=== PATIENT | male | born 1940 | race Caucasian/White ===

== ENCOUNTER 2017-05-08 11:02 | Inpatient (IN) ==
[~2017-05-08 11:02] MED LIST: DIAZEPAM 5 MG TABLET PO ONE; SODIUM CHLORIDE 0.45% 1,000 ML IV SCH; diphenhydrAMINE CAP 25 MG CAPSULE PO ONE
[2017-05-08 12:20] LABS: Eosinophils # 0.1 10*3/uL (0.0-0.87); Eosinophils % 1.1 % (0.00-10.9); Hematocrit 30.6 VOL% (42.0-52.0); Hemoglobin 10.4 GM/DL (14.0-18.0); Immature Granulocytes % 0.2 %; Immature Granulocytes Absolute 0.01 #; Lymphocytes # 0.8 10*3/uL (1.4-4.0); Lymphocytes % 18.1 % (21.2-54.2); Mean Corpuscular Hemoglobin 31 PG (27-34); Mean Corpuscular Volume 92.2 FL (87-102); Monocytes # 0.7 10*3/uL (0.11-0.8); Monocytes % 14.9 % (1.7-12.7); Neutrophils # 2.9 10*3/uL (1.4-7.4); Neutrophils % 65.7 % (38.7-73.9); Platelet Count 196 T/CUMM (130-400); Red Blood Count 3.32 MC/CUMM (3.8-5.5); Red Cell Distribution Width 13.4 % (9.3-17.3); White Blood Count 4.4 T/CUMM (4-12)
[2017-05-08] MEDS ORDERED: diphenhydrAMINE CAP 25 MG CAPSULE ONE (12:20)
[2017-05-08] MEDS ORDERED: DIAZEPAM 5 MG TABLET ONE (12:20)
[2017-05-08] MEDS ORDERED: ASPIRIN 325 MG TABLET ONE (12:21)
[2017-05-08] MEDS ORDERED: ASPIRIN 325 MG TABLET PO ONE (12:32)
--- NOTE | 2017-05-08 12:46 | History and Physical Update ---
Sedation H&P Update - History and Physical H&P was reviewed, the patient examined and there: are no changes in the patients condition since last H&P was completed. - Dictation Physical: refer to scanned H&P - Physical Exam Mental Status: alert and oriented Heart: regular rate and rhythm Lung: clear to auscultation Abdomen: within normal limits Vitals: within normal limits - Sedation Plan for Sedation: moderate Patient Consent: Procedure disscussed with patient and patinet has consented., Risks and benefits were discussed with patient,including infection,, bleeding, injury to surrounding structures, seizure, temporary nerve, Patient understands and accepts potential risks/benefits and agrees to, proceed. ASA Class: III Airway Assessment: Class III: Soft palate, base of uvula visible
[2017-05-08] MEDS ORDERED: VERAPAMIL 5 MG/2 ML VIAL ONE (12:48)
[2017-05-08] MEDS ORDERED: LIDOCAINE 1% 20 ML VIAL ONE (12:48)
[2017-05-08] MEDS ORDERED: NITROGLYCERIN DRIP 50 MG/250 ML BOTTLE IV ONE (12:48)
[2017-05-08] MEDS ORDERED: HEPARIN/NACL 0.9% 2 UNITS/ML 1,000 ML IV ONE (12:48)
[2017-05-08 12:52] LABS: Calcium 9.3 MG/DL (8.5-10.1); Osmolality,Calculated 278.5 MOS/KG (273-304); Potassium 4.3 MMOL/L (3.5-5.1)
[2017-05-08] MEDS ORDERED: MIDAZOLAM 2 MG/2 ML VIAL ONE (12:53)
[2017-05-08] MEDS ORDERED: fentaNYL 100 MCG/2 ML VIAL ONE (12:53)
[2017-05-08] MEDS ORDERED: ENOXAPARIN 60 MG/0.6 ML SYRINGE ONE (13:05)
[2017-05-08] MEDS ORDERED: ACETAMINOPHEN 325 MG TABLET PO PRN (13:37)
[2017-05-08] MEDS ORDERED: DOCUSATE SODIUM 100 MG CAPSULE PO PRN (13:38)
[2017-05-08] MEDS ORDERED: NITROGLYCERIN SL 0.4 MG TABLET SL PRN (13:38)
--- NOTE | 2017-05-08 13:40 | EKG Report ---
Stationary ECG Study [facility] Test Date: 05/08/2017 12:22:39 PM Pat Name: GAL NUGENT Department: Room: C007 Gender: M Loan Documentation Specialist: : [id number] Requested by: Niru Glaser Order Number: [id number] Reading MD: DYLAN ZAVALETA Intervals [place] Rate: 61 P: 33 PA: 194 QRS: -29 QRSD: 164 T: 34 QT: 439 QTc: 441 Interpretive Statements SINUS RHYTHM WITH SINUS ARHYTHMIA AND A PREMATURE VENTRICULAR COMPLEX MILD LEFT AXIS DEVIATION RIGHT BUNDLE BRANCH BLOCK POSSIBLE LEFT VENTRICULAR HYPERTROPHY T WAVE ABNORMALITY, POSSIBLE ANTERIOR ISCHEMIA Electronically Signed On 05-12-17 06:35:11 CDT by DYLAN ZAVALETA [email or web address]
--- NOTE | 2017-05-08 16:43 | XRay Report ---
Portable chest Exam date: 05/08/2017 12:04 PM Indication: Shortness of breath, cough Comparison: Not available Findings: Cardiomediastinal contours are within normal limits for portable technique. Chemo-Port in satisfactory position from left subclavian approach. Lungs are clear bilaterally. No acute osseous abnormalities. Visualized upper abdomen demonstrates no acute pathology. Impression: No acute cardiopulmonary findings PROCEDURE INTERPRETED AT [facility] DEPARTMENT OF RADIOLOGY Final Report Signed by: César Hardy
[2017-05-08] MEDS: CARVEDILOL 3.125 MG TABLET PO SCH (20:37)
[2017-05-08] MEDS: ATORVASTATIN 40 MG TABLET PO SCH (20:37)
[2017-05-09 05:11] LABS: Basophils % 0.2 % (0.0-0.8); Eosinophils # 0.1 10*3/uL (0.0-0.87); Eosinophils % 1.3 % (0.00-10.9); Hematocrit 28.3 VOL% (42.0-52.0); Hemoglobin 9.5 GM/DL (14.0-18.0); Immature Granulocytes % 0.4 %; Immature Granulocytes Absolute 0.02 #; Lymphocytes # 0.8 10*3/uL (1.4-4.0); Lymphocytes % 16.4 % (21.2-54.2); Mean Corpuscular HGB Conc 33.6 GM/DL (32-36); Mean Corpuscular Hemoglobin 31 PG (27-34); Mean Corpuscular Volume 93.4 FL (87-102); Mean Platelet Volume 10.4 FL (9.6-12.0); Monocytes # 0.7 10*3/uL (0.11-0.8); Monocytes % 13.8 % (1.7-12.7); Neutrophils # 3.2 10*3/uL (1.4-7.4); Neutrophils % 67.9 % (38.7-73.9); Platelet Count 192 T/CUMM (130-400); Red Blood Count 3.03 MC/CUMM (3.8-5.5); Red Cell Distribution Width 13.7 % (9.3-17.3); White Blood Count 4.8 T/CUMM (4-12)
[2017-05-09 06:00] LABS: Calcium 9.2 MG/DL (8.5-10.1); Osmolality,Calculated 277.7 MOS/KG (273-304); Potassium 4.2 MMOL/L (3.5-5.1); Risk Ratio 5.29
[2017-05-09] MEDS ORDERED: DEXTROSE 50% 25 GM/50 ML SYRINGE IV PRN (08:54)
[2017-05-09] MEDS ORDERED: GLUCAGON 1 MG VIAL IM PRN (08:54)
[2017-05-09] MEDS ORDERED: CEFUROXIME INJ 1,500 MG in SODIUM CHLORIDE 0.9% 100 ML IV ONE (08:54)
--- NOTE | 2017-05-09 08:54 | Cardiothoracic Progress Note ---
Cardiothoracic Subjective Interval history: Mr. Vera is a 76-year-old man with known multiple myeloma who is currently on a chemotherapy regimen. His myeloma appears to be under good control but the patient also has complaints of chest discomfort and shortness of breath. He underwent cardiac catheterization yesterday which demonstrated severe diffuse coronary disease with a 99% occlusion of the proximal LAD. I think he clearly needs bypass surgery both to the LAD and hopefully to the right posterior descending and circumflex marginal coronary arteries. I discussed this at length with him and he is willing to proceed and I have scheduled surgery for Monday. Exam (Progress Note) - Constitutional Vitals: Period Temp Pulse Resp BP Sys/Weaver Pulse Ox Last 24 Hr 97.4 F-98.4 F 55-71 16-20 127-177/63-81 94-98 Result/EKG - Labs CBC & BMP: 05/09/17 03:58 05/09/17 03:58 Labs: Laboratory Results - last 24 hr 05/08/17 05/08/17 05/09/17 12:01 12:01 03:58 WBC 4.4 4.8 RBC 3.32 L 3.03 L Hgb 10.4 L 9.5 L Hct 30.6 L 28.3 L MCV 92.2 93.4 MCH 31 31 MCHC 34.0 33.6 RDW 13.4 13.7 Plt Count 196 192 MPV 10.0 10.4 Neut % (Auto) 65.7 67.9 Lymph % (Auto) 18.1 L 16.4 L [place] % (Auto) 14.9 H 13.8 H Eos % (Auto) 1.1 1.3 Baso % (Auto) 0.0 0.2 Neut # (Auto) 2.9 3.2 Lymph # (Auto) 0.8 L 0.8 L [place] # (Auto) 0.7 0.7 Eos # (Auto) 0.1 0.1 Baso # (Auto) 0.0 0.0 Immature Gran % 0.2 0.4 Nucleated RBC % 0.0 0.0 Immature Gran # 0.01 0.02 Nucleated RBCs # 0.00 0.00 Immature Plt Fraction 0.0 0.0 Sodium 139 Potassium 4.3 Chloride 104 Carbon Dioxide 29 Anion Gap 10.3 BUN 13 Creatinine 0.90 GFR Calculation 107 BUN/Creatinine Ratio 14.00 Glucose 134 H Calculated Osmolality 278.5 Calcium 9.3 Triglycerides Cholesterol LDL Cholesterol VLDL Cholesterol HDL Cholesterol Heart Disease Risk Ratio 05/09/17 03:58 WBC RBC Hgb Hct MCV MCH MCHC RDW Plt Count MPV Neut % (Auto) Lymph % (Auto) [place] % (Auto) Eos % (Auto) Baso % (Auto) Neut # (Auto) Lymph # (Auto) [place] # (Auto) Eos # (Auto) Baso # (Auto) Immature Gran % Nucleated RBC % Immature Gran # Nucleated RBCs # Immature Plt Fraction Sodium 138 Potassium 4.2 Chloride 103 Carbon Dioxide 28 Anion Gap 11.2 BUN 14 Creatinine 1.00 GFR Calculation 93 BUN/Creatinine Ratio 14.00 Glucose 136 H Calculated Osmolality 277.7 Calcium 9.2 Triglycerides 110 Cholesterol 238 H LDL Cholesterol 159.0 VLDL Cholesterol 22.0 HDL Cholesterol 45 Heart Disease Risk Ratio 5.29 Quality Measures - VTE Contraindication to Pharmacological VTE Prophylaxis: Already on Theraputic Agent , No Prophylaxis Needed
[2017-05-09] MEDS ORDERED: SODIUM CHLORIDE 0.9% 1,000 ML IV SCH (09:00)
[2017-05-09] MEDS: SERTRALINE 100 MG TABLET PO SCH (09:32)
[2017-05-09] MEDS: PANTOPRAZOLE 40 MG TABLET PO SCH (09:32)
[2017-05-09] MEDS: CALCIUM (CARBONATE) 600 MG TABLET PO SCH (09:32)
[2017-05-09] MEDS: CARVEDILOL 3.125 MG TABLET PO SCH ×2 (09:32→20:32)
[2017-05-09] MEDS: ASPIRIN EC 81 MG TABLET PO SCH (09:32)
[2017-05-09] MEDS: CHLORHEXIDINE 0.12% ORAL RINSE 60 ML BOTTLE SWISH/SPIT SCH ×2 (10:06→20:33)
--- NOTE | 2017-05-09 10:09 | Order Completion Report ---
See report scanned to EMR
[2017-05-09 10:31] LABS: ABG Base Excess 1.2 MMOL/L (-2.5-2.5); ABG HCO3 25.4 MMOL/L (20-26); ABG Oxygen Saturation 92.9 % (95-100); ABG PCO2 45.8 MM HG (35-48); ABG PH 7.374 (7.35-7.45); ABG PO2 69.3 MM HG (80-95); ABG TCO2 24.3 MMOL/L (23-27); Allen Test Positive; Pt O2 Delivery Device Room Air
--- NOTE | 2017-05-09 10:34 | XRay Report ---
Exam: XR chest 2V Date: 05/09/2017 8:58 AM Indication: Coronary artery disease Comparison: 05/08/2017 Technical: PA lateral Findings: A left-sided port catheter is present. Mild cardiomegaly is present. Underlying mild hyperinflation. Degenerative change present thoracic spine with mild compression deformities in the lower thoracic spine at 2 levels. Mediastinum is intact. No pneumothorax. Impression: 1. Cardiomegaly and stable position port catheter 2. Compression deformity lower thoracic spine at 2 levels 3. Underlying component of COPD with hyperinflation PROCEDURE INTERPRETED AT [facility] DEPARTMENT OF RADIOLOGY Final Report Signed by: Dr. Patrice Buitrago
--- NOTE | 2017-05-09 13:16 | Cardiology Progress Note ---
<Darlene Virk - Last Filed: 05/09/17 13:21> Assessment and Plan (1) 3-vessel CAD Status: Acute Assessment and plan: SEE PLAN OF CARE LISTED BELOW. Current Visit: Yes (2) Multiple myeloma Status: Acute Assessment and plan: SEE PLAN OF CARE LISTED BELOW. Current Visit: Yes (3) Dyslipidemia Status: Acute Assessment and plan: SEE PLAN OF CARE LISTED BELOW. Current Visit: Yes (4) Hypertension Status: Chronic Assessment and plan: SEE PLAN OF CARE LISTED BELOW. Current Visit: Yes (5) Former smoker Status: Chronic Assessment and plan: SEE PLAN OF CARE LISTED BELOW. Current Visit: No (6) Hyperglycemia Status: Acute Assessment and plan: SEE PLAN OF CARE LISTED BELOW. Current Visit: Yes Cardiology - PN: Subj Interval history: RN DIABETES EDUCATOR: Dr. Niru Glaser SUMMARY Patient was admitted to [facility] for elective heart catheterization May 08, 2017. Past medical history includes: Ischemic cardiomyopathy (most recent EF 39%), multiple myeloma (currently receiving chemotherapy, Dr. Calixto), GERD and former smoker. He had abnormal stress test in the cardiology clinic and was scheduled for heart catheterization. This was performed per Dr. Glaser 05/08/17 via right radial approach which revealed severe three-vessel coronary artery disease. Subsequently, Dr. Hernandez was consulted to evaluate for possible CABG. Please see full catheter report. Dr. Glaser discussed with Dr. Calixto, patient's primary surveyor chain helper regarding the status of his multiple myeloma. It is felt that the best approach is to place his chemotherapy on hold and proceed with CABG. Patient was seen in consultation per Dr. Hernandez earlier today and he plans to proceed with CABG tomorrow morning. 2016 Patient was seen and examined on the telemetry unit. He is doing well post catheterization without complications. Right radial cath site is stable without bleeding and hematoma. Right radial pulse 2+. Patient is without complaints of chest pain, heaviness or tightness. Denies shortness of breath or dyspnea on exertion today. Patient was seen in consultation by Dr. Hernandez today and plans to proceed with CABG tomorrow morning. Patient is agreeable to to proceed with this. He will be kept n.p.o. after midnight. Patient is hemodynamically stable. Labs reviewed. He is mildly anemic. We will monitor this daily. No signs of overt bleeding. Lipid panel reviewed. LDL 159. High intensity statin was initiated per Dr. Glaser. Creatinine stable post catheterization. Blood pressure is suboptimally controlled at times. I will add KAMILA inhibitor as this will also help with patient's ischemic cardiomyopathy. I will further discuss with Dr. Uribe and await his additional recommendations. IMPRESSION AND PLAN 1. THREE-VESSEL CAD - Heart catheterization yesterday revealed three-vessel disease. Patient scheduled for CABG tomorrow per Dr. Hernandez. Patient will be n.p.o. after midnight tonight. Continue aspirin, beta-blockade, will lisinopril and nitrates. Patient has been chest pain-free. 2. HYPERTENSION - KAMILA inhibitor added today. Continue beta blockade. Will monitor blood pressure and adjust accordingly. 3. ISCHEMIC CARDIOMYOPATHY - EF calculated to be 39% per recent stress test. Without overt heart failure. Continue KAMILA inhibitor and beta blockade. Scheduled for revascularization tomorrow. 4. DYSLIPIDEMIA - I have reviewed patient's lipid panel. LDL 159. High intensity statin initiated. Patient will need repeat lipid panel in 4-6 weeks in the cardiology clinic. 5. HYPERGLYCEMIA - Will check hemoglobin A1c. 6. MULTIPLE MYELOMA - Patient is currently taking chemotherapy. Dr. Glaser discussed with Dr. Calixto yesterday regarding patient's status of his multiple myeloma. It is felt that the best approach is to place his chemotherapy on hold and to proceed with CABG tomorrow. Exam (Progress Note) - Constitutional Vitals: Period Temp Pulse Resp BP Sys/Weaver Pulse Ox Last 24 Hr 97.4 F-98.4 F 55-71 16-20 127-177/63-81 94-98 Exam: General: Appears well with no apparent distress. Pleasant and cooperative. Appears comfortable. HEENT: PERRL, normocephalic, atraumatic. Mucous membranes moist. No jaundice noted. Conjunctiva moist and clear, sclerae anicteric Neck: No JVD/HJR, no thyromegaly or lymphadenopathy noted. No carotid bruit appreciated Cardiac: Regular rate and rhythm. No murmur rub or gallop. Lungs: Clear to auscultation without accessory muscle use to assist the respiratory pattern. Not requiring oxygen. Abdomen: Soft, bowel sounds normoactive. Nontender and nondistended. No abdominal bruit or thrill noted. No masses noted. Extremities: No clubbing, cyanosis noted. No edema noted. Upper extremity pulses 2+. Lower extremity pulses 2+. Capillary refill less than 3 seconds. Right radial cath site soft without bleeding or hematoma. Right radial pulse 2+ . Skin: No unusual lesions or rashes. No skin breakdown appreciated. Neuro: Awake, alert and oriented 3. Moves all extremities well without hemiparesis or paralysis. No essential tremor is appreciated. Result/EKG - Labs CBC & BMP: 05/09/17 03:58 05/09/17 03:58 Lab Results: I have reviewed the past 24 hour labs Labs: Laboratory Results - last 24 hr 05/09/17 05/09/17 05/09/17 03:58 03:58 03:58 WBC 4.8 RBC 3.03 L Hgb 9.5 L Hct 28.3 L MCV 93.4 MCH 31 MCHC 33.6 RDW 13.7 Plt Count 192 MPV 10.4 Neut % (Auto) 67.9 Lymph % (Auto) 16.4 L [place] % (Auto) 13.8 H Eos % (Auto) 1.3 Baso % (Auto) 0.2 Neut # (Auto) 3.2 Lymph # (Auto) 0.8 L [place] # (Auto) 0.7 Eos # (Auto) 0.1 Baso # (Auto) 0.0 Immature Gran % 0.4 Nucleated RBC % 0.0 Immature Gran # 0.02 Nucleated RBCs # 0.00 Immature Plt Fraction 0.0 ABG pH ABG pCO2 ABG pO2 ABG HCO3 ABG Total CO2 ABG O2 Saturation ABG Base Excess FiO2 Sodium 138 Potassium 4.2 Chloride 103 Carbon Dioxide 28 Anion Gap 11.2 BUN 14 Creatinine 1.00 GFR Calculation 93 BUN/Creatinine Ratio 14.00 Glucose 136 H Calculated Osmolality 277.7 Calcium 9.2 Triglycerides 110 Cholesterol 238 H LDL Cholesterol 159.0 VLDL Cholesterol 22.0 HDL Cholesterol 45 Heart Disease Risk Ratio 5.29 Blood Type O NEGATIVE Antibody Screen Negative 05/09/17 05/09/17 10:00 Unknown WBC RBC Hgb Hct MCV MCH MCHC RDW Plt Count MPV Neut % (Auto) Lymph % (Auto) [place] % (Auto) Eos % (Auto) Baso % (Auto) Neut # (Auto) Lymph # (Auto) [place] # (Auto) Eos # (Auto) Baso # (Auto) Immature Gran % Nucleated RBC % Immature Gran # Nucleated RBCs # Immature Plt Fraction ABG pH 7.374 ABG pCO2 45.8 ABG pO2 69.3 L ABG HCO3 25.4 ABG Total CO2 24.3 ABG O2 Saturation 92.9 L ABG Base Excess 1.2 FiO2 21.00 Sodium Potassium Chloride Carbon Dioxide Anion Gap BUN Creatinine GFR Calculation BUN/Creatinine Ratio Glucose Calculated Osmolality Calcium Triglycerides Cholesterol LDL Cholesterol VLDL Cholesterol HDL Cholesterol Heart Disease Risk Ratio Blood Type O NEGATIVE Antibody Screen Quality Measures - VTE Contraindication to Pharmacological VTE Prophylaxis: Already on Theraputic Agent , No Prophylaxis Needed <RonyGeorge Araya - Last Filed: 05/09/17 20:23> Cardiology - PN: Subj Interval history: Patient personally reviewed and examined and chart reviewed. I discussed this case with Darlene Virk NP. I agree with the assessment and evaluation and plans. The patient is for bypass surgery more be carried out by Dr. Hernandez. The patient does have ischemic cardiomyopathy as well as dyslipidemia. We will need to follow with the patient post procedure and care at risk factor modification for coronary disease. I discussed his present status with him and his . Also answer any questions they had wished they really had none. Exam (Progress Note) - Constitutional Vitals: Period Temp Pulse Resp BP Sys/Weaver Pulse Ox Last 24 Hr 97.6 F-98.6 F 56-71 16-20 133-168/66-90 96-98 Result/EKG - Labs CBC & BMP: 05/09/17 03:58 05/09/17 03:58 Labs: Laboratory Results - last 24 hr 05/09/17 05/09/17 05/09/17 03:58 03:58 03:58 WBC 4.8 RBC 3.03 L Hgb 9.5 L Hct 28.3 L MCV 93.4 MCH 31 MCHC 33.6 RDW 13.7 Plt Count 192 MPV 10.4 Neut % (Auto) 67.9 Lymph % (Auto) 16.4 L [place] % (Auto) 13.8 H Eos % (Auto) 1.3 Baso % (Auto) 0.2 Neut # (Auto) 3.2 Lymph # (Auto) 0.8 L [place] # (Auto) 0.7 Eos # (Auto) 0.1 Baso # (Auto) 0.0 Immature Gran % 0.4 Nucleated RBC % 0.0 Immature Gran # 0.02 Nucleated RBCs # 0.00 Immature Plt Fraction 0.0 ABG pH ABG pCO2 ABG pO2 ABG HCO3 ABG Total CO2 ABG O2 Saturation ABG Base Excess FiO2 Sodium 138 Potassium 4.2 Chloride 103 Carbon Dioxide 28 Anion Gap 11.2 BUN 14 Creatinine 1.00 GFR Calculation 93 BUN/Creatinine Ratio 14.00 Glucose 136 H Hemoglobin A1c Calculated Osmolality 277.7 Calcium 9.2 Triglycerides 110 Cholesterol 238 H LDL Cholesterol 159.0 VLDL Cholesterol 22.0 HDL Cholesterol 45 Heart Disease Risk Ratio 5.29 Blood Type O NEGATIVE Antibody Screen Negative 05/09/17 05/09/17 05/09/17 10:00 13:52 Unknown WBC RBC Hgb Hct MCV MCH MCHC RDW Plt Count MPV Neut % (Auto) Lymph % (Auto) [place] % (Auto) Eos % (Auto) Baso % (Auto) Neut # (Auto) Lymph # (Auto) [place] # (Auto) Eos # (Auto) Baso # (Auto) Immature Gran % Nucleated RBC % Immature Gran # Nucleated RBCs # Immature Plt Fraction ABG pH 7.374 ABG pCO2 45.8 ABG pO2 69.3 L ABG HCO3 25.4 ABG Total CO2 24.3 ABG O2 Saturation 92.9 L ABG Base Excess 1.2 FiO2 21.00 Sodium Potassium Chloride Carbon Dioxide Anion Gap BUN Creatinine GFR Calculation BUN/Creatinine Ratio Glucose Hemoglobin A1c 8.3 H Calculated Osmolality Calcium Triglycerides Cholesterol LDL Cholesterol VLDL Cholesterol HDL Cholesterol Heart Disease Risk Ratio Blood Type O NEGATIVE Antibody Screen
[2017-05-09] MEDS: LISINOPRIL 5 MG TABLET PO SCH (14:29)
[2017-05-09] MEDS: CHLORHEXIDINE 4% SOLN 118 ML BOTTLE TOP SCH ×2 (17:54→22:23)
[2017-05-09] MEDS: ATORVASTATIN 40 MG TABLET PO SCH (20:32)
[2017-05-10] MEDS ORDERED: PAPAVERINE 60 MG/2 ML VIAL ONE (04:47)
[2017-05-10] MEDS ORDERED: VANCOMYCIN 1,000 MG VIAL ONE (04:48)
[2017-05-10] MEDS ORDERED: FAMOTIDINE 20 MG TABLET PO ONE (05:30)
[2017-05-10] MEDS ORDERED: LORazepam 1 MG TABLET PO ONE (05:30)
[2017-05-10] MEDS: CARVEDILOL 3.125 MG TABLET PO SCH ×2 (05:43→18:44)
[2017-05-10] MEDS: CHLORHEXIDINE 4% SOLN 118 ML BOTTLE TOP SCH ×2 (05:44→06:30)
[2017-05-10 05:54] LABS: Basophils % 0.2 % (0.0-0.8); Eosinophils # 0.1 10*3/uL (0.0-0.87); Eosinophils % 1.9 % (0.00-10.9); Hematocrit 28.8 VOL% (42.0-52.0); Hemoglobin 9.9 GM/DL (14.0-18.0); Immature Granulocytes % 0.4 %; Immature Granulocytes Absolute 0.02 #; Lymphocytes # 0.9 10*3/uL (1.4-4.0); Lymphocytes % 17.8 % (21.2-54.2); Mean Corpuscular HGB Conc 34.4 GM/DL (32-36); Mean Corpuscular Hemoglobin 32 PG (27-34); Mean Platelet Volume 10.2 FL (9.6-12.0); Monocytes # 0.6 10*3/uL (0.11-0.8); Monocytes % 12.1 % (1.7-12.7); Neutrophils # 3.2 10*3/uL (1.4-7.4); Neutrophils % 67.6 % (38.7-73.9); Platelet Count 192 T/CUMM (130-400); Red Blood Count 3.13 MC/CUMM (3.8-5.5); Red Cell Distribution Width 13.7 % (9.3-17.3); White Blood Count 4.8 T/CUMM (4-12)
[2017-05-10] MEDS ORDERED: CEFUROXIME INJ 1,500 MG in SODIUM CHLORIDE 0.9% 100 ML IV ONE (06:00)
[2017-05-10 06:20] LABS: PT Patient Result 10.7 SECS
[2017-05-10] MEDS ORDERED: CEFUROXIME 1,500 MG VIAL ONE (06:20)
[2017-05-10 06:22] LABS: Calcium 8.9 MG/DL (8.5-10.1); Magnesium 2.1 MG/DL (1.8-2.4); Osmolality,Calculated 280.5 MOS/KG (273-304); Potassium 4.4 MMOL/L (3.5-5.1)
[2017-05-10] MEDS ORDERED: PHENYLEPHRINE 1 MG/10 ML SYRINGE IV ONE (06:45)
[2017-05-10] MEDS ORDERED: CALCIUM CHLORIDE 1,000 MG/10 ML VIAL IV ONE (06:45)
[2017-05-10] MEDS ORDERED: LIDOCAINE 2% 5 ML VIAL ONE (06:45)
[2017-05-10] MEDS ORDERED: ROCURONIUM 100 MG/10 ML VIAL IV ONE (06:45)
[2017-05-10] MEDS ORDERED: ETOMIDATE 20 MG/10 ML VIAL IV ONE (06:45)
[2017-05-10] MEDS ORDERED: AMINOPHYLLINE 500 MG/20 ML VIAL IV ONE (06:45)
[2017-05-10] MEDS ORDERED: NITROPRUSSIDE 50 MG/2 ML VIAL ONE (07:24)
[2017-05-10] MEDS ORDERED: PHENYLEPHRINE DRIP 40 MG/250 ML PREMIX IV ONE (07:24)
[2017-05-10] MEDS ORDERED: POTASSIUM CHLORIDE RIDER 100 ML IV ONE (07:25)
[2017-05-10] MEDS ORDERED: CALCIUM CHLORIDE 1,000 MG/10 ML SYRINGE IV ONE (07:25)
[2017-05-10 07:46] LABS: ABG Base Excess 2.3 MMOL/L (-2.5-2.5); ABG HCO3 26.5 MMOL/L (20-26); ABG Oxygen Saturation 99.2 % (95-100); ABG PCO2 39.5 MM HG (35-48); ABG PH 7.444 (7.35-7.45); ABG PO2 298.2 MM HG (80-95); ABG TCO2 27.7 MMOL/L (23-27); Glucose Heart Surgery 151 MG/DL (74-106); Hemoglobin Heart Surgery 9.9 G/DL (14.0-18.0); Ionized Calcium Arterial 1.11 MMOL/L (1.21-1.46); PCO2 Patient Temp Arterial 39.5 MMHG; PH Patient Temp Arterial 7.444; PO2 Patient Temp Arterial 298.2 MM HG; Patient Temperature 37 CELCIUS; Potassium Heart/CVR 3.9 MMOL/L (3.5-5.1); Sodium Heart/CVR 137 MMOL/L (135-145)
[2017-05-10 07:50] LABS: Apearance,Urine CLEAR (Clear); Bilirubin,Urine Negative (Negative); Blood, Urine Negative (Negative); Glucose,Urine (UA) Negative (Negative); Ketones,Urine Negative (Negative); Mucus,Urine Occasional /LPF (Occasional); Nitrite,Urine Negative (Negative); Protein,Urine Negative; RBC,Urine 1 /HPF (0-4); Squamous Epithelial Cell,Urine Occasional /HPF (0-10); Urine Color Yellow (Yellow); Urine Specific Gravity 1.015 (1.001-1.035); WBC,Urine 1 /HPF (0-6)
[2017-05-10] MEDS ORDERED: INSULIN REGULAR DRIP 100 ML IV ONE (08:20)
[2017-05-10] MEDS ORDERED: CYANOCOBALAMIN 500 MCG TABLET PO SCH (09:00)
[2017-05-10 09:15] LABS: Hematocrit Heart Surgery 31.9 PERCENT (42-52); Hemoglobin Heart Surgery 10.3 G/DL (14.0-18.0); PCO2 Patient Temp Venous 42.7 MM HG; PH Patient Temp Venous 7.38; PO2 Patient Temp Venous 43.6 MM HG; Potassium Heart/CVR 4.8 MMOL/L (3.5-5.1); VBG Base Excess 0.1 MEQ/L (0-4); VBG HCO3 24.3 MEQ/L (24-28); VBG PCO2 47.1 MMHG (41-51); VBG PH 7.351
[2017-05-10 09:35] LABS: Hematocrit Heart Surgery 35.6 PERCENT (42-52); Hemoglobin Heart Surgery 11.6 G/DL (14.0-18.0); PCO2 Patient Temp Venous 36.1 MM HG; PH Patient Temp Venous 7.445; PO2 Patient Temp Venous 39.5 MM HG; Potassium Heart/CVR 5.2 MMOL/L (3.5-5.1); VBG HCO3 24.9 MEQ/L (24-28); VBG Oxygen Saturation 78.5 %; VBG PCO2 37.9 MMHG (41-51); VBG PH 7.43; VBG PO2 42.4 MMHG (17-40)
[2017-05-10 10:14] LABS: ABG Base Excess -0.4 MMOL/L (-2.5-2.5); ABG HCO3 24.1 MMOL/L (20-26); ABG Oxygen Saturation 99.5 % (95-100); ABG PCO2 41.1 MM HG (35-48); ABG PH 7.385 (7.35-7.45); ABG TCO2 22.3 MMOL/L (23-27); Glucose Heart Surgery 253 MG/DL (74-106); Hematocrit Heart Surgery 32.5 PERCENT (42-52); Hemoglobin Heart Surgery 10.5 G/DL (14.0-18.0); Ionized Calcium Arterial 1.09 MMOL/L (1.21-1.46); PCO2 Patient Temp Arterial 41.1 MMHG; PH Patient Temp Arterial 7.385; Patient Temperature 37 CELCIUS; Sodium Heart/CVR 132 MMOL/L (135-145)
[2017-05-10] MEDS ORDERED: THROMBIN TOPICAL (RECOMBINANT) 5,000 UNIT VIAL TOP ONE (10:28)
[2017-05-10] MEDS ORDERED: PROTAMINE SULFATE 250 MG/25 ML VIAL IV ONE (10:33)
[2017-05-10] MEDS ORDERED: ALBUMIN 25% 25 GM/100 ML VIAL IV ONE (10:33)
[2017-05-10] MEDS ORDERED: SODIUM BICARBONATE 50 MEQ/50 ML SYRINGE IV ONE (10:33)
[2017-05-10] MEDS ORDERED: MANNITOL 100 GM/500 ML BAG IV ONE (10:33)
[2017-05-10] MEDS ORDERED: MAGNESIUM SULFATE 1 GM/2 ML VIAL ONE (10:33)
[2017-05-10] MEDS ORDERED: DEXTROSE 5% KCL 20 MEQ 20 MEQ/1,000 ML BAG IV ONE (10:33)
[2017-05-10] MEDS ORDERED: HEPARIN 10,000 UNIT/10 ML VIAL ONE (10:33)
[2017-05-10] MEDS ORDERED: FUROSEMIDE 20 MG/2 ML VIAL ONE (10:34)
[2017-05-10] MEDS ORDERED: methylPREDNISolone SOD SUC 1,000 MG/8 ML VIAL ONE (10:34)
[2017-05-10] MEDS ORDERED: PROTAMINE SULFATE 50 MG/5 ML VIAL IV ONE ×3 (10:34→11:20)
--- NOTE | 2017-05-10 11:13 | Operative Note ---
Date of procedure: 05/10/17 Pre-op diagnosis: Coronary artery disease Post-op diagnosis: same Procedure: Procedure: Coronary bypass grafting 2 with a left internal mammary graft to the anterior descending coronary artery saphenous vein graft to the right posterior descending coronary artery. Findings: Patient is a 76-year-old man who presented with substernal chest discomfort and cardiac catheterization demonstrating critical three-vessel coronary disease. The time of surgery left ventricular function was noted to be normal and a left internal mammary graft was placed to the anterior descending coronary artery. Intermediate coronary artery with adequate access it appeared to be too small to accept a bypass graft. Saphenous vein graft was placed to a large posterior descending coronary artery. Patient tolerated procedure well and was returned to recovery in satisfactory condition. Procedure: Patient brought to the operating room placed on the operating table in the supine position. After satisfactory induction of general anesthesia the chest abdomen and legs were prepped and draped in sterile fashion. Greater saphenous vein was harvested from the left lower leg and prepared as an arterial graft. Incision in the leg was closed with 3-0 subcutaneous Monocryl and skin berto. Standard sternotomy incision was made and the sternum was divided and the heart was suspended in a pericardial cradle. Left internal mammary artery was dissected free in comparison arterial graft. Patient was prepared for cardiopulmonary bypass with systemic heparinization cannulation of the ascending aorta and right atrium. Cardiac pulmonary bypass was begun and the aorta was crossclamped and the heart arrested with cardioplegia solution injected into the aortic root. Heart was protected during the period of crossclamping with topical saline slush. Distal anastomoses were constructed as noted above and then the aorta was unclamped reestablishing cardiac action. Proximal anastomosis was constructed between the influenza saphenous vein graft and the ascending aorta. Patient was then weaned from cardiopulmonary bypass without difficulty and the heparin effect was reversed with protamine and decannulation carried out with the defects in the ascending aorta and right atrium Closed with 3-0 Prolene. The operative field was inspected for hemostasis and this was considered adequate the incision was closed with interrupted stainless steel wire and the sternum 0 Monocryl in the presternal fascia and 3-0 subcuticular Monocryl. 2 chest tubes were left in the anterior mediastinum and brought out through separate stab incisions. Sterile dressings were applied and the patient was returned to recovery in satisfactory condition. Anesthesia: GETA Surgeon / Physician: Cleveland Hernandez Estimated blood loss: other (Unable to determine because of cardiopulmonary bypass.) Condition: stable Disposition: ICU Results - Labs CBC & BMP: 05/10/17 10:05 05/10/17 05:02 Discharge Plan - Discharge Medications No Action Calcium Carbonate 600 mg PO DAILY Cyanocobalamin (Vitamin B-12) [Vitamin B12] 5,000 mcg PO DAILY HYDROcodone/ACETAMIN 5-325 [[place] 5-325] 5 mg PO Q4HR PRN PRN Reason: Pain Sertraline [Zoloft] 100 mg PO BEDTIME Docusate Sodium Cap [Colace Cap] 100 mg PO BID PRN PRN Reason: Constipation Furosemide Tab [Lasix Tab] 20 mg PO DAILY Carvedilol [Coreg] 3.125 mg PO BID Nitroglycerin Sl Tab [Nitrostat] 0.4 mg SL Q5M PRN PRN Reason: Chest Pain Potassium Chloride 10 meq PO DAILY Aspirin [Ecotrin] 81 mg PO DAILY Prochlorperazine Tab [Compazine Tab] 10 mg PO BID PRN PRN Reason: Nausea - Follow Up or Referral - Forms/Instructions
[2017-05-10] MEDS ORDERED: SUFentanil 250 MCG/5 ML AMP ONE (11:15)
[2017-05-10] MEDS ORDERED: SEVOFLURANE 1 UNIT/15 MINUTE INH ONE (11:15)
[2017-05-10] MEDS ORDERED: ePHEDrine 50 MG/ML AMP ONE (11:16)
[2017-05-10] MEDS ORDERED: SODIUM CHLORIDE 0.9% 2,000 ML IV ONE (11:16)
[2017-05-10] MEDS ORDERED: SODIUM CHLORIDE 0.9% 500 ML IV ONE (11:16)
[2017-05-10] MEDS ORDERED: LACTATED RINGERS 1,000 ML IV ONE (11:16)
[2017-05-10] MEDS ORDERED: MIDAZOLAM 10 MG/2 ML VIAL ONE (11:16)
[2017-05-10] MEDS ORDERED: SODIUM CHLORIDE 0.45% 1,000 ML IV SCH ×2 (12:01)
[2017-05-10] MEDS ORDERED: MAGNESIUM SULF RIDER 4 GM in PREMIX 1 EACH IV PRN (12:01)
[2017-05-10] MEDS ORDERED: MORPHINE 10 MG/1 ML VIAL IV PRN (12:01)
[2017-05-10] MEDS ORDERED: ACETAMINOPHEN 650 MG SUPP RECTAL PRN (12:01)
[2017-05-10] MEDS ORDERED: MIDAZOLAM 10 MG/2 ML VIAL IV PRN (12:01)
[2017-05-10] MEDS ORDERED: INSULIN REGULAR 100 UNIT/ML IV PRN (12:01)
[2017-05-10] MEDS ORDERED: PHENYLEPHRINE DRIP 40 MG/250 ML PREMIX IV PRN (12:01)
[2017-05-10] MEDS ORDERED: MAGNESIUM SULF RIDER 2 GM in PREMIX 1 EACH IV PRN (12:01)
[2017-05-10] MEDS ORDERED: DEXTROSE 50% 25 GM/50 ML SYRINGE IV PRN ×2 (12:01)
[2017-05-10] MEDS ORDERED: VECURONIUM 10 MG VIAL IV PRN ×2 (12:01)
[2017-05-10] MEDS ORDERED: MORPHINE 2 MG/1 ML SYRINGE IV PRN (12:01)
[2017-05-10] MEDS ORDERED: CALCIUM CHLORIDE 1,000 MG/10 ML SYRINGE IV PRN (12:01)
[2017-05-10] MEDS ORDERED: INSULIN REGULAR DRIP 100 ML IV SCH (12:01)
[2017-05-10] MEDS ORDERED: NITROPRUSSIDE 100 MG in DEXTROSE 5% 250 ML IV PRN (12:01)
[2017-05-10] MEDS ORDERED: MIDAZOLAM 2 MG/2 ML VIAL IV PRN (12:01)
[2017-05-10] MEDS ORDERED: POTASSIUM CHLORIDE RIDER 10 MEQ in PREMIX 1 EACH IV PRN (12:01)
[2017-05-10] MEDS ORDERED: INSULIN REGULAR 100 UNIT/ML IV ONE (12:01)
[2017-05-10] MEDS ORDERED: ONDANSETRON 4 MG/2 ML VIAL IV PRN (12:01)
[2017-05-10] MEDS ORDERED: LACTATED RINGERS 250 ML IV PRN (12:01)
[2017-05-10 12:03] LABS: ABG Base Excess -1.3 MMOL/L (-2.5-2.5); ABG HCO3 23.2 MMOL/L (20-26); ABG Oxygen Saturation 93.2 % (95-100); ABG PCO2 37.1 MM HG (35-48); ABG PH 7.401 (7.35-7.45); ABG PO2 68.4 MM HG (80-95); ABG TCO2 20.6 MMOL/L (23-27); Glucose Heart Surgery 224 MG/DL (74-106); Hematocrit Heart Surgery 34.9 PERCENT (42-52); Hemoglobin Heart Surgery 11.3 G/DL (14.0-18.0); Potassium Heart/CVR 4.3 MMOL/L (3.5-5.1)
[2017-05-10 12:21] LABS: Albumin 2.9 G/DL (3.4-5.0); Calcium 9.1 MG/DL (8.5-10.1); Magnesium 2.2 MG/DL (1.8-2.4); Osmolality,Calculated 285.4 MOS/KG (273-304); Potassium 4.3 MMOL/L (3.5-5.1); Total Protein 5.2 G/DL (6.4-8.3)
[2017-05-10 12:23] LABS: Basophils % 0.1 % (0.0-0.8); CKMB % 6.3 %; Eosinophils # 0.1 10*3/uL (0.0-0.87); Hematocrit 32.1 VOL% (42.0-52.0); Hemoglobin 11.2 GM/DL (14.0-18.0); Immature Granulocytes % 1.1 %; Immature Granulocytes Absolute 0.11 #; Lymphocytes # 0.6 10*3/uL (1.4-4.0); Lymphocytes % 6.4 % (21.2-54.2); Mean Corpuscular HGB Conc 34.9 GM/DL (32-36); Mean Corpuscular Hemoglobin 32 PG (27-34); Mean Corpuscular Volume 90.9 FL (87-102); Mean Platelet Volume 10.3 FL (9.6-12.0); Monocytes # 0.5 10*3/uL (0.11-0.8); Monocytes % 5.2 % (1.7-12.7); Neutrophils # 8.6 10*3/uL (1.4-7.4); Neutrophils % 86.2 % (38.7-73.9); Platelet Count 148 T/CUMM (130-400); Red Blood Count 3.53 MC/CUMM (3.8-5.5); Red Cell Distribution Width 13.8 % (9.3-17.3)
[2017-05-10 12:29] LABS: INR 1.2; PT Patient Result 12.8 SECS; Troponin I Only 1.48 NG/ML (0.00-0.045)
[2017-05-10] MEDS: KETOROLAC 30 MG/1 ML VIAL IV SCH ×2 (12:40→18:05)
[2017-05-10 13:15] LABS: Hematocrit Heart Surgery 36.1 PERCENT (42-52); Hemoglobin Heart Surgery 11.7 G/DL (14.0-18.0); PCO2 Patient Temp Venous 45.1 MM HG; PH Patient Temp Venous 7.358; PO2 Patient Temp Venous 35.3 MM HG; VBG Base Excess -0.4 MEQ/L (0-4); VBG HCO3 23.4 MEQ/L (24-28); VBG Oxygen Saturation 61.9 %; VBG PCO2 45.1 MMHG (41-51); VBG PH 7.358; VBG PO2 35.3 MMHG (17-40)
[2017-05-10 13:17] LABS: ABG Base Excess -1.3 MMOL/L (-2.5-2.5); ABG HCO3 23.3 MMOL/L (20-26); ABG Oxygen Saturation 98.4 % (95-100); ABG PCO2 36.2 MM HG (35-48); ABG PH 7.408 (7.35-7.45); ABG TCO2 20.1 MMOL/L (23-27); Glucose Heart Surgery 206 MG/DL (74-106); Hematocrit Heart Surgery 38.4 PERCENT (42-52); Hemoglobin Heart Surgery 12.5 G/DL (14.0-18.0); Potassium Heart/CVR 3.9 MMOL/L (3.5-5.1)
[2017-05-10] MEDS: ALBUMIN 5% 12.5 GM in PREMIX 1 EACH IV PRN ×4 (13:20→16:30)
[2017-05-10 13:35] LABS: Hematocrit Heart Surgery 34.1 PERCENT (42-52); Hemoglobin Heart Surgery 11.1 G/DL (14.0-18.0); PH Patient Temp Venous 7.363; PO2 Patient Temp Venous 37.9 MM HG; Potassium Heart/CVR 3.8 MMOL/L (3.5-5.1); VBG Base Excess -1.5 MEQ/L (0-4); VBG HCO3 22.6 MEQ/L (24-28); VBG Oxygen Saturation 66.4 %; VBG PH 7.363; VBG PO2 37.9 MMHG (17-40)
--- NOTE | 2017-05-10 13:39 | XRay Report ---
History: Postop thoracotomy. Line placement Date: 05/10/2017 at 12:10 PM Study: Chest x-ray AP portable Comparison exam: 05/09/2017 There is mild cardiomegaly. The mediastinal contours are generally stable in this patient immediately postop median sternotomy. The endotracheal tube is well-positioned with its tip superior to the fritz. The nasogastric tube enters the stomach. Right subclavian Elvaston-Lali catheter overlies the distal main right pulmonary artery branch. The right IJ central line tip overlies the atriocaval junction level. A left subclavian Mediport catheter is positioned with its tip over the atriocaval junction level. Chest drainage tubes overlie the mediastinum. No pneumothorax is seen. There is mild strandy subsegmental atelectasis in the lung bases. There is no vivian pneumonia. There is no gross pleural effusion. Osseous structures are stable. Impression: Generally satisfactory positioning of the supporting tubes and lines. No pneumothorax. Bibasilar atelectasis PROCEDURE INTERPRETED AT [facility] DEPARTMENT OF RADIOLOGY Final Report Signed by: Dr. Mel Angeles
[2017-05-10] MEDS: POTASSIUM CHLORIDE RIDER 20 MEQ in PREMIX 1 EACH IV PRN ×3 (13:40→18:25)
--- NOTE | 2017-05-10 13:51 | Cardiology Progress Note ---
Cardiology - PN: Subj Interval history: Patient is now immediately post on bypass surgery having RANDLE graft to LAD, SVG to RCA/PDA. Patient's vein grafts taken of the left leg. Patient is doing well post procedure still remains intubated. His hemodynamics are stable his rhythm is sinus. Is having reasonably good urine output at this time. Saturations and output is good. Exam (Progress Note) - Constitutional Vitals: Period Temp Pulse Resp BP Sys/Weaver Pulse Ox Last 24 Hr 96.4 F-99.0 F 55-80 10-20 86-167/54-90 95-100 Exam: General: Patient remains intubated and sedated postoperatively. HEENT: Intubated. Lungs: Clear anteriorly. Cardiovascular: Regular rate and rhythm. Chest wall: Sternotomy bandages in place. Postop tubes are noted. Abdomen: Soft bowel sounds present Extremities: Left lower extremity bandage forearm graft or site. Upper and right lower extremity are warm. Neurologic: Patient is still sedate post surgery. Result/EKG - Labs CBC & BMP: 05/11/17 04:00 05/11/17 04:00 Lab Results: I have reviewed the past 24 hour labs Labs: Laboratory Results - last 24 hr 05/09/17 05/09/17 05/10/17 03:58 13:52 05:02 WBC 4.8 RBC 3.13 L Hgb 9.9 L Hct 28.8 L MCV 92.0 MCH 32 MCHC 34.4 RDW 13.7 Plt Count 192 MPV 10.2 Neut % (Auto) 67.6 Lymph % (Auto) 17.8 L [place] % (Auto) 12.1 Eos % (Auto) 1.9 Baso % (Auto) 0.2 Neut # (Auto) 3.2 Lymph # (Auto) 0.9 L [place] # (Auto) 0.6 Eos # (Auto) 0.1 Baso # (Auto) 0.0 Immature Gran % 0.4 Nucleated RBC % 0.0 Immature Gran # 0.02 Nucleated RBCs # 0.00 Immature Plt Fraction 0.0 INR PT Patient/Control Mix Circ Anticoag PTT Patient Temperature ABG pH ABG pH at Pt Temp ABG pCO2 ABG pCO2 at Pt Temp ABG pO2 ABG pO2 at Pt Temp ABG HCO3 ABG Total CO2 ABG O2 Saturation ABG Base Excess ABG Sodium VBG pH VBG pCO2 VBG pO2 VBG HCO3 VBG Total CO2 VBG O2 Saturation VBG Base Excess Hemoglobin Hematocrit Ionized Calcium FiO2 Sodium Potassium Chloride Carbon Dioxide Anion Gap BUN Creatinine GFR Calculation BUN/Creatinine Ratio Glucose POC Glucose Hemoglobin A1c 8.3 H Calculated Osmolality Calcium Venous Ioniz Calcium Magnesium Total Bilirubin AST ALT Alkaline Phosphatase Total Creatine Kinase CK-MB (CK-2) CK and CKMB Interp Troponin I Total Protein Albumin Globulin Albumin/Globulin Ratio Urine Color Urine Appearance Urine pH Ur Specific [place] Urine Protein Urine Glucose (UA) Urine Ketones Urine Blood Urine Nitrate Urine Bilirubin Urine Urobilinogen Urine Leukocytes Urine RBC Urine WBC Ur Squamous Epith Cells Urine Mucus Ur Culture Indicated? Blood Type O NEGATIVE Antibody Screen Negative Crossmatch See Detail 05/10/17 05/10/17 05/10/17 05:02 05:02 05:32 WBC RBC Hgb Hct MCV MCH MCHC RDW Plt Count MPV Neut % (Auto) Lymph % (Auto) [place] % (Auto) Eos % (Auto) Baso % (Auto) Neut # (Auto) Lymph # (Auto) [place] # (Auto) Eos # (Auto) Baso # (Auto) Immature Gran % Nucleated RBC % Immature Gran # Nucleated RBCs # Immature Plt Fraction INR 1.0 PT Patient/Control Mix 10.7 Circ Anticoag PTT Patient Temperature ABG pH ABG pH at Pt Temp ABG pCO2 ABG pCO2 at Pt Temp ABG pO2 ABG pO2 at Pt Temp ABG HCO3 ABG Total CO2 ABG O2 Saturation ABG Base Excess ABG Sodium VBG pH VBG pCO2 VBG pO2 VBG HCO3 VBG Total CO2 VBG O2 Saturation VBG Base Excess Hemoglobin Hematocrit Ionized Calcium FiO2 Sodium 139 Potassium 4.4 Chloride 103 Carbon Dioxide 30 Anion Gap 10.4 BUN 16 Creatinine 1.00 GFR Calculation 93 BUN/Creatinine Ratio 16.00 Glucose 155 H POC Glucose 185 H Hemoglobin A1c Calculated Osmolality 280.5 Calcium 8.9 Venous Ioniz Calcium Magnesium 2.1 Total Bilirubin AST ALT Alkaline Phosphatase Total Creatine Kinase CK-MB (CK-2) CK and CKMB Interp Troponin I Total Protein Albumin Globulin Albumin/Globulin Ratio Urine Color Urine Appearance Urine pH Ur Specific [place] Urine Protein Urine Glucose (UA) Urine Ketones Urine Blood Urine Nitrate Urine Bilirubin Urine Urobilinogen Urine Leukocytes Urine RBC Urine WBC Ur Squamous Epith Cells Urine Mucus Ur Culture Indicated? Blood Type Antibody Screen Crossmatch 05/10/17 05/10/17 05/10/17 07:07 07:41 07:41 WBC RBC Hgb Hct MCV MCH MCHC RDW Plt Count 143 D MPV Neut % (Auto) Lymph % (Auto) [place] % (Auto) Eos % (Auto) Baso % (Auto) Neut # (Auto) Lymph # (Auto) [place] # (Auto) Eos # (Auto) Baso # (Auto) Immature Gran % Nucleated RBC % Immature Gran # Nucleated RBCs # Immature Plt Fraction INR PT Patient/Control Mix Circ Anticoag PTT Patient Temperature 37 ABG pH 7.444 ABG pH at Pt Temp 7.444 ABG pCO2 39.5 ABG pCO2 at Pt Temp 39.5 ABG pO2 298.2 H ABG pO2 at Pt Temp 298.2 ABG HCO3 26.5 H ABG Total CO2 27.7 H ABG O2 Saturation 99.2 ABG Base Excess 2.3 ABG Sodium 137 VBG pH VBG pCO2 VBG pO2 VBG HCO3 VBG Total CO2 VBG O2 Saturation VBG Base Excess Hemoglobin 9.9 L Hematocrit 29.0 L Ionized Calcium 1.11 L FiO2 Sodium Potassium 3.9 Chloride Carbon Dioxide Anion Gap BUN Creatinine GFR Calculation BUN/Creatinine Ratio Glucose 151 H POC Glucose Hemoglobin A1c Calculated Osmolality Calcium Venous Ioniz Calcium Magnesium Total Bilirubin AST ALT Alkaline Phosphatase Total Creatine Kinase CK-MB (CK-2) CK and CKMB Interp Troponin I Total Protein Albumin Globulin Albumin/Globulin Ratio Urine Color Yellow Urine Appearance Clear Urine pH 6.0 Ur Specific [place] 1.015 Urine Protein Negative Urine Glucose (UA) Negative Urine Ketones Negative Urine Blood Negative Urine Nitrate Negative Urine Bilirubin Negative Urine Urobilinogen 2.0 H Urine Leukocytes Negative Urine RBC 1 Urine WBC 1 Ur Squamous Epith Cells Occasional Urine Mucus Occasional Ur Culture Indicated? Not indicated Blood Type Antibody Screen Crossmatch 05/10/17 05/10/17 05/10/17 09:00 09:30 10:05 WBC RBC Hgb Hct MCV MCH MCHC RDW Plt Count 123 L MPV Neut % (Auto) Lymph % (Auto) [place] % (Auto) Eos % (Auto) Baso % (Auto) Neut # (Auto) Lymph # (Auto) [place] # (Auto) Eos # (Auto) Baso # (Auto) Immature Gran % Nucleated RBC % Immature Gran # Nucleated RBCs # Immature Plt Fraction INR PT Patient/Control Mix Circ Anticoag PTT Patient Temperature 35 36 ABG pH ABG pH at Pt Temp 7.380 7.445 ABG pCO2 ABG pCO2 at Pt Temp 42.7 36.1 ABG pO2 ABG pO2 at Pt Temp 43.6 39.5 ABG HCO3 ABG Total CO2 ABG O2 Saturation ABG Base Excess ABG Sodium 132 L 133 L VBG pH 7.351 7.430 VBG pCO2 47.1 37.9 L VBG pO2 50.0 H 42.4 H VBG HCO3 24.3 24.9 VBG Total CO2 23.8 22.4 VBG O2 Saturation 83.0 78.5 VBG Base Excess 0.1 1.0 Hemoglobin 10.3 L 11.6 L Hematocrit 31.9 L 35.6 L Ionized Calcium FiO2 80.00 80.00 Sodium Potassium 4.8 5.2 H Chloride Carbon Dioxide Anion Gap BUN Creatinine GFR Calculation BUN/Creatinine Ratio Glucose 320 H 291 H POC Glucose Hemoglobin A1c Calculated Osmolality Calcium Venous Ioniz Calcium 1.04 L 1.04 L Magnesium Total Bilirubin AST ALT Alkaline Phosphatase Total Creatine Kinase CK-MB (CK-2) CK and CKMB Interp Troponin I Total Protein Albumin Globulin Albumin/Globulin Ratio Urine Color Urine Appearance Urine pH Ur Specific [place] Urine Protein Urine Glucose (UA) Urine Ketones Urine Blood Urine Nitrate Urine Bilirubin Urine Urobilinogen Urine Leukocytes Urine RBC Urine WBC Ur Squamous Epith Cells Urine Mucus Ur Culture Indicated? Blood Type Antibody Screen Crossmatch 05/10/17 05/10/17 05/10/17 10:05 11:20 11:20 WBC 10.0 D RBC 3.53 L Hgb 11.2 L Hct 32.1 L MCV 90.9 MCH 32 MCHC 34.9 RDW 13.8 Plt Count 148 D MPV 10.3 Neut % (Auto) 86.2 H Lymph % (Auto) 6.4 L [place] % (Auto) 5.2 Eos % (Auto) 1.0 Baso % (Auto) 0.1 Neut # (Auto) 8.6 H Lymph # (Auto) 0.6 L [place] # (Auto) 0.5 Eos # (Auto) 0.1 Baso # (Auto) 0.0 Immature Gran % 1.1 Nucleated RBC % 0.0 Immature Gran # 0.11 Nucleated RBCs # 0.00 Immature Plt Fraction 0.0 INR PT Patient/Control Mix Circ Anticoag PTT Patient Temperature 37 ABG pH 7.385 7.401 ABG pH at Pt Temp 7.385 ABG pCO2 41.1 37.1 ABG pCO2 at Pt Temp 41.1 ABG pO2 300.0 H 68.4 L ABG pO2 at Pt Temp 300.0 ABG HCO3 24.1 23.2 ABG Total CO2 22.3 L 20.6 L ABG O2 Saturation 99.5 93.2 L ABG Base Excess -0.4 -1.3 ABG Sodium 132 L VBG pH VBG pCO2 VBG pO2 VBG HCO3 VBG Total CO2 VBG O2 Saturation VBG Base Excess Hemoglobin 10.5 L 11.3 L Hematocrit 32.5 L 34.9 L Ionized Calcium 1.09 L FiO2 Sodium Potassium 5.0 4.3 Chloride Carbon Dioxide Anion Gap BUN Creatinine GFR Calculation BUN/Creatinine Ratio Glucose 253 H 224 H POC Glucose Hemoglobin A1c Calculated Osmolality Calcium Venous Ioniz Calcium Magnesium Total Bilirubin AST ALT Alkaline Phosphatase Total Creatine Kinase CK-MB (CK-2) CK and CKMB Interp Troponin I Total Protein Albumin Globulin Albumin/Globulin Ratio Urine Color Urine Appearance Urine pH Ur Specific [place] Urine Protein Urine Glucose (UA) Urine Ketones Urine Blood Urine Nitrate Urine Bilirubin Urine Urobilinogen Urine Leukocytes Urine RBC Urine WBC Ur Squamous Epith Cells Urine Mucus Ur Culture Indicated? Blood Type Antibody Screen Crossmatch 05/10/17 05/10/17 05/10/17 11:20 11:20 11:20 WBC RBC Hgb Hct MCV MCH MCHC RDW Plt Count MPV Neut % (Auto) Lymph % (Auto) [place] % (Auto) Eos % (Auto) Baso % (Auto) Neut # (Auto) Lymph # (Auto) [place] # (Auto) Eos # (Auto) Baso # (Auto) Immature Gran % Nucleated RBC % Immature Gran # Nucleated RBCs # Immature Plt Fraction INR 1.2 PT Patient/Control Mix 12.8 Circ Anticoag PTT 27.0 Patient Temperature ABG pH ABG pH at Pt Temp ABG pCO2 ABG pCO2 at Pt Temp ABG pO2 ABG pO2 at Pt Temp ABG HCO3 ABG Total CO2 ABG O2 Saturation ABG Base Excess ABG Sodium VBG pH VBG pCO2 VBG pO2 VBG HCO3 VBG Total CO2 VBG O2 Saturation VBG Base Excess Hemoglobin Hematocrit Ionized Calcium FiO2 Sodium 140 Potassium 4.3 Chloride 107 Carbon Dioxide 25 Anion Gap 12.3 BUN 13 Creatinine 1.00 GFR Calculation 93 BUN/Creatinine Ratio 13.00 Glucose 225 H POC Glucose Hemoglobin A1c Calculated Osmolality 285.4 Calcium 9.1 Venous Ioniz Calcium Magnesium 2.2 Total Bilirubin 1.00 AST 17 ALT 9 L Alkaline Phosphatase 52 Total Creatine Kinase 163 CK-MB (CK-2) 10.2 H CK and CKMB Interp 6.3 Troponin I 1.480 H Total Protein 5.2 L Albumin 2.9 L Globulin 2.3 Albumin/Globulin Ratio 1.2 Urine Color Urine Appearance Urine pH Ur Specific [place] Urine Protein Urine Glucose (UA) Urine Ketones Urine Blood Urine Nitrate Urine Bilirubin Urine Urobilinogen Urine Leukocytes Urine RBC Urine WBC Ur Squamous Epith Cells Urine Mucus Ur Culture Indicated? Blood Type Antibody Screen Crossmatch 05/10/17 05/10/17 05/10/17 13:00 13:00 13:33 WBC RBC Hgb Hct MCV MCH MCHC RDW Plt Count MPV Neut % (Auto) Lymph % (Auto) [place] % (Auto) Eos % (Auto) Baso % (Auto) Neut # (Auto) Lymph # (Auto) [place] # (Auto) Eos # (Auto) Baso # (Auto) Immature Gran % Nucleated RBC % Immature Gran # Nucleated RBCs # Immature Plt Fraction INR PT Patient/Control Mix Circ Anticoag PTT Patient Temperature 37 37 ABG pH 7.408 ABG pH at Pt Temp 7.358 7.363 ABG pCO2 36.2 ABG pCO2 at Pt Temp 45.1 42.0 ABG pO2 122.0 H ABG pO2 at Pt Temp 35.3 37.9 ABG HCO3 23.3 ABG Total CO2 20.1 L ABG O2 Saturation 98.4 ABG Base Excess -1.3 ABG Sodium 138 140 VBG pH 7.358 7.363 VBG pCO2 45.1 42.0 VBG pO2 35.3 37.9 VBG HCO3 23.4 L 22.6 L VBG Total CO2 22.9 21.7 VBG O2 Saturation 61.9 66.4 VBG Base Excess -0.4 L -1.5 L Hemoglobin 12.5 L 11.7 L 11.1 L Hematocrit 38.4 L 36.1 L 34.1 L Ionized Calcium FiO2 21.00 21.00 Sodium Potassium 3.9 4.0 3.8 Chloride Carbon Dioxide Anion Gap BUN Creatinine GFR Calculation BUN/Creatinine Ratio Glucose 206 H 199 H 180 H POC Glucose Hemoglobin A1c Calculated Osmolality Calcium Venous Ioniz Calcium 1.29 1.24 Magnesium Total Bilirubin AST ALT Alkaline Phosphatase Total Creatine Kinase CK-MB (CK-2) CK and CKMB Interp Troponin I Total Protein Albumin Globulin Albumin/Globulin Ratio Urine Color Urine Appearance Urine pH Ur Specific [place] Urine Protein Urine Glucose (UA) Urine Ketones Urine Blood Urine Nitrate Urine Bilirubin Urine Urobilinogen Urine Leukocytes Urine RBC Urine WBC Ur Squamous Epith Cells Urine Mucus Ur Culture Indicated? Blood Type Antibody Screen Crossmatch - Impressions Impressions: Postop telemetry with sinus rhythm. Quality Measures - VTE Contraindication to Pharmacological VTE Prophylaxis: Already on Theraputic Agent , No Prophylaxis Needed
--- NOTE | 2017-05-10 14:01 | Cardiology Progress Note ---
Assessment and Plan (1) 3-vessel CAD Status: Acute Assessment and plan: SEE PLAN OF CARE LISTED BELOW. Current Visit: Yes (2) Multiple myeloma Status: Acute Assessment and plan: SEE PLAN OF CARE LISTED BELOW. Current Visit: Yes (3) Dyslipidemia Status: Acute Assessment and plan: SEE PLAN OF CARE LISTED BELOW. Current Visit: Yes (4) Hypertension Status: Chronic Assessment and plan: SEE PLAN OF CARE LISTED BELOW. Current Visit: Yes (5) Former smoker Status: Chronic Assessment and plan: SEE PLAN OF CARE LISTED BELOW. Current Visit: No (6) Hyperglycemia Status: Acute Assessment and plan: SEE PLAN OF CARE LISTED BELOW. Current Visit: Yes (7) S/P CABG x 2 Status: Acute Assessment and plan: SEE PLAN OF CARE LISTED BELOW. Current Visit: Yes Cardiology - PN: Subj Interval history: MANAGER LVN: Dr. Niru Glaser SUMMARY Patient was admitted to [facility] for elective heart catheterization May 08, 2017. Past medical history includes: Ischemic cardiomyopathy (most recent EF 39%), multiple myeloma (currently receiving chemotherapy, Dr. Calixto), GERD and former smoker. He had abnormal stress test in the cardiology clinic and was scheduled for heart catheterization. This was performed per Dr. Glaser 05/08/17 via right radial approach which revealed severe three-vessel coronary artery disease. Subsequently, Dr. Hernandez was consulted to evaluate for possible CABG. Please see full catheter report. Dr. Glaser discussed with Dr. Calixto, patient's primary film mounter regarding the status of his multiple myeloma. It is felt that the best approach is to place his chemotherapy on hold and proceed with CABG. Patient was seen in consultation per Dr. Hernandez earlier today and he plans to proceed with CABG tomorrow morning. 2016 Patient was seen and examined in the CVR. He underwent CABG today per Dr. Hernandez with RANDLE to LAD and SVG to PDA. He is doing well post surgery. He is resting comfortably on the ventilator. Requiring vasopressors. Chest tube intact. No overt arrhythmias noted on monitor. Recommend reinitiation of aspirin when felt it is safe from a surgical standpoint. Also recommend reinitiation of beta blockade and KAMILA inhibitor when blood pressure will tolerate. Labs been reviewed and are overall stable. We will continue to follow patient post surgery and make recommendations as needed. I will further discuss with Dr. Uribe and await his additional recommendations. IMPRESSION AND PLAN 1. THREE-VESSEL CAD, STATUS POST CABG X2 - Now status post CABG with RANDLE to LAD and SVG to PDA today. Recommend reinitiation when safe from a surgical standpoint. Patient is currently requiring vasopressors. Recommend reinitiation of beta blockade and KAMILA inhibitor when blood pressure will tolerate. 2. HYPERTENSION - Patient is mildly hypotensive post surgery today. Requiring vasopressors. Antihypertensives are on hold today. 3. ISCHEMIC CARDIOMYOPATHY - EF calculated to be 39% per recent stress test. Now status post revascularization. Without overt heart failure. Will reinitiate KAMILA inhibitor and beta blockade when blood pressure will allow. Patient will need repeat echocardiogram in approximately 3 months to reevaluate ejection fraction. 4. DYSLIPIDEMIA - LDL 159. Will resume high intensity statin tomorrow. Patient will need repeat lipid panel in 4-6 weeks in the cardiology clinic. 5. HYPERGLYCEMIA - Hemoglobin A1c 8.3. Patient is a newly diagnosed diabetic. I will will consult hospitalist to assist. 6. MULTIPLE MYELOMA - Was on chemotherapy prior to undergoing CABG. Dr. Glaser discussed with Dr. Calixto regarding patient's status of his multiple myeloma. It was decided that the best approach was to hold chemotherapy for CABG. This will continue to be held until felt it is safe to reinitiate from a surgical standpoint. Exam (Progress Note) - Constitutional Vitals: Period Temp Pulse Resp BP Sys/Weaver Pulse Ox Last 24 Hr 96.4 F-99.0 F 55-80 10-20 86-167/54-90 95-100 Exam: General: Appears comfortable on ventilator. Sedated. HEENT: normocephalic, atraumatic. Mucous membranes moist. No jaundice noted. Conjunctiva moist and clear, sclerae anicteric Neck: No JVD/HJR, no thyromegaly or lymphadenopathy noted. Cardiac: Regular rate and rhythm. Chest tube intact. Midsternal chest incision dressing clean dry and intact. Lungs: Clear breath sounds. Mechanically ventilated. Abdomen: Soft. Nontender and nondistended. No abdominal bruit or thrill noted. No masses noted. Extremities: No clubbing, cyanosis noted. No edema noted. Upper extremity pulses 2+. Lower extremity pulses 2+. Capillary refill less than 3 seconds. Skin: No unusual lesions or rashes. No skin breakdown appreciated. Neuro: Unable to assess as patient is sedated on ventilator. Result/EKG - Labs CBC & BMP: 05/10/17 11:20 05/10/17 11:20 Lab Results: I have reviewed the past 24 hour labs Labs: Laboratory Results - last 24 hr 05/09/17 05/09/17 05/10/17 03:58 13:52 05:02 WBC 4.8 RBC 3.13 L Hgb 9.9 L Hct 28.8 L MCV 92.0 MCH 32 MCHC 34.4 RDW 13.7 Plt Count 192 MPV 10.2 Neut % (Auto) 67.6 Lymph % (Auto) 17.8 L Cloud % (Auto) 12.1 Eos % (Auto) 1.9 Baso % (Auto) 0.2 Neut # (Auto) 3.2 Lymph # (Auto) 0.9 L Cloud # (Auto) 0.6 Eos # (Auto) 0.1 Baso # (Auto) 0.0 Immature Gran % 0.4 Nucleated RBC % 0.0 Immature Gran # 0.02 Nucleated RBCs # 0.00 Immature Plt Fraction 0.0 INR PT Patient/Control Mix Circ Anticoag PTT Patient Temperature ABG pH ABG pH at Pt Temp ABG pCO2 ABG pCO2 at Pt Temp ABG pO2 ABG pO2 at Pt Temp ABG HCO3 ABG Total CO2 ABG O2 Saturation ABG Base Excess ABG Sodium VBG pH VBG pCO2 VBG pO2 VBG HCO3 VBG Total CO2 VBG O2 Saturation VBG Base Excess Hemoglobin Hematocrit Ionized Calcium FiO2 Sodium Potassium Chloride Carbon Dioxide Anion Gap BUN Creatinine GFR Calculation BUN/Creatinine Ratio Glucose POC Glucose Hemoglobin A1c 8.3 H Calculated Osmolality Calcium Venous Ioniz Calcium Magnesium Total Bilirubin AST ALT Alkaline Phosphatase Total Creatine Kinase CK-MB (CK-2) CK and CKMB Interp Troponin I Total Protein Albumin Globulin Albumin/Globulin Ratio Urine Color Urine Appearance Urine pH Ur Specific [place] Urine Protein Urine Glucose (UA) Urine Ketones Urine Blood Urine Nitrate Urine Bilirubin Urine Urobilinogen Urine Leukocytes Urine RBC Urine WBC Ur Squamous Epith Cells Urine Mucus Ur Culture Indicated? Blood Type O NEGATIVE Antibody Screen Negative Crossmatch See Detail 05/10/17 05/10/17 05/10/17 05:02 05:02 05:32 WBC RBC Hgb Hct MCV MCH MCHC RDW Plt Count MPV Neut % (Auto) Lymph % (Auto) Cloud % (Auto) Eos % (Auto) Baso % (Auto) Neut # (Auto) Lymph # (Auto) Cloud # (Auto) Eos # (Auto) Baso # (Auto) Immature Gran % Nucleated RBC % Immature Gran # Nucleated RBCs # Immature Plt Fraction INR 1.0 PT Patient/Control Mix 10.7 Circ Anticoag PTT Patient Temperature ABG pH ABG pH at Pt Temp ABG pCO2 ABG pCO2 at Pt Temp ABG pO2 ABG pO2 at Pt Temp ABG HCO3 ABG Total CO2 ABG O2 Saturation ABG Base Excess ABG Sodium VBG pH VBG pCO2 VBG pO2 VBG HCO3 VBG Total CO2 VBG O2 Saturation VBG Base Excess Hemoglobin Hematocrit Ionized Calcium FiO2 Sodium 139 Potassium 4.4 Chloride 103 Carbon Dioxide 30 Anion Gap 10.4 BUN 16 Creatinine 1.00 GFR Calculation 93 BUN/Creatinine Ratio 16.00 Glucose 155 H POC Glucose 185 H Hemoglobin A1c Calculated Osmolality 280.5 Calcium 8.9 Venous Ioniz Calcium Magnesium 2.1 Total Bilirubin AST ALT Alkaline Phosphatase Total Creatine Kinase CK-MB (CK-2) CK and CKMB Interp Troponin I Total Protein Albumin Globulin Albumin/Globulin Ratio Urine Color Urine Appearance Urine pH Ur Specific [place] Urine Protein Urine Glucose (UA) Urine Ketones Urine Blood Urine Nitrate Urine Bilirubin Urine Urobilinogen Urine Leukocytes Urine RBC Urine WBC Ur Squamous Epith Cells Urine Mucus Ur Culture Indicated? Blood Type Antibody Screen Crossmatch 05/10/17 05/10/17 05/10/17 07:07 07:41 07:41 WBC RBC Hgb Hct MCV MCH MCHC RDW Plt Count 143 D MPV Neut % (Auto) Lymph % (Auto) Cloud % (Auto) Eos % (Auto) Baso % (Auto) Neut # (Auto) Lymph # (Auto) Cloud # (Auto) Eos # (Auto) Baso # (Auto) Immature Gran % Nucleated RBC % Immature Gran # Nucleated RBCs # Immature Plt Fraction INR PT Patient/Control Mix Circ Anticoag PTT Patient Temperature 37 ABG pH 7.444 ABG pH at Pt Temp 7.444 ABG pCO2 39.5 ABG pCO2 at Pt Temp 39.5 ABG pO2 298.2 H ABG pO2 at Pt Temp 298.2 ABG HCO3 26.5 H ABG Total CO2 27.7 H ABG O2 Saturation 99.2 ABG Base Excess 2.3 ABG Sodium 137 VBG pH VBG pCO2 VBG pO2 VBG HCO3 VBG Total CO2 VBG O2 Saturation VBG Base Excess Hemoglobin 9.9 L Hematocrit 29.0 L Ionized Calcium 1.11 L FiO2 Sodium Potassium 3.9 Chloride Carbon Dioxide Anion Gap BUN Creatinine GFR Calculation BUN/Creatinine Ratio Glucose 151 H POC Glucose Hemoglobin A1c Calculated Osmolality Calcium Venous Ioniz Calcium Magnesium Total Bilirubin AST ALT Alkaline Phosphatase Total Creatine Kinase CK-MB (CK-2) CK and CKMB Interp Troponin I Total Protein Albumin Globulin Albumin/Globulin Ratio Urine Color Yellow Urine Appearance Clear Urine pH 6.0 Ur Specific [place] 1.015 Urine Protein Negative Urine Glucose (UA) Negative Urine Ketones Negative Urine Blood Negative Urine Nitrate Negative Urine Bilirubin Negative Urine Urobilinogen 2.0 H Urine Leukocytes Negative Urine RBC 1 Urine WBC 1 Ur Squamous Epith Cells Occasional Urine Mucus Occasional Ur Culture Indicated? Not indicated Blood Type Antibody Screen Crossmatch 05/10/17 05/10/17 05/10/17 09:00 09:30 10:05 WBC RBC Hgb Hct MCV MCH MCHC RDW Plt Count 123 L MPV Neut % (Auto) Lymph % (Auto) Cloud % (Auto) Eos % (Auto) Baso % (Auto) Neut # (Auto) Lymph # (Auto) Cloud # (Auto) Eos # (Auto) Baso # (Auto) Immature Gran % Nucleated RBC % Immature Gran # Nucleated RBCs # Immature Plt Fraction INR PT Patient/Control Mix Circ Anticoag PTT Patient Temperature 35 36 ABG pH ABG pH at Pt Temp 7.380 7.445 ABG pCO2 ABG pCO2 at Pt Temp 42.7 36.1 ABG pO2 ABG pO2 at Pt Temp 43.6 39.5 ABG HCO3 ABG Total CO2 ABG O2 Saturation ABG Base Excess ABG Sodium 132 L 133 L VBG pH 7.351 7.430 VBG pCO2 47.1 37.9 L VBG pO2 50.0 H 42.4 H VBG HCO3 24.3 24.9 VBG Total CO2 23.8 22.4 VBG O2 Saturation 83.0 78.5 VBG Base Excess 0.1 1.0 Hemoglobin 10.3 L 11.6 L Hematocrit 31.9 L 35.6 L Ionized Calcium FiO2 80.00 80.00 Sodium Potassium 4.8 5.2 H Chloride Carbon Dioxide Anion Gap BUN Creatinine GFR Calculation BUN/Creatinine Ratio Glucose 320 H 291 H POC Glucose Hemoglobin A1c Calculated Osmolality Calcium Venous Ioniz Calcium 1.04 L 1.04 L Magnesium Total Bilirubin AST ALT Alkaline Phosphatase Total Creatine Kinase CK-MB (CK-2) CK and CKMB Interp Troponin I Total Protein Albumin Globulin Albumin/Globulin Ratio Urine Color Urine Appearance Urine pH Ur Specific [place] Urine Protein Urine Glucose (UA) Urine Ketones Urine Blood Urine Nitrate Urine Bilirubin Urine Urobilinogen Urine Leukocytes Urine RBC Urine WBC Ur Squamous Epith Cells Urine Mucus Ur Culture Indicated? Blood Type Antibody Screen Crossmatch 05/10/17 05/10/17 05/10/17 10:05 11:20 11:20 WBC 10.0 D RBC 3.53 L Hgb 11.2 L Hct 32.1 L MCV 90.9 MCH 32 MCHC 34.9 RDW 13.8 Plt Count 148 D MPV 10.3 Neut % (Auto) 86.2 H Lymph % (Auto) 6.4 L Cloud % (Auto) 5.2 Eos % (Auto) 1.0 Baso % (Auto) 0.1 Neut # (Auto) 8.6 H Lymph # (Auto) 0.6 L Cloud # (Auto) 0.5 Eos # (Auto) 0.1 Baso # (Auto) 0.0 Immature Gran % 1.1 Nucleated RBC % 0.0 Immature Gran # 0.11 Nucleated RBCs # 0.00 Immature Plt Fraction 0.0 INR PT Patient/Control Mix Circ Anticoag PTT Patient Temperature 37 ABG pH 7.385 7.401 ABG pH at Pt Temp 7.385 ABG pCO2 41.1 37.1 ABG pCO2 at Pt Temp 41.1 ABG pO2 300.0 H 68.4 L ABG pO2 at Pt Temp 300.0 ABG HCO3 24.1 23.2 ABG Total CO2 22.3 L 20.6 L ABG O2 Saturation 99.5 93.2 L ABG Base Excess -0.4 -1.3 ABG Sodium 132 L VBG pH VBG pCO2 VBG pO2 VBG HCO3 VBG Total CO2 VBG O2 Saturation VBG Base Excess Hemoglobin 10.5 L 11.3 L Hematocrit 32.5 L 34.9 L Ionized Calcium 1.09 L FiO2 Sodium Potassium 5.0 4.3 Chloride Carbon Dioxide Anion Gap BUN Creatinine GFR Calculation BUN/Creatinine Ratio Glucose 253 H 224 H POC Glucose Hemoglobin A1c Calculated Osmolality Calcium Venous Ioniz Calcium Magnesium Total Bilirubin AST ALT Alkaline Phosphatase Total Creatine Kinase CK-MB (CK-2) CK and CKMB Interp Troponin I Total Protein Albumin Globulin Albumin/Globulin Ratio Urine Color Urine Appearance Urine pH Ur Specific [place] Urine Protein Urine Glucose (UA) Urine Ketones Urine Blood Urine Nitrate Urine Bilirubin Urine Urobilinogen Urine Leukocytes Urine RBC Urine WBC Ur Squamous Epith Cells Urine Mucus Ur Culture Indicated? Blood Type Antibody Screen Crossmatch 05/10/17 05/10/17 05/10/17 11:20 11:20 11:20 WBC RBC Hgb Hct MCV MCH MCHC RDW Plt Count MPV Neut % (Auto) Lymph % (Auto) Cloud % (Auto) Eos % (Auto) Baso % (Auto) Neut # (Auto) Lymph # (Auto) Cloud # (Auto) Eos # (Auto) Baso # (Auto) Immature Gran % Nucleated RBC % Immature Gran # Nucleated RBCs # Immature Plt Fraction INR 1.2 PT Patient/Control Mix 12.8 Circ Anticoag PTT 27.0 Patient Temperature ABG pH ABG pH at Pt Temp ABG pCO2 ABG pCO2 at Pt Temp ABG pO2 ABG pO2 at Pt Temp ABG HCO3 ABG Total CO2 ABG O2 Saturation ABG Base Excess ABG Sodium VBG pH VBG pCO2 VBG pO2 VBG HCO3 VBG Total CO2 VBG O2 Saturation VBG Base Excess Hemoglobin Hematocrit Ionized Calcium FiO2 Sodium 140 Potassium 4.3 Chloride 107 Carbon Dioxide 25 Anion Gap 12.3 BUN 13 Creatinine 1.00 GFR Calculation 93 BUN/Creatinine Ratio 13.00 Glucose 225 H POC Glucose Hemoglobin A1c Calculated Osmolality 285.4 Calcium 9.1 Venous Ioniz Calcium Magnesium 2.2 Total Bilirubin 1.00 AST 17 ALT 9 L Alkaline Phosphatase 52 Total Creatine Kinase 163 CK-MB (CK-2) 10.2 H CK and CKMB Interp 6.3 Troponin I 1.480 H Total Protein 5.2 L Albumin 2.9 L Globulin 2.3 Albumin/Globulin Ratio 1.2 Urine Color Urine Appearance Urine pH Ur Specific [place] Urine Protein Urine Glucose (UA) Urine Ketones Urine Blood Urine Nitrate Urine Bilirubin Urine Urobilinogen Urine Leukocytes Urine RBC Urine WBC Ur Squamous Epith Cells Urine Mucus Ur Culture Indicated? Blood Type Antibody Screen Crossmatch 05/10/17 05/10/17 05/10/17 13:00 13:00 13:33 WBC RBC Hgb Hct MCV MCH MCHC RDW Plt Count MPV Neut % (Auto) Lymph % (Auto) Cloud % (Auto) Eos % (Auto) Baso % (Auto) Neut # (Auto) Lymph # (Auto) Cloud # (Auto) Eos # (Auto) Baso # (Auto) Immature Gran % Nucleated RBC % Immature Gran # Nucleated RBCs # Immature Plt Fraction INR PT Patient/Control Mix Circ Anticoag PTT Patient Temperature 37 37 ABG pH 7.408 ABG pH at Pt Temp 7.358 7.363 ABG pCO2 36.2 ABG pCO2 at Pt Temp 45.1 42.0 ABG pO2 122.0 H ABG pO2 at Pt Temp 35.3 37.9 ABG HCO3 23.3 ABG Total CO2 20.1 L ABG O2 Saturation 98.4 ABG Base Excess -1.3 ABG Sodium 138 140 VBG pH 7.358 7.363 VBG pCO2 45.1 42.0 VBG pO2 35.3 37.9 VBG HCO3 23.4 L 22.6 L VBG Total CO2 22.9 21.7 VBG O2 Saturation 61.9 66.4 VBG Base Excess -0.4 L -1.5 L Hemoglobin 12.5 L 11.7 L 11.1 L Hematocrit 38.4 L 36.1 L 34.1 L Ionized Calcium FiO2 21.00 21.00 Sodium Potassium 3.9 4.0 3.8 Chloride Carbon Dioxide Anion Gap BUN Creatinine GFR Calculation BUN/Creatinine Ratio Glucose 206 H 199 H 180 H POC Glucose Hemoglobin A1c Calculated Osmolality Calcium Venous Ioniz Calcium 1.29 1.24 Magnesium Total Bilirubin AST ALT Alkaline Phosphatase Total Creatine Kinase CK-MB (CK-2) CK and CKMB Interp Troponin I Total Protein Albumin Globulin Albumin/Globulin Ratio Urine Color Urine Appearance Urine pH Ur Specific [place] Urine Protein Urine Glucose (UA) Urine Ketones Urine Blood Urine Nitrate Urine Bilirubin Urine Urobilinogen Urine Leukocytes Urine RBC Urine WBC Ur Squamous Epith Cells Urine Mucus Ur Culture Indicated? Blood Type Antibody Screen Crossmatch Quality Measures - VTE Contraindication to Pharmacological VTE Prophylaxis: Already on Theraputic Agent , No Prophylaxis Needed
[2017-05-10 15:05] LABS: ABG Base Excess -1.7 MMOL/L (-2.5-2.5); ABG Oxygen Saturation 98.7 % (95-100); ABG PCO2 36.7 MM HG (35-48); ABG PH 7.399 (7.35-7.45); ABG TCO2 20.7 MMOL/L (23-27); Glucose Heart Surgery 123 MG/DL (74-106); Hematocrit Heart Surgery 30.5 PERCENT (42-52); Hemoglobin Heart Surgery 9.9 G/DL (14.0-18.0); Potassium Heart/CVR 4.3 MMOL/L (3.5-5.1)
[2017-05-10 16:02] LABS: ABG Base Excess -1.5 MMOL/L (-2.5-2.5); ABG HCO3 23.1 MMOL/L (20-26); ABG Oxygen Saturation 97.6 % (95-100); ABG PH 7.392 (7.35-7.45); ABG PO2 97.1 MM HG (80-95); Glucose Heart Surgery 101 MG/DL (74-106); Hematocrit Heart Surgery 31.2 PERCENT (42-52); Hemoglobin Heart Surgery 10.1 G/DL (14.0-18.0); Potassium Heart/CVR 4.7 MMOL/L (3.5-5.1)
[2017-05-10 18:02] LABS: ABG Base Excess -1.1 MMOL/L (-2.5-2.5); ABG HCO3 23.5 MMOL/L (20-26); ABG Oxygen Saturation 94.5 % (95-100); ABG PCO2 35.8 MM HG (35-48); ABG PH 7.417 (7.35-7.45); ABG PO2 70.9 MM HG (80-95); ABG TCO2 21.1 MMOL/L (23-27); Glucose Heart Surgery 96 MG/DL (74-106); Hematocrit Heart Surgery 29.5 PERCENT (42-52); Hemoglobin Heart Surgery 9.5 G/DL (14.0-18.0); Potassium Heart/CVR 4.2 MMOL/L (3.5-5.1)
[2017-05-10] MEDS ORDERED: FUROSEMIDE 40 MG/4 ML VIAL IV ONE (18:31)
[2017-05-10] MEDS ORDERED: FUROSEMIDE 40 MG/4 ML VIAL IM ONE (18:31)
[2017-05-10] MEDS ORDERED: FUROSEMIDE 40 MG/4 ML VIAL ONE (18:33)
[2017-05-10] MEDS: LISINOPRIL 5 MG TABLET PO SCH (18:44)
[2017-05-10] MEDS: ASPIRIN EC 81 MG TABLET PO SCH (18:44)
[2017-05-10] MEDS: CALCIUM (CARBONATE) 600 MG TABLET PO SCH (18:44)
[2017-05-10] MEDS: CHLORHEXIDINE 0.12% ORAL RINSE 60 ML BOTTLE SWISH/SPIT SCH ×2 (18:44→20:15)
[2017-05-10] MEDS: PANTOPRAZOLE 40 MG TABLET PO SCH (18:45)
[2017-05-10] MEDS: SERTRALINE 100 MG TABLET PO SCH (18:45)
[2017-05-10 19:16] LABS: ABG Base Excess -1.1 MMOL/L (-2.5-2.5); ABG HCO3 23.5 MMOL/L (20-26); ABG PCO2 36.9 MM HG (35-48); ABG PH 7.408 (7.35-7.45); ABG PO2 91.7 MM HG (80-95); ABG TCO2 21.3 MMOL/L (23-27); Glucose Heart Surgery 129 MG/DL (74-106); Hematocrit Heart Surgery 29.8 PERCENT (42-52); Hemoglobin Heart Surgery 9.6 G/DL (14.0-18.0); Potassium Heart/CVR 4.8 MMOL/L (3.5-5.1)
[2017-05-10] MEDS: CEFUROXIME INJ 1,500 MG in SODIUM CHLORIDE 0.9% 50 ML IV SCH (20:11)
[2017-05-10 20:17] LABS: ABG Base Excess -1.2 MMOL/L (-2.5-2.5); ABG HCO3 23.4 MMOL/L (20-26); ABG PCO2 41.2 MM HG (35-48); ABG PH 7.372 (7.35-7.45); ABG PO2 94.4 MM HG (80-95); ABG TCO2 21.9 MMOL/L (23-27); Glucose Heart Surgery 160 MG/DL (74-106); Hemoglobin Heart Surgery 9.7 G/DL (14.0-18.0); Potassium Heart/CVR 4.6 MMOL/L (3.5-5.1)
[2017-05-10 20:54] LABS: ABG Base Excess -2.5 MMOL/L (-2.5-2.5); ABG HCO3 22.3 MMOL/L (20-26); ABG Oxygen Saturation 97.1 % (95-100); ABG PCO2 44.5 MM HG (35-48); ABG PO2 98.8 MM HG (80-95); ABG TCO2 21.6 MMOL/L (23-27); Glucose Heart Surgery 169 MG/DL (74-106); Hematocrit Heart Surgery 29.5 PERCENT (42-52); Hemoglobin Heart Surgery 9.5 G/DL (14.0-18.0); Potassium Heart/CVR 4.6 MMOL/L (3.5-5.1)
[2017-05-10 21:45] LABS: CKMB % 4.1 %
[2017-05-10 21:47] LABS: Troponin I Only 2.94 NG/ML (0.00-0.045)
[2017-05-10 23:29] LABS: ABG Base Excess -1.8 MMOL/L (-2.5-2.5); ABG HCO3 24.2 MMOL/L (20-26); ABG Oxygen Saturation 96.9 % (95-100); ABG PCO2 46.7 MM HG (35-48); ABG PH 7.332 (7.35-7.45); ABG PO2 103.4 MM HG (80-95); ABG TCO2 25.6 MMOL/L (23-27); Glucose Heart Surgery 167 MG/DL (74-106); Hemoglobin Heart Surgery 10.3 G/DL (14.0-18.0); Potassium Heart/CVR 4.7 MMOL/L (3.5-5.1)
[2017-05-11] LABS: ABG Base Excess -3.2 MMOL/L (-2.5-2.5); ABG HCO3 21.7 MMOL/L (20-26); ABG Oxygen Saturation 94.9 % (95-100); ABG PCO2 53.3 MM HG (35-48); ABG PH 7.267 (7.35-7.45); ABG PO2 85.9 MM HG (80-95); ABG TCO2 22.5 MMOL/L (23-27); Glucose Heart Surgery 171 MG/DL (74-106); Hematocrit Heart Surgery 30.3 PERCENT (42-52); Hemoglobin Heart Surgery 9.8 G/DL (14.0-18.0); Potassium Heart/CVR 4.6 MMOL/L (3.5-5.1)
[2017-05-11] MEDS: KETOROLAC 30 MG/1 ML VIAL IV SCH ×2 (00:09→06:48)
[2017-05-11 00:33] LABS: ABG Base Excess -2.9 MMOL/L (-2.5-2.5); ABG HCO3 23.8 MMOL/L (20-26); ABG Oxygen Saturation 96.5 % (95-100); ABG PCO2 50.6 MM HG (35-48); ABG PH 7.291 (7.35-7.45); ABG PO2 102.4 MM HG (80-95); ABG TCO2 25.4 MMOL/L (23-27); Glucose Heart Surgery 151 MG/DL (74-106); Hemoglobin Heart Surgery 10.3 G/DL (14.0-18.0); Potassium Heart/CVR 4.3 MMOL/L (3.5-5.1)
[2017-05-11] MEDS: POTASSIUM CHLORIDE RIDER 20 MEQ in PREMIX 1 EACH IV PRN (00:47)
[2017-05-11 01:10] LABS: ABG Base Excess -2.5 MMOL/L (-2.5-2.5); ABG HCO3 22.9 MMOL/L (20-26); ABG Oxygen Saturation 94.5 % (95-100); ABG PCO2 41.6 MM HG (35-48); ABG PH 7.358 (7.35-7.45); ABG PO2 77.2 MM HG (80-95); ABG TCO2 24.1 MMOL/L (23-27); Glucose Heart Surgery 138 MG/DL (74-106); Hemoglobin Heart Surgery 10.1 G/DL (14.0-18.0)
[2017-05-11 04:13] LABS: ABG Base Excess -1.9 MMOL/L (-2.5-2.5); ABG HCO3 23.6 MMOL/L (20-26); ABG PCO2 43.4 MM HG (35-48); ABG PH 7.353 (7.35-7.45); ABG PO2 87.9 MM HG (80-95); ABG TCO2 24.9 MMOL/L (23-27); Glucose Heart Surgery 100 MG/DL (74-106); Hemoglobin Heart Surgery 9.9 G/DL (14.0-18.0)
[2017-05-11 04:27] LABS: Basophils % 0.1 % (0.0-0.8); Hematocrit 27.5 VOL% (42.0-52.0); Hemoglobin 9.3 GM/DL (14.0-18.0); Immature Granulocytes % 0.9 %; Immature Granulocytes Absolute 0.13 #; Lymphocytes # 0.5 10*3/uL (1.4-4.0); Lymphocytes % 3.7 % (21.2-54.2); Mean Corpuscular HGB Conc 33.8 GM/DL (32-36); Mean Corpuscular Hemoglobin 32 PG (27-34); Mean Corpuscular Volume 93.5 FL (87-102); Monocytes # 0.9 10*3/uL (0.11-0.8); Neutrophils # 12.8 10*3/uL (1.4-7.4); Neutrophils % 89.3 % (38.7-73.9); Platelet Count 144 T/CUMM (130-400); Red Blood Count 2.94 MC/CUMM (3.8-5.5); Red Cell Distribution Width 14.5 % (9.3-17.3); White Blood Count 14.3 T/CUMM (4-12)
[2017-05-11] MEDS ORDERED: FUROSEMIDE 40 MG/4 ML VIAL IV ONE (04:32)
[2017-05-11 04:56] LABS: Albumin 3.9 G/DL (3.4-5.0); Bilirubin,Direct 0.16 MG/DL (0.0-0.20); Bilirubin,Total 0.5 MG/DL (0.2-1.0); Calcium 8.6 MG/DL (8.5-10.1); Magnesium 2.3 MG/DL (1.8-2.4); Total Protein 6.2 G/DL (6.4-8.3)
[2017-05-11 04:57] LABS: CKMB % 4.4 %
[2017-05-11 05:13] LABS: Troponin I Only 3.54 NG/ML (0.00-0.045)
[2017-05-11 05:19] LABS: Band Neutrophils 2 % (0-10); Lymphocytes 5 % (20-55); Ovalocytes Few; Platelet Estimate Decreased; Segmented Neutrophils 87 % (50-85); Total Cells Counted 100
--- NOTE | 2017-05-11 06:51 | Order Completion Report ---
See report scanned to EMR
[2017-05-11 07:04] LABS: Hematocrit 28.2 VOL% (42.0-52.0); Hemoglobin 9.7 GM/DL (14.0-18.0)
[2017-05-11] MEDS: CEFUROXIME INJ 1,500 MG in SODIUM CHLORIDE 0.9% 50 ML IV SCH (07:57)
--- NOTE | 2017-05-11 08:07 | XRay Report ---
Portable chest Date: 05/11/2018 Clinical history: Air leak Comparison: 05/10/2017 Technique: Portable AP sitting chest Findings: The heart is minimally enlarged with recent median sternotomy. Interval removal of the endotracheal tube and nasogastric tube. The remaining supportive devices are stable in position with no significant pneumothorax. Persistent relative radiolucency adjacent to the aortic knob. Reduced atelectasis at the lung bases. Impression: Post median sternotomy with remaining supportive devices stable in position after removal of the endotracheal tube and nasogastric tube. Persistent relative radiolucency adjacent to the area the aortic knob which may be related to minimal mediastinal air or small loculated pneumothorax. No well-defined pleural line is identified. Follow-up chest x-ray may be helpful for further evaluation. Reduced atelectasis at the lung bases. PROCEDURE INTERPRETED AT [facility] DEPARTMENT OF RADIOLOGY Final Report Signed by: Dr. Kalpana Thurston
--- NOTE | 2017-05-11 08:35 | Cardiology Progress Note ---
<Darlene Virk - Last Filed: 05/11/17 09:13> Assessment and Plan (1) 3-vessel CAD Status: Acute Assessment and plan: SEE PLAN OF CARE LISTED BELOW. Current Visit: Yes (2) Multiple myeloma Status: Acute Assessment and plan: SEE PLAN OF CARE LISTED BELOW. Current Visit: Yes (3) Dyslipidemia Status: Acute Assessment and plan: SEE PLAN OF CARE LISTED BELOW. Current Visit: Yes (4) Hypertension Status: Chronic Assessment and plan: SEE PLAN OF CARE LISTED BELOW. Current Visit: Yes (5) Former smoker Status: Chronic Assessment and plan: SEE PLAN OF CARE LISTED BELOW. Current Visit: No (6) Hyperglycemia Status: Acute Assessment and plan: SEE PLAN OF CARE LISTED BELOW. Current Visit: Yes (7) S/P CABG x 2 Status: Acute Assessment and plan: SEE PLAN OF CARE LISTED BELOW. Current Visit: Yes Cardiology - PN: Subj Interval history: [employer]IT FEEDER: Dr. Niru Glaser SUMMARY Patient was admitted to [facility] for elective heart catheterization May 08, 2017. Past medical history includes: Ischemic cardiomyopathy (most recent EF 39%), multiple myeloma (currently receiving chemotherapy, Dr. Calixto), GERD and former smoker. He had abnormal stress test in the cardiology clinic and was scheduled for heart catheterization. This was performed per Dr. Glaser 05/08/17 via right radial approach which revealed severe three-vessel coronary artery disease. Subsequently, Dr. Hernandez was consulted to evaluate for possible CABG. Please see full catheter report. Dr. Glaser discussed with Dr. Calixto, patient's primary a r specialist regarding the status of his multiple myeloma. It is felt that the best approach is to place his chemotherapy on hold and proceed with CABG. Patient was seen in consultation per Dr. Hernandez earlier today and he plans to proceed with CABG tomorrow morning. 2016 Patient was seen and examined in the CVR. He underwent CABG yesterday per Dr. Hernandez with RANDLE to LAD and SVG to PDA. Postop day #1 today. He is doing well post surgery. He has been extubated, he is alert. No longer requiring vasopressors. Chest tube remains intact with minimal drainage. No overt arrhythmias overnight. Troponin within acceptable range. Normal creatinine. Recommend reinitiation of aspirin when felt it is safe from a surgical standpoint. I have reinitiated low-dose beta-blockade this morning. Will monitor blood pressure with this. If blood pressure will allow, I hope to reinitiate KAMILA inhibitor tomorrow. We will continue to follow patient post surgery and make recommendations as needed. I will further discuss with Dr. Uribe and await his additional recommendations. IMPRESSION AND PLAN 1. THREE-VESSEL CAD, STATUS POST CABG X2 - Now status post revascularization with RANDLE to LAD and SVG to PDA. Postop day #1. Recommend reinitiation of aspirin when safe from a surgical standpoint. Patient is no longer requiring vasopressors this morning. I will initiate low-dose beta-blockade. I will also reinitiate lipid-lowering agent. If blood pressure will allow, will attempt to initiate KAMILA inhibitor tomorrow. I will further discuss with Dr. Uribe and await his additional recommendations. 2. HYPERTENSION - Under well control. I have added beta-blockade back to patient's medication regimen today. Will monitor blood pressure. Attempt to reinitiate KAMILA inhibitor tomorrow if blood pressure will allow. 3. ISCHEMIC CARDIOMYOPATHY - EF calculated to be 39% per recent stress test. Now status post revascularization. Without overt heart failure. Beta-blockade reinitiated today. Will attempt to reinitiate KAMILA inhibitor tomorrow if blood pressure will allow. Patient will need repeat echocardiogram in approximately 3 months to reevaluate ejection fraction. 4. DYSLIPIDEMIA - LDL 159. High intensity statin reinitiated today. Patient will need repeat lipid panel in 4-6 weeks in the cardiology clinic. 5. HYPERGLYCEMIA - Hemoglobin A1c 8.3. Patient is a newly diagnosed diabetic. Hospital medicine has been consulted. 6. MULTIPLE MYELOMA - Was on chemotherapy prior to undergoing CABG. Dr. Glaser discussed with Dr. Calixto regarding patient's status of his multiple myeloma. It was decided that the best approach was to hold chemotherapy for CABG. This will continue to be held until felt it is safe to reinitiate from a surgical standpoint. Exam (Progress Note) - Constitutional Vitals: Period Temp Pulse Resp BP Sys/Weaver Pulse Ox Last 24 Hr 96.2 F-98.2 F 71-82 10-20 86-139/51-71 96-100 Exam: General: Appears comfortable on ventilator. Sedated. HEENT: normocephalic, atraumatic. Mucous membranes moist. No jaundice noted. Conjunctiva moist and clear, sclerae anicteric Neck: No JVD/HJR, no thyromegaly or lymphadenopathy noted. Cardiac: Regular rate and rhythm. Chest tube intact. Midsternal chest incision dressing clean dry and intact. Lungs: Clear to auscultation without accessory muscle use to assist the respiratory pattern. Requiring oxygen via nasal cannula. Abdomen: Soft. Hypoactive bowel sounds. Nontender and nondistended. No abdominal bruit or thrill noted. No masses noted. Extremities: No clubbing, cyanosis noted. No edema noted. Upper extremity pulses 2+. Lower extremity pulses 2+. Capillary refill less than 3 seconds. Left lower extremity dressing clean dry and intact. Skin: No unusual lesions or rashes. No skin breakdown appreciated. Neuro: Patient is awake and alert this morning. Able to move all extremities upon command. No essential tremor noted. Result/EKG - Labs CBC & BMP: 05/11/17 06:40 05/11/17 04:00 Lab Results: I have reviewed the past 24 hour labs Labs: Laboratory Results - last 24 hr 05/09/17 05/10/17 05/10/17 03:58 09:00 09:30 WBC RBC Hgb Hct MCV MCH MCHC RDW Plt Count MPV Neut % (Auto) Lymph % (Auto) [place] % (Auto) Eos % (Auto) Baso % (Auto) Neut # (Auto) Lymph # (Auto) [place] # (Auto) Eos # (Auto) Baso # (Auto) Total Counted Immature Gran % Nucleated RBC % Immature Gran # Segmented Neutrophils Band Neutrophils Lymphocytes Monocytes Nucleated RBCs # Platelet Estimate Immature Plt Fraction Ovalocytes INR PT Patient/Control Mix Circ Anticoag PTT Patient Temperature 35 36 ABG pH ABG pH at Pt Temp 7.380 7.445 ABG pCO2 ABG pCO2 at Pt Temp 42.7 36.1 ABG pO2 ABG pO2 at Pt Temp 43.6 39.5 ABG HCO3 ABG Total CO2 ABG O2 Saturation ABG Base Excess ABG Sodium 132 L 133 L VBG pH 7.351 7.430 VBG pCO2 47.1 37.9 L VBG pO2 50.0 H 42.4 H VBG HCO3 24.3 24.9 VBG Total CO2 23.8 22.4 VBG O2 Saturation 83.0 78.5 VBG Base Excess 0.1 1.0 Hemoglobin 10.3 L 11.6 L Hematocrit 31.9 L 35.6 L Potassium 4.8 5.2 H Glucose 320 H 291 H Ionized Calcium FiO2 80.00 80.00 Sodium Chloride Carbon Dioxide Anion Gap BUN Creatinine GFR Calculation BUN/Creatinine Ratio POC Glucose Calculated Osmolality Calcium Venous Ioniz Calcium 1.04 L 1.04 L Magnesium Total Bilirubin Direct Bilirubin AST ALT Alkaline Phosphatase Total Creatine Kinase CK-MB (CK-2) CK and CKMB Interp Troponin I Total Protein Albumin Globulin Albumin/Globulin Ratio Blood Type O NEGATIVE Antibody Screen Negative Crossmatch See Detail 05/10/17 05/10/17 05/10/17 10:05 10:05 11:20 WBC RBC Hgb Hct MCV MCH MCHC RDW Plt Count 123 L MPV Neut % (Auto) Lymph % (Auto) [place] % (Auto) Eos % (Auto) Baso % (Auto) Neut # (Auto) Lymph # (Auto) [place] # (Auto) Eos # (Auto) Baso # (Auto) Total Counted Immature Gran % Nucleated RBC % Immature Gran # Segmented Neutrophils Band Neutrophils Lymphocytes Monocytes Nucleated RBCs # Platelet Estimate Immature Plt Fraction Ovalocytes INR PT Patient/Control Mix Circ Anticoag PTT Patient Temperature 37 ABG pH 7.385 7.401 ABG pH at Pt Temp 7.385 ABG pCO2 41.1 37.1 ABG pCO2 at Pt Temp 41.1 ABG pO2 300.0 H 68.4 L ABG pO2 at Pt Temp 300.0 ABG HCO3 24.1 23.2 ABG Total CO2 22.3 L 20.6 L ABG O2 Saturation 99.5 93.2 L ABG Base Excess -0.4 -1.3 ABG Sodium 132 L VBG pH VBG pCO2 VBG pO2 VBG HCO3 VBG Total CO2 VBG O2 Saturation VBG Base Excess Hemoglobin 10.5 L 11.3 L Hematocrit 32.5 L 34.9 L Potassium 5.0 4.3 Glucose 253 H 224 H Ionized Calcium 1.09 L FiO2 Sodium Chloride Carbon Dioxide Anion Gap BUN Creatinine GFR Calculation BUN/Creatinine Ratio POC Glucose Calculated Osmolality Calcium Venous Ioniz Calcium Magnesium Total Bilirubin Direct Bilirubin AST ALT Alkaline Phosphatase Total Creatine Kinase CK-MB (CK-2) CK and CKMB Interp Troponin I Total Protein Albumin Globulin Albumin/Globulin Ratio Blood Type Antibody Screen Crossmatch 05/10/17 05/10/17 05/10/17 11:20 11:20 11:20 WBC 10.0 D RBC 3.53 L Hgb 11.2 L Hct 32.1 L MCV 90.9 MCH 32 MCHC 34.9 RDW 13.8 Plt Count 148 D MPV 10.3 Neut % (Auto) 86.2 H Lymph % (Auto) 6.4 L [place] % (Auto) 5.2 Eos % (Auto) 1.0 Baso % (Auto) 0.1 Neut # (Auto) 8.6 H Lymph # (Auto) 0.6 L [place] # (Auto) 0.5 Eos # (Auto) 0.1 Baso # (Auto) 0.0 Total Counted Immature Gran % 1.1 Nucleated RBC % 0.0 Immature Gran # 0.11 Segmented Neutrophils Band Neutrophils Lymphocytes Monocytes Nucleated RBCs # 0.00 Platelet Estimate Immature Plt Fraction 0.0 Ovalocytes INR 1.2 PT Patient/Control Mix 12.8 Circ Anticoag PTT 27.0 Patient Temperature ABG pH ABG pH at Pt Temp ABG pCO2 ABG pCO2 at Pt Temp ABG pO2 ABG pO2 at Pt Temp ABG HCO3 ABG Total CO2 ABG O2 Saturation ABG Base Excess ABG Sodium VBG pH VBG pCO2 VBG pO2 VBG HCO3 VBG Total CO2 VBG O2 Saturation VBG Base Excess Hemoglobin Hematocrit Potassium 4.3 Glucose 225 H Ionized Calcium FiO2 Sodium 140 Chloride 107 Carbon Dioxide 25 Anion Gap 12.3 BUN 13 Creatinine 1.00 GFR Calculation 93 BUN/Creatinine Ratio 13.00 POC Glucose Calculated Osmolality 285.4 Calcium 9.1 Venous Ioniz Calcium Magnesium 2.2 Total Bilirubin 1.00 Direct Bilirubin AST 17 ALT 9 L Alkaline Phosphatase 52 Total Creatine Kinase CK-MB (CK-2) CK and CKMB Interp Troponin I Total Protein 5.2 L Albumin 2.9 L Globulin 2.3 Albumin/Globulin Ratio 1.2 Blood Type Antibody Screen Crossmatch 05/10/17 05/10/17 05/10/17 11:20 13:00 13:00 WBC RBC Hgb Hct MCV MCH MCHC RDW Plt Count MPV Neut % (Auto) Lymph % (Auto) [place] % (Auto) Eos % (Auto) Baso % (Auto) Neut # (Auto) Lymph # (Auto) [place] # (Auto) Eos # (Auto) Baso # (Auto) Total Counted Immature Gran % Nucleated RBC % Immature Gran # Segmented Neutrophils Band Neutrophils Lymphocytes Monocytes Nucleated RBCs # Platelet Estimate Immature Plt Fraction Ovalocytes INR PT Patient/Control Mix Circ Anticoag PTT Patient Temperature 37 ABG pH 7.408 ABG pH at Pt Temp 7.358 ABG pCO2 36.2 ABG pCO2 at Pt Temp 45.1 ABG pO2 122.0 H ABG pO2 at Pt Temp 35.3 ABG HCO3 23.3 ABG Total CO2 20.1 L ABG O2 Saturation 98.4 ABG Base Excess -1.3 ABG Sodium 138 VBG pH 7.358 VBG pCO2 45.1 VBG pO2 35.3 VBG HCO3 23.4 L VBG Total CO2 22.9 VBG O2 Saturation 61.9 VBG Base Excess -0.4 L Hemoglobin 12.5 L 11.7 L Hematocrit 38.4 L 36.1 L Potassium 3.9 4.0 Glucose 206 H 199 H Ionized Calcium FiO2 21.00 Sodium Chloride Carbon Dioxide Anion Gap BUN Creatinine GFR Calculation BUN/Creatinine Ratio POC Glucose Calculated Osmolality Calcium Venous Ioniz Calcium 1.29 Magnesium Total Bilirubin Direct Bilirubin AST ALT Alkaline Phosphatase Total Creatine Kinase 163 CK-MB (CK-2) 10.2 H CK and CKMB Interp 6.3 Troponin I 1.480 H Total Protein Albumin Globulin Albumin/Globulin Ratio Blood Type Antibody Screen Crossmatch 05/10/17 05/10/17 05/10/17 13:33 13:56 14:53 WBC RBC Hgb Hct MCV MCH MCHC RDW Plt Count MPV Neut % (Auto) Lymph % (Auto) [place] % (Auto) Eos % (Auto) Baso % (Auto) Neut # (Auto) Lymph # (Auto) [place] # (Auto) Eos # (Auto) Baso # (Auto) Total Counted Immature Gran % Nucleated RBC % Immature Gran # Segmented Neutrophils Band Neutrophils Lymphocytes Monocytes Nucleated RBCs # Platelet Estimate Immature Plt Fraction Ovalocytes INR PT Patient/Control Mix Circ Anticoag PTT Patient Temperature 37 ABG pH 7.399 ABG pH at Pt Temp 7.363 ABG pCO2 36.7 ABG pCO2 at Pt Temp 42.0 ABG pO2 119.0 H ABG pO2 at Pt Temp 37.9 ABG HCO3 23.0 ABG Total CO2 20.7 L ABG O2 Saturation 98.7 ABG Base Excess -1.7 ABG Sodium 140 VBG pH 7.363 VBG pCO2 42.0 VBG pO2 37.9 VBG HCO3 22.6 L VBG Total CO2 21.7 VBG O2 Saturation 66.4 VBG Base Excess -1.5 L Hemoglobin 11.1 L 9.9 L Hematocrit 34.1 L 30.5 L Potassium 3.8 4.3 Glucose 180 H 123 H Ionized Calcium FiO2 21.00 Sodium Chloride Carbon Dioxide Anion Gap BUN Creatinine GFR Calculation BUN/Creatinine Ratio POC Glucose 206 H Calculated Osmolality Calcium Venous Ioniz Calcium 1.24 Magnesium Total Bilirubin Direct Bilirubin AST ALT Alkaline Phosphatase Total Creatine Kinase CK-MB (CK-2) CK and CKMB Interp Troponin I Total Protein Albumin Globulin Albumin/Globulin Ratio Blood Type Antibody Screen Crossmatch 05/10/17 05/10/17 05/10/17 15:55 17:01 17:55 WBC RBC Hgb Hct MCV MCH MCHC RDW Plt Count MPV Neut % (Auto) Lymph % (Auto) [place] % (Auto) Eos % (Auto) Baso % (Auto) Neut # (Auto) Lymph # (Auto) [place] # (Auto) Eos # (Auto) Baso # (Auto) Total Counted Immature Gran % Nucleated RBC % Immature Gran # Segmented Neutrophils Band Neutrophils Lymphocytes Monocytes Nucleated RBCs # Platelet Estimate Immature Plt Fraction Ovalocytes INR PT Patient/Control Mix Circ Anticoag PTT Patient Temperature ABG pH 7.392 7.417 ABG pH at Pt Temp ABG pCO2 38.0 35.8 ABG pCO2 at Pt Temp ABG pO2 97.1 H 70.9 L ABG pO2 at Pt Temp ABG HCO3 23.1 23.5 ABG Total CO2 21.0 L 21.1 L ABG O2 Saturation 97.6 94.5 L ABG Base Excess -1.5 -1.1 ABG Sodium VBG pH VBG pCO2 VBG pO2 VBG HCO3 VBG Total CO2 VBG O2 Saturation VBG Base Excess Hemoglobin 10.1 L 9.5 L Hematocrit 31.2 L 29.5 L Potassium 4.7 4.2 Glucose 101 96 Ionized Calcium FiO2 Sodium Chloride Carbon Dioxide Anion Gap BUN Creatinine GFR Calculation BUN/Creatinine Ratio POC Glucose 116 H Calculated Osmolality Calcium Venous Ioniz Calcium Magnesium Total Bilirubin Direct Bilirubin AST ALT Alkaline Phosphatase Total Creatine Kinase CK-MB (CK-2) CK and CKMB Interp Troponin I Total Protein Albumin Globulin Albumin/Globulin Ratio Blood Type Antibody Screen Crossmatch 05/10/17 05/10/17 05/10/17 19:08 20:10 20:50 WBC RBC Hgb Hct MCV MCH MCHC RDW Plt Count MPV Neut % (Auto) Lymph % (Auto) [place] % (Auto) Eos % (Auto) Baso % (Auto) Neut # (Auto) Lymph # (Auto) [place] # (Auto) Eos # (Auto) Baso # (Auto) Total Counted Immature Gran % Nucleated RBC % Immature Gran # Segmented Neutrophils Band Neutrophils Lymphocytes Monocytes Nucleated RBCs # Platelet Estimate Immature Plt Fraction Ovalocytes INR PT Patient/Control Mix Circ Anticoag PTT Patient Temperature ABG pH 7.408 7.372 ABG pH at Pt Temp ABG pCO2 36.9 41.2 ABG pCO2 at Pt Temp ABG pO2 91.7 94.4 ABG pO2 at Pt Temp ABG HCO3 23.5 23.4 ABG Total CO2 21.3 L 21.9 L ABG O2 Saturation 97.0 97.0 ABG Base Excess -1.1 -1.2 ABG Sodium VBG pH VBG pCO2 VBG pO2 VBG HCO3 VBG Total CO2 VBG O2 Saturation VBG Base Excess Hemoglobin 9.6 L 9.7 L Hematocrit 29.8 L 30.0 L Potassium 4.8 4.6 Glucose 129 H 160 H Ionized Calcium FiO2 Sodium Chloride Carbon Dioxide Anion Gap BUN Creatinine GFR Calculation BUN/Creatinine Ratio POC Glucose Calculated Osmolality Calcium Venous Ioniz Calcium Magnesium Total Bilirubin Direct Bilirubin AST ALT Alkaline Phosphatase Total Creatine Kinase 290 D CK-MB (CK-2) 12.0 H CK and CKMB Interp 4.1 Troponin I 2.940 H D Total Protein Albumin Globulin Albumin/Globulin Ratio Blood Type Antibody Screen Crossmatch 05/10/17 05/10/17 05/10/17 20:50 22:04 22:58 WBC RBC Hgb Hct MCV MCH MCHC RDW Plt Count MPV Neut % (Auto) Lymph % (Auto) [place] % (Auto) Eos % (Auto) Baso % (Auto) Neut # (Auto) Lymph # (Auto) [place] # (Auto) Eos # (Auto) Baso # (Auto) Total Counted Immature Gran % Nucleated RBC % Immature Gran # Segmented Neutrophils Band Neutrophils Lymphocytes Monocytes Nucleated RBCs # Platelet Estimate Immature Plt Fraction Ovalocytes INR PT Patient/Control Mix Circ Anticoag PTT Patient Temperature ABG pH 7.330 L ABG pH at Pt Temp ABG pCO2 44.5 ABG pCO2 at Pt Temp ABG pO2 98.8 H ABG pO2 at Pt Temp ABG HCO3 22.3 ABG Total CO2 21.6 L ABG O2 Saturation 97.1 ABG Base Excess -2.5 ABG Sodium VBG pH VBG pCO2 VBG pO2 VBG HCO3 VBG Total CO2 VBG O2 Saturation VBG Base Excess Hemoglobin 9.5 L Hematocrit 29.5 L Potassium 4.6 Glucose 169 H Ionized Calcium FiO2 Sodium Chloride Carbon Dioxide Anion Gap BUN Creatinine GFR Calculation BUN/Creatinine Ratio POC Glucose 210 H 220 H Calculated Osmolality Calcium Venous Ioniz Calcium Magnesium Total Bilirubin Direct Bilirubin AST ALT Alkaline Phosphatase Total Creatine Kinase CK-MB (CK-2) CK and CKMB Interp Troponin I Total Protein Albumin Globulin Albumin/Globulin Ratio Blood Type Antibody Screen Crossmatch 05/10/17 05/10/17 05/11/17 23:25 23:50 00:27 WBC RBC Hgb Hct MCV MCH MCHC RDW Plt Count MPV Neut % (Auto) Lymph % (Auto) [place] % (Auto) Eos % (Auto) Baso % (Auto) Neut # (Auto) Lymph # (Auto) [place] # (Auto) Eos # (Auto) Baso # (Auto) Total Counted Immature Gran % Nucleated RBC % Immature Gran # Segmented Neutrophils Band Neutrophils Lymphocytes Monocytes Nucleated RBCs # Platelet Estimate Immature Plt Fraction Ovalocytes INR PT Patient/Control Mix Circ Anticoag PTT Patient Temperature ABG pH 7.332 L 7.267 L 7.291 L ABG pH at Pt Temp ABG pCO2 46.7 53.3 H 50.6 H ABG pCO2 at Pt Temp ABG pO2 103.4 H 85.9 102.4 H ABG pO2 at Pt Temp ABG HCO3 24.2 21.7 23.8 ABG Total CO2 25.6 22.5 L 25.4 ABG O2 Saturation 96.9 94.9 L 96.5 ABG Base Excess -1.8 -3.2 L -2.9 L ABG Sodium VBG pH VBG pCO2 VBG pO2 VBG HCO3 VBG Total CO2 VBG O2 Saturation VBG Base Excess Hemoglobin 10.3 L 9.8 L 10.3 L Hematocrit 30.0 L 30.3 L 30.0 L Potassium 4.7 4.6 4.3 Glucose 167 H 171 H 151 H Ionized Calcium FiO2 Sodium Chloride Carbon Dioxide Anion Gap BUN Creatinine GFR Calculation BUN/Creatinine Ratio POC Glucose Calculated Osmolality Calcium Venous Ioniz Calcium Magnesium Total Bilirubin Direct Bilirubin AST ALT Alkaline Phosphatase Total Creatine Kinase CK-MB (CK-2) CK and CKMB Interp Troponin I Total Protein Albumin Globulin Albumin/Globulin Ratio Blood Type Antibody Screen Crossmatch 05/11/17 05/11/17 05/11/17 01:00 02:12 03:09 WBC RBC Hgb Hct MCV MCH MCHC RDW Plt Count MPV Neut % (Auto) Lymph % (Auto) [place] % (Auto) Eos % (Auto) Baso % (Auto) Neut # (Auto) Lymph # (Auto) [place] # (Auto) Eos # (Auto) Baso # (Auto) Total Counted Immature Gran % Nucleated RBC % Immature Gran # Segmented Neutrophils Band Neutrophils Lymphocytes Monocytes Nucleated RBCs # Platelet Estimate Immature Plt Fraction Ovalocytes INR PT Patient/Control Mix Circ Anticoag PTT Patient Temperature ABG pH 7.358 ABG pH at Pt Temp ABG pCO2 41.6 ABG pCO2 at Pt Temp ABG pO2 77.2 L ABG pO2 at Pt Temp ABG HCO3 22.9 ABG Total CO2 24.1 ABG O2 Saturation 94.5 L ABG Base Excess -2.5 ABG Sodium VBG pH VBG pCO2 VBG pO2 VBG HCO3 VBG Total CO2 VBG O2 Saturation VBG Base Excess Hemoglobin 10.1 L Hematocrit 30.0 L Potassium 5.0 Glucose 138 H Ionized Calcium FiO2 Sodium Chloride Carbon Dioxide Anion Gap BUN Creatinine GFR Calculation BUN/Creatinine Ratio POC Glucose 150 H 145 H Calculated Osmolality Calcium Venous Ioniz Calcium Magnesium Total Bilirubin Direct Bilirubin AST ALT Alkaline Phosphatase Total Creatine Kinase CK-MB (CK-2) CK and CKMB Interp Troponin I Total Protein Albumin Globulin Albumin/Globulin Ratio Blood Type Antibody Screen Crossmatch 05/11/17 05/11/17 05/11/17 04:00 04:00 04:00 WBC 14.3 H D RBC 2.94 L Hgb 9.3 L Hct 27.5 L MCV 93.5 MCH 32 MCHC 33.8 RDW 14.5 Plt Count 144 MPV 10.0 Neut % (Auto) 89.3 H Lymph % (Auto) 3.7 L [place] % (Auto) 6.0 Eos % (Auto) 0.0 Baso % (Auto) 0.1 Neut # (Auto) 12.8 H Lymph # (Auto) 0.5 L [place] # (Auto) 0.9 H Eos # (Auto) 0.0 Baso # (Auto) 0.0 Total Counted 100 Immature Gran % 0.9 Nucleated RBC % 0.0 Immature Gran # 0.13 Segmented Neutrophils 87 H Band Neutrophils 2 Lymphocytes 5 L Monocytes 6 Nucleated RBCs # 0.00 Platelet Estimate Decreased Immature Plt Fraction 0.0 Ovalocytes Few INR PT Patient/Control Mix Circ Anticoag PTT Patient Temperature ABG pH ABG pH at Pt Temp ABG pCO2 ABG pCO2 at Pt Temp ABG pO2 ABG pO2 at Pt Temp ABG HCO3 ABG Total CO2 ABG O2 Saturation ABG Base Excess ABG Sodium VBG pH VBG pCO2 VBG pO2 VBG HCO3 VBG Total CO2 VBG O2 Saturation VBG Base Excess Hemoglobin Hematocrit Potassium 5.0 Glucose 103 Ionized Calcium FiO2 Sodium 143 Chloride 110 H Carbon Dioxide 28 Anion Gap 10.0 BUN 20 H Creatinine 1.20 GFR Calculation 75 BUN/Creatinine Ratio 16.00 POC Glucose Calculated Osmolality 287.0 Calcium 8.6 Venous Ioniz Calcium Magnesium 2.3 Total Bilirubin 0.50 Direct Bilirubin 0.160 AST 29 ALT 15 L Alkaline Phosphatase 43 L Total Creatine Kinase 372 H D CK-MB (CK-2) 16.5 H CK and CKMB Interp 4.4 Troponin I 3.540 H D Total Protein 6.2 L Albumin 3.9 Globulin 2.3 Albumin/Globulin Ratio 1.6 Blood Type Antibody Screen Crossmatch 05/11/17 05/11/17 05/11/17 04:04 05:01 06:05 WBC RBC Hgb Hct MCV MCH MCHC RDW Plt Count MPV Neut % (Auto) Lymph % (Auto) [place] % (Auto) Eos % (Auto) Baso % (Auto) Neut # (Auto) Lymph # (Auto) [place] # (Auto) Eos # (Auto) Baso # (Auto) Total Counted Immature Gran % Nucleated RBC % Immature Gran # Segmented Neutrophils Band Neutrophils Lymphocytes Monocytes Nucleated RBCs # Platelet Estimate Immature Plt Fraction Ovalocytes INR PT Patient/Control Mix Circ Anticoag PTT Patient Temperature ABG pH 7.353 ABG pH at Pt Temp ABG pCO2 43.4 ABG pCO2 at Pt Temp ABG pO2 87.9 ABG pO2 at Pt Temp ABG HCO3 23.6 ABG Total CO2 24.9 ABG O2 Saturation 96.0 ABG Base Excess -1.9 ABG Sodium VBG pH VBG pCO2 VBG pO2 VBG HCO3 VBG Total CO2 VBG O2 Saturation VBG Base Excess Hemoglobin 9.9 L Hematocrit 29.0 L Potassium 5.0 Glucose 100 Ionized Calcium FiO2 Sodium Chloride Carbon Dioxide Anion Gap BUN Creatinine GFR Calculation BUN/Creatinine Ratio POC Glucose 133 H 137 H Calculated Osmolality Calcium Venous Ioniz Calcium Magnesium Total Bilirubin Direct Bilirubin AST ALT Alkaline Phosphatase Total Creatine Kinase CK-MB (CK-2) CK and CKMB Interp Troponin I Total Protein Albumin Globulin Albumin/Globulin Ratio Blood Type Antibody Screen Crossmatch 05/11/17 05/11/17 06:40 07:02 WBC RBC Hgb 9.7 L Hct 28.2 L MCV MCH MCHC RDW Plt Count MPV Neut % (Auto) Lymph % (Auto) [place] % (Auto) Eos % (Auto) Baso % (Auto) Neut # (Auto) Lymph # (Auto) [place] # (Auto) Eos # (Auto) Baso # (Auto) Total Counted Immature Gran % Nucleated RBC % Immature Gran # Segmented Neutrophils Band Neutrophils Lymphocytes Monocytes Nucleated RBCs # Platelet Estimate Immature Plt Fraction Ovalocytes INR PT Patient/Control Mix Circ Anticoag PTT Patient Temperature ABG pH ABG pH at Pt Temp ABG pCO2 ABG pCO2 at Pt Temp ABG pO2 ABG pO2 at Pt Temp ABG HCO3 ABG Total CO2 ABG O2 Saturation ABG Base Excess ABG Sodium VBG pH VBG pCO2 VBG pO2 VBG HCO3 VBG Total CO2 VBG O2 Saturation VBG Base Excess Hemoglobin Hematocrit Potassium Glucose Ionized Calcium FiO2 Sodium Chloride Carbon Dioxide Anion Gap BUN Creatinine GFR Calculation BUN/Creatinine Ratio POC Glucose 148 H Calculated Osmolality Calcium Venous Ioniz Calcium Magnesium Total Bilirubin Direct Bilirubin AST ALT Alkaline Phosphatase Total Creatine Kinase CK-MB (CK-2) CK and CKMB Interp Troponin I Total Protein Albumin Globulin Albumin/Globulin Ratio Blood Type Antibody Screen Crossmatch Quality Measures - VTE Contraindication to Pharmacological VTE Prophylaxis: Already on Theraputic Agent , No Prophylaxis Needed Specialty Discharge - Follow Up or Referrals <George Uribe - Last Filed: 05/11/17 10:33> Cardiology - PN: Subj Interval history: Patient personally interviewed and examined today and review the chart. I have discussed his case with Darlene Virk and the attending nurse. Patient is 1 day post coronary bypass surgery is done well and is extubated. He has had no hemodynamic issues. Rhythm is remaining sinus. We will need to continue risk factor modification once he is upstairs. He does have dyslipidemia as well as hypertension. His blood pressure is stable. Will monitor for any dysrhythmias post surgery. His cardiac enzymes are stable for postop. Exam (Progress Note) - Constitutional Vitals: Period Temp Pulse Resp BP Sys/Weaver Pulse Ox Last 24 Hr 96.2 F-98.2 F 71-82 10-20 86-139/51-81 96-100 Result/EKG - Labs CBC & BMP: 05/11/17 06:40 05/11/17 04:00 Labs: Laboratory Results - last 24 hr 05/09/17 05/10/17 05/10/17 03:58 11:20 11:20 WBC 10.0 D RBC 3.53 L Hgb 11.2 L Hct 32.1 L MCV 90.9 MCH 32 MCHC 34.9 RDW 13.8 Plt Count 148 D MPV 10.3 Neut % (Auto) 86.2 H Lymph % (Auto) 6.4 L [place] % (Auto) 5.2 Eos % (Auto) 1.0 Baso % (Auto) 0.1 Neut # (Auto) 8.6 H Lymph # (Auto) 0.6 L [place] # (Auto) 0.5 Eos # (Auto) 0.1 Baso # (Auto) 0.0 Total Counted Immature Gran % 1.1 Nucleated RBC % 0.0 Immature Gran # 0.11 Segmented Neutrophils Band Neutrophils Lymphocytes Monocytes Nucleated RBCs # 0.00 Platelet Estimate Immature Plt Fraction 0.0 Ovalocytes INR PT Patient/Control Mix Circ Anticoag PTT Patient Temperature ABG pH 7.401 ABG pH at Pt Temp ABG pCO2 37.1 ABG pCO2 at Pt Temp ABG pO2 68.4 L ABG pO2 at Pt Temp ABG HCO3 23.2 ABG Total CO2 20.6 L ABG O2 Saturation 93.2 L ABG Base Excess -1.3 ABG Sodium VBG pH VBG pCO2 VBG pO2 VBG HCO3 VBG Total CO2 VBG O2 Saturation VBG Base Excess Hemoglobin 11.3 L Hematocrit 34.9 L Potassium 4.3 Glucose 224 H FiO2 Sodium Chloride Carbon Dioxide Anion Gap BUN Creatinine GFR Calculation BUN/Creatinine Ratio POC Glucose Calculated Osmolality Calcium Venous Ioniz Calcium Magnesium Total Bilirubin Direct Bilirubin AST ALT Alkaline Phosphatase Total Creatine Kinase CK-MB (CK-2) CK and CKMB Interp Troponin I Total Protein Albumin Globulin Albumin/Globulin Ratio Blood Type O NEGATIVE Antibody Screen Negative Crossmatch See Detail 05/10/17 05/10/17 05/10/17 11:20 11:20 11:20 WBC RBC Hgb Hct MCV MCH MCHC RDW Plt Count MPV Neut % (Auto) Lymph % (Auto) [place] % (Auto) Eos % (Auto) Baso % (Auto) Neut # (Auto) Lymph # (Auto) [place] # (Auto) Eos # (Auto) Baso # (Auto) Total Counted Immature Gran % Nucleated RBC % Immature Gran # Segmented Neutrophils Band Neutrophils Lymphocytes Monocytes Nucleated RBCs # Platelet Estimate Immature Plt Fraction Ovalocytes INR 1.2 PT Patient/Control Mix 12.8 Circ Anticoag PTT 27.0 Patient Temperature ABG pH ABG pH at Pt Temp ABG pCO2 ABG pCO2 at Pt Temp ABG pO2 ABG pO2 at Pt Temp ABG HCO3 ABG Total CO2 ABG O2 Saturation ABG Base Excess ABG Sodium VBG pH VBG pCO2 VBG pO2 VBG HCO3 VBG Total CO2 VBG O2 Saturation VBG Base Excess Hemoglobin Hematocrit Potassium 4.3 Glucose 225 H FiO2 Sodium 140 Chloride 107 Carbon Dioxide 25 Anion Gap 12.3 BUN 13 Creatinine 1.00 GFR Calculation 93 BUN/Creatinine Ratio 13.00 POC Glucose Calculated Osmolality 285.4 Calcium 9.1 Venous Ioniz Calcium Magnesium 2.2 Total Bilirubin 1.00 Direct Bilirubin AST 17 ALT 9 L Alkaline Phosphatase 52 Total Creatine Kinase 163 CK-MB (CK-2) 10.2 H CK and CKMB Interp 6.3 Troponin I 1.480 H Total Protein 5.2 L Albumin 2.9 L Globulin 2.3 Albumin/Globulin Ratio 1.2 Blood Type Antibody Screen Crossmatch 05/10/17 05/10/17 05/10/17 13:00 13:00 13:33 WBC RBC Hgb Hct MCV MCH MCHC RDW Plt Count MPV Neut % (Auto) Lymph % (Auto) [place] % (Auto) Eos % (Auto) Baso % (Auto) Neut # (Auto) Lymph # (Auto) [place] # (Auto) Eos # (Auto) Baso # (Auto) Total Counted Immature Gran % Nucleated RBC % Immature Gran # Segmented Neutrophils Band Neutrophils Lymphocytes Monocytes Nucleated RBCs # Platelet Estimate Immature Plt Fraction Ovalocytes INR PT Patient/Control Mix Circ Anticoag PTT Patient Temperature 37 37 ABG pH 7.408 ABG pH at Pt Temp 7.358 7.363 ABG pCO2 36.2 ABG pCO2 at Pt Temp 45.1 42.0 ABG pO2 122.0 H ABG pO2 at Pt Temp 35.3 37.9 ABG HCO3 23.3 ABG Total CO2 20.1 L ABG O2 Saturation 98.4 ABG Base Excess -1.3 ABG Sodium 138 140 VBG pH 7.358 7.363 VBG pCO2 45.1 42.0 VBG pO2 35.3 37.9 VBG HCO3 23.4 L 22.6 L VBG Total CO2 22.9 21.7 VBG O2 Saturation 61.9 66.4 VBG Base Excess -0.4 L -1.5 L Hemoglobin 12.5 L 11.7 L 11.1 L Hematocrit 38.4 L 36.1 L 34.1 L Potassium 3.9 4.0 3.8 Glucose 206 H 199 H 180 H FiO2 21.00 21.00 Sodium Chloride Carbon Dioxide Anion Gap BUN Creatinine GFR Calculation BUN/Creatinine Ratio POC Glucose Calculated Osmolality Calcium Venous Ioniz Calcium 1.29 1.24 Magnesium Total Bilirubin Direct Bilirubin AST ALT Alkaline Phosphatase Total Creatine Kinase CK-MB (CK-2) CK and CKMB Interp Troponin I Total Protein Albumin Globulin Albumin/Globulin Ratio Blood Type Antibody Screen Crossmatch 05/10/17 05/10/17 05/10/17 13:56 14:53 15:55 WBC RBC Hgb Hct MCV MCH MCHC RDW Plt Count MPV Neut % (Auto) Lymph % (Auto) [place] % (Auto) Eos % (Auto) Baso % (Auto) Neut # (Auto) Lymph # (Auto) [place] # (Auto) Eos # (Auto) Baso # (Auto) Total Counted Immature Gran % Nucleated RBC % Immature Gran # Segmented Neutrophils Band Neutrophils Lymphocytes Monocytes Nucleated RBCs # Platelet Estimate Immature Plt Fraction Ovalocytes INR PT Patient/Control Mix Circ Anticoag PTT Patient Temperature ABG pH 7.399 7.392 ABG pH at Pt Temp ABG pCO2 36.7 38.0 ABG pCO2 at Pt Temp ABG pO2 119.0 H 97.1 H ABG pO2 at Pt Temp ABG HCO3 23.0 23.1 ABG Total CO2 20.7 L 21.0 L ABG O2 Saturation 98.7 97.6 ABG Base Excess -1.7 -1.5 ABG Sodium VBG pH VBG pCO2 VBG pO2 VBG HCO3 VBG Total CO2 VBG O2 Saturation VBG Base Excess Hemoglobin 9.9 L 10.1 L Hematocrit 30.5 L 31.2 L Potassium 4.3 4.7 Glucose 123 H 101 FiO2 Sodium Chloride Carbon Dioxide Anion Gap BUN Creatinine GFR Calculation BUN/Creatinine Ratio POC Glucose 206 H Calculated Osmolality Calcium Venous Ioniz Calcium Magnesium Total Bilirubin Direct Bilirubin AST ALT Alkaline Phosphatase Total Creatine Kinase CK-MB (CK-2) CK and CKMB Interp Troponin I Total Protein Albumin Globulin Albumin/Globulin Ratio Blood Type Antibody Screen Crossmatch 05/10/17 05/10/17 05/10/17 17:01 17:55 19:08 WBC RBC Hgb Hct MCV MCH MCHC RDW Plt Count MPV Neut % (Auto) Lymph % (Auto) [place] % (Auto) Eos % (Auto) Baso % (Auto) Neut # (Auto) Lymph # (Auto) [place] # (Auto) Eos # (Auto) Baso # (Auto) Total Counted Immature Gran % Nucleated RBC % Immature Gran # Segmented Neutrophils Band Neutrophils Lymphocytes Monocytes Nucleated RBCs # Platelet Estimate Immature Plt Fraction Ovalocytes INR PT Patient/Control Mix Circ Anticoag PTT Patient Temperature ABG pH 7.417 7.408 ABG pH at Pt Temp ABG pCO2 35.8 36.9 ABG pCO2 at Pt Temp ABG pO2 70.9 L 91.7 ABG pO2 at Pt Temp ABG HCO3 23.5 23.5 ABG Total CO2 21.1 L 21.3 L ABG O2 Saturation 94.5 L 97.0 ABG Base Excess -1.1 -1.1 ABG Sodium VBG pH VBG pCO2 VBG pO2 VBG HCO3 VBG Total CO2 VBG O2 Saturation VBG Base Excess Hemoglobin 9.5 L 9.6 L Hematocrit 29.5 L 29.8 L Potassium 4.2 4.8 Glucose 96 129 H FiO2 Sodium Chloride Carbon Dioxide Anion Gap BUN Creatinine GFR Calculation BUN/Creatinine Ratio POC Glucose 116 H Calculated Osmolality Calcium Venous Ioniz Calcium Magnesium Total Bilirubin Direct Bilirubin AST ALT Alkaline Phosphatase Total Creatine Kinase CK-MB (CK-2) CK and CKMB Interp Troponin I Total Protein Albumin Globulin Albumin/Globulin Ratio Blood Type Antibody Screen Crossmatch 05/10/17 05/10/17 05/10/17 20:10 20:50 20:50 WBC RBC Hgb Hct MCV MCH MCHC RDW Plt Count MPV Neut % (Auto) Lymph % (Auto) [place] % (Auto) Eos % (Auto) Baso % (Auto) Neut # (Auto) Lymph # (Auto) [place] # (Auto) Eos # (Auto) Baso # (Auto) Total Counted Immature Gran % Nucleated RBC % Immature Gran # Segmented Neutrophils Band Neutrophils Lymphocytes Monocytes Nucleated RBCs # Platelet Estimate Immature Plt Fraction Ovalocytes INR PT Patient/Control Mix Circ Anticoag PTT Patient Temperature ABG pH 7.372 7.330 L ABG pH at Pt Temp ABG pCO2 41.2 44.5 ABG pCO2 at Pt Temp ABG pO2 94.4 98.8 H ABG pO2 at Pt Temp ABG HCO3 23.4 22.3 ABG Total CO2 21.9 L 21.6 L ABG O2 Saturation 97.0 97.1 ABG Base Excess -1.2 -2.5 ABG Sodium VBG pH VBG pCO2 VBG pO2 VBG HCO3 VBG Total CO2 VBG O2 Saturation VBG Base Excess Hemoglobin 9.7 L 9.5 L Hematocrit 30.0 L 29.5 L Potassium 4.6 4.6 Glucose 160 H 169 H FiO2 Sodium Chloride Carbon Dioxide Anion Gap BUN Creatinine GFR Calculation BUN/Creatinine Ratio POC Glucose Calculated Osmolality Calcium Venous Ioniz Calcium Magnesium Total Bilirubin Direct Bilirubin AST ALT Alkaline Phosphatase Total Creatine Kinase 290 D CK-MB (CK-2) 12.0 H CK and CKMB Interp 4.1 Troponin I 2.940 H D Total Protein Albumin Globulin Albumin/Globulin Ratio Blood Type Antibody Screen Crossmatch 05/10/17 05/10/17 05/10/17 22:04 22:58 23:25 WBC RBC Hgb Hct MCV MCH MCHC RDW Plt Count MPV Neut % (Auto) Lymph % (Auto) [place] % (Auto) Eos % (Auto) Baso % (Auto) Neut # (Auto) Lymph # (Auto) [place] # (Auto) Eos # (Auto) Baso # (Auto) Total Counted Immature Gran % Nucleated RBC % Immature Gran # Segmented Neutrophils Band Neutrophils Lymphocytes Monocytes Nucleated RBCs # Platelet Estimate Immature Plt Fraction Ovalocytes INR PT Patient/Control Mix Circ Anticoag PTT Patient Temperature ABG pH 7.332 L ABG pH at Pt Temp ABG pCO2 46.7 ABG pCO2 at Pt Temp ABG pO2 103.4 H ABG pO2 at Pt Temp ABG HCO3 24.2 ABG Total CO2 25.6 ABG O2 Saturation 96.9 ABG Base Excess -1.8 ABG Sodium VBG pH VBG pCO2 VBG pO2 VBG HCO3 VBG Total CO2 VBG O2 Saturation VBG Base Excess Hemoglobin 10.3 L Hematocrit 30.0 L Potassium 4.7 Glucose 167 H FiO2 Sodium Chloride Carbon Dioxide Anion Gap BUN Creatinine GFR Calculation BUN/Creatinine Ratio POC Glucose 210 H 220 H Calculated Osmolality Calcium Venous Ioniz Calcium Magnesium Total Bilirubin Direct Bilirubin AST ALT Alkaline Phosphatase Total Creatine Kinase CK-MB (CK-2) CK and CKMB Interp Troponin I Total Protein Albumin Globulin Albumin/Globulin Ratio Blood Type Antibody Screen Crossmatch 05/10/17 05/11/17 05/11/17 23:50 00:27 01:00 WBC RBC Hgb Hct MCV MCH MCHC RDW Plt Count MPV Neut % (Auto) Lymph % (Auto) [place] % (Auto) Eos % (Auto) Baso % (Auto) Neut # (Auto) Lymph # (Auto) [place] # (Auto) Eos # (Auto) Baso # (Auto) Total Counted Immature Gran % Nucleated RBC % Immature Gran # Segmented Neutrophils Band Neutrophils Lymphocytes Monocytes Nucleated RBCs # Platelet Estimate Immature Plt Fraction Ovalocytes INR PT Patient/Control Mix Circ Anticoag PTT Patient Temperature ABG pH 7.267 L 7.291 L 7.358 ABG pH at Pt Temp ABG pCO2 53.3 H 50.6 H 41.6 ABG pCO2 at Pt Temp ABG pO2 85.9 102.4 H 77.2 L ABG pO2 at Pt Temp ABG HCO3 21.7 23.8 22.9 ABG Total CO2 22.5 L 25.4 24.1 ABG O2 Saturation 94.9 L 96.5 94.5 L ABG Base Excess -3.2 L -2.9 L -2.5 ABG Sodium VBG pH VBG pCO2 VBG pO2 VBG HCO3 VBG Total CO2 VBG O2 Saturation VBG Base Excess Hemoglobin 9.8 L 10.3 L 10.1 L Hematocrit 30.3 L 30.0 L 30.0 L Potassium 4.6 4.3 5.0 Glucose 171 H 151 H 138 H FiO2 Sodium Chloride Carbon Dioxide Anion Gap BUN Creatinine GFR Calculation BUN/Creatinine Ratio POC Glucose Calculated Osmolality Calcium Venous Ioniz Calcium Magnesium Total Bilirubin Direct Bilirubin AST ALT Alkaline Phosphatase Total Creatine Kinase CK-MB (CK-2) CK and CKMB Interp Troponin I Total Protein Albumin Globulin Albumin/Globulin Ratio Blood Type Antibody Screen Crossmatch 05/11/17 05/11/17 05/11/17 02:12 03:09 04:00 WBC 14.3 H D RBC 2.94 L Hgb 9.3 L Hct 27.5 L MCV 93.5 MCH 32 MCHC 33.8 RDW 14.5 Plt Count 144 MPV 10.0 Neut % (Auto) 89.3 H Lymph % (Auto) 3.7 L [place] % (Auto) 6.0 Eos % (Auto) 0.0 Baso % (Auto) 0.1 Neut # (Auto) 12.8 H Lymph # (Auto) 0.5 L [place] # (Auto) 0.9 H Eos # (Auto) 0.0 Baso # (Auto) 0.0 Total Counted 100 Immature Gran % 0.9 Nucleated RBC % 0.0 Immature Gran # 0.13 Segmented Neutrophils 87 H Band Neutrophils 2 Lymphocytes 5 L Monocytes 6 Nucleated RBCs # 0.00 Platelet Estimate Decreased Immature Plt Fraction 0.0 Ovalocytes Few INR PT Patient/Control Mix Circ Anticoag PTT Patient Temperature ABG pH ABG pH at Pt Temp ABG pCO2 ABG pCO2 at Pt Temp ABG pO2 ABG pO2 at Pt Temp ABG HCO3 ABG Total CO2 ABG O2 Saturation ABG Base Excess ABG Sodium VBG pH VBG pCO2 VBG pO2 VBG HCO3 VBG Total CO2 VBG O2 Saturation VBG Base Excess Hemoglobin Hematocrit Potassium Glucose FiO2 Sodium Chloride Carbon Dioxide Anion Gap BUN Creatinine GFR Calculation BUN/Creatinine Ratio POC Glucose 150 H 145 H Calculated Osmolality Calcium Venous Ioniz Calcium Magnesium Total Bilirubin Direct Bilirubin AST ALT Alkaline Phosphatase Total Creatine Kinase CK-MB (CK-2) CK and CKMB Interp Troponin I Total Protein Albumin Globulin Albumin/Globulin Ratio Blood Type Antibody Screen Crossmatch 05/11/17 05/11/17 05/11/17 04:00 04:00 04:04 WBC RBC Hgb Hct MCV MCH MCHC RDW Plt Count MPV Neut % (Auto) Lymph % (Auto) [place] % (Auto) Eos % (Auto) Baso % (Auto) Neut # (Auto) Lymph # (Auto) [place] # (Auto) Eos # (Auto) Baso # (Auto) Total Counted Immature Gran % Nucleated RBC % Immature Gran # Segmented Neutrophils Band Neutrophils Lymphocytes Monocytes Nucleated RBCs # Platelet Estimate Immature Plt Fraction Ovalocytes INR PT Patient/Control Mix Circ Anticoag PTT Patient Temperature ABG pH 7.353 ABG pH at Pt Temp ABG pCO2 43.4 ABG pCO2 at Pt Temp ABG pO2 87.9 ABG pO2 at Pt Temp ABG HCO3 23.6 ABG Total CO2 24.9 ABG O2 Saturation 96.0 ABG Base Excess -1.9 ABG Sodium VBG pH VBG pCO2 VBG pO2 VBG HCO3 VBG Total CO2 VBG O2 Saturation VBG Base Excess Hemoglobin 9.9 L Hematocrit 29.0 L Potassium 5.0 5.0 Glucose 103 100 FiO2 Sodium 143 Chloride 110 H Carbon Dioxide 28 Anion Gap 10.0 BUN 20 H Creatinine 1.20 GFR Calculation 75 BUN/Creatinine Ratio 16.00 POC Glucose Calculated Osmolality 287.0 Calcium 8.6 Venous Ioniz Calcium Magnesium 2.3 Total Bilirubin 0.50 Direct Bilirubin 0.160 AST 29 ALT 15 L Alkaline Phosphatase 43 L Total Creatine Kinase 372 H D CK-MB (CK-2) 16.5 H CK and CKMB Interp 4.4 Troponin I 3.540 H D Total Protein 6.2 L Albumin 3.9 Globulin 2.3 Albumin/Globulin Ratio 1.6 Blood Type Antibody Screen Crossmatch 05/11/17 05/11/17 05/11/17 05:01 06:05 06:40 WBC RBC Hgb 9.7 L Hct 28.2 L MCV MCH MCHC RDW Plt Count MPV Neut % (Auto) Lymph % (Auto) [place] % (Auto) Eos % (Auto) Baso % (Auto) Neut # (Auto) Lymph # (Auto) [place] # (Auto) Eos # (Auto) Baso # (Auto) Total Counted Immature Gran % Nucleated RBC % Immature Gran # Segmented Neutrophils Band Neutrophils Lymphocytes Monocytes Nucleated RBCs # Platelet Estimate Immature Plt Fraction Ovalocytes INR PT Patient/Control Mix Circ Anticoag PTT Patient Temperature ABG pH ABG pH at Pt Temp ABG pCO2 ABG pCO2 at Pt Temp ABG pO2 ABG pO2 at Pt Temp ABG HCO3 ABG Total CO2 ABG O2 Saturation ABG Base Excess ABG Sodium VBG pH VBG pCO2 VBG pO2 VBG HCO3 VBG Total CO2 VBG O2 Saturation VBG Base Excess Hemoglobin Hematocrit Potassium Glucose FiO2 Sodium Chloride Carbon Dioxide Anion Gap BUN Creatinine GFR Calculation BUN/Creatinine Ratio POC Glucose 133 H 137 H Calculated Osmolality Calcium Venous Ioniz Calcium Magnesium Total Bilirubin Direct Bilirubin AST ALT Alkaline Phosphatase Total Creatine Kinase CK-MB (CK-2) CK and CKMB Interp Troponin I Total Protein Albumin Globulin Albumin/Globulin Ratio Blood Type Antibody Screen Crossmatch 05/11/17 07:02 WBC RBC Hgb Hct MCV MCH MCHC RDW Plt Count MPV Neut % (Auto) Lymph % (Auto) [place] % (Auto) Eos % (Auto) Baso % (Auto) Neut # (Auto) Lymph # (Auto) [place] # (Auto) Eos # (Auto) Baso # (Auto) Total Counted Immature Gran % Nucleated RBC % Immature Gran # Segmented Neutrophils Band Neutrophils Lymphocytes Monocytes Nucleated RBCs # Platelet Estimate Immature Plt Fraction Ovalocytes INR PT Patient/Control Mix Circ Anticoag PTT Patient Temperature ABG pH ABG pH at Pt Temp ABG pCO2 ABG pCO2 at Pt Temp ABG pO2 ABG pO2 at Pt Temp ABG HCO3 ABG Total CO2 ABG O2 Saturation ABG Base Excess ABG Sodium VBG pH VBG pCO2 VBG pO2 VBG HCO3 VBG Total CO2 VBG O2 Saturation VBG Base Excess Hemoglobin Hematocrit Potassium Glucose FiO2 Sodium Chloride Carbon Dioxide Anion Gap BUN Creatinine GFR Calculation BUN/Creatinine Ratio POC Glucose 148 H Calculated Osmolality Calcium Venous Ioniz Calcium Magnesium Total Bilirubin Direct Bilirubin AST ALT Alkaline Phosphatase Total Creatine Kinase CK-MB (CK-2) CK and CKMB Interp Troponin I Total Protein Albumin Globulin Albumin/Globulin Ratio Blood Type Antibody Screen Crossmatch
--- NOTE | 2017-05-11 08:56 | Anesthesia Post-Op ---
Anesthesia Post OP - Post Ansesthetic Evaluation Patient seen in post op: Yes Resp: within normal limits CV: within normal limits Mental: within normal limits Temp: within normal limits [id number]: within normal limits Nausea and Vomiting: within normal limits Pain: within normal limits
[2017-05-11] MEDS ORDERED: CARVEDILOL 3.125 MG TABLET PO SCH ×2 (09:00→21:00)
--- NOTE | 2017-05-11 09:02 | Cardiothoracic Progress Note ---
Cardiothoracic Subjective Interval history: Patient is awake alert and extubated. He has had a stable night and his blood pressure and heart rate have been stable. Cardiac output is in the range of 3-1 /2-4 L/min. Cardiac enzymes are within normal limits for postoperative day #1. Chest tube drainage is minimal and hopefully we can remove his chest tubes later this morning. Urine output has been good and creatinine is within normal limits. Overall his progress is satisfactory and I suspect he can be transferred to telemetry later today. Exam (Progress Note) - Constitutional Vitals: Period Temp Pulse Resp BP Sys/Weaver Pulse Ox Last 24 Hr 96.2 F-98.2 F 71-82 10-20 86-139/51-71 96-100 Result/EKG - Labs CBC & BMP: 05/11/17 06:40 05/11/17 04:00 Labs: Laboratory Results - last 24 hr 05/09/17 05/10/17 05/10/17 03:58 09:00 09:30 WBC RBC Hgb Hct MCV MCH MCHC RDW Plt Count MPV Neut % (Auto) Lymph % (Auto) [place] % (Auto) Eos % (Auto) Baso % (Auto) Neut # (Auto) Lymph # (Auto) [place] # (Auto) Eos # (Auto) Baso # (Auto) Total Counted Immature Gran % Nucleated RBC % Immature Gran # Segmented Neutrophils Band Neutrophils Lymphocytes Monocytes Nucleated RBCs # Platelet Estimate Immature Plt Fraction Ovalocytes INR PT Patient/Control Mix Circ Anticoag PTT Patient Temperature 35 36 ABG pH ABG pH at Pt Temp 7.380 7.445 ABG pCO2 ABG pCO2 at Pt Temp 42.7 36.1 ABG pO2 ABG pO2 at Pt Temp 43.6 39.5 ABG HCO3 ABG Total CO2 ABG O2 Saturation ABG Base Excess ABG Sodium 132 L 133 L VBG pH 7.351 7.430 VBG pCO2 47.1 37.9 L VBG pO2 50.0 H 42.4 H VBG HCO3 24.3 24.9 VBG Total CO2 23.8 22.4 VBG O2 Saturation 83.0 78.5 VBG Base Excess 0.1 1.0 Hemoglobin 10.3 L 11.6 L Hematocrit 31.9 L 35.6 L Potassium 4.8 5.2 H Glucose 320 H 291 H Ionized Calcium FiO2 80.00 80.00 Sodium Chloride Carbon Dioxide Anion Gap BUN Creatinine GFR Calculation BUN/Creatinine Ratio POC Glucose Calculated Osmolality Calcium Venous Ioniz Calcium 1.04 L 1.04 L Magnesium Total Bilirubin Direct Bilirubin AST ALT Alkaline Phosphatase Total Creatine Kinase CK-MB (CK-2) CK and CKMB Interp Troponin I Total Protein Albumin Globulin Albumin/Globulin Ratio Blood Type O NEGATIVE Antibody Screen Negative Crossmatch See Detail 05/10/17 05/10/17 05/10/17 10:05 10:05 11:20 WBC RBC Hgb Hct MCV MCH MCHC RDW Plt Count 123 L MPV Neut % (Auto) Lymph % (Auto) [place] % (Auto) Eos % (Auto) Baso % (Auto) Neut # (Auto) Lymph # (Auto) [place] # (Auto) Eos # (Auto) Baso # (Auto) Total Counted Immature Gran % Nucleated RBC % Immature Gran # Segmented Neutrophils Band Neutrophils Lymphocytes Monocytes Nucleated RBCs # Platelet Estimate Immature Plt Fraction Ovalocytes INR PT Patient/Control Mix Circ Anticoag PTT Patient Temperature 37 ABG pH 7.385 7.401 ABG pH at Pt Temp 7.385 ABG pCO2 41.1 37.1 ABG pCO2 at Pt Temp 41.1 ABG pO2 300.0 H 68.4 L ABG pO2 at Pt Temp 300.0 ABG HCO3 24.1 23.2 ABG Total CO2 22.3 L 20.6 L ABG O2 Saturation 99.5 93.2 L ABG Base Excess -0.4 -1.3 ABG Sodium 132 L VBG pH VBG pCO2 VBG pO2 VBG HCO3 VBG Total CO2 VBG O2 Saturation VBG Base Excess Hemoglobin 10.5 L 11.3 L Hematocrit 32.5 L 34.9 L Potassium 5.0 4.3 Glucose 253 H 224 H Ionized Calcium 1.09 L FiO2 Sodium Chloride Carbon Dioxide Anion Gap BUN Creatinine GFR Calculation BUN/Creatinine Ratio POC Glucose Calculated Osmolality Calcium Venous Ioniz Calcium Magnesium Total Bilirubin Direct Bilirubin AST ALT Alkaline Phosphatase Total Creatine Kinase CK-MB (CK-2) CK and CKMB Interp Troponin I Total Protein Albumin Globulin Albumin/Globulin Ratio Blood Type Antibody Screen Crossmatch 05/10/17 05/10/17 05/10/17 11:20 11:20 11:20 WBC 10.0 D RBC 3.53 L Hgb 11.2 L Hct 32.1 L MCV 90.9 MCH 32 MCHC 34.9 RDW 13.8 Plt Count 148 D MPV 10.3 Neut % (Auto) 86.2 H Lymph % (Auto) 6.4 L [place] % (Auto) 5.2 Eos % (Auto) 1.0 Baso % (Auto) 0.1 Neut # (Auto) 8.6 H Lymph # (Auto) 0.6 L [place] # (Auto) 0.5 Eos # (Auto) 0.1 Baso # (Auto) 0.0 Total Counted Immature Gran % 1.1 Nucleated RBC % 0.0 Immature Gran # 0.11 Segmented Neutrophils Band Neutrophils Lymphocytes Monocytes Nucleated RBCs # 0.00 Platelet Estimate Immature Plt Fraction 0.0 Ovalocytes INR 1.2 PT Patient/Control Mix 12.8 Circ Anticoag PTT 27.0 Patient Temperature ABG pH ABG pH at Pt Temp ABG pCO2 ABG pCO2 at Pt Temp ABG pO2 ABG pO2 at Pt Temp ABG HCO3 ABG Total CO2 ABG O2 Saturation ABG Base Excess ABG Sodium VBG pH VBG pCO2 VBG pO2 VBG HCO3 VBG Total CO2 VBG O2 Saturation VBG Base Excess Hemoglobin Hematocrit Potassium 4.3 Glucose 225 H Ionized Calcium FiO2 Sodium 140 Chloride 107 Carbon Dioxide 25 Anion Gap 12.3 BUN 13 Creatinine 1.00 GFR Calculation 93 BUN/Creatinine Ratio 13.00 POC Glucose Calculated Osmolality 285.4 Calcium 9.1 Venous Ioniz Calcium Magnesium 2.2 Total Bilirubin 1.00 Direct Bilirubin AST 17 ALT 9 L Alkaline Phosphatase 52 Total Creatine Kinase CK-MB (CK-2) CK and CKMB Interp Troponin I Total Protein 5.2 L Albumin 2.9 L Globulin 2.3 Albumin/Globulin Ratio 1.2 Blood Type Antibody Screen Crossmatch 05/10/17 05/10/17 05/10/17 11:20 13:00 13:00 WBC RBC Hgb Hct MCV MCH MCHC RDW Plt Count MPV Neut % (Auto) Lymph % (Auto) [place] % (Auto) Eos % (Auto) Baso % (Auto) Neut # (Auto) Lymph # (Auto) [place] # (Auto) Eos # (Auto) Baso # (Auto) Total Counted Immature Gran % Nucleated RBC % Immature Gran # Segmented Neutrophils Band Neutrophils Lymphocytes Monocytes Nucleated RBCs # Platelet Estimate Immature Plt Fraction Ovalocytes INR PT Patient/Control Mix Circ Anticoag PTT Patient Temperature 37 ABG pH 7.408 ABG pH at Pt Temp 7.358 ABG pCO2 36.2 ABG pCO2 at Pt Temp 45.1 ABG pO2 122.0 H ABG pO2 at Pt Temp 35.3 ABG HCO3 23.3 ABG Total CO2 20.1 L ABG O2 Saturation 98.4 ABG Base Excess -1.3 ABG Sodium 138 VBG pH 7.358 VBG pCO2 45.1 VBG pO2 35.3 VBG HCO3 23.4 L VBG Total CO2 22.9 VBG O2 Saturation 61.9 VBG Base Excess -0.4 L Hemoglobin 12.5 L 11.7 L Hematocrit 38.4 L 36.1 L Potassium 3.9 4.0 Glucose 206 H 199 H Ionized Calcium FiO2 21.00 Sodium Chloride Carbon Dioxide Anion Gap BUN Creatinine GFR Calculation BUN/Creatinine Ratio POC Glucose Calculated Osmolality Calcium Venous Ioniz Calcium 1.29 Magnesium Total Bilirubin Direct Bilirubin AST ALT Alkaline Phosphatase Total Creatine Kinase 163 CK-MB (CK-2) 10.2 H CK and CKMB Interp 6.3 Troponin I 1.480 H Total Protein Albumin Globulin Albumin/Globulin Ratio Blood Type Antibody Screen Crossmatch 05/10/17 05/10/17 05/10/17 13:33 13:56 14:53 WBC RBC Hgb Hct MCV MCH MCHC RDW Plt Count MPV Neut % (Auto) Lymph % (Auto) [place] % (Auto) Eos % (Auto) Baso % (Auto) Neut # (Auto) Lymph # (Auto) [place] # (Auto) Eos # (Auto) Baso # (Auto) Total Counted Immature Gran % Nucleated RBC % Immature Gran # Segmented Neutrophils Band Neutrophils Lymphocytes Monocytes Nucleated RBCs # Platelet Estimate Immature Plt Fraction Ovalocytes INR PT Patient/Control Mix Circ Anticoag PTT Patient Temperature 37 ABG pH 7.399 ABG pH at Pt Temp 7.363 ABG pCO2 36.7 ABG pCO2 at Pt Temp 42.0 ABG pO2 119.0 H ABG pO2 at Pt Temp 37.9 ABG HCO3 23.0 ABG Total CO2 20.7 L ABG O2 Saturation 98.7 ABG Base Excess -1.7 ABG Sodium 140 VBG pH 7.363 VBG pCO2 42.0 VBG pO2 37.9 VBG HCO3 22.6 L VBG Total CO2 21.7 VBG O2 Saturation 66.4 VBG Base Excess -1.5 L Hemoglobin 11.1 L 9.9 L Hematocrit 34.1 L 30.5 L Potassium 3.8 4.3 Glucose 180 H 123 H Ionized Calcium FiO2 21.00 Sodium Chloride Carbon Dioxide Anion Gap BUN Creatinine GFR Calculation BUN/Creatinine Ratio POC Glucose 206 H Calculated Osmolality Calcium Venous Ioniz Calcium 1.24 Magnesium Total Bilirubin Direct Bilirubin AST ALT Alkaline Phosphatase Total Creatine Kinase CK-MB (CK-2) CK and CKMB Interp Troponin I Total Protein Albumin Globulin Albumin/Globulin Ratio Blood Type Antibody Screen Crossmatch 05/10/17 05/10/17 05/10/17 15:55 17:01 17:55 WBC RBC Hgb Hct MCV MCH MCHC RDW Plt Count MPV Neut % (Auto) Lymph % (Auto) [place] % (Auto) Eos % (Auto) Baso % (Auto) Neut # (Auto) Lymph # (Auto) [place] # (Auto) Eos # (Auto) Baso # (Auto) Total Counted Immature Gran % Nucleated RBC % Immature Gran # Segmented Neutrophils Band Neutrophils Lymphocytes Monocytes Nucleated RBCs # Platelet Estimate Immature Plt Fraction Ovalocytes INR PT Patient/Control Mix Circ Anticoag PTT Patient Temperature ABG pH 7.392 7.417 ABG pH at Pt Temp ABG pCO2 38.0 35.8 ABG pCO2 at Pt Temp ABG pO2 97.1 H 70.9 L ABG pO2 at Pt Temp ABG HCO3 23.1 23.5 ABG Total CO2 21.0 L 21.1 L ABG O2 Saturation 97.6 94.5 L ABG Base Excess -1.5 -1.1 ABG Sodium VBG pH VBG pCO2 VBG pO2 VBG HCO3 VBG Total CO2 VBG O2 Saturation VBG Base Excess Hemoglobin 10.1 L 9.5 L Hematocrit 31.2 L 29.5 L Potassium 4.7 4.2 Glucose 101 96 Ionized Calcium FiO2 Sodium Chloride Carbon Dioxide Anion Gap BUN Creatinine GFR Calculation BUN/Creatinine Ratio POC Glucose 116 H Calculated Osmolality Calcium Venous Ioniz Calcium Magnesium Total Bilirubin Direct Bilirubin AST ALT Alkaline Phosphatase Total Creatine Kinase CK-MB (CK-2) CK and CKMB Interp Troponin I Total Protein Albumin Globulin Albumin/Globulin Ratio Blood Type Antibody Screen Crossmatch 05/10/17 05/10/17 05/10/17 19:08 20:10 20:50 WBC RBC Hgb Hct MCV MCH MCHC RDW Plt Count MPV Neut % (Auto) Lymph % (Auto) [place] % (Auto) Eos % (Auto) Baso % (Auto) Neut # (Auto) Lymph # (Auto) [place] # (Auto) Eos # (Auto) Baso # (Auto) Total Counted Immature Gran % Nucleated RBC % Immature Gran # Segmented Neutrophils Band Neutrophils Lymphocytes Monocytes Nucleated RBCs # Platelet Estimate Immature Plt Fraction Ovalocytes INR PT Patient/Control Mix Circ Anticoag PTT Patient Temperature ABG pH 7.408 7.372 ABG pH at Pt Temp ABG pCO2 36.9 41.2 ABG pCO2 at Pt Temp ABG pO2 91.7 94.4 ABG pO2 at Pt Temp ABG HCO3 23.5 23.4 ABG Total CO2 21.3 L 21.9 L ABG O2 Saturation 97.0 97.0 ABG Base Excess -1.1 -1.2 ABG Sodium VBG pH VBG pCO2 VBG pO2 VBG HCO3 VBG Total CO2 VBG O2 Saturation VBG Base Excess Hemoglobin 9.6 L 9.7 L Hematocrit 29.8 L 30.0 L Potassium 4.8 4.6 Glucose 129 H 160 H Ionized Calcium FiO2 Sodium Chloride Carbon Dioxide Anion Gap BUN Creatinine GFR Calculation BUN/Creatinine Ratio POC Glucose Calculated Osmolality Calcium Venous Ioniz Calcium Magnesium Total Bilirubin Direct Bilirubin AST ALT Alkaline Phosphatase Total Creatine Kinase 290 D CK-MB (CK-2) 12.0 H CK and CKMB Interp 4.1 Troponin I 2.940 H D Total Protein Albumin Globulin Albumin/Globulin Ratio Blood Type Antibody Screen Crossmatch 05/10/17 05/10/17 05/10/17 20:50 22:04 22:58 WBC RBC Hgb Hct MCV MCH MCHC RDW Plt Count MPV Neut % (Auto) Lymph % (Auto) [place] % (Auto) Eos % (Auto) Baso % (Auto) Neut # (Auto) Lymph # (Auto) [place] # (Auto) Eos # (Auto) Baso # (Auto) Total Counted Immature Gran % Nucleated RBC % Immature Gran # Segmented Neutrophils Band Neutrophils Lymphocytes Monocytes Nucleated RBCs # Platelet Estimate Immature Plt Fraction Ovalocytes INR PT Patient/Control Mix Circ Anticoag PTT Patient Temperature ABG pH 7.330 L ABG pH at Pt Temp ABG pCO2 44.5 ABG pCO2 at Pt Temp ABG pO2 98.8 H ABG pO2 at Pt Temp ABG HCO3 22.3 ABG Total CO2 21.6 L ABG O2 Saturation 97.1 ABG Base Excess -2.5 ABG Sodium VBG pH VBG pCO2 VBG pO2 VBG HCO3 VBG Total CO2 VBG O2 Saturation VBG Base Excess Hemoglobin 9.5 L Hematocrit 29.5 L Potassium 4.6 Glucose 169 H Ionized Calcium FiO2 Sodium Chloride Carbon Dioxide Anion Gap BUN Creatinine GFR Calculation BUN/Creatinine Ratio POC Glucose 210 H 220 H Calculated Osmolality Calcium Venous Ioniz Calcium Magnesium Total Bilirubin Direct Bilirubin AST ALT Alkaline Phosphatase Total Creatine Kinase CK-MB (CK-2) CK and CKMB Interp Troponin I Total Protein Albumin Globulin Albumin/Globulin Ratio Blood Type Antibody Screen Crossmatch 05/10/17 05/10/17 05/11/17 23:25 23:50 00:27 WBC RBC Hgb Hct MCV MCH MCHC RDW Plt Count MPV Neut % (Auto) Lymph % (Auto) [place] % (Auto) Eos % (Auto) Baso % (Auto) Neut # (Auto) Lymph # (Auto) [place] # (Auto) Eos # (Auto) Baso # (Auto) Total Counted Immature Gran % Nucleated RBC % Immature Gran # Segmented Neutrophils Band Neutrophils Lymphocytes Monocytes Nucleated RBCs # Platelet Estimate Immature Plt Fraction Ovalocytes INR PT Patient/Control Mix Circ Anticoag PTT Patient Temperature ABG pH 7.332 L 7.267 L 7.291 L ABG pH at Pt Temp ABG pCO2 46.7 53.3 H 50.6 H ABG pCO2 at Pt Temp ABG pO2 103.4 H 85.9 102.4 H ABG pO2 at Pt Temp ABG HCO3 24.2 21.7 23.8 ABG Total CO2 25.6 22.5 L 25.4 ABG O2 Saturation 96.9 94.9 L 96.5 ABG Base Excess -1.8 -3.2 L -2.9 L ABG Sodium VBG pH VBG pCO2 VBG pO2 VBG HCO3 VBG Total CO2 VBG O2 Saturation VBG Base Excess Hemoglobin 10.3 L 9.8 L 10.3 L Hematocrit 30.0 L 30.3 L 30.0 L Potassium 4.7 4.6 4.3 Glucose 167 H 171 H 151 H Ionized Calcium FiO2 Sodium Chloride Carbon Dioxide Anion Gap BUN Creatinine GFR Calculation BUN/Creatinine Ratio POC Glucose Calculated Osmolality Calcium Venous Ioniz Calcium Magnesium Total Bilirubin Direct Bilirubin AST ALT Alkaline Phosphatase Total Creatine Kinase CK-MB (CK-2) CK and CKMB Interp Troponin I Total Protein Albumin Globulin Albumin/Globulin Ratio Blood Type Antibody Screen Crossmatch 05/11/17 05/11/17 05/11/17 01:00 02:12 03:09 WBC RBC Hgb Hct MCV MCH MCHC RDW Plt Count MPV Neut % (Auto) Lymph % (Auto) [place] % (Auto) Eos % (Auto) Baso % (Auto) Neut # (Auto) Lymph # (Auto) [place] # (Auto) Eos # (Auto) Baso # (Auto) Total Counted Immature Gran % Nucleated RBC % Immature Gran # Segmented Neutrophils Band Neutrophils Lymphocytes Monocytes Nucleated RBCs # Platelet Estimate Immature Plt Fraction Ovalocytes INR PT Patient/Control Mix Circ Anticoag PTT Patient Temperature ABG pH 7.358 ABG pH at Pt Temp ABG pCO2 41.6 ABG pCO2 at Pt Temp ABG pO2 77.2 L ABG pO2 at Pt Temp ABG HCO3 22.9 ABG Total CO2 24.1 ABG O2 Saturation 94.5 L ABG Base Excess -2.5 ABG Sodium VBG pH VBG pCO2 VBG pO2 VBG HCO3 VBG Total CO2 VBG O2 Saturation VBG Base Excess Hemoglobin 10.1 L Hematocrit 30.0 L Potassium 5.0 Glucose 138 H Ionized Calcium FiO2 Sodium Chloride Carbon Dioxide Anion Gap BUN Creatinine GFR Calculation BUN/Creatinine Ratio POC Glucose 150 H 145 H Calculated Osmolality Calcium Venous Ioniz Calcium Magnesium Total Bilirubin Direct Bilirubin AST ALT Alkaline Phosphatase Total Creatine Kinase CK-MB (CK-2) CK and CKMB Interp Troponin I Total Protein Albumin Globulin Albumin/Globulin Ratio Blood Type Antibody Screen Crossmatch 05/11/17 05/11/17 05/11/17 04:00 04:00 04:00 WBC 14.3 H D RBC 2.94 L Hgb 9.3 L Hct 27.5 L MCV 93.5 MCH 32 MCHC 33.8 RDW 14.5 Plt Count 144 MPV 10.0 Neut % (Auto) 89.3 H Lymph % (Auto) 3.7 L [place] % (Auto) 6.0 Eos % (Auto) 0.0 Baso % (Auto) 0.1 Neut # (Auto) 12.8 H Lymph # (Auto) 0.5 L [place] # (Auto) 0.9 H Eos # (Auto) 0.0 Baso # (Auto) 0.0 Total Counted 100 Immature Gran % 0.9 Nucleated RBC % 0.0 Immature Gran # 0.13 Segmented Neutrophils 87 H Band Neutrophils 2 Lymphocytes 5 L Monocytes 6 Nucleated RBCs # 0.00 Platelet Estimate Decreased Immature Plt Fraction 0.0 Ovalocytes Few INR PT Patient/Control Mix Circ Anticoag PTT Patient Temperature ABG pH ABG pH at Pt Temp ABG pCO2 ABG pCO2 at Pt Temp ABG pO2 ABG pO2 at Pt Temp ABG HCO3 ABG Total CO2 ABG O2 Saturation ABG Base Excess ABG Sodium VBG pH VBG pCO2 VBG pO2 VBG HCO3 VBG Total CO2 VBG O2 Saturation VBG Base Excess Hemoglobin Hematocrit Potassium 5.0 Glucose 103 Ionized Calcium FiO2 Sodium 143 Chloride 110 H Carbon Dioxide 28 Anion Gap 10.0 BUN 20 H Creatinine 1.20 GFR Calculation 75 BUN/Creatinine Ratio 16.00 POC Glucose Calculated Osmolality 287.0 Calcium 8.6 Venous Ioniz Calcium Magnesium 2.3 Total Bilirubin 0.50 Direct Bilirubin 0.160 AST 29 ALT 15 L Alkaline Phosphatase 43 L Total Creatine Kinase 372 H D CK-MB (CK-2) 16.5 H CK and CKMB Interp 4.4 Troponin I 3.540 H D Total Protein 6.2 L Albumin 3.9 Globulin 2.3 Albumin/Globulin Ratio 1.6 Blood Type Antibody Screen Crossmatch 05/11/17 05/11/17 05/11/17 04:04 05:01 06:05 WBC RBC Hgb Hct MCV MCH MCHC RDW Plt Count MPV Neut % (Auto) Lymph % (Auto) [place] % (Auto) Eos % (Auto) Baso % (Auto) Neut # (Auto) Lymph # (Auto) [place] # (Auto) Eos # (Auto) Baso # (Auto) Total Counted Immature Gran % Nucleated RBC % Immature Gran # Segmented Neutrophils Band Neutrophils Lymphocytes Monocytes Nucleated RBCs # Platelet Estimate Immature Plt Fraction Ovalocytes INR PT Patient/Control Mix Circ Anticoag PTT Patient Temperature ABG pH 7.353 ABG pH at Pt Temp ABG pCO2 43.4 ABG pCO2 at Pt Temp ABG pO2 87.9 ABG pO2 at Pt Temp ABG HCO3 23.6 ABG Total CO2 24.9 ABG O2 Saturation 96.0 ABG Base Excess -1.9 ABG Sodium VBG pH VBG pCO2 VBG pO2 VBG HCO3 VBG Total CO2 VBG O2 Saturation VBG Base Excess Hemoglobin 9.9 L Hematocrit 29.0 L Potassium 5.0 Glucose 100 Ionized Calcium FiO2 Sodium Chloride Carbon Dioxide Anion Gap BUN Creatinine GFR Calculation BUN/Creatinine Ratio POC Glucose 133 H 137 H Calculated Osmolality Calcium Venous Ioniz Calcium Magnesium Total Bilirubin Direct Bilirubin AST ALT Alkaline Phosphatase Total Creatine Kinase CK-MB (CK-2) CK and CKMB Interp Troponin I Total Protein Albumin Globulin Albumin/Globulin Ratio Blood Type Antibody Screen Crossmatch 05/11/17 05/11/17 06:40 07:02 WBC RBC Hgb 9.7 L Hct 28.2 L MCV MCH MCHC RDW Plt Count MPV Neut % (Auto) Lymph % (Auto) [place] % (Auto) Eos % (Auto) Baso % (Auto) Neut # (Auto) Lymph # (Auto) [place] # (Auto) Eos # (Auto) Baso # (Auto) Total Counted Immature Gran % Nucleated RBC % Immature Gran # Segmented Neutrophils Band Neutrophils Lymphocytes Monocytes Nucleated RBCs # Platelet Estimate Immature Plt Fraction Ovalocytes INR PT Patient/Control Mix Circ Anticoag PTT Patient Temperature ABG pH ABG pH at Pt Temp ABG pCO2 ABG pCO2 at Pt Temp ABG pO2 ABG pO2 at Pt Temp ABG HCO3 ABG Total CO2 ABG O2 Saturation ABG Base Excess ABG Sodium VBG pH VBG pCO2 VBG pO2 VBG HCO3 VBG Total CO2 VBG O2 Saturation VBG Base Excess Hemoglobin Hematocrit Potassium Glucose Ionized Calcium FiO2 Sodium Chloride Carbon Dioxide Anion Gap BUN Creatinine GFR Calculation BUN/Creatinine Ratio POC Glucose 148 H Calculated Osmolality Calcium Venous Ioniz Calcium Magnesium Total Bilirubin Direct Bilirubin AST ALT Alkaline Phosphatase Total Creatine Kinase CK-MB (CK-2) CK and CKMB Interp Troponin I Total Protein Albumin Globulin Albumin/Globulin Ratio Blood Type Antibody Screen Crossmatch Quality Measures - VTE Contraindication to Pharmacological VTE Prophylaxis: Already on Theraputic Agent , No Prophylaxis Needed Specialty Discharge - Follow Up or Referrals
--- NOTE | 2017-05-11 10:15 | Hospitalist Consult Note ---
Assessment and Plan - Time spent with patient Time spent with patient: Greater than 30 minutes (1) S/P CABG x 2 Status: Acute Assessment and plan: Postop Day 1 s/p CABC x2. Patient extubated. Incision sites well approximated, clean and dressed. Chest tubes removed. Patient is being transferred to Telemetry [address] Hernandez is following. Current Visit: Yes (2) 3-vessel CAD Status: Acute Assessment and plan: Per [facility] on May 08, 2017. Cardiology is following. Current Visit: Yes (3) Diabetes mellitus Status: Acute Assessment and plan: Newly diagnosed. Hemoglobin A1c 8.3. Agree with SSI per protocol and Accu-cheks ACHS. Patient will need diabetes education and follow up with PCP post discharge. Current Visit: Yes (4) Dyslipidemia Status: Acute Assessment and plan: Continue current treatment plan. Current Visit: Yes (5) Multiple myeloma Status: Acute Assessment and plan: Patient is followed by Dr. Calixto. Has been undergoing chemotherapy for greater than a year now. Will defer management to oncology. Current Visit: Yes (6) Hypertension Status: Chronic Current Visit: Yes (7) Former smoker Status: Chronic Current Visit: No History of Present Illness - Data of Consult Patient: new to practice Consult date: 05/11/17 Requesting Physician: Darlene Virk Primary care physician: Lisa Ma - Consult Narrative Reason for consult: Perioperative diabetic management History of present illness: Mr. Jody Negron is a 76 year old male with a past medical history significant for ischemic cardiomyopathy, multiple myeloma, GERD and previous tobacco use who presented to the hospital on 05/08/2017 for elective heart catheterization after undergoing an abnormal stress test per Dr. Glaser. [facility] revealed severe three-vessel coronary artery disease requiring coronary artery bypass grafting 2 which was performed by Dr[address] Hernandez on yesterday. Patient was seen and examined in CVR room 103. He is 1 day postop and doing well. Patient is alert though somewhat drowsy from sedation. He only complains of pain at the site where his chest tubes were removed. We have been consulted for management of the patient's diabetes after hemoglobin A1c resulted at 8.3%. Patient denies previous history of diabetes. He does have a family history of diabetes however he has never been diagnosed himself. Serum glucose on today is 103. Patient has been started on sliding scale insulin per protocol with Accu-Cheks ACHS. Mr. Vera has been counseled on diabetes and instructed to follow up with his primary care doctor once disharged. He will need diabetes education while hospitalized. This case has been discussed with Ms. Virk, cardiology [employer], and Dr. Baker, consulting physician. We are happy to follow along with the care of this patient. Thank you for the consult. CC: Niru Glaser, DO - Home Medications and Allergies Home Medications: Home Medications Medication Instructions Recorded Confirmed Type Calcium Carbonate 600 mg PO DAILY 12/30/15 05/08/17 History Cyanocobalamin (Vitamin B-12) 5,000 mcg PO DAILY 12/30/15 05/08/17 History [Vitamin B12] Docusate Sodium Cap [Colace Cap] 100 mg PO BID PRN 12/30/15 05/08/17 History HYDROcodone/ACETAMIN 5-325 [[place] 5 mg PO Q4HR PRN 12/30/15 05/08/17 History 5-325] Sertraline [Zoloft] 100 mg PO BEDTIME 12/30/15 05/08/17 History Aspirin [Ecotrin] 81 mg PO DAILY 05/08/17 05/08/17 History Carvedilol [Coreg] 3.125 mg PO BID 05/08/17 05/08/17 History Furosemide Tab [Lasix Tab] 20 mg PO DAILY 05/08/17 05/08/17 History Nitroglycerin Sl Tab [Nitrostat] 0.4 mg SL Q5M PRN 05/08/17 05/08/17 History Potassium Chloride 10 meq PO DAILY 05/08/17 05/08/17 History Prochlorperazine Tab [Compazine 10 mg PO BID PRN 05/08/17 05/08/17 History Tab] Allergies/Adverse Reactions: Allergies Allergy/AdvReac Type Severity Reaction Status Date / Time No Known Allergies Allergy Verified 12/30/15 07:40 Medical,Surgical,& Family Hx - Medical History Cardio: History of: Hypertension Psychological: History of: Depression Neurology: No history of: Seizures Genitourinary: History of: Prostate Problems (Prostate removed in 2012-- prostate CA) Musculoskeletal: History of: Musculoskeletal Cancer (bone cancer) - Surgical History Abdominal Surgeries: Surgical HX of: Colonoscopy (polyps) - Family History Family History: Reports;: Family Cancer (Mother- Esophageal cancer, 3 sisters Breast), Family Diabetes, Family Heart Disease (Father), Family Hypertension ( Father), Family Stroke (Father) - Social History Smoking Status: Former smoker Frequency of Alcohol Use: None Type of Drug Use: None Marital Status: Lives With:: Spouse Functional capacity: independent ambulation - Constitutional Constitutional: Absent: chills, fatigue, headache(s), lethargy, weakness - EENT Eyes: Absent: blurry vision, loss of vision Ears: Absent: decreased hearing, ear pain Nose, mouth and throat: Absent: headache(s), neck pain, sore throat - Cardiovascular Cardiovascular: Present: chest pain at rest (at the level of the chest tubes and incision sites). Absent: diaphoresis, dyspnea - Respiratory Respiratory: Present: pain on inspiration. Absent: cough, dyspnea, wheezing - Gastrointestinal Gastrointestinal: Absent: abdominal pain, constipation, diarrhea, nausea, vomiting - Genitourinary Genitourinary: Absent: difficulty urinating, dysuria - Musculoskeletal Musculoskeletal: Absent: arthralgias, back pain, muscle weakness - Neurological Neurological: Absent: confusion, numbness - Psychiatric Psychiatric: Absent: anxiety, confusion, depression - Endocrine Endocrine: Absent: cold intolerance, heat intolerance - Hematologic/Lymphatic Hematologic/Lymphatic: Present: easy bleeding, easy bruising Exam - Constitutional Vitals: Period Temp Pulse Resp BP Sys/Weaver Pulse Ox Last 24 Hr 96.2 F-98.2 F 71-82 10-20 86-139/51-81 96-100 Exam: General appearance: overweight, no acute distress - Head Head exam: Present: normocephalic, atraumatic - Eye Eye exam: Present: EOMI. Absent: conjunctival injection, nystagmus Pupils: Present: SHERRI, normal accommodation - ENT ENT exam: Present: normal exam, normal external ear exam - Neck Neck exam: Present: normal inspection. Absent: lymphadenopathy, tenderness, thyromegaly - Respiratory Respiratory exam: Present: clear to auscultation bilaterally. Absent: rales, rhonchi, wheezes - Cardiovascular Cardiovascular exam: Present: regular rate and rhythm. Absent: carotid bruit, gallop, rubs - GI/Abdominal GI/Abdominal exam: Present: normal bowel sounds. Absent: ascites, distended, mass - Extremities Exam Extremities exam: Present: normal inspection, normal capillary refill. Absent: edema - Back Exam Back exam: Absent: CVA tenderness (L), CVA tenderness (R) - Neurological Exam Neurological exam: Present: alert, oriented X3, CN II-XII intact, reflexes normal - Psychiatric Psychiatric exam: Present: normal affect, normal mood - Skin Skin exam: Present: normal color, warm, dry. Sternal incision well approximated , clean and dressed. Results - Labs CBC & BMP: 05/11/17 06:40 05/11/17 04:00 Lab Results: I have reviewed the past 24 hour labs Quality Measures - VTE Contraindication to Pharmacological VTE Prophylaxis: Already on Theraputic Agent , No Prophylaxis Needed Specialty Discharge - Follow Up or Referrals
[2017-05-11] MEDS: CHLORHEXIDINE 0.12% ORAL RINSE 60 ML BOTTLE SWISH/SPIT SCH ×2 (10:25→21:56)
[2017-05-11] MEDS ORDERED: ACETAMINOPHEN 325 MG TABLET PO PRN (10:46)
[2017-05-11] MEDS ORDERED: MAGNESIUM SULF RIDER 2 GM in PREMIX 1 EACH IV PRN (10:46)
[2017-05-11] MEDS ORDERED: SODIUM CHLOR 0.45% KCL 20 MEQ 20 MEQ/1,000 ML BAG IV SCH (10:46)
[2017-05-11] MEDS ORDERED: DEXTROSE 50% 25 GM/50 ML VIAL IV PRN ×2 (10:46)
[2017-05-11] MEDS ORDERED: ALUMINUM/MAGNES/SIMETH MAX STR 30 ML UDCUP PO PRN (10:46)
[2017-05-11] MEDS ORDERED: ONDANSETRON 4 MG/2 ML VIAL IV PRN (10:46)
[2017-05-11] MEDS ORDERED: MAGNESIUM SULF RIDER 4 GM in PREMIX 1 EACH IV PRN (10:46)
[2017-05-11] MEDS ORDERED: MAGNESIUM HYDROXIDE SUSP 30 ML UDCUP PO PRN (10:46)
[2017-05-11] MEDS ORDERED: GLUCAGON 1 MG VIAL IM PRN ×2 (10:46)
--- NOTE | 2017-05-11 11:25 | XRay Report ---
History: Postop thoracotomy. Chest tube removal. Evaluate for pneumothorax Date: 05/11/2017 at 10:06 AM Study: Chest x-ray AP portable Comparison exam: 05/11/2017 at 3:50 AM There is no evidence of a pneumothorax following chest tube removal. The right subclavian Watton-Lali catheter has been removed. A right IJ central line and left subclavian Mediport catheter are stable in position. There is cardiomegaly. The mediastinal contours are stable in this patient status post prior median sternotomy. The pulmonary vasculature is not engorged. The right lung is clear. There is persistent left lower lobe atelectasis without change. There is no new or worsening infiltrate. There is no gross pleural effusion. Osseous structures are similar. Impression: No evidence of a pneumothorax following chest tube and Watton-Lali catheter removal. Otherwise unchanged. Stable left lower lobe atelectasis PROCEDURE INTERPRETED AT [facility] [place] DEPARTMENT OF RADIOLOGY Final Report Signed by: Dr. Mel Angeles
[2017-05-11] MEDS ORDERED: INSULIN REGULAR ** CONC 500 UNIT/ML ** 20 ML VIAL SUBCUT SCH ×3 (12:00)
[2017-05-11] MEDS: INSULIN REGULAR 100 UNIT/ML SUBCUT SCH ×3 (12:10→21:55)
--- NOTE | 2017-05-11 12:53 | Sleep Medicine Consult ---
Assessment and Plan (1) Unspecified sleep apnea Status: Acute Assessment and plan: His symptoms certainly are concerning for sleep apnea with a history of snoring and witnessed apneas. With his comorbidities he will need sleep evaluation. We will follow-up next week with his recovery from heart surgery. Thank you for this consult. Current Visit: Yes (2) Hypertension Status: Chronic Assessment and plan: The prevalence rate for obstructive sleep apnea patients with hypertension is 35 %. That rate can be as high as 80% in patients who require 4 or more medications for blood pressure control. Current Visit: Yes (3) Diabetes mellitus Status: Acute Assessment and plan: The prevalence rate for obstructive sleep apnea in patients with type 2 diabetes can be as high as 86%. Those patients with moderate to severe obstructive sleep apnea are at a greater risk for diabetic nephropathy and neuropathy. Compliance with CPAP therapy for these patients can lead to improvement in glycemic control and improvement in insulin sensitivity. Current Visit: Yes (4) 3-vessel CAD Status: Acute Assessment and plan: I reviewed the Jung data from Lancet 2004 with the patient to their understanding. This study proved significant reduction in the risk of fatal and nonfatal cardiac events in patients with severe obstructive sleep apnea compliant with CPAP, in comparison with those noncompliant with CPAP for severe sleep apnea. Current Visit: Yes History of Present Illness Chief complaint: Sleep apnea History of present illness: Mr. Jody Negron is a 76 year old male admitted for heart surgery after elective heart cath revealed critical three-vessel coronary artery disease. He underwent bypass surgery by Dr. Hernandez yesterday and did well with surgical intervention. He had a internal mammary artery graft to his LAD and a saphenous vein graft to a posterior descending artery. The intermediate artery was too small to be grafted. He was extubated last night and has done well postoperatively. He screened as being high risk for sleep apnea. He has a history of snoring and witnessed apneas. He states that he actually has been told that he has been stopping breathing since he was a child. His continues to tell him that he stops breathing during his sleep. He has never had formal sleep evaluation. He does have symptoms of sleepiness during the day. He has significant past medical history of multiple myeloma and is followed by Dr. Calixto. Home Medications Medication Instructions Recorded Confirmed Type Calcium Carbonate 600 mg PO DAILY 12/30/15 05/08/17 History Cyanocobalamin (Vitamin B-12) 5,000 mcg PO DAILY 12/30/15 05/08/17 History [Vitamin B12] Docusate Sodium Cap [Colace Cap] 100 mg PO BID PRN 12/30/15 05/08/17 History HYDROcodone/ACETAMIN 5-325 [[place] 5 mg PO Q4HR PRN 12/30/15 05/08/17 History 5-325] Sertraline [Zoloft] 100 mg PO BEDTIME 12/30/15 05/08/17 History Aspirin [Ecotrin] 81 mg PO DAILY 05/08/17 05/08/17 History Carvedilol [Coreg] 3.125 mg PO BID 05/08/17 05/08/17 History Furosemide Tab [Lasix Tab] 20 mg PO DAILY 05/08/17 05/08/17 History Nitroglycerin Sl Tab [Nitrostat] 0.4 mg SL Q5M PRN 05/08/17 05/08/17 History Potassium Chloride 10 meq PO DAILY 05/08/17 05/08/17 History Prochlorperazine Tab [Compazine 10 mg PO BID PRN 05/08/17 05/08/17 History Tab] Allergies Allergy/AdvReac Type Severity Reaction Status Date / Time No Known Allergies Allergy Verified 12/30/15 07:40 Review of systems: Otherwise unremarkable from a sleep medicine standpoint. Exam (Pulmonay) H&P - Constitutional Vitals: Period Temp Pulse Resp BP Sys/Weaver Pulse Ox Last 24 Hr 96.2 F-98.2 F 63-82 10-20 89-147/51-81 94-100 Exam: He is alert and responsive in no acute distress. Pupils equal round reactive to light and accommodation. Extraocular movements intact. Oropharynx with a class III Mallampati exam. Neck is supple without adenopathy or thyromegaly. No supraclavicular adenopathy is noted. Chest with good breath sounds without focal wheeze, rhonchi, or rales. Cardiac exam reveals a regular rhythm without murmur or gallop. Abdomen soft nontender without palpable hepatosplenomegaly or mass. Extremities are without clubbing, cyanosis, or significant edema. Neurologically, he is grossly intact. He moves all extremities with good strength and answers all questions appropriately. Medical,Surgical,& Family Hx - Medical History Cardio: History of: Hypertension Psychological: History of: Depression Neurology: No history of: Seizures Genitourinary: History of: Prostate Problems (Prostate removed in 2013-- prostate CA) Musculoskeletal: History of: Musculoskeletal Cancer (bone cancer) - Surgical History Abdominal Surgeries: Surgical HX of: Colonoscopy (polyps) - Family History Family History: Reports;: Family Cancer (Mother- Esophageal cancer, 3 sisters Breast), Family Diabetes, Family Heart Disease (Father), Family Hypertension ( Father), Family Stroke (Father) - Social History Smoking Status: Former smoker Frequency of Alcohol Use: None Type of Drug Use: None Results - Labs CBC & BMP: 05/11/17 06:40 05/11/17 04:00 Lab Results: I have reviewed the past 24 hour labs Quality Measures - VTE Contraindication to Pharmacological VTE Prophylaxis: Already on Theraputic Agent , No Prophylaxis Needed Specialty Discharge - Follow Up or Referrals
[2017-05-11] MEDS ORDERED: CEFUROXIME INJ 1,500 MG in SODIUM CHLORIDE 0.9% 50 ML IV ONE (20:00)
[2017-05-11] MEDS ORDERED: ATORVASTATIN 80 MG TABLET PO SCH ×2 (21:00)
[2017-05-11] MEDS: oxyCODONE/ACETAMINOPHEN 5-325 MG TABLET PO PRN (23:02)
[2017-05-12] MEDS: ZALEPLON 5 MG CAPSULE PO PRN ×2 (00:10→21:58)
[2017-05-12] MEDS: KETOROLAC 30 MG/1 ML VIAL IV PRN ×2 (00:24→20:13)
[2017-05-12] MEDS: INSULIN REGULAR 100 UNIT/ML SUBCUT SCH ×7 (01:17→21:59)
[2017-05-12 05:36] LABS: Immature Granulocytes % 1.2 %; Immature Granulocytes Absolute 0.15 #; Lymphocytes # 0.5 10*3/uL (1.4-4.0); Lymphocytes % 4.1 % (21.2-54.2); Mean Corpuscular HGB Conc 33.3 GM/DL (32-36); Mean Corpuscular Hemoglobin 32 PG (27-34); Mean Corpuscular Volume 95.4 FL (87-102); Mean Platelet Volume 10.7 FL (9.6-12.0); Monocytes # 1.4 10*3/uL (0.11-0.8); Monocytes % 11.1 % (1.7-12.7); Neutrophils # 10.7 10*3/uL (1.4-7.4); Neutrophils % 83.6 % (38.7-73.9); Platelet Count 139 T/CUMM (130-400); Red Blood Count 2.83 MC/CUMM (3.8-5.5); Red Cell Distribution Width 14.8 % (9.3-17.3); White Blood Count 12.8 T/CUMM (4-12)
[2017-05-12 05:57] LABS: Band Neutrophils 1 % (0-10); Lymphocytes 4 % (20-55); Segmented Neutrophils 86 % (50-85); Total Cells Counted 100
[2017-05-12 05:58] LABS: Giant Platelets Few; Hypochromasia 1+; Ovalocytes Slight; Platelet Estimate Normal
[2017-05-12] MEDS ORDERED: FUROSEMIDE 40 MG/4 ML VIAL IV ONE (06:00)
[2017-05-12 06:20] LABS: Albumin 3.6 G/DL (3.4-5.0); Bilirubin,Direct 0.16 MG/DL (0.0-0.20); Bilirubin,Indirect 0.6 MG/DL (0.0-1.0); Bilirubin,Total 0.8 MG/DL (0.2-1.0); CKMB % 1.4 %; Calcium 8.2 MG/DL (8.5-10.1); Magnesium 2.5 MG/DL (1.8-2.4); Osmolality,Calculated 287.4 MOS/KG (273-304); Potassium 4.1 MMOL/L (3.5-5.1); Total Protein 6.4 G/DL (6.4-8.3)
[2017-05-12 06:21] LABS: Troponin I Only 2.44 NG/ML (0.00-0.045)
--- NOTE | 2017-05-12 06:21 | Cardiothoracic Progress Note ---
Cardiothoracic Subjective Interval history: Patient looks and feels okay. He has a fair amount of generalized soreness but otherwise is without specific complaints. Vital signs have been stable and is breathing comfortably and his laboratory data is all acceptable for postoperative day 2. We will try to gradually increase his activities today according to routine postoperative protocol. Exam (Progress Note) - Constitutional Vitals: Period Temp Pulse Resp BP Sys/Weaver Pulse Ox Last 24 Hr 96.9 F-99.1 F 63-81 12-20 100-147/51-81 90-100 Result/EKG - Labs CBC & BMP: 05/12/17 04:53 05/11/17 04:00 Labs: Laboratory Results - last 24 hr 05/09/17 05/10/17 05/10/17 03:58 13:56 17:01 WBC RBC Hgb Hct MCV MCH MCHC RDW Plt Count MPV Neut % (Auto) Lymph % (Auto) [place] % (Auto) Eos % (Auto) Baso % (Auto) Neut # (Auto) Lymph # (Auto) [place] # (Auto) Eos # (Auto) Baso # (Auto) Total Counted Immature Gran % Nucleated RBC % Immature Gran # Segmented Neutrophils Band Neutrophils Lymphocytes Monocytes Nucleated RBCs # Platelet Estimate Giant Platelets Immature Plt Fraction Hypochromasia Ovalocytes POC Glucose 206 H 116 H Crossmatch See Detail 05/10/17 05/10/17 05/11/17 22:04 22:58 02:12 WBC RBC Hgb Hct MCV MCH MCHC RDW Plt Count MPV Neut % (Auto) Lymph % (Auto) [place] % (Auto) Eos % (Auto) Baso % (Auto) Neut # (Auto) Lymph # (Auto) [place] # (Auto) Eos # (Auto) Baso # (Auto) Total Counted Immature Gran % Nucleated RBC % Immature Gran # Segmented Neutrophils Band Neutrophils Lymphocytes Monocytes Nucleated RBCs # Platelet Estimate Giant Platelets Immature Plt Fraction Hypochromasia Ovalocytes POC Glucose 210 H 220 H 150 H Crossmatch 05/11/17 05/11/17 05/11/17 03:09 05:01 06:05 WBC RBC Hgb Hct MCV MCH MCHC RDW Plt Count MPV Neut % (Auto) Lymph % (Auto) [place] % (Auto) Eos % (Auto) Baso % (Auto) Neut # (Auto) Lymph # (Auto) [place] # (Auto) Eos # (Auto) Baso # (Auto) Total Counted Immature Gran % Nucleated RBC % Immature Gran # Segmented Neutrophils Band Neutrophils Lymphocytes Monocytes Nucleated RBCs # Platelet Estimate Giant Platelets Immature Plt Fraction Hypochromasia Ovalocytes POC Glucose 145 H 133 H 137 H Crossmatch 05/11/17 05/11/17 05/11/17 06:40 07:02 08:12 WBC RBC Hgb 9.7 L Hct 28.2 L MCV MCH MCHC RDW Plt Count MPV Neut % (Auto) Lymph % (Auto) [place] % (Auto) Eos % (Auto) Baso % (Auto) Neut # (Auto) Lymph # (Auto) [place] # (Auto) Eos # (Auto) Baso # (Auto) Total Counted Immature Gran % Nucleated RBC % Immature Gran # Segmented Neutrophils Band Neutrophils Lymphocytes Monocytes Nucleated RBCs # Platelet Estimate Giant Platelets Immature Plt Fraction Hypochromasia Ovalocytes POC Glucose 148 H 146 H Crossmatch 05/11/17 05/11/17 05/12/17 12:07 21:40 01:05 WBC RBC Hgb Hct MCV MCH MCHC RDW Plt Count MPV Neut % (Auto) Lymph % (Auto) [place] % (Auto) Eos % (Auto) Baso % (Auto) Neut # (Auto) Lymph # (Auto) [place] # (Auto) Eos # (Auto) Baso # (Auto) Total Counted Immature Gran % Nucleated RBC % Immature Gran # Segmented Neutrophils Band Neutrophils Lymphocytes Monocytes Nucleated RBCs # Platelet Estimate Giant Platelets Immature Plt Fraction Hypochromasia Ovalocytes POC Glucose 165 H 193 H 228 H Crossmatch 05/12/17 04:53 WBC 12.8 H RBC 2.83 L Hgb 9.0 L Hct 27.0 L MCV 95.4 MCH 32 MCHC 33.3 RDW 14.8 Plt Count 139 MPV 10.7 Neut % (Auto) 83.6 H Lymph % (Auto) 4.1 L [place] % (Auto) 11.1 Eos % (Auto) 0.0 Baso % (Auto) 0.0 Neut # (Auto) 10.7 H Lymph # (Auto) 0.5 L [place] # (Auto) 1.4 H Eos # (Auto) 0.0 Baso # (Auto) 0.0 Total Counted 100 Immature Gran % 1.2 Nucleated RBC % 0.0 Immature Gran # 0.15 Segmented Neutrophils 86 H Band Neutrophils 1 Lymphocytes 4 L Monocytes 9 Nucleated RBCs # 0.00 Platelet Estimate Normal Giant Platelets Few Immature Plt Fraction 0.0 Hypochromasia 1+ Ovalocytes Slight POC Glucose Crossmatch Quality Measures - VTE Contraindication to Pharmacological VTE Prophylaxis: Already on Theraputic Agent , No Prophylaxis Needed Specialty Discharge - Follow Up or Referrals
[2017-05-12] MEDS ORDERED: PHENYLEPH/MINERAL OIL/PETROLAT 57 GM TUBE TOP PRN (06:26)
--- NOTE | 2017-05-12 08:04 | XRay Report ---
Portable chest Date: 05/12/2017 Clinical history: Shortness of breath Comparison: 05/11/2017 Technique: Portable AP sitting chest Findings: Stable cardiomegaly in patient with median sternotomy. Stable venous catheters. Persistent relative elevation of the left hemidiaphragm with adjacent atelectasis and small pleural effusion. Old healed rib fractures with degenerative changes. Impression: Status post median sternotomy with stable cardiomegaly. No evidence pneumothorax with residual atelectasis at the left lung base with small left pleural effusion and relative elevation of the left hemidiaphragm. PROCEDURE INTERPRETED AT [facility] DEPARTMENT OF RADIOLOGY Final Report Signed by: Dr. Kalpana Thurston
[2017-05-12] MEDS: oxyCODONE/ACETAMINOPHEN 5-325 MG TABLET PO PRN (08:43)
[2017-05-12] MEDS: SERTRALINE 100 MG TABLET PO SCH (08:44)
[2017-05-12] MEDS: PANTOPRAZOLE 40 MG TABLET PO SCH (08:45)
[2017-05-12] MEDS: LISINOPRIL 5 MG TABLET PO SCH (08:45)
[2017-05-12] MEDS: ASPIRIN EC 325 MG TABLET PO SCH (08:45)
[2017-05-12] MEDS: DOCUSATE SODIUM 100 MG CAPSULE PO SCH (08:45)
[2017-05-12] MEDS: FERROUS SULFATE 325 MG TABLET PO SCH (08:45)
[2017-05-12] MEDS: CHLORHEXIDINE 0.12% ORAL RINSE 60 ML BOTTLE SWISH/SPIT SCH ×2 (08:46→22:05)
--- NOTE | 2017-05-12 11:19 | Cardiology Progress Note ---
<Darlene Virk - Last Filed: 05/12/17 12:16> Assessment and Plan (1) 3-vessel CAD Status: Acute Assessment and plan: SEE PLAN OF CARE LISTED BELOW. Current Visit: Yes (2) Multiple myeloma Status: Acute Assessment and plan: SEE PLAN OF CARE LISTED BELOW. Current Visit: Yes (3) Dyslipidemia Status: Acute Assessment and plan: SEE PLAN OF CARE LISTED BELOW. Current Visit: Yes (4) Hypertension Status: Chronic Assessment and plan: SEE PLAN OF CARE LISTED BELOW. Current Visit: Yes (5) Former smoker Status: Chronic Assessment and plan: SEE PLAN OF CARE LISTED BELOW. Current Visit: No (6) Hyperglycemia Status: Acute Assessment and plan: SEE PLAN OF CARE LISTED BELOW. Current Visit: Yes (7) S/P CABG x 2 Status: Acute Assessment and plan: SEE PLAN OF CARE LISTED BELOW. Current Visit: Yes Cardiology - PN: Subj Interval history: SPANISH MEDICAL INTERPRETER: Dr. Niru Glaser SUMMARY Patient was admitted to [facility] for elective heart catheterization May 08, 2017. Past medical history includes: Ischemic cardiomyopathy (most recent EF 39%), multiple myeloma (currently receiving chemotherapy, Dr. Calixto), GERD and former smoker. He had abnormal stress test in the cardiology clinic and was scheduled for heart catheterization. This was performed per Dr. Glaser 05/08/17 via right radial approach which revealed severe three-vessel coronary artery disease. Subsequently, Dr. Hernandez was consulted to evaluate for possible CABG. Please see full catheter report. Dr. Glaser discussed with Dr. Calixto, patient's primary oncology consultant regarding the status of his multiple myeloma. It is felt that the best approach is to place his chemotherapy on hold and proceed with CABG. Patient was seen in consultation per Dr. Hernandez earlier today and he plans to proceed with CABG tomorrow morning. 2016 Patient was seen and examined in the telemetry unit. He underwent CABG per Dr. Hernandez with RANDLE to LAD and SVG to PDA. Postop day #2 today. He continues to progress well. He reports chest soreness. Without chest tightness or heaviness. Breathing is well controlled. Requiring oxygen intermittently via nasal cannula. didactic program in dietetics director has been without overt arrhythmias. Patient has tolerated reinitiation of aspirin, statin, beta blockade and KAMILA inhibitor well. Will monitor blood pressure and adjust these medications accordingly. Troponin continues to trend downward. I have encouraged patient to use incentive spirometry. Increase activity level as tolerated. Diabetes education was completed today with the patient. Hospital medicine is following and managing new diagnosis of diabetes. Patient appears to be doing well from a cardiac standpoint. No further recommendations. I will discuss with Dr. Uribe and await his additional recommendations. REVIEW OF SYSTEMS: Cardiac: He confirms chest soreness. Without chest tightness, heaviness. GI: Denies nausea, vomiting, abdominal pain IMPRESSION AND PLAN 1. THREE-VESSEL CAD, STATUS POST CABG X2 - Now status post revascularization with RANDLE to LAD and SVG to PDA. Postop day #2. Tolerating aspirin, statin, beta-blockade and KAMILA inhibitor well. Encouraged to use incentive spirometry. Increase activity level as tolerated. I will further discuss with Dr. Uribe and await his additional recommendations. 2. HYPERTENSION - Under well control. Tolerating KAMILA inhibitor and beta blockade well. Will monitor blood pressure and adjust accordingly. 3. ISCHEMIC CARDIOMYOPATHY - EF calculated to be 39% per recent stress test. Now status post revascularization. Without overt heart failure. Continue beta- blockade and KAMILA inhibitor. Patient will need repeat echocardiogram in approximately 3 months to reevaluate ejection fraction. 4. DYSLIPIDEMIA - LDL 159. Continue high intensity statin. Patient will need repeat lipid panel in 4-6 weeks in the cardiology clinic. 5. DIABETES, NEW DIAGNOSIS - Hemoglobin A1c 8.3. Hospital medicine following. Diabetic education completed. 6. MULTIPLE MYELOMA - Was on chemotherapy prior to undergoing CABG. Dr. Glaser discussed with Dr. Calixto regarding patient's status of his multiple myeloma. It was decided that the best approach was to hold chemotherapy for CABG. This will continue to be held until felt it is safe to reinitiate from a surgical standpoint. Exam (Progress Note) - Constitutional Vitals: Period Temp Pulse Resp BP Sys/Weaver Pulse Ox Last 24 Hr 96.9 F-99.1 F 63-81 16-20 100-140/54-69 90-97 Exam: General: Appears comfortable. No acute distress. Cooperative and pleasant. HEENT: normocephalic, atraumatic. Mucous membranes moist. No jaundice noted. Conjunctiva moist and clear, sclerae anicteric Neck: No JVD/HJR, no thyromegaly or lymphadenopathy noted. Cardiac: Regular rate and rhythm. Midsternal chest incision healing well without signs of infection. No bleeding or dehiscence. Lungs: Clear to auscultation without accessory muscle use to assist the respiratory pattern. Requiring oxygen intermittently. Abdomen: Soft. Active bowel sounds. Nontender and nondistended. No abdominal bruit or thrill noted. No masses noted. Extremities: No clubbing, cyanosis noted. No edema noted. Upper extremity pulses 2+. Lower extremity pulses 2+. Capillary refill less than 3 seconds. Left lower extremity incision healing well without signs of infection. No thinning or dehiscence. Nikky intact. Skin: No unusual lesions or rashes. No skin breakdown appreciated. Neuro: Patient is awake and alert this morning. Able to move all extremities upon command. No essential tremor noted. Result/EKG - Labs CBC & BMP: 05/12/17 04:53 05/12/17 04:53 Lab Results: I have reviewed the past 24 hour labs Labs: Laboratory Results - last 24 hr 05/09/17 05/11/17 05/11/17 03:58 08:12 12:07 WBC RBC Hgb Hct MCV MCH MCHC RDW Plt Count MPV Neut % (Auto) Lymph % (Auto) [place] % (Auto) Eos % (Auto) Baso % (Auto) Neut # (Auto) Lymph # (Auto) [place] # (Auto) Eos # (Auto) Baso # (Auto) Total Counted Immature Gran % Nucleated RBC % Immature Gran # Segmented Neutrophils Band Neutrophils Lymphocytes Monocytes Nucleated RBCs # Platelet Estimate Giant Platelets Immature Plt Fraction Hypochromasia Ovalocytes Sodium Potassium Chloride Carbon Dioxide Anion Gap BUN Creatinine GFR Calculation BUN/Creatinine Ratio Glucose POC Glucose 146 H 165 H Calculated Osmolality Calcium Magnesium Total Bilirubin Direct Bilirubin Indirect Bilirubin AST ALT Alkaline Phosphatase Total Creatine Kinase CK-MB (CK-2) CK and CKMB Interp Troponin I Total Protein Albumin Globulin Albumin/Globulin Ratio Crossmatch See Detail 05/11/17 05/12/17 05/12/17 21:40 01:05 04:53 WBC 12.8 H RBC 2.83 L Hgb 9.0 L Hct 27.0 L MCV 95.4 MCH 32 MCHC 33.3 RDW 14.8 Plt Count 139 MPV 10.7 Neut % (Auto) 83.6 H Lymph % (Auto) 4.1 L [place] % (Auto) 11.1 Eos % (Auto) 0.0 Baso % (Auto) 0.0 Neut # (Auto) 10.7 H Lymph # (Auto) 0.5 L [place] # (Auto) 1.4 H Eos # (Auto) 0.0 Baso # (Auto) 0.0 Total Counted 100 Immature Gran % 1.2 Nucleated RBC % 0.0 Immature Gran # 0.15 Segmented Neutrophils 86 H Band Neutrophils 1 Lymphocytes 4 L Monocytes 9 Nucleated RBCs # 0.00 Platelet Estimate Normal Giant Platelets Few Immature Plt Fraction 0.0 Hypochromasia 1+ Ovalocytes Slight Sodium Potassium Chloride Carbon Dioxide Anion Gap BUN Creatinine GFR Calculation BUN/Creatinine Ratio Glucose POC Glucose 193 H 228 H Calculated Osmolality Calcium Magnesium Total Bilirubin Direct Bilirubin Indirect Bilirubin AST ALT Alkaline Phosphatase Total Creatine Kinase CK-MB (CK-2) CK and CKMB Interp Troponin I Total Protein Albumin Globulin Albumin/Globulin Ratio Crossmatch 05/12/17 05/12/17 05/12/17 04:53 06:49 07:33 WBC RBC Hgb Hct MCV MCH MCHC RDW Plt Count MPV Neut % (Auto) Lymph % (Auto) [place] % (Auto) Eos % (Auto) Baso % (Auto) Neut # (Auto) Lymph # (Auto) [place] # (Auto) Eos # (Auto) Baso # (Auto) Total Counted Immature Gran % Nucleated RBC % Immature Gran # Segmented Neutrophils Band Neutrophils Lymphocytes Monocytes Nucleated RBCs # Platelet Estimate Giant Platelets Immature Plt Fraction Hypochromasia Ovalocytes Sodium 140 Potassium 4.1 Chloride 106 Carbon Dioxide 27 Anion Gap 11.1 BUN 28 H Creatinine 1.00 GFR Calculation 94 BUN/Creatinine Ratio 28.00 H Glucose 159 H POC Glucose 179 H 191 H Calculated Osmolality 287.4 Calcium 8.2 L Magnesium 2.5 H Total Bilirubin 0.80 Direct Bilirubin 0.160 Indirect Bilirubin 0.6 AST 28 ALT 19 Alkaline Phosphatase 47 Total Creatine Kinase 376 H CK-MB (CK-2) 5.3 H D CK and CKMB Interp 1.4 Troponin I 2.440 H D Total Protein 6.4 Albumin 3.6 Globulin 2.8 Albumin/Globulin Ratio 1.2 Crossmatch Quality Measures - VTE Contraindication to Pharmacological VTE Prophylaxis: Already on Theraputic Agent , No Prophylaxis Needed Specialty Discharge - Follow Up or Referrals <George Uribe - Last Filed: 05/12/17 15:21> Cardiology - PN: Subj Interval history: Patient personally and examined today and chart reviewed. Discussed his case with Darlene Virk CORK PRESSING MACHINE OPERATOR. Agree with the assessment and evaluation plans. The patient is post CABG now on day 2. He is having more soreness which is expected. He has a fair appetite but certainly diminished from baseline. He has had no rhythm disturbance. Physical therapy is working with the patient. His vital signs remained stable and afebrile. He has had no symptomatology of heart failure even with his ischemic cardiomyopathy. He has dyslipidemia and apparently was not admitted on medication. He needs to be started on statin drug and I think it would be appropriate to add rosuvastatin. Exam (Progress Note) - Constitutional Vitals: Period Temp Pulse Resp BP Sys/Weaver Pulse Ox Last 24 Hr 97.5 F-99.1 F 72-81 16-20 100-140/54-69 90-98 Result/EKG - Labs CBC & BMP: 05/12/17 04:53 05/12/17 04:53 Labs: Laboratory Results - last 24 hr 05/09/17 05/11/17 05/12/17 03:58 21:40 01:05 WBC RBC Hgb Hct MCV MCH MCHC RDW Plt Count MPV Neut % (Auto) Lymph % (Auto) [place] % (Auto) Eos % (Auto) Baso % (Auto) Neut # (Auto) Lymph # (Auto) [place] # (Auto) Eos # (Auto) Baso # (Auto) Total Counted Immature Gran % Nucleated RBC % Immature Gran # Segmented Neutrophils Band Neutrophils Lymphocytes Monocytes Nucleated RBCs # Platelet Estimate Giant Platelets Immature Plt Fraction Hypochromasia Ovalocytes Sodium Potassium Chloride Carbon Dioxide Anion Gap BUN Creatinine GFR Calculation BUN/Creatinine Ratio Glucose POC Glucose 193 H 228 H Calculated Osmolality Calcium Magnesium Total Bilirubin Direct Bilirubin Indirect Bilirubin AST ALT Alkaline Phosphatase Total Creatine Kinase CK-MB (CK-2) CK and CKMB Interp Troponin I Total Protein Albumin Globulin Albumin/Globulin Ratio Crossmatch See Detail 05/12/17 05/12/17 05/12/17 04:53 04:53 06:49 WBC 12.8 H RBC 2.83 L Hgb 9.0 L Hct 27.0 L MCV 95.4 MCH 32 MCHC 33.3 RDW 14.8 Plt Count 139 MPV 10.7 Neut % (Auto) 83.6 H Lymph % (Auto) 4.1 L [place] % (Auto) 11.1 Eos % (Auto) 0.0 Baso % (Auto) 0.0 Neut # (Auto) 10.7 H Lymph # (Auto) 0.5 L [place] # (Auto) 1.4 H Eos # (Auto) 0.0 Baso # (Auto) 0.0 Total Counted 100 Immature Gran % 1.2 Nucleated RBC % 0.0 Immature Gran # 0.15 Segmented Neutrophils 86 H Band Neutrophils 1 Lymphocytes 4 L Monocytes 9 Nucleated RBCs # 0.00 Platelet Estimate Normal Giant Platelets Few Immature Plt Fraction 0.0 Hypochromasia 1+ Ovalocytes Slight Sodium 140 Potassium 4.1 Chloride 106 Carbon Dioxide 27 Anion Gap 11.1 BUN 28 H Creatinine 1.00 GFR Calculation 94 BUN/Creatinine Ratio 28.00 H Glucose 159 H POC Glucose 179 H Calculated Osmolality 287.4 Calcium 8.2 L Magnesium 2.5 H Total Bilirubin 0.80 Direct Bilirubin 0.160 Indirect Bilirubin 0.6 AST 28 ALT 19 Alkaline Phosphatase 47 Total Creatine Kinase 376 H CK-MB (CK-2) 5.3 H D CK and CKMB Interp 1.4 Troponin I 2.440 H D Total Protein 6.4 Albumin 3.6 Globulin 2.8 Albumin/Globulin Ratio 1.2 Crossmatch 05/12/17 05/12/17 07:33 12:01 WBC RBC Hgb Hct MCV MCH MCHC RDW Plt Count MPV Neut % (Auto) Lymph % (Auto) [place] % (Auto) Eos % (Auto) Baso % (Auto) Neut # (Auto) Lymph # (Auto) [place] # (Auto) Eos # (Auto) Baso # (Auto) Total Counted Immature Gran % Nucleated RBC % Immature Gran # Segmented Neutrophils Band Neutrophils Lymphocytes Monocytes Nucleated RBCs # Platelet Estimate Giant Platelets Immature Plt Fraction Hypochromasia Ovalocytes Sodium Potassium Chloride Carbon Dioxide Anion Gap BUN Creatinine GFR Calculation BUN/Creatinine Ratio Glucose POC Glucose 191 H 190 H Calculated Osmolality Calcium Magnesium Total Bilirubin Direct Bilirubin Indirect Bilirubin AST ALT Alkaline Phosphatase Total Creatine Kinase CK-MB (CK-2) CK and CKMB Interp Troponin I Total Protein Albumin Globulin Albumin/Globulin Ratio Crossmatch
[2017-05-12] MEDS: CYANOCOBALAMIN 500 MCG TABLET PO SCH (12:03)
--- NOTE | 2017-05-12 14:57 | Hospitalist Progress Note ---
Hospitalist: Subjective Interval history: Pt awake and comfortable. Exam - Constitutional Vitals: Period Temp Pulse Resp BP Sys/Weaver Pulse Ox Last 24 Hr 97.5 F-99.1 F 72-81 16-20 100-140/54-69 90-98 Exam: General: No Acute Distress HEENT: Normocephalic, atraumatic, Extra ocular movements intact Neck: Supple, No JVD Chest: Clear to auscultation B/L CV: S1 + S2 audible without murmur, gallop or rub Abd: soft, NT, Non-distended, BS + Ext: Edema B/L Skin: No purpura, bruising or rash Rheumatologic: No Joint deformities Neurologic: Awake & alert Results - Labs CBC & BMP: 05/12/17 04:53 05/12/17 04:53 - Impressions Assessment and Plan: Diabetes mellitus-II Status: Acute Assessment and plan: Newly diagnosed. Hemoglobin A1c 8.3. Receive diabetic teaching. Controlled on Glucotrol XL 2.5 mg once daily, continue monitoring Accu-Cheks Current Visit: Yes CAD s/p CABG Status: Acute Assessment and plan: Doing well, continue medical management Current Visit: Yes Quality Measures - VTE Contraindication to Pharmacological VTE Prophylaxis: Already on Theraputic Agent , No Prophylaxis Needed Specialty Discharge - Follow Up or Referrals
[2017-05-12] MEDS: CARVEDILOL 3.125 MG TABLET PO SCH (21:58)
[2017-05-13] MEDS: INSULIN REGULAR 100 UNIT/ML SUBCUT SCH ×6 (04:26→21:10)
[2017-05-13 05:17] LABS: Basophils % 0.1 % (0.0-0.8); Eosinophils % 0.1 % (0.00-10.9); Hematocrit 24.8 VOL% (42.0-52.0); Hemoglobin 8.3 GM/DL (14.0-18.0); Immature Granulocytes % 0.9 %; Lymphocytes # 0.6 10*3/uL (1.4-4.0); Lymphocytes % 5.5 % (21.2-54.2); Mean Corpuscular HGB Conc 33.5 GM/DL (32-36); Mean Corpuscular Hemoglobin 32 PG (27-34); Mean Corpuscular Volume 95.4 FL (87-102); Mean Platelet Volume 10.6 FL (9.6-12.0); Monocytes # 1.5 10*3/uL (0.11-0.8); Monocytes % 13.1 % (1.7-12.7); Neutrophils # 8.9 10*3/uL (1.4-7.4); Neutrophils % 80.3 % (38.7-73.9); Platelet Count 132 T/CUMM (130-400); Red Cell Distribution Width 14.4 % (9.3-17.3); White Blood Count 11.1 T/CUMM (4-12)
[2017-05-13 05:55] LABS: Alanine Aminotransferase 18 U/L (16-61); Albumin 3.4 G/DL (3.4-5.0); Alkaline Phosphatase 53 U/L (45-117); Aspartate Amino Transferase 25 U/L (0-37); Bilirubin,Indirect 1.1 MG/DL (0.0-1.0); Blood Urea Nitrogen 27 MG/DL (7-18); Glucose 158 MG/DL (74-106); Magnesium 2.4 MG/DL (1.8-2.4); Osmolality,Calculated 284.5 MOS/KG (273-304); Potassium 4.2 MMOL/L (3.5-5.1); Sodium 139 MMOL/L (136-145); Total Protein 6.4 G/DL (6.4-8.3)
--- NOTE | 2017-05-13 08:18 | Cardiology Progress Note ---
Assessment and Plan - Time spent with patient Time spent with patient: Greater than 30 minutes (1) 3-vessel CAD Status: Acute Assessment and plan: Patient now post CABG doing well making progress. Current Visit: Yes (2) Dyslipidemia Status: Chronic Assessment and plan: He is on chronic rosuvastatin and continues this. Current Visit: Yes (3) Hypertension Status: Chronic Assessment and plan: Blood pressures are stable. Continue present therapy. Current Visit: Yes (4) S/P CABG x 2 Status: Acute Assessment and plan: Making good progress post bypass surgery. Current Visit: Yes (5) Diabetes mellitus Status: Acute Assessment and plan: Glucose been fairly stable. Current Visit: Yes Cardiology - PN: Subj Interval history: Patient is status post CABG and fell last night that he did have good night. His dyspnea could get comfortable. No specific shortness of breath. Some generalized soreness from the surgery. He does not try to eat breakfast. He generally looks little better than he did yesterday. He has a chest x-ray that is already scheduled for today and will await the results of this. Patient's lab work today reveals a submaximal little low at 24.8 hemoglobin 8.3. White count was okay. His chemistries are unremarkable. He is being creatinine are stable. Electrolytes are stable. Troponin is trending down and appropriate for post CABG. Rhythm remains sinus without demonstrable dysrhythmias. Exam (Progress Note) - Constitutional Vitals: Period Temp Pulse Resp BP Sys/Weavre Pulse Ox Last 24 Hr 97.7 F-98.8 F 74-84 12-20 107-131/51-89 92-98 Exam: General appearance: normal weight, no acute distress, sitting up in a chair about to eat breakfast. HEENT exam: normal inspection, atraumatic Neck exam: normal inspection no JVD. No carotid bruit. Trachea is in midline Respiratory/lungs exam: clear to auscultation bilaterally good air movement. Cardiovascular exam: regular rate and rhythm, no murmur or gallop or rub. No precordial lift. Chest wall exam: Sternotomy wound looks good GI/Abdominal exam: normal bowel sounds, soft, nontender, no abdominal bruits or pulsatile masses. Extremeties/musculoskeletal: Left lower extremity graft donor sites look good. Neurological exam: alert, oriented X3, no focal deficits Psychiatric exam: normal affect, normal mood. Cognitive function is grossly normal. Skin exam: normal color, warm Result/EKG - Labs CBC & BMP: 05/13/17 04:51 05/13/17 04:51 Lab Results: I have reviewed the past 24 hour labs Labs: Laboratory Results - last 24 hr 05/12/17 05/12/17 05/13/17 12:01 15:51 04:51 WBC 11.1 RBC 2.60 L Hgb 8.3 L Hct 24.8 L MCV 95.4 MCH 32 MCHC 33.5 RDW 14.4 Plt Count 132 MPV 10.6 Neut % (Auto) 80.3 H Lymph % (Auto) 5.5 L [place] % (Auto) 13.1 H Eos % (Auto) 0.1 Baso % (Auto) 0.1 Neut # (Auto) 8.9 H Lymph # (Auto) 0.6 L [place] # (Auto) 1.5 H Eos # (Auto) 0.0 Baso # (Auto) 0.0 Immature Gran % 0.9 Nucleated RBC % 0.0 Immature Gran # 0.10 Nucleated RBCs # 0.00 Immature Plt Fraction 0.0 Sodium Potassium Chloride Carbon Dioxide Anion Gap BUN Creatinine GFR Calculation BUN/Creatinine Ratio Glucose POC Glucose 190 H 176 H Calculated Osmolality Calcium Magnesium Total Bilirubin Direct Bilirubin Indirect Bilirubin AST ALT Alkaline Phosphatase Total Creatine Kinase CK-MB (CK-2) Troponin I Total Protein Albumin Globulin Albumin/Globulin Ratio 05/13/17 05/13/17 04:51 07:47 WBC RBC Hgb Hct MCV MCH MCHC RDW Plt Count MPV Neut % (Auto) Lymph % (Auto) [place] % (Auto) Eos % (Auto) Baso % (Auto) Neut # (Auto) Lymph # (Auto) [place] # (Auto) Eos # (Auto) Baso # (Auto) Immature Gran % Nucleated RBC % Immature Gran # Nucleated RBCs # Immature Plt Fraction Sodium 139 Potassium 4.2 Chloride 104 Carbon Dioxide 28 Anion Gap 11.2 BUN 27 H Creatinine 0.90 GFR Calculation 107 BUN/Creatinine Ratio 30.00 H Glucose 158 H POC Glucose 162 H Calculated Osmolality 284.5 Calcium 8.0 L Magnesium 2.4 Total Bilirubin 1.40 H Direct Bilirubin 0.290 H Indirect Bilirubin 1.1 H AST 25 ALT 18 Alkaline Phosphatase 53 Total Creatine Kinase 281 D CK-MB (CK-2) 2.0 Troponin I 1.280 H D Total Protein 6.4 Albumin 3.4 Globulin 3.0 Albumin/Globulin Ratio 1.1 Quality Measures - VTE Contraindication to Pharmacological VTE Prophylaxis: Already on Theraputic Agent , No Prophylaxis Needed Specialty Discharge - Follow Up or Referrals
--- NOTE | 2017-05-13 08:48 | Cardiothoracic Progress Note ---
Cardiothoracic Subjective Interval history: Patient is sore but otherwise okay. Vital signs are stable and is breathing comfortably. He has been up walking in his room with minimal assistance. We will try to increase his activities as tolerated but overall his progress seems satisfactory. Exam (Progress Note) - Constitutional Vitals: Period Temp Pulse Resp BP Sys/Weaver Pulse Ox Last 24 Hr 97.7 F-98.8 F 74-84 12-20 107-131/51-89 92-98 Result/EKG - Labs CBC & BMP: 05/13/17 04:51 05/13/17 04:51 Labs: Laboratory Results - last 24 hr 05/12/17 05/12/17 05/13/17 12:01 15:51 04:51 WBC 11.1 RBC 2.60 L Hgb 8.3 L Hct 24.8 L MCV 95.4 MCH 32 MCHC 33.5 RDW 14.4 Plt Count 132 MPV 10.6 Neut % (Auto) 80.3 H Lymph % (Auto) 5.5 L [place] % (Auto) 13.1 H Eos % (Auto) 0.1 Baso % (Auto) 0.1 Neut # (Auto) 8.9 H Lymph # (Auto) 0.6 L [place] # (Auto) 1.5 H Eos # (Auto) 0.0 Baso # (Auto) 0.0 Immature Gran % 0.9 Nucleated RBC % 0.0 Immature Gran # 0.10 Nucleated RBCs # 0.00 Immature Plt Fraction 0.0 Sodium Potassium Chloride Carbon Dioxide Anion Gap BUN Creatinine GFR Calculation BUN/Creatinine Ratio Glucose POC Glucose 190 H 176 H Calculated Osmolality Calcium Magnesium Total Bilirubin Direct Bilirubin Indirect Bilirubin AST ALT Alkaline Phosphatase Total Creatine Kinase CK-MB (CK-2) Troponin I Total Protein Albumin Globulin Albumin/Globulin Ratio 05/13/17 05/13/17 04:51 07:47 WBC RBC Hgb Hct MCV MCH MCHC RDW Plt Count MPV Neut % (Auto) Lymph % (Auto) [place] % (Auto) Eos % (Auto) Baso % (Auto) Neut # (Auto) Lymph # (Auto) [place] # (Auto) Eos # (Auto) Baso # (Auto) Immature Gran % Nucleated RBC % Immature Gran # Nucleated RBCs # Immature Plt Fraction Sodium 139 Potassium 4.2 Chloride 104 Carbon Dioxide 28 Anion Gap 11.2 BUN 27 H Creatinine 0.90 GFR Calculation 107 BUN/Creatinine Ratio 30.00 H Glucose 158 H POC Glucose 162 H Calculated Osmolality 284.5 Calcium 8.0 L Magnesium 2.4 Total Bilirubin 1.40 H Direct Bilirubin 0.290 H Indirect Bilirubin 1.1 H AST 25 ALT 18 Alkaline Phosphatase 53 Total Creatine Kinase 281 D CK-MB (CK-2) 2.0 Troponin I 1.280 H D Total Protein 6.4 Albumin 3.4 Globulin 3.0 Albumin/Globulin Ratio 1.1 Quality Measures - VTE Contraindication to Pharmacological VTE Prophylaxis: Already on Theraputic Agent , No Prophylaxis Needed Specialty Discharge - Follow Up or Referrals
--- NOTE | 2017-05-13 08:52 | Cardiothoracic Progress Note ---
Cardiothoracic Subjective Interval history: Patient looks and feels okay but does complain of generalized soreness. Vital signs have been stable and is breathing comfortably. His hematocrit is down slightly today and I think it we will diuresis him both today and tomorrow morning. We will try to increase his activities as tolerated but overall his progress appears satisfactory. Exam (Progress Note) - Constitutional Vitals: Period Temp Pulse Resp BP Sys/Weaver Pulse Ox Last 24 Hr 97.7 F-98.8 F 74-84 12-20 107-131/51-89 92-98 Result/EKG - Labs CBC & BMP: 05/13/17 04:51 05/13/17 04:51 Labs: Laboratory Results - last 24 hr 05/12/17 05/12/17 05/13/17 12:01 15:51 04:51 WBC 11.1 RBC 2.60 L Hgb 8.3 L Hct 24.8 L MCV 95.4 MCH 32 MCHC 33.5 RDW 14.4 Plt Count 132 MPV 10.6 Neut % (Auto) 80.3 H Lymph % (Auto) 5.5 L [place] % (Auto) 13.1 H Eos % (Auto) 0.1 Baso % (Auto) 0.1 Neut # (Auto) 8.9 H Lymph # (Auto) 0.6 L [place] # (Auto) 1.5 H Eos # (Auto) 0.0 Baso # (Auto) 0.0 Immature Gran % 0.9 Nucleated RBC % 0.0 Immature Gran # 0.10 Nucleated RBCs # 0.00 Immature Plt Fraction 0.0 Sodium Potassium Chloride Carbon Dioxide Anion Gap BUN Creatinine GFR Calculation BUN/Creatinine Ratio Glucose POC Glucose 190 H 176 H Calculated Osmolality Calcium Magnesium Total Bilirubin Direct Bilirubin Indirect Bilirubin AST ALT Alkaline Phosphatase Total Creatine Kinase CK-MB (CK-2) Troponin I Total Protein Albumin Globulin Albumin/Globulin Ratio 05/13/17 05/13/17 04:51 07:47 WBC RBC Hgb Hct MCV MCH MCHC RDW Plt Count MPV Neut % (Auto) Lymph % (Auto) [place] % (Auto) Eos % (Auto) Baso % (Auto) Neut # (Auto) Lymph # (Auto) [place] # (Auto) Eos # (Auto) Baso # (Auto) Immature Gran % Nucleated RBC % Immature Gran # Nucleated RBCs # Immature Plt Fraction Sodium 139 Potassium 4.2 Chloride 104 Carbon Dioxide 28 Anion Gap 11.2 BUN 27 H Creatinine 0.90 GFR Calculation 107 BUN/Creatinine Ratio 30.00 H Glucose 158 H POC Glucose 162 H Calculated Osmolality 284.5 Calcium 8.0 L Magnesium 2.4 Total Bilirubin 1.40 H Direct Bilirubin 0.290 H Indirect Bilirubin 1.1 H AST 25 ALT 18 Alkaline Phosphatase 53 Total Creatine Kinase 281 D CK-MB (CK-2) 2.0 Troponin I 1.280 H D Total Protein 6.4 Albumin 3.4 Globulin 3.0 Albumin/Globulin Ratio 1.1 Quality Measures - VTE Contraindication to Pharmacological VTE Prophylaxis: Already on Theraputic Agent , No Prophylaxis Needed Specialty Discharge - Follow Up or Referrals
[2017-05-13] MEDS: FERROUS SULFATE 325 MG TABLET PO SCH (09:12)
[2017-05-13] MEDS: ASPIRIN EC 325 MG TABLET PO SCH (09:13)
[2017-05-13] MEDS: LISINOPRIL 5 MG TABLET PO SCH (09:13)
[2017-05-13] MEDS: ROSUVASTATIN 20 MG TABLET PO SCH (09:13)
[2017-05-13] MEDS: PANTOPRAZOLE 40 MG TABLET PO SCH (09:13)
[2017-05-13] MEDS: SERTRALINE 100 MG TABLET PO SCH (09:14)
[2017-05-13] MEDS: DOCUSATE SODIUM 100 MG CAPSULE PO SCH (09:14)
[2017-05-13] MEDS: CARVEDILOL 3.125 MG TABLET PO SCH ×2 (09:19→21:11)
[2017-05-13] MEDS: CYANOCOBALAMIN 500 MCG TABLET PO SCH (09:27)
[2017-05-13] MEDS: FUROSEMIDE 40 MG/4 ML VIAL IV SCH (09:28)
[2017-05-13] MEDS: CHLORHEXIDINE 0.12% ORAL RINSE 60 ML BOTTLE SWISH/SPIT SCH ×2 (09:28→21:15)
--- NOTE | 2017-05-13 10:35 | XRay Report ---
XR chest 1V portable Indication: Shortness of breath Comparison: 12 May 2017 Findings: The heart and mediastinum are stable in size and configuration. The lines and tubes are unchanged in position. The pulmonary vascularity is normal in caliber. Left lower lung density is similar to previous exam. No other pulmonary infiltrates, effusions, pneumothorax or other abnormality is demonstrated. Impression: No significant change PROCEDURE INTERPRETED AT [facility] [place] DEPARTMENT OF RADIOLOGY Final Report Signed by: Dr. Wesly Malik
--- NOTE | 2017-05-13 14:25 | Hospitalist Progress Note ---
Hospitalist: Subjective Interval history: Patient is doing well after his heart bypass surgery. He says that he is gradually trying to increase his activity. Exam - Constitutional Vitals: Period Temp Pulse Resp BP Sys/Weaver Pulse Ox Last 24 Hr 97.7 F-98.8 F 74-84 12-20 107-131/51-89 92-98 Exam: General: No Acute Distress HEENT: Normocephalic, atraumatic, Extra ocular movements intact Neck: Supple, No JVD Chest: Clear to auscultation B/L CV: S1 + S2 audible without murmur, gallop or rub Abd: soft, NT, Non-distended, BS + Ext: Edema B/L Skin: No purpura, bruising or rash Rheumatologic: No Joint deformities Neurologic: Awake & alert Results - Labs CBC & BMP: 05/13/17 04:51 05/13/17 04:51 - Impressions Assessment and Plan: 76-year-old -[place] male with history of hypertension, diabetes, hypercholesterolemia, multiple myeloma, chronic systolic CHF with ischemic cardiomyopathy ejection fraction 39%, and coronary artery disease was admitted for coronary artery bypass grafting, found to have new onset DM. Diabetes mellitus-II Status: Acute Assessment and plan: Newly diagnosed. Hemoglobin A1c 8.3. Received diabetic teaching. Controlled on Glucotrol XL 2.5 mg once daily, his Accu-Chek was 162 this morning Current Visit: Yes CAD s/p CABG Status: Acute Assessment and plan: Doing well, continue medical management Current Visit: Yes Quality Measures - VTE Contraindication to Pharmacological VTE Prophylaxis: Already on Theraputic Agent , No Prophylaxis Needed Specialty Discharge - Follow Up or Referrals
[2017-05-13] MEDS: ZALEPLON 5 MG CAPSULE PO PRN (21:10)
[2017-05-14] MEDS: INSULIN REGULAR 100 UNIT/ML SUBCUT SCH ×6 (00:17→21:35)
[2017-05-14] MEDS: ZALEPLON 5 MG CAPSULE PO PRN ×2 (00:26→21:35)
[2017-05-14 05:11] LABS: Eosinophils % 0.4 % (0.00-10.9); Hematocrit 23.1 VOL% (42.0-52.0); Hemoglobin 7.6 GM/DL (14.0-18.0); Immature Granulocytes % 0.7 %; Immature Granulocytes Absolute 0.05 #; Lymphocytes # 0.3 10*3/uL (1.4-4.0); Mean Corpuscular HGB Conc 32.9 GM/DL (32-36); Mean Corpuscular Hemoglobin 31 PG (27-34); Mean Corpuscular Volume 95.1 FL (87-102); Monocytes % 13.7 % (1.7-12.7); Neutrophils # 5.7 10*3/uL (1.4-7.4); Neutrophils % 81.2 % (38.7-73.9); Platelet Count 154 T/CUMM (130-400); Red Blood Count 2.43 MC/CUMM (3.8-5.5); Red Cell Distribution Width 14.2 % (9.3-17.3)
[2017-05-14 05:41] LABS: Calcium 8.3 MG/DL (8.5-10.1); Magnesium 2.4 MG/DL (1.8-2.4); Osmolality,Calculated 285.5 MOS/KG (273-304); Potassium 3.9 MMOL/L (3.5-5.1)
[2017-05-14 07:29] LABS: Hypochromasia 2+; Macrocytosis 1+
[2017-05-14] MEDS ORDERED: SODIUM CHLORIDE 0.9% 250 ML IV PRN (08:16)
--- NOTE | 2017-05-14 08:35 | Cardiothoracic Progress Note ---
Cardiothoracic Subjective Interval history: Patient looks and feels some better. He is less sore and seems to be breathing more comfortably. His hematocrit is only 23% this morning and I think it would be best to transfuse him with 2 units of packed red blood cells. Otherwise his progress is satisfactory. We will try to increase his activities as tolerated. Exam (Progress Note) - Constitutional Vitals: Period Temp Pulse Resp BP Sys/Weaver Pulse Ox Last 24 Hr 98 F-99.7 F 72-78 16-20 112-146/56-71 91-99 Result/EKG - Labs CBC & BMP: 05/14/17 04:34 05/14/17 04:34 Labs: Laboratory Results - last 24 hr 05/13/17 05/13/17 05/14/17 16:29 20:55 04:34 WBC 7.0 D RBC 2.43 L Hgb 7.6 L Hct 23.1 L MCV 95.1 MCH 31 MCHC 32.9 RDW 14.2 Plt Count 154 MPV 10.0 Neut % (Auto) 81.2 H Lymph % (Auto) 4.0 L [place] % (Auto) 13.7 H Eos % (Auto) 0.4 Baso % (Auto) 0.0 Neut # (Auto) 5.7 Lymph # (Auto) 0.3 L [place] # (Auto) 1.0 H Eos # (Auto) 0.0 Baso # (Auto) 0.0 Immature Gran % 0.7 Nucleated RBC % 0.0 Immature Gran # 0.05 Nucleated RBCs # 0.00 Immature Plt Fraction 0.0 Hypochromasia 2+ Macrocytosis 1+ Sodium Potassium Chloride Carbon Dioxide Anion Gap BUN Creatinine GFR Calculation BUN/Creatinine Ratio Glucose POC Glucose 167 H 121 H Calculated Osmolality Calcium Magnesium 05/14/17 05/14/17 04:34 07:28 WBC RBC Hgb Hct MCV MCH MCHC RDW Plt Count MPV Neut % (Auto) Lymph % (Auto) [place] % (Auto) Eos % (Auto) Baso % (Auto) Neut # (Auto) Lymph # (Auto) [place] # (Auto) Eos # (Auto) Baso # (Auto) Immature Gran % Nucleated RBC % Immature Gran # Nucleated RBCs # Immature Plt Fraction Hypochromasia Macrocytosis Sodium 139 Potassium 3.9 Chloride 103 Carbon Dioxide 28 Anion Gap 11.9 BUN 33 H Creatinine 1.00 GFR Calculation 94 BUN/Creatinine Ratio 33.00 H Glucose 140 H POC Glucose 151 H Calculated Osmolality 285.5 Calcium 8.3 L Magnesium 2.4 Quality Measures - VTE Contraindication to Pharmacological VTE Prophylaxis: Already on Theraputic Agent , No Prophylaxis Needed Specialty Discharge - Follow Up or Referrals
[2017-05-14] MEDS: FUROSEMIDE 40 MG/4 ML VIAL IV SCH (08:40)
[2017-05-14] MEDS: SERTRALINE 100 MG TABLET PO SCH (08:41)
[2017-05-14] MEDS: ROSUVASTATIN 20 MG TABLET PO SCH (08:41)
[2017-05-14] MEDS: FERROUS SULFATE 325 MG TABLET PO SCH (08:42)
[2017-05-14] MEDS: CARVEDILOL 3.125 MG TABLET PO SCH (08:42)
[2017-05-14] MEDS: LISINOPRIL 5 MG TABLET PO SCH (08:42)
[2017-05-14] MEDS: ASPIRIN EC 325 MG TABLET PO SCH (08:42)
[2017-05-14] MEDS: PANTOPRAZOLE 40 MG TABLET PO SCH (08:42)
[2017-05-14] MEDS: DOCUSATE SODIUM 100 MG CAPSULE PO SCH (08:42)
--- NOTE | 2017-05-14 13:06 | Cardiology Progress Note ---
Assessment and Plan (1) 3-vessel CAD Status: Acute Assessment and plan: Patient now post CABG doing well making progress. Current Visit: Yes (2) Dyslipidemia Status: Chronic Assessment and plan: He is on chronic rosuvastatin and continues this. Current Visit: Yes (3) Hypertension Status: Chronic Assessment and plan: Blood pressures are stable. Continue present therapy. Current Visit: Yes (4) S/P CABG x 2 Status: Acute Assessment and plan: Making good progress post bypass surgery. His hematocrit though is drifted down to get 2 units of packed cells today. He has also been having some wheezing post surgery. Current Visit: Yes (5) Diabetes mellitus Status: Acute Assessment and plan: Glucose been fairly stable. Hospitalist service is following at this time. Current Visit: Yes (6) Wheezing Status: Acute Assessment and plan: I think this is probably secondary to his postsurgical course. He does not sound as he is in respiratory distress and does not have any overt findings of heart failure. I do not think it has anything to do with any of his other treatment. I am going to stop his Coreg and switch him over to metoprolol since this is more beta selective. We will given some Xopenex treatments and seemed to see if this will help. Current Visit: Yes Cardiology - PN: Subj Interval history: Patient post CABG doing fairly well except for his continued complaint of shortness of breath and wheezing. His chest x-ray yesterday though did not reveal any specific pathology or abnormalities. His hematocrit does continue to drift and now is 23.1. Chemistries today are stable though. Dr. Sal order 2 units of packed cells for today. He states his appetite is a little better. His biggest complaint though is shortness of breath and wheezing at night. He is not having trouble prior lung disease COPD etc. He is not an active smoker. He has not had any fever or chills. His vital signs have been stable. Exam (Progress Note) - Constitutional Vitals: Period Temp Pulse Resp BP Sys/Weaver Pulse Ox Last 24 Hr 98 F-99.7 F 72-78 16-20 117-146/56-71 91-99 Exam: General appearance: normal weight, no acute distress, sitting up in a chair having eaten some lunch. HEENT exam: normal inspection, atraumatic Neck exam: normal inspection no JVD. No carotid bruit. Trachea is in midline Respiratory/lungs exam: clear to auscultation bilaterally good air movement. He is having some central wheezing. I do not appreciate any rales or rhonchi though. He has a slight increased expiratory phase. Cardiovascular exam: regular rate and rhythm, no murmur or gallop or rub. No precordial lift. Chest wall exam: Sternotomy wound looks good GI/Abdominal exam: normal bowel sounds, soft, nontender, no abdominal bruits or pulsatile masses. Extremeties/musculoskeletal: Left lower extremity graft donor sites look good. Neurological exam: alert, oriented X3, no focal deficits Psychiatric exam: normal affect, normal mood. Cognitive function is grossly normal. Skin exam: normal color, warm Result/EKG - Labs CBC & BMP: 05/14/17 04:34 05/14/17 04:34 Lab Results: I have reviewed the past 24 hour labs Labs: Laboratory Results - last 24 hr 05/13/17 05/13/17 05/14/17 16:29 20:55 04:34 WBC 7.0 D RBC 2.43 L Hgb 7.6 L Hct 23.1 L MCV 95.1 MCH 31 MCHC 32.9 RDW 14.2 Plt Count 154 MPV 10.0 Neut % (Auto) 81.2 H Lymph % (Auto) 4.0 L [place] % (Auto) 13.7 H Eos % (Auto) 0.4 Baso % (Auto) 0.0 Neut # (Auto) 5.7 Lymph # (Auto) 0.3 L [place] # (Auto) 1.0 H Eos # (Auto) 0.0 Baso # (Auto) 0.0 Immature Gran % 0.7 Nucleated RBC % 0.0 Immature Gran # 0.05 Nucleated RBCs # 0.00 Immature Plt Fraction 0.0 Hypochromasia 2+ Macrocytosis 1+ Sodium Potassium Chloride Carbon Dioxide Anion Gap BUN Creatinine GFR Calculation BUN/Creatinine Ratio Glucose POC Glucose 167 H 121 H Calculated Osmolality Calcium Magnesium Blood Type Antibody Screen Crossmatch 05/14/17 05/14/17 05/14/17 04:34 07:28 08:16 WBC RBC Hgb Hct MCV MCH MCHC RDW Plt Count MPV Neut % (Auto) Lymph % (Auto) [place] % (Auto) Eos % (Auto) Baso % (Auto) Neut # (Auto) Lymph # (Auto) [place] # (Auto) Eos # (Auto) Baso # (Auto) Immature Gran % Nucleated RBC % Immature Gran # Nucleated RBCs # Immature Plt Fraction Hypochromasia Macrocytosis Sodium 139 Potassium 3.9 Chloride 103 Carbon Dioxide 28 Anion Gap 11.9 BUN 33 H Creatinine 1.00 GFR Calculation 94 BUN/Creatinine Ratio 33.00 H Glucose 140 H POC Glucose 151 H Calculated Osmolality 285.5 Calcium 8.3 L Magnesium 2.4 Blood Type O NEGATIVE Antibody Screen Negative Crossmatch See Detail 05/14/17 11:30 WBC RBC Hgb Hct MCV MCH MCHC RDW Plt Count MPV Neut % (Auto) Lymph % (Auto) [place] % (Auto) Eos % (Auto) Baso % (Auto) Neut # (Auto) Lymph # (Auto) [place] # (Auto) Eos # (Auto) Baso # (Auto) Immature Gran % Nucleated RBC % Immature Gran # Nucleated RBCs # Immature Plt Fraction Hypochromasia Macrocytosis Sodium Potassium Chloride Carbon Dioxide Anion Gap BUN Creatinine GFR Calculation BUN/Creatinine Ratio Glucose POC Glucose 159 H Calculated Osmolality Calcium Magnesium Blood Type Antibody Screen Crossmatch - Impressions Impressions: Telemetry continues to reveal sinus rhythm with appropriate rates. Quality Measures - VTE Contraindication to Pharmacological VTE Prophylaxis: Already on Theraputic Agent , No Prophylaxis Needed Specialty Discharge - Follow Up or Referrals
[2017-05-14] MEDS: CYANOCOBALAMIN 500 MCG TABLET PO SCH (14:20)
[2017-05-14] MEDS: CHLORHEXIDINE 0.12% ORAL RINSE 60 ML BOTTLE SWISH/SPIT SCH ×2 (14:20→21:36)
[2017-05-14] MEDS: ALBUTEROL 2.5 MG/3 ML NEB RESP TX SCH ×3 (14:28→23:06)
--- NOTE | 2017-05-14 16:03 | Hospitalist Progress Note ---
Hospitalist: Subjective Interval history: Patient doing well after CABG, he is eating better as well Exam - Constitutional Vitals: Period Temp Pulse Resp BP Sys/Weaver Pulse Ox Last 24 Hr 98.8 F-99.7 F 68-78 15-20 108-146/55-71 91-99 Exam: General: No Acute Distress HEENT: Normocephalic, atraumatic, Extra ocular movements intact Neck: Supple, No JVD Chest: Clear to auscultation B/L CV: S1 + S2 audible without murmur, gallop or rub Abd: soft, NT, Non-distended, BS + Ext: Edema B/L Skin: No purpura, bruising or rash Rheumatologic: No Joint deformities Neurologic: Awake & alert Results - Labs CBC & BMP: 05/14/17 04:34 05/14/17 04:34 - Impressions Assessment and Plan: 76-year-old -[place] male with history of hypertension, diabetes, hypercholesterolemia, multiple myeloma s/p chemo, chronic systolic CHF with ischemic cardiomyopathy ejection fraction 39%, and coronary artery disease was admitted for coronary artery bypass grafting, found to have new onset DM. Diabetes mellitus-II Status: Acute Assessment and plan: Newly diagnosed. Hemoglobin A1c 8.3. Received diabetic teaching. Controlled on Glucotrol XL 5 mg once daily, his Accu-Chek are better controlled Current Visit: Yes CAD s/p CABG Status: Acute Assessment and plan: Doing well, continue medical management Current Visit: Yes Quality Measures - VTE Contraindication to Pharmacological VTE Prophylaxis: Already on Theraputic Agent , No Prophylaxis Needed Specialty Discharge - Follow Up or Referrals
[2017-05-14] MEDS: METOPROLOL TARTRATE 25 MG TABLET PO SCH (21:35)
[2017-05-15] MEDS: INSULIN REGULAR 100 UNIT/ML SUBCUT SCH ×6 (02:15→22:11)
[2017-05-15] MEDS: ALBUTEROL 2.5 MG/3 ML NEB RESP TX SCH ×6 (03:29→23:55)
[2017-05-15 05:48] LABS: Basophils % 0.1 % (0.0-0.8); Eosinophils % 0.4 % (0.00-10.9); Hematocrit 25.5 VOL% (42.0-52.0); Hemoglobin 8.4 GM/DL (14.0-18.0); Immature Granulocytes % 0.6 %; Immature Granulocytes Absolute 0.04 #; Lymphocytes # 0.6 10*3/uL (1.4-4.0); Lymphocytes % 8.6 % (21.2-54.2); Mean Corpuscular HGB Conc 32.9 GM/DL (32-36); Mean Corpuscular Hemoglobin 31 PG (27-34); Mean Corpuscular Volume 93.8 FL (87-102); Mean Platelet Volume 10.1 FL (9.6-12.0); Monocytes # 1.4 10*3/uL (0.11-0.8); Monocytes % 19.9 % (1.7-12.7); Neutrophils # 4.9 10*3/uL (1.4-7.4); Neutrophils % 70.4 % (38.7-73.9); Platelet Count 185 T/CUMM (130-400); Red Blood Count 2.72 MC/CUMM (3.8-5.5)
[2017-05-15 06:17] LABS: Giant Platelets Few; Hypochromasia 1+; Lymphocytes 9 % (20-55); Ovalocytes Slight; Platelet Estimate Normal; Segmented Neutrophils 72 % (50-85); Total Cells Counted 100
--- NOTE | 2017-05-15 06:17 | Cardiothoracic Progress Note ---
Cardiothoracic Subjective Interval history: Patient had a comfortable night. He is breathing comfortably and his vital signs are stable. He has gradually been increasing his activity according to routine postoperative protocol. Overall his progress appears satisfactory and hopefully he will be ready for discharge before long. Exam (Progress Note) - Constitutional Vitals: Period Temp Pulse Resp BP Sys/Weaver Pulse Ox Last 24 Hr 98.4 F-99.9 F 60-78 15-20 106-148/50-78 97-100 Result/EKG - Labs CBC & BMP: 05/15/17 04:54 05/14/17 04:34 Labs: Laboratory Results - last 24 hr 05/14/17 05/14/17 05/14/17 04:34 07:28 08:16 WBC RBC Hgb Hct MCV MCH MCHC RDW Plt Count MPV Neut % (Auto) Lymph % (Auto) [place] % (Auto) Eos % (Auto) Baso % (Auto) Neut # (Auto) Lymph # (Auto) [place] # (Auto) Eos # (Auto) Baso # (Auto) Immature Gran % Nucleated RBC % Immature Gran # Nucleated RBCs # Immature Plt Fraction Hypochromasia 2+ Macrocytosis 1+ POC Glucose 151 H Blood Type O NEGATIVE Antibody Screen Negative Crossmatch See Detail 05/14/17 05/14/17 05/14/17 11:30 16:10 20:40 WBC RBC Hgb Hct MCV MCH MCHC RDW Plt Count MPV Neut % (Auto) Lymph % (Auto) [place] % (Auto) Eos % (Auto) Baso % (Auto) Neut # (Auto) Lymph # (Auto) [place] # (Auto) Eos # (Auto) Baso # (Auto) Immature Gran % Nucleated RBC % Immature Gran # Nucleated RBCs # Immature Plt Fraction Hypochromasia Macrocytosis POC Glucose 159 H 115 H 187 H Blood Type Antibody Screen Crossmatch 05/15/17 04:54 WBC 7.0 RBC 2.72 L Hgb 8.4 L Hct 25.5 L MCV 93.8 MCH 31 MCHC 32.9 RDW 15.0 Plt Count 185 D MPV 10.1 Neut % (Auto) 70.4 Lymph % (Auto) 8.6 L [place] % (Auto) 19.9 H Eos % (Auto) 0.4 Baso % (Auto) 0.1 Neut # (Auto) 4.9 Lymph # (Auto) 0.6 L [place] # (Auto) 1.4 H Eos # (Auto) 0.0 Baso # (Auto) 0.0 Immature Gran % 0.6 Nucleated RBC % 0.0 Immature Gran # 0.04 Nucleated RBCs # 0.00 Immature Plt Fraction 0.0 Hypochromasia Macrocytosis POC Glucose Blood Type Antibody Screen Crossmatch Quality Measures - VTE Contraindication to Pharmacological VTE Prophylaxis: Already on Theraputic Agent , No Prophylaxis Needed Specialty Discharge - Follow Up or Referrals
[2017-05-15 06:19] LABS: Macrocytosis Slight
[2017-05-15 06:24] LABS: Alanine Aminotransferase 18 U/L (16-61); Albumin 3.1 G/DL (3.4-5.0); Alkaline Phosphatase 47 U/L (45-117); Aspartate Amino Transferase 21 U/L (0-37); Bilirubin,Indirect 0.8 MG/DL (0.0-1.0); Blood Urea Nitrogen 35 MG/DL (7-18); Calcium 7.8 MG/DL (8.5-10.1); Glucose 135 MG/DL (74-106); Magnesium 2.5 MG/DL (1.8-2.4); Osmolality,Calculated 288.4 MOS/KG (273-304); Potassium 3.9 MMOL/L (3.5-5.1); Sodium 140 MMOL/L (136-145); Total Protein 6.2 G/DL (6.4-8.3); Troponin I Only 0.417 NG/ML (0.00-0.045)
--- NOTE | 2017-05-15 08:40 | XRay Report ---
XR chest 2V Indication: Shortness of breath Comparison: 13 May 2017 Findings: The heart and mediastinum are stable in size and configuration. The lines and tubes are unchanged in position. The pulmonary vascularity is normal in caliber. Left lower lung density is present similar to previous study. No other lung infiltrates, effusions, pneumothorax or other abnormality is demonstrated. Impression: No significant change PROCEDURE INTERPRETED AT [facility] DEPARTMENT OF RADIOLOGY Final Report Signed by: Dr. Wesly Malik
[2017-05-15] MEDS: ASPIRIN EC 325 MG TABLET PO SCH (09:50)
[2017-05-15] MEDS: DOCUSATE SODIUM 100 MG CAPSULE PO SCH (09:51)
[2017-05-15] MEDS: ROSUVASTATIN 20 MG TABLET PO SCH (09:51)
[2017-05-15] MEDS: METOPROLOL TARTRATE 25 MG TABLET PO SCH ×2 (09:52→22:11)
[2017-05-15] MEDS: FERROUS SULFATE 325 MG TABLET PO SCH (09:52)
[2017-05-15] MEDS: LISINOPRIL 5 MG TABLET PO SCH (09:53)
[2017-05-15] MEDS: PANTOPRAZOLE 40 MG TABLET PO SCH (09:54)
[2017-05-15] MEDS: SERTRALINE 100 MG TABLET PO SCH (09:54)
[2017-05-15] MEDS: CYANOCOBALAMIN 500 MCG TABLET PO SCH (09:55)
[2017-05-15] MEDS: CHLORHEXIDINE 0.12% ORAL RINSE 60 ML BOTTLE SWISH/SPIT SCH ×2 (10:01→22:12)
[2017-05-15] MEDS: FUROSEMIDE 40 MG TABLET PO SCH ×2 (10:42→16:24)
--- NOTE | 2017-05-15 11:02 | Cardiology Progress Note ---
Assessment and Plan (1) 3-vessel CAD Status: Acute Assessment and plan: SEE PLAN OF CARE LISTED BELOW. Current Visit: Yes (2) Multiple myeloma Status: Acute Assessment and plan: SEE PLAN OF CARE LISTED BELOW. Current Visit: Yes (3) Dyslipidemia Status: Chronic Assessment and plan: SEE PLAN OF CARE LISTED BELOW. Current Visit: Yes (4) Hypertension Status: Chronic Assessment and plan: SEE PLAN OF CARE LISTED BELOW. Current Visit: Yes (5) Former smoker Status: Chronic Assessment and plan: SEE PLAN OF CARE LISTED BELOW. Current Visit: No (6) Hyperglycemia Status: Acute Assessment and plan: SEE PLAN OF CARE LISTED BELOW. Current Visit: Yes (7) S/P CABG x 2 Status: Acute Assessment and plan: SEE PLAN OF CARE LISTED BELOW. Current Visit: Yes (8) Shortness of breath Status: Acute Assessment and plan: SEE PLAN OF CARE LISTED BELOW. Current Visit: Yes Cardiology - PN: Subj Interval history: [employer]: Dr. Niru Glaser SUMMARY Patient was admitted to [facility] for elective heart catheterization May 08, 2017. Past medical history includes: Ischemic cardiomyopathy (most recent EF 39%), multiple myeloma (currently receiving chemotherapy, Dr. Calixto), GERD and former smoker. He had abnormal stress test in the cardiology clinic and was scheduled for heart catheterization. This was performed per Dr. Glaser 05/08/17 via right radial approach which revealed severe three-vessel coronary artery disease. Subsequently, Dr. Hernandez was consulted to evaluate for possible CABG. Please see full catheter report. Dr. Glaser discussed with Dr. Calixto, patient's primary antique furniture repairer regarding the status of his multiple myeloma. It is felt that the best approach is to place his chemotherapy on hold and proceed with CABG. Patient was seen in consultation per Dr. Hernandez and he underwent CABG May 10, 2017. MAY 15, 2017 Patient was seen and examined on the telemetry unit. He underwent CABG per Dr. Hernandez with RANDLE to LAD and SVG to PDA. Postop day #5 today. He continues to do well post CABG. Without complications. He continues to increase his activity as tolerated. Denies chest pain, heaviness or tightness. Continues to have shortness of breath and dyspnea on exertion. Lung exam reveals bibasilar rales. After discussing with Dr. Pereira, we will add Lasix 40 p.o. twice daily. We will watch renal function closely with this. Requiring oxygen via nasal cannula. Telemetry has been without overt arrhythmias. Tolerating aspirin, statin, beta blockade and KAMILA inhibitor well. Yesterday, beta-blockade was changed to metoprolol tartrate as patient was wheezing on exam. No wheezing auscultated today. Troponin continues to trend downward. H&H is 8.4 and 25.5 today. No evidence of overt bleeding. Hemodynamically stable. Encourage patient to continue incentive spirometry. Increase activity level as tolerated. I will further discuss with Dr. Pereira and await his additional recommendations. REVIEW OF SYSTEMS: Cardiac: He confirms chest soreness. Without chest tightness, heaviness. GI: Denies nausea, vomiting, abdominal pain Respiratory: Confirms shortness of breath and dyspnea on exertion IMPRESSION AND PLAN 1. THREE-VESSEL CAD, STATUS POST CABG X2 - Now status post revascularization with RANDLE to LAD and SVG to PDA. Postop day #5. Tolerating aspirin, statin, beta-blockade and KAMILA inhibitor well. Encouraged to use incentive spirometry. Increase activity level as tolerated. I will further discuss with Dr. Uribe and await his additional recommendations. 2. HYPERTENSION - Under well control. Tolerating KAMILA inhibitor and beta blockade well. Will monitor blood pressure and adjust accordingly. 3. ISCHEMIC CARDIOMYOPATHY - EF calculated to be 39% per recent stress test. Now status post revascularization. Continue beta-blockade and KAMILA inhibitor. Patient will need repeat echocardiogram in approximately 3 months to reevaluate ejection fraction. 4. DYSLIPIDEMIA - LDL 159. Continue high intensity statin. Patient will need repeat lipid panel in 4-6 weeks in the cardiology clinic. 5. DIABETES, NEW DIAGNOSIS - Hemoglobin A1c 8.3. Hospital medicine following. Diabetic education completed. 6. MULTIPLE MYELOMA - Was on chemotherapy prior to undergoing CABG. Dr. Glaser discussed with Dr. Calixto regarding patient's status of his multiple myeloma. It was decided that the best approach was to hold chemotherapy for CABG. This will continue to be held until felt it is safe to reinitiate from a surgical standpoint. 7. SHORTNESS OF BREATH - Lung exam reveals bibasilar rales. Will add Lasix twice daily. Monitor renal function closely. Exam (Progress Note) - Constitutional Vitals: Period Temp Pulse Resp BP Sys/Weaver Pulse Ox Last 24 Hr 98.4 F-99.9 F 60-78 15-20 106-148/50-78 90-100 Exam: General: Appears comfortable. No acute distress. Cooperative and pleasant. HEENT: normocephalic, atraumatic. Mucous membranes moist. No jaundice noted. Conjunctiva moist and clear, sclerae anicteric Neck: No JVD/HJR, no thyromegaly or lymphadenopathy noted. Cardiac: Regular rate and rhythm. Midsternal chest incision healing well without signs of infection. No bleeding or dehiscence. Lungs: Bibasilar rales. No wheezing or rhonchi. Requiring oxygen via nasal cannula Abdomen: Soft. Active bowel sounds. Nontender and nondistended. No abdominal bruit or thrill noted. No masses noted. Extremities: No clubbing, cyanosis noted. No edema noted. Upper extremity pulses 2+. Lower extremity pulses 2+. Capillary refill less than 3 seconds. Left lower extremity incision healing well without signs of infection. No thinning or dehiscence. Nikky intact. Skin: No unusual lesions or rashes. No skin breakdown appreciated. Neuro: Patient is awake and alert this morning. Able to move all extremities upon command. No essential tremor noted. Result/EKG - Labs CBC & BMP: 05/15/17 04:54 05/15/17 04:54 Lab Results: I have reviewed the past 24 hour labs Labs: Laboratory Results - last 24 hr 05/14/17 05/14/17 05/14/17 08:16 11:30 16:10 WBC RBC Hgb Hct MCV MCH MCHC RDW Plt Count MPV Neut % (Auto) Lymph % (Auto) [place] % (Auto) Eos % (Auto) Baso % (Auto) Neut # (Auto) Lymph # (Auto) [place] # (Auto) Eos # (Auto) Baso # (Auto) Total Counted Immature Gran % Nucleated RBC % Immature Gran # Segmented Neutrophils Lymphocytes Monocytes Nucleated RBCs # Platelet Estimate Giant Platelets Immature Plt Fraction Hypochromasia Macrocytosis Ovalocytes Sodium Potassium Chloride Carbon Dioxide Anion Gap BUN Creatinine GFR Calculation BUN/Creatinine Ratio Glucose POC Glucose 159 H 115 H Calculated Osmolality Calcium Magnesium Total Bilirubin Direct Bilirubin Indirect Bilirubin AST ALT Alkaline Phosphatase Total Creatine Kinase CK-MB (CK-2) Troponin I B-Natriuretic Peptide Total Protein Albumin Globulin Albumin/Globulin Ratio Blood Type O NEGATIVE Antibody Screen Negative Crossmatch See Detail 05/14/17 05/15/17 05/15/17 20:40 04:54 04:54 WBC 7.0 RBC 2.72 L Hgb 8.4 L Hct 25.5 L MCV 93.8 MCH 31 MCHC 32.9 RDW 15.0 Plt Count 185 D MPV 10.1 Neut % (Auto) 70.4 Lymph % (Auto) 8.6 L [place] % (Auto) 19.9 H Eos % (Auto) 0.4 Baso % (Auto) 0.1 Neut # (Auto) 4.9 Lymph # (Auto) 0.6 L [place] # (Auto) 1.4 H Eos # (Auto) 0.0 Baso # (Auto) 0.0 Total Counted 100 Immature Gran % 0.6 Nucleated RBC % 0.0 Immature Gran # 0.04 Segmented Neutrophils 72 Lymphocytes 9 L Monocytes 19 H Nucleated RBCs # 0.00 Platelet Estimate Normal Giant Platelets Few Immature Plt Fraction 0.0 Hypochromasia 1+ Macrocytosis Slight Ovalocytes Slight Sodium 140 Potassium 3.9 Chloride 104 Carbon Dioxide 27 Anion Gap 12.9 BUN 35 H Creatinine 1.00 GFR Calculation 94 BUN/Creatinine Ratio 35.00 H Glucose 135 H POC Glucose 187 H Calculated Osmolality 288.4 Calcium 7.8 L Magnesium 2.5 H Total Bilirubin 1.10 H Direct Bilirubin 0.320 H Indirect Bilirubin 0.8 AST 21 ALT 18 Alkaline Phosphatase 47 Total Creatine Kinase 205 D CK-MB (CK-2) < 1.0 Troponin I 0.417 H D B-Natriuretic Peptide Total Protein 6.2 L Albumin 3.1 L Globulin 3.1 Albumin/Globulin Ratio 1.0 L Blood Type Antibody Screen Crossmatch 05/15/17 05/15/17 04:54 08:21 WBC RBC Hgb Hct MCV MCH MCHC RDW Plt Count MPV Neut % (Auto) Lymph % (Auto) [place] % (Auto) Eos % (Auto) Baso % (Auto) Neut # (Auto) Lymph # (Auto) [place] # (Auto) Eos # (Auto) Baso # (Auto) Total Counted Immature Gran % Nucleated RBC % Immature Gran # Segmented Neutrophils Lymphocytes Monocytes Nucleated RBCs # Platelet Estimate Giant Platelets Immature Plt Fraction Hypochromasia Macrocytosis Ovalocytes Sodium Potassium Chloride Carbon Dioxide Anion Gap BUN Creatinine GFR Calculation BUN/Creatinine Ratio Glucose POC Glucose 151 H Calculated Osmolality Calcium Magnesium Total Bilirubin Direct Bilirubin Indirect Bilirubin AST ALT Alkaline Phosphatase Total Creatine Kinase CK-MB (CK-2) Troponin I B-Natriuretic Peptide 448 H Total Protein Albumin Globulin Albumin/Globulin Ratio Blood Type Antibody Screen Crossmatch Quality Measures - VTE Contraindication to Pharmacological VTE Prophylaxis: Already on Theraputic Agent , No Prophylaxis Needed Specialty Discharge - Follow Up or Referrals
--- NOTE | 2017-05-15 12:38 | Sleep Medicine Progress Note ---
Assessment and Plan (1) Unspecified sleep apnea Status: Acute Assessment and plan: We will proceed with home sleep testing. He does have symptoms concerning for sleep apnea. Current Visit: Yes (2) Hypertension Status: Chronic Current Visit: Yes (3) Diabetes mellitus Status: Acute Current Visit: Yes (4) 3-vessel CAD Status: Acute Current Visit: Yes Sleep Medicine Subjective Interval history: Stop by to check on patient today. He is recovering from his surgery. His was present today. She does state that he snores loudly and does have abnormal breathing during sleep with pauses. He did not give me this history before. We will set him up for home sleep testing to exclude sleep apnea. Exam (Progress Note) - Constitutional Vitals: Period Temp Pulse Resp BP Sys/Weaver Pulse Ox Last 24 Hr 98.4 F-99.9 F 60-78 15-20 106-148/50-78 90-100 Exam: He is alert and responsive in no acute distress. Pupils equal round reactive to light and accommodation. Extraocular movements intact. Oropharynx with a class III Mallampati exam. Neck is supple without adenopathy or thyromegaly. No supraclavicular adenopathy is noted. Chest with good air movement and no significant wheeze or rhonchi. Cardiac exam reveals a regular rhythm without murmur or gallop. Abdomen soft nontender without palpable hepatosplenomegaly or mass. Extremities without significant edema or clubbing. Neurologically, grossly intact. Results - Labs CBC & BMP: 05/15/17 04:54 05/15/17 04:54 Lab Results: I have reviewed the past 24 hour labs Specialty Discharge - Follow Up or Referrals
--- NOTE | 2017-05-15 18:30 | Hospitalist Progress Note ---
Hospitalist: Subjective Interval history: Patient is awake and comfortable, at times feels some shortness of breath. Exam - Constitutional Vitals: Period Temp Pulse Resp BP Sys/Weaver Pulse Ox Last 24 Hr 98.0 F-99.5 F 60-74 18-20 120-148/65-78 90-100 Exam: General: No Acute Distress HEENT: Normocephalic, atraumatic, Extra ocular movements intact Neck: Supple, No JVD Chest: Clear to auscultation B/L CV: S1 + S2 audible without murmur, gallop or rub Abd: soft, NT, Non-distended, BS + Ext: Edema B/L Skin: No purpura, bruising or rash Rheumatologic: No Joint deformities Neurologic: Awake & alert Results - Labs CBC & BMP: 05/15/17 04:54 05/15/17 04:54 - Impressions Assessment and Plan: 76-year-old -Thai male with history of hypertension, diabetes, hypercholesterolemia, multiple myeloma s/p chemo, chronic systolic CHF with ischemic cardiomyopathy ejection fraction 39%, and coronary artery disease was admitted for coronary artery bypass grafting, found to have new onset DM. Getting Lasix for CHF exacerbation. Diabetes mellitus-II Status: Acute Assessment and plan: Newly diagnosed. Hemoglobin A1c 8.3. Received diabetic teaching. Controlled on Glucotrol XL 5 mg once daily, his Accu-Chek are well controlled Current Visit: Yes CAD s/p CABG Status: Acute Assessment and plan: Doing well, continue medical management Current Visit: Yes Quality Measures - VTE Contraindication to Pharmacological VTE Prophylaxis: Already on Theraputic Agent , No Prophylaxis Needed Specialty Discharge - Follow Up or Referrals
[2017-05-16] MEDS: INSULIN REGULAR 100 UNIT/ML SUBCUT SCH ×6 (03:18→21:01)
[2017-05-16] MEDS: ALBUTEROL 2.5 MG/3 ML NEB RESP TX SCH ×3 (03:57→11:44)
[2017-05-16 06:20] LABS: Basophils % 0.2 % (0.0-0.8); Eosinophils % 0.4 % (0.00-10.9); Hematocrit 26.6 VOL% (42.0-52.0); Hemoglobin 8.8 GM/DL (14.0-18.0); Immature Granulocytes % 0.4 %; Immature Granulocytes Absolute 0.04 #; Lymphocytes # 0.8 10*3/uL (1.4-4.0); Lymphocytes % 9.4 % (21.2-54.2); Mean Corpuscular HGB Conc 33.1 GM/DL (32-36); Mean Corpuscular Hemoglobin 32 PG (27-34); Mean Corpuscular Volume 95.7 FL (87-102); Mean Platelet Volume 9.9 FL (9.6-12.0); Monocytes # 1.7 10*3/uL (0.11-0.8); Monocytes % 19.3 % (1.7-12.7); Neutrophils # 6.3 10*3/uL (1.4-7.4); Neutrophils % 70.3 % (38.7-73.9); Platelet Count 207 T/CUMM (130-400); Red Blood Count 2.78 MC/CUMM (3.8-5.5); Red Cell Distribution Width 14.6 % (9.3-17.3); White Blood Count 8.9 T/CUMM (4-12)
--- NOTE | 2017-05-16 06:29 | Cardiothoracic Progress Note ---
Cardiothoracic Subjective Interval history: Patient had a comfortable night. Vital signs have been stable and is breathing comfortably. He is gradually increasing his activities as tolerated. We will continue to encourage this according to routine postoperative protocol. Overall his progress appears satisfactory. Exam (Progress Note) - Constitutional Vitals: Period Temp Pulse Resp BP Sys/Weaver Pulse Ox Last 24 Hr 98.0 F-100.5 F 63-74 18-20 120-144/47-72 90-99 Result/EKG - Labs CBC & BMP: 05/16/17 05:20 05/15/17 04:54 Labs: Laboratory Results - last 24 hr 05/15/17 05/15/17 05/15/17 04:54 08:21 11:22 WBC RBC Hgb Hct MCV MCH MCHC RDW Plt Count MPV Neut % (Auto) Lymph % (Auto) [place] % (Auto) Eos % (Auto) Baso % (Auto) Neut # (Auto) Lymph # (Auto) [place] # (Auto) Eos # (Auto) Baso # (Auto) Immature Gran % Nucleated RBC % Immature Gran # Nucleated RBCs # Immature Plt Fraction POC Glucose 151 H 160 H B-Natriuretic Peptide 448 H 05/15/17 05/15/17 05/15/17 15:12 17:06 19:57 WBC RBC Hgb Hct MCV MCH MCHC RDW Plt Count MPV Neut % (Auto) Lymph % (Auto) [place] % (Auto) Eos % (Auto) Baso % (Auto) Neut # (Auto) Lymph # (Auto) [place] # (Auto) Eos # (Auto) Baso # (Auto) Immature Gran % Nucleated RBC % Immature Gran # Nucleated RBCs # Immature Plt Fraction POC Glucose 133 H 97 204 H B-Natriuretic Peptide 05/16/17 05:20 WBC 8.9 RBC 2.78 L Hgb 8.8 L Hct 26.6 L MCV 95.7 MCH 32 MCHC 33.1 RDW 14.6 Plt Count 207 MPV 9.9 Neut % (Auto) 70.3 Lymph % (Auto) 9.4 L [place] % (Auto) 19.3 H Eos % (Auto) 0.4 Baso % (Auto) 0.2 Neut # (Auto) 6.3 Lymph # (Auto) 0.8 L [place] # (Auto) 1.7 H Eos # (Auto) 0.0 Baso # (Auto) 0.0 Immature Gran % 0.4 Nucleated RBC % 0.0 Immature Gran # 0.04 Nucleated RBCs # 0.00 Immature Plt Fraction 0.0 POC Glucose B-Natriuretic Peptide Quality Measures - VTE Contraindication to Pharmacological VTE Prophylaxis: Already on Theraputic Agent , No Prophylaxis Needed Specialty Discharge - Follow Up or Referrals
[2017-05-16 06:47] LABS: Giant Platelets Few; Hypochromasia 1+; Lymphocytes 10 % (20-55); Platelet Estimate Adequate; Segmented Neutrophils 73 % (50-85); Total Cells Counted 100
[2017-05-16 06:48] LABS: Macrocytosis Slight; Ovalocytes Slight
[2017-05-16 06:58] LABS: Alanine Aminotransferase 19 U/L (16-61); Albumin 3.3 G/DL (3.4-5.0); Alkaline Phosphatase 53 U/L (45-117); Aspartate Amino Transferase 22 U/L (0-37); Bilirubin,Indirect 1.1 MG/DL (0.0-1.0); Blood Urea Nitrogen 30 MG/DL (7-18); Calcium 8.1 MG/DL (8.5-10.1); Glucose 74 MG/DL (74-106); Magnesium 2.5 MG/DL (1.8-2.4); Osmolality,Calculated 285.3 MOS/KG (273-304); Potassium 4.1 MMOL/L (3.5-5.1); Sodium 141 MMOL/L (136-145); Total Protein 6.6 G/DL (6.4-8.3)
[2017-05-16 07:04] LABS: Troponin I Only 0.244 NG/ML (0.00-0.045)
--- NOTE | 2017-05-16 07:47 | XRay Report ---
XR chest 2V Indication: Shortness of breath Comparison: 15 May 2017 Findings: The heart and mediastinum are stable in size and configuration with cardiac surgery changes. Left subclavian Port-A-Cath is unchanged in position. The pulmonary vascularity is prominent but similar to previous exam. Lung volumes are increased with prominent bronchial markings. There is increased left lower lung density and effusion similar to previous study. No other lung infiltrates, effusions, pneumothorax or other abnormality is demonstrated. Impression: No significant change. PROCEDURE INTERPRETED AT [facility] DEPARTMENT OF RADIOLOGY Final Report Signed by: Dr. Wesly Malik
[2017-05-16] MEDS: CYANOCOBALAMIN 500 MCG TABLET PO SCH (08:25)
[2017-05-16] MEDS: FERROUS SULFATE 325 MG TABLET PO SCH (08:26)
[2017-05-16] MEDS: FUROSEMIDE 40 MG TABLET PO SCH ×2 (08:26→19:29)
[2017-05-16] MEDS: ASPIRIN EC 325 MG TABLET PO SCH (08:26)
[2017-05-16] MEDS: DOCUSATE SODIUM 100 MG CAPSULE PO SCH (08:26)
[2017-05-16] MEDS: METOPROLOL TARTRATE 25 MG TABLET PO SCH ×2 (08:26→21:02)
[2017-05-16] MEDS: ROSUVASTATIN 20 MG TABLET PO SCH (08:26)
[2017-05-16] MEDS: LISINOPRIL 5 MG TABLET PO SCH (08:27)
[2017-05-16] MEDS: SERTRALINE 100 MG TABLET PO SCH (08:27)
[2017-05-16] MEDS: PANTOPRAZOLE 40 MG TABLET PO SCH (08:27)
--- NOTE | 2017-05-16 09:05 | Sleep Medicine Progress Note ---
Assessment and Plan (1) Unspecified sleep apnea Status: Acute Assessment and plan: We will schedule home sleep testing tonight. Current Visit: Yes (2) Hypertension Status: Chronic Current Visit: Yes (3) Diabetes mellitus Status: Acute Current Visit: Yes (4) 3-vessel CAD Status: Acute Current Visit: Yes Sleep Medicine Subjective Interval history: Patient doing okay this morning with no new complaints or problems. We will try to get home sleep testing done on him tonight. Exam (Progress Note) - Constitutional Vitals: Period Temp Pulse Resp BP Sys/Weaver Pulse Ox Last 24 Hr 98 F-100.5 F 63-73 18-20 120-159/47-74 90-100 Exam: He is alert and responsive in no acute distress. Pupils equal round reactive to light and accommodation. Extraocular movements intact. Oropharynx with a class III Mallampati exam. Neck is supple without adenopathy or thyromegaly. No supraclavicular adenopathy is noted. Chest with good air movement and no significant wheeze or rhonchi. Cardiac exam reveals a regular rhythm without murmur or gallop. Abdomen soft nontender without palpable hepatosplenomegaly or mass. Extremities without significant edema or clubbing. Neurologically, grossly intact. Results - Labs CBC & BMP: 05/16/17 05:20 05/16/17 05:20 Lab Results: I have reviewed the past 24 hour labs Specialty Discharge - Follow Up or Referrals
--- NOTE | 2017-05-16 10:16 | Order Completion Report ---
See report scanned to EMR
[2017-05-16] MEDS: CHLORHEXIDINE 0.12% ORAL RINSE 60 ML BOTTLE SWISH/SPIT SCH ×2 (10:51→21:02)
--- NOTE | 2017-05-16 12:25 | Cardiology Progress Note ---
Assessment and Plan (1) 3-vessel CAD Status: Acute Assessment and plan: SEE PLAN OF CARE LISTED BELOW. Current Visit: Yes (2) Multiple myeloma Status: Acute Assessment and plan: SEE PLAN OF CARE LISTED BELOW. Current Visit: Yes (3) Dyslipidemia Status: Chronic Assessment and plan: SEE PLAN OF CARE LISTED BELOW. Current Visit: Yes (4) Hypertension Status: Chronic Assessment and plan: SEE PLAN OF CARE LISTED BELOW. Current Visit: Yes (5) Former smoker Status: Chronic Assessment and plan: SEE PLAN OF CARE LISTED BELOW. Current Visit: No (6) Hyperglycemia Status: Acute Assessment and plan: SEE PLAN OF CARE LISTED BELOW. Current Visit: Yes (7) S/P CABG x 2 Status: Acute Assessment and plan: SEE PLAN OF CARE LISTED BELOW. Current Visit: Yes (8) Shortness of breath Status: Acute Assessment and plan: SEE PLAN OF CARE LISTED BELOW. Current Visit: Yes Cardiology - PN: Subj Interval history: EDGE BANDER OPERATOR: Dr. Niru Glaser SUMMARY Patient was admitted to [facility] for elective heart catheterization May 08, 2017. Past medical history includes: Ischemic cardiomyopathy (most recent EF 39%), multiple myeloma (currently receiving chemotherapy, Dr. Calixto), GERD and former smoker. He had abnormal stress test in the cardiology clinic and was scheduled for heart catheterization. This was performed per Dr. Glaser 05/08/17 via right radial approach which revealed severe three-vessel coronary artery disease. Subsequently, Dr. Hernandez was consulted to evaluate for possible CABG. Please see full catheter report. Dr. Glaser discussed with Dr. Calixto, patient's primary marble cleaner regarding the status of his multiple myeloma. It is felt that the best approach is to place his chemotherapy on hold and proceed with CABG. Patient was seen in consultation per Dr. Hernandez and he underwent CABG May 10, 2017. MAY 16, 2017 Patient was seen and examined on the telemetry unit along with Dr. Pereira. He underwent CABG per Dr. Hernandez with RANDLE to LAD and SVG to PDA. Postop day #6 today. Physical therapy at bedside working with patient. He continues to be short of breath, especially with exertion. Lasix was initiated yesterday. Will continue to diurese patient in hopes to improve his breathing. No significant changes noted his weight. Suspect that there is poor documentation of his output as patient does not have a Akhtar. He is without complaints of dyspnea, heaviness or tightness. Telemetry continues to be without overt arrhythmias. Chronic continues to trend downward. Continued anemia. 8.8 26.6. Evidence of overt bleeding. Patient is hemodynamically stable. Tolerating aspirin, statin, beta blockade and KAMILA inhibitor well. Encouraged patient to continue incentive spirometry. Increase activity level as tolerated. I will further discuss with Dr. Pereira and await his additional recommendations. REVIEW OF SYSTEMS: Cardiac: He confirms chest soreness. Without chest tightness, heaviness. GI: Denies nausea, vomiting, abdominal pain Respiratory: Confirms shortness of breath and dyspnea on exertion IMPRESSION AND PLAN 1. THREE-VESSEL CAD, STATUS POST CABG X2 - Now status post revascularization with RANDLE to LAD and SVG to PDA. Postop day #6. Tolerating aspirin, statin, beta-blockade and KAMILA inhibitor well. Encouraged to use incentive spirometry. Increase activity level as tolerated. I will further discuss with Dr. Uribe and await his additional recommendations. 2. HYPERTENSION - Under well control. Tolerating KAMILA inhibitor and beta blockade well. Will monitor blood pressure and adjust accordingly. 3. ISCHEMIC CARDIOMYOPATHY - EF calculated to be 39% per recent stress test. Now status post revascularization. Continue beta-blockade and KAMILA inhibitor. Patient will need repeat echocardiogram in approximately 3 months to reevaluate ejection fraction. 4. DYSLIPIDEMIA - LDL 159. Continue high intensity statin. Patient will need repeat lipid panel in 4-6 weeks in the cardiology clinic. 5. DIABETES, NEW DIAGNOSIS - Hemoglobin A1c 8.3. Hospital medicine following. Diabetic education completed. 6. MULTIPLE MYELOMA - Was on chemotherapy prior to undergoing CABG. Dr. Glaser discussed with Dr. Calixto regarding patient's status of his multiple myeloma. It was decided that the best approach was to hold chemotherapy for CABG. This will continue to be held until felt it is safe to reinitiate from a surgical standpoint. 7. SHORTNESS OF BREATH - Lung exam continues to reveal bibasilar rales and wheezing. Chest x-ray this morning reveals no significant change. Continue Lasix. Monitor electrolytes and renal function closely. Exam (Progress Note) - Constitutional Vitals: Period Temp Pulse Resp BP Sys/Weaver Pulse Ox Last 24 Hr 98 F-100.5 F 63-73 18-20 120-159/47-74 90-100 Exam: General: Appears comfortable. No acute distress. Cooperative and pleasant. HEENT: normocephalic, atraumatic. Mucous membranes moist. No jaundice noted. Conjunctiva moist and clear, sclerae anicteric Neck: No JVD/HJR, no thyromegaly or lymphadenopathy noted. Cardiac: Regular rate and rhythm. Midsternal chest incision healing well without signs of infection. No bleeding or dehiscence. Lungs: Bibasilar rales, wheezing. Requiring oxygen via nasal cannula Abdomen: Soft. Active bowel sounds. Nontender and nondistended. No abdominal bruit or thrill noted. No masses noted. Extremities: No clubbing, cyanosis noted. No edema noted. Upper extremity pulses 2+. Lower extremity pulses 2+. Capillary refill less than 3 seconds. Left lower extremity incision healing well without signs of infection. No thinning or dehiscence. Nikky intact. Skin: No unusual lesions or rashes. No skin breakdown appreciated. Neuro: Patient is awake and alert this morning. Able to move all extremities upon command. No essential tremor noted. Result/EKG - Labs CBC & BMP: 05/16/17 05:20 05/16/17 05:20 Lab Results: I have reviewed the past 24 hour labs Labs: Laboratory Results - last 24 hr 05/15/17 05/15/17 05/15/17 15:12 17:06 19:57 WBC RBC Hgb Hct MCV MCH MCHC RDW Plt Count MPV Neut % (Auto) Lymph % (Auto) [place] % (Auto) Eos % (Auto) Baso % (Auto) Neut # (Auto) Lymph # (Auto) [place] # (Auto) Eos # (Auto) Baso # (Auto) Total Counted Immature Gran % Nucleated RBC % Immature Gran # Segmented Neutrophils Lymphocytes Monocytes Nucleated RBCs # Platelet Estimate Giant Platelets Immature Plt Fraction Hypochromasia Macrocytosis Ovalocytes Sodium Potassium Chloride Carbon Dioxide Anion Gap BUN Creatinine GFR Calculation BUN/Creatinine Ratio Glucose POC Glucose 133 H 97 204 H Calculated Osmolality Calcium Magnesium Total Bilirubin Direct Bilirubin Indirect Bilirubin AST ALT Alkaline Phosphatase Total Creatine Kinase CK-MB (CK-2) Troponin I Total Protein Albumin Globulin Albumin/Globulin Ratio 05/16/17 05/16/17 05/16/17 05:20 05:20 08:13 WBC 8.9 RBC 2.78 L Hgb 8.8 L Hct 26.6 L MCV 95.7 MCH 32 MCHC 33.1 RDW 14.6 Plt Count 207 MPV 9.9 Neut % (Auto) 70.3 Lymph % (Auto) 9.4 L [place] % (Auto) 19.3 H Eos % (Auto) 0.4 Baso % (Auto) 0.2 Neut # (Auto) 6.3 Lymph # (Auto) 0.8 L [place] # (Auto) 1.7 H Eos # (Auto) 0.0 Baso # (Auto) 0.0 Total Counted 100 Immature Gran % 0.4 Nucleated RBC % 0.0 Immature Gran # 0.04 Segmented Neutrophils 73 Lymphocytes 10 L Monocytes 17 H Nucleated RBCs # 0.00 Platelet Estimate Adequate Giant Platelets Few Immature Plt Fraction 0.0 Hypochromasia 1+ Macrocytosis Slight Ovalocytes Slight Sodium 141 Potassium 4.1 Chloride 105 Carbon Dioxide 31 Anion Gap 9.1 BUN 30 H Creatinine 0.90 GFR Calculation 107 BUN/Creatinine Ratio 33.00 H Glucose 74 POC Glucose 89 Calculated Osmolality 285.3 Calcium 8.1 L Magnesium 2.5 H Total Bilirubin 1.40 H Direct Bilirubin 0.320 H Indirect Bilirubin 1.1 H AST 22 ALT 19 Alkaline Phosphatase 53 Total Creatine Kinase 187 CK-MB (CK-2) < 1.0 Troponin I 0.244 H D Total Protein 6.6 Albumin 3.3 L Globulin 3.3 Albumin/Globulin Ratio 1.0 L 05/16/17 12:05 WBC RBC Hgb Hct MCV MCH MCHC RDW Plt Count MPV Neut % (Auto) Lymph % (Auto) [place] % (Auto) Eos % (Auto) Baso % (Auto) Neut # (Auto) Lymph # (Auto) [place] # (Auto) Eos # (Auto) Baso # (Auto) Total Counted Immature Gran % Nucleated RBC % Immature Gran # Segmented Neutrophils Lymphocytes Monocytes Nucleated RBCs # Platelet Estimate Giant Platelets Immature Plt Fraction Hypochromasia Macrocytosis Ovalocytes Sodium Potassium Chloride Carbon Dioxide Anion Gap BUN Creatinine GFR Calculation BUN/Creatinine Ratio Glucose POC Glucose 134 H Calculated Osmolality Calcium Magnesium Total Bilirubin Direct Bilirubin Indirect Bilirubin AST ALT Alkaline Phosphatase Total Creatine Kinase CK-MB (CK-2) Troponin I Total Protein Albumin Globulin Albumin/Globulin Ratio Quality Measures - VTE Contraindication to Pharmacological VTE Prophylaxis: Already on Theraputic Agent , No Prophylaxis Needed Specialty Discharge - Follow Up or Referrals
--- NOTE | 2017-05-16 15:08 | Hospitalist Progress Note ---
Assessment and Plan (1) 3-vessel CAD Status: Acute Assessment and plan: status post revascularization with RANDLE to LAD and SVG to PDA.Follow Cardiolgy and Ct surgery's recommendations Current Visit: Yes (2) Multiple myeloma Status: Acute Assessment and plan: Chemo was held for surgery. Dr Calixto is following Current Visit: Yes (3) Dyslipidemia Status: Chronic Assessment and plan: continue with statins Current Visit: Yes (4) Hyperglycemia Status: Acute Assessment and plan: vs newly diagnosed DM HbA1c level Current Visit: Yes (5) Unspecified sleep apnea Status: Acute Assessment and plan: Sleep MD is following Current Visit: Yes Hospitalist: Subjective Interval history: Patient seen. No new issues. Exam - Constitutional Vitals: Period Temp Pulse Resp BP Sys/Weaver Pulse Ox Last 24 Hr 98 F-100.5 F 63-73 18-20 120-159/47-74 90-100 General appearance: no acute distress - Head Head exam: Present: normal inspection - Respiratory Respiratory exam: Present: clear to auscultation bilaterally - Cardiovascular Cardiovascular exam: Present: regular rate and rhythm - GI/Abdominal GI/Abdominal exam: Present: normal bowel sounds - Extremities Exam Extremities exam: Present: edema Results - Labs CBC & BMP: 05/16/17 05:20 05/16/17 05:20 Lab Results: I have reviewed the past 24 hour labs Quality Measures - VTE Contraindication to Pharmacological VTE Prophylaxis: Already on Theraputic Agent , No Prophylaxis Needed Specialty Discharge - Follow Up or Referrals
[2017-05-17] MEDS: ZALEPLON 5 MG CAPSULE PO PRN (02:27)
[2017-05-17 05:13] LABS: Basophils % 0.1 % (0.0-0.8); Eosinophils % 0.3 % (0.00-10.9); Hematocrit 26.5 VOL% (42.0-52.0); Hemoglobin 8.6 GM/DL (14.0-18.0); Immature Granulocytes % 0.8 %; Immature Granulocytes Absolute 0.07 #; Lymphocytes # 0.9 10*3/uL (1.4-4.0); Lymphocytes % 10.4 % (21.2-54.2); Mean Corpuscular HGB Conc 32.5 GM/DL (32-36); Mean Corpuscular Hemoglobin 31 PG (27-34); Mean Corpuscular Volume 94.6 FL (87-102); Mean Platelet Volume 9.7 FL (9.6-12.0); Monocytes # 1.2 10*3/uL (0.11-0.8); Monocytes % 13.5 % (1.7-12.7); Neutrophils # 6.7 10*3/uL (1.4-7.4); Neutrophils % 74.9 % (38.7-73.9); Platelet Count 235 T/CUMM (130-400); Red Cell Distribution Width 14.3 % (9.3-17.3)
[2017-05-17 05:44] LABS: Calcium 8.2 MG/DL (8.5-10.1); Magnesium 2.3 MG/DL (1.8-2.4); Osmolality,Calculated 284.3 MOS/KG (273-304)
--- NOTE | 2017-05-17 06:28 | Cardiothoracic Progress Note ---
Cardiothoracic Subjective Interval history: Patient had a fairly comfortable night. Vital signs are stable and he is breathing comfortably. We will try to increase his activities as tolerated. Overall his progress Exam (Progress Note) - Constitutional Vitals: Period Temp Pulse Resp BP Sys/Weaver Pulse Ox Last 24 Hr 98 F-99.6 F 63-71 18-20 126-165/66-80 97-100 Result/EKG - Labs CBC & BMP: 05/17/17 04:43 05/17/17 04:43 Labs: Laboratory Results - last 24 hr 05/16/17 05/16/17 05/16/17 05:20 05:20 05:20 WBC RBC Hgb Hct MCV MCH MCHC RDW Plt Count MPV Neut % (Auto) Lymph % (Auto) [place] % (Auto) Eos % (Auto) Baso % (Auto) Neut # (Auto) Lymph # (Auto) [place] # (Auto) Eos # (Auto) Baso # (Auto) Total Counted 100 Immature Gran % Nucleated RBC % Immature Gran # Segmented Neutrophils 73 Lymphocytes 10 L Monocytes 17 H Nucleated RBCs # Platelet Estimate Adequate Giant Platelets Few Immature Plt Fraction Hypochromasia 1+ Macrocytosis Slight Ovalocytes Slight Sodium 141 Potassium 4.1 Chloride 105 Carbon Dioxide 31 Anion Gap 9.1 BUN 30 H Creatinine 0.90 GFR Calculation 107 BUN/Creatinine Ratio 33.00 H Glucose 74 POC Glucose Hemoglobin A1c 8.0 H Calculated Osmolality 285.3 Calcium 8.1 L Magnesium 2.5 H Total Bilirubin 1.40 H Direct Bilirubin 0.320 H Indirect Bilirubin 1.1 H AST 22 ALT 19 Alkaline Phosphatase 53 Total Creatine Kinase 187 CK-MB (CK-2) < 1.0 Troponin I 0.244 H D Total Protein 6.6 Albumin 3.3 L Globulin 3.3 Albumin/Globulin Ratio 1.0 L 05/16/17 05/16/17 05/16/17 08:13 12:05 17:05 WBC RBC Hgb Hct MCV MCH MCHC RDW Plt Count MPV Neut % (Auto) Lymph % (Auto) [place] % (Auto) Eos % (Auto) Baso % (Auto) Neut # (Auto) Lymph # (Auto) [place] # (Auto) Eos # (Auto) Baso # (Auto) Total Counted Immature Gran % Nucleated RBC % Immature Gran # Segmented Neutrophils Lymphocytes Monocytes Nucleated RBCs # Platelet Estimate Giant Platelets Immature Plt Fraction Hypochromasia Macrocytosis Ovalocytes Sodium Potassium Chloride Carbon Dioxide Anion Gap BUN Creatinine GFR Calculation BUN/Creatinine Ratio Glucose POC Glucose 89 134 H 107 H Hemoglobin A1c Calculated Osmolality Calcium Magnesium Total Bilirubin Direct Bilirubin Indirect Bilirubin AST ALT Alkaline Phosphatase Total Creatine Kinase CK-MB (CK-2) Troponin I Total Protein Albumin Globulin Albumin/Globulin Ratio 05/17/17 05/17/17 04:43 04:43 WBC 9.0 RBC 2.80 L Hgb 8.6 L Hct 26.5 L MCV 94.6 MCH 31 MCHC 32.5 RDW 14.3 Plt Count 235 MPV 9.7 Neut % (Auto) 74.9 H Lymph % (Auto) 10.4 L [place] % (Auto) 13.5 H Eos % (Auto) 0.3 Baso % (Auto) 0.1 Neut # (Auto) 6.7 Lymph # (Auto) 0.9 L [place] # (Auto) 1.2 H Eos # (Auto) 0.0 Baso # (Auto) 0.0 Total Counted Immature Gran % 0.8 Nucleated RBC % 0.0 Immature Gran # 0.07 Segmented Neutrophils Lymphocytes Monocytes Nucleated RBCs # 0.00 Platelet Estimate Giant Platelets Immature Plt Fraction 0.0 Hypochromasia Macrocytosis Ovalocytes Sodium 141 Potassium 4.0 Chloride 105 Carbon Dioxide 30 Anion Gap 10.0 BUN 23 H Creatinine 0.90 GFR Calculation 107 BUN/Creatinine Ratio 25.00 H Glucose 100 POC Glucose Hemoglobin A1c Calculated Osmolality 284.3 Calcium 8.2 L Magnesium 2.3 Total Bilirubin Direct Bilirubin Indirect Bilirubin AST ALT Alkaline Phosphatase Total Creatine Kinase CK-MB (CK-2) Troponin I Total Protein Albumin Globulin Albumin/Globulin Ratio Quality Measures - VTE Contraindication to Pharmacological VTE Prophylaxis: Already on Theraputic Agent , No Prophylaxis Needed Specialty Discharge - Follow Up or Referrals
[2017-05-17] MEDS: INSULIN REGULAR 100 UNIT/ML SUBCUT SCH ×5 (07:23→21:39)
[2017-05-17 09:00] LABS: Apearance,Urine Slightly Hazy (Clear); Bacteria,Urine Occasional /HPF (Few); Bilirubin,Urine Negative (Negative); Blood, Urine Small mg/dL (Negative); Glucose,Urine (UA) Negative (Negative); Granular Casts,Urine 7 /LPF (0-1); Ketones,Urine Negative (Negative); Mucus,Urine Occasional /LPF (Occasional); Nitrite,Urine Negative (Negative); Protein,Urine 100 MG/DL; RBC,Urine 1 /HPF (0-4); Squamous Epithelial Cell,Urine Occasional /HPF (0-10); Urine Color Yellow (Yellow); Urine Specific Gravity 1.017 (1.001-1.035); WBC,Urine 9 /HPF (0-6)
[2017-05-17] MEDS: CYANOCOBALAMIN 500 MCG TABLET PO SCH ×2 (09:52→10:04)
[2017-05-17] MEDS: ROSUVASTATIN 20 MG TABLET PO SCH (09:55)
[2017-05-17] MEDS: FERROUS SULFATE 325 MG TABLET PO SCH (09:55)
[2017-05-17] MEDS: FUROSEMIDE 40 MG TABLET PO SCH ×2 (09:56→16:41)
[2017-05-17] MEDS: DOCUSATE SODIUM 100 MG CAPSULE PO SCH (09:56)
[2017-05-17] MEDS: LISINOPRIL 5 MG TABLET PO SCH (09:56)
[2017-05-17] MEDS: METOPROLOL TARTRATE 25 MG TABLET PO SCH ×2 (09:56→21:38)
[2017-05-17] MEDS: PANTOPRAZOLE 40 MG TABLET PO SCH (09:56)
[2017-05-17] MEDS: SERTRALINE 100 MG TABLET PO SCH (09:57)
[2017-05-17] MEDS: ASPIRIN EC 325 MG TABLET PO SCH (10:03)
[2017-05-17] MEDS: CHLORHEXIDINE 0.12% ORAL RINSE 60 ML BOTTLE SWISH/SPIT SCH ×2 (10:04→21:40)
--- NOTE | 2017-05-17 10:15 | Cardiology Progress Note ---
Assessment and Plan (1) 3-vessel CAD Status: Acute Assessment and plan: SEE PLAN OF CARE LISTED BELOW. Current Visit: Yes (2) Multiple myeloma Status: Acute Assessment and plan: SEE PLAN OF CARE LISTED BELOW. Current Visit: Yes (3) Dyslipidemia Status: Chronic Assessment and plan: SEE PLAN OF CARE LISTED BELOW. Current Visit: Yes (4) Hypertension Status: Chronic Assessment and plan: SEE PLAN OF CARE LISTED BELOW. Current Visit: Yes (5) Former smoker Status: Chronic Assessment and plan: SEE PLAN OF CARE LISTED BELOW. Current Visit: No (6) Hyperglycemia Status: Acute Assessment and plan: SEE PLAN OF CARE LISTED BELOW. Current Visit: Yes (7) S/P CABG x 2 Status: Acute Assessment and plan: SEE PLAN OF CARE LISTED BELOW. Current Visit: Yes (8) Shortness of breath Status: Acute Assessment and plan: SEE PLAN OF CARE LISTED BELOW. Current Visit: Yes Cardiology - PN: Subj Interval history: BIZTALK ARCHITECT: Dr. Niru Glaser SUMMARY Patient was admitted to [facility] for elective heart catheterization May 08, 2017. Past medical history includes: Ischemic cardiomyopathy (most recent EF 39%), multiple myeloma (currently receiving chemotherapy, Dr. Calixto), GERD and former smoker. He had abnormal stress test in the cardiology clinic and was scheduled for heart catheterization. This was performed per Dr. Glaser 05/08/17 via right radial approach which revealed severe three-vessel coronary artery disease. Subsequently, Dr. Hernandez was consulted to evaluate for possible CABG. Please see full catheter report. Dr. Glaser discussed with Dr. Calixto, patient's primary dope weigh operator regarding the status of his multiple myeloma. It is felt that the best approach is to place his chemotherapy on hold and proceed with CABG. Patient was seen in consultation per Dr. Hernandez and he underwent CABG May 10, 2017. MAY 17, 2017 Patient was seen and examined on the telemetry unit. He underwent CABG per Dr. Hernandez with RANDLE to LAD and SVG to PDA. Postop day #7 today. Patient sitting up in chair resting in no acute distress. Requiring oxygen at 2 L via nasal cannula. He reports that his breathing is slowly improving. We will continue Lasix. Weight continues to be unchanged. Poor documentation of I's and O's. Will continue to monitor strict I's and daily weights. He is without complaints of chest pain, heaviness or tightness. Telemetry continues to be without overt arrhythmias. Anemia stable. No evidence of overt bleeding. Patient is hemodynamically stable. Tolerating aspirin, statin, beta blockade and KAMILA inhibitor well. Encouraged patient to continue incentive spirometry. Increase activity level as tolerated. I will further discuss with Dr. Pereira and await his additional recommendations. REVIEW OF SYSTEMS: Cardiac: He confirms chest soreness. Without chest tightness, heaviness. GI: Denies nausea, vomiting, abdominal pain Respiratory: Confirms shortness of breath and dyspnea on exertion IMPRESSION AND PLAN 1. THREE-VESSEL CAD, STATUS POST CABG X2 - Now status post revascularization with RANDLE to LAD and SVG to PDA. Postop day #7. Tolerating aspirin, statin, beta-blockade and KAMILA inhibitor well. Encouraged to use incentive spirometry. Increase activity level as tolerated. I will further discuss with Dr. Pereira and await his additional recommendations. 2. HYPERTENSION - Under well control. Tolerating KAMILA inhibitor and beta blockade well. Will monitor blood pressure and adjust accordingly. 3. ISCHEMIC CARDIOMYOPATHY - EF calculated to be 39% per recent stress test. Now status post revascularization. Continue beta-blockade and KAMILA inhibitor. Patient will need repeat echocardiogram in approximately 3 months to reevaluate ejection fraction. 4. DYSLIPIDEMIA - LDL 159. Continue high intensity statin. Patient will need repeat lipid panel in 4-6 weeks in the cardiology clinic. 5. DIABETES, NEW DIAGNOSIS - Hemoglobin A1c 8.3. Hospital medicine following. Diabetic education completed. 6. MULTIPLE MYELOMA - Was on chemotherapy prior to undergoing CABG. Dr. Glaser discussed with Dr. Calixto regarding patient's status of his multiple myeloma. It was decided that the best approach was to hold chemotherapy for CABG. This will continue to be held until felt it is safe to reinitiate from a surgical standpoint. 7. SHORTNESS OF BREATH - Lung exam improving. Chest x-ray this morning reveals no significant change. Continue Lasix. Monitor electrolytes and renal function closely. Exam (Progress Note) - Constitutional Vitals: Period Temp Pulse Resp BP Sys/Weaver Pulse Ox Last 24 Hr 98.2 F-99.6 F 62-71 18-20 126-165/66-80 97-100 Exam: General: Appears comfortable. No acute distress. Cooperative and pleasant. HEENT: normocephalic, atraumatic. Mucous membranes moist. No jaundice noted. Conjunctiva moist and clear, sclerae anicteric Neck: No JVD/HJR, no thyromegaly or lymphadenopathy noted. Cardiac: Regular rate and rhythm. Midsternal chest incision healing well without signs of infection. No bleeding or dehiscence. Lungs: Bibasilar rales, improving. Requiring oxygen via nasal cannula Abdomen: Soft. Active bowel sounds. Nontender and nondistended. No abdominal bruit or thrill noted. No masses noted. Extremities: No clubbing, cyanosis noted. Trace edema to bilateral lower extremities. Upper extremity pulses 2+. Lower extremity pulses 2+. Capillary refill less than 3 seconds. Left lower extremity incision healing well without signs of infection. No bleeding or dehiscence. [place] intact. Skin: No unusual lesions or rashes. No skin breakdown appreciated. Neuro: Patient is awake and alert this morning. Able to move all extremities upon command. No essential tremor noted. Result/EKG - Labs CBC & BMP: 05/17/17 04:43 05/17/17 04:43 Lab Results: I have reviewed the past 24 hour labs Labs: Laboratory Results - last 24 hr 05/16/17 05/16/17 05/16/17 05:20 12:05 17:05 WBC RBC Hgb Hct MCV MCH MCHC RDW Plt Count MPV Neut % (Auto) Lymph % (Auto) [place] % (Auto) Eos % (Auto) Baso % (Auto) Neut # (Auto) Lymph # (Auto) [place] # (Auto) Eos # (Auto) Baso # (Auto) Immature Gran % Nucleated RBC % Immature Gran # Nucleated RBCs # Immature Plt Fraction Sodium Potassium Chloride Carbon Dioxide Anion Gap BUN Creatinine GFR Calculation BUN/Creatinine Ratio Glucose POC Glucose 134 H 107 H Hemoglobin A1c 8.0 H Calculated Osmolality Calcium Magnesium Urine Color Urine Appearance Urine pH Ur Specific [place] Urine Protein Urine Glucose (UA) Urine Ketones Urine Blood Urine Nitrate Urine Bilirubin Urine Urobilinogen Urine Leukocytes Urine RBC Urine WBC Ur Squamous Epith Cells Urine Bacteria Cellular Casts Granular Casts Urine Mucus Ur Culture Indicated? 05/17/17 05/17/17 05/17/17 04:43 04:43 07:14 WBC 9.0 RBC 2.80 L Hgb 8.6 L Hct 26.5 L MCV 94.6 MCH 31 MCHC 32.5 RDW 14.3 Plt Count 235 MPV 9.7 Neut % (Auto) 74.9 H Lymph % (Auto) 10.4 L [place] % (Auto) 13.5 H Eos % (Auto) 0.3 Baso % (Auto) 0.1 Neut # (Auto) 6.7 Lymph # (Auto) 0.9 L [place] # (Auto) 1.2 H Eos # (Auto) 0.0 Baso # (Auto) 0.0 Immature Gran % 0.8 Nucleated RBC % 0.0 Immature Gran # 0.07 Nucleated RBCs # 0.00 Immature Plt Fraction 0.0 Sodium 141 Potassium 4.0 Chloride 105 Carbon Dioxide 30 Anion Gap 10.0 BUN 23 H Creatinine 0.90 GFR Calculation 107 BUN/Creatinine Ratio 25.00 H Glucose 100 POC Glucose 108 H Hemoglobin A1c Calculated Osmolality 284.3 Calcium 8.2 L Magnesium 2.3 Urine Color Urine Appearance Urine pH Ur Specific [place] Urine Protein Urine Glucose (UA) Urine Ketones Urine Blood Urine Nitrate Urine Bilirubin Urine Urobilinogen Urine Leukocytes Urine RBC Urine WBC Ur Squamous Epith Cells Urine Bacteria Cellular Casts Granular Casts Urine Mucus Ur Culture Indicated? 05/17/17 08:23 WBC RBC Hgb Hct MCV MCH MCHC RDW Plt Count MPV Neut % (Auto) Lymph % (Auto) [place] % (Auto) Eos % (Auto) Baso % (Auto) Neut # (Auto) Lymph # (Auto) [place] # (Auto) Eos # (Auto) Baso # (Auto) Immature Gran % Nucleated RBC % Immature Gran # Nucleated RBCs # Immature Plt Fraction Sodium Potassium Chloride Carbon Dioxide Anion Gap BUN Creatinine GFR Calculation BUN/Creatinine Ratio Glucose POC Glucose Hemoglobin A1c Calculated Osmolality Calcium Magnesium Urine Color Yellow Urine Appearance Slightly hazy Urine pH 6.0 Ur Specific [place] 1.017 Urine Protein 100 Urine Glucose (UA) Negative Urine Ketones Negative Urine Blood Small Urine Nitrate Negative Urine Bilirubin Negative Urine Urobilinogen 4.0 H Urine Leukocytes Negative Urine RBC 1 Urine WBC 9 Ur Squamous Epith Cells Occasional Urine Bacteria Occasional Cellular Casts 1 Granular Casts 7 Urine Mucus Occasional Ur Culture Indicated? Results to follow Quality Measures - VTE Contraindication to Pharmacological VTE Prophylaxis: Already on Theraputic Agent , No Prophylaxis Needed Specialty Discharge - Follow Up or Referrals
--- NOTE | 2017-05-17 11:49 | Hospitalist Progress Note ---
Assessment and Plan (1) 3-vessel CAD Status: Acute Assessment and plan: status post revascularization with RANDLE to LAD and SVG to PDA.Follow Cardiolgy and Ct surgery's recommendations Current Visit: Yes (2) Multiple myeloma Status: Acute Assessment and plan: Chemo was held for surgery. Dr Calixto is following Current Visit: Yes (3) Dyslipidemia Status: Chronic Assessment and plan: continue with statins Current Visit: Yes (4) Hyperglycemia Status: Acute Assessment and plan: vs newly diagnosed DM HbA1c level-8.0 plan DM teaching, continue current regime Current Visit: Yes (5) Unspecified sleep apnea Status: Acute Assessment and plan: Sleep MD is following Current Visit: Yes Hospitalist: Subjective Interval history: Patient has no new issues. HbA1c level is 8.0 Exam - Constitutional Vitals: Period Temp Pulse Resp BP Sys/Weaver Pulse Ox Last 24 Hr 98.2 F-99.6 F 62-71 18-20 126-165/66-80 97-100 General appearance: no acute distress - Head Head exam: Present: normal inspection - Respiratory Respiratory exam: Present: clear to auscultation bilaterally - Cardiovascular Cardiovascular exam: Present: regular rate and rhythm - GI/Abdominal GI/Abdominal exam: Present: normal bowel sounds - Extremities Exam Extremities exam: Present: edema - Neurological Exam Neurological exam: Present: alert, oriented X3 Results - Labs CBC & BMP: 05/17/17 04:43 05/17/17 04:43 Lab Results: I have reviewed the past 24 hour labs Quality Measures - VTE Contraindication to Pharmacological VTE Prophylaxis: Already on Theraputic Agent , No Prophylaxis Needed Specialty Discharge - Follow Up or Referrals
--- NOTE | 2017-05-17 19:16 | Sleep Medicine Progress Note ---
Assessment and Plan (1) Unspecified sleep apnea Status: Acute Assessment and plan: Patient did have a negative home sleep test though it was done while on supplemental oxygen. Given high pretest suspicion for sleep apnea and the fact that the study was done on supplemental oxygen, and I do not think it can be taken is overtly reliable. We will set him up for outpatient sleep study after discharge. Thank you for this consult. Current Visit: Yes (2) Hypertension Status: Chronic Current Visit: Yes (3) Diabetes mellitus Status: Acute Current Visit: Yes (4) 3-vessel CAD Status: Acute Current Visit: Yes Sleep Medicine Subjective Interval history: Patient had borderline negative HST evaluation for sleep apnea. His study was done on supplemental oxygen. This is a less than reliable evaluation and pretest probability for sleep apnea was high. Given his comorbidities, we will set him up for outpatient sleep study evaluation after discharge. Exam (Progress Note) - Constitutional Vitals: Period Temp Pulse Resp BP Sys/Weaver Pulse Ox Last 24 Hr 98.4 F-99.9 F 62-71 18-20 113-165/65-77 90-100 Exam: He is alert and responsive in no acute distress. Pupils equal round reactive to light and accommodation. Extraocular movements intact. Oropharynx with a class III Mallampati exam. Neck is supple without adenopathy or thyromegaly. No supraclavicular adenopathy is noted. Chest with good air movement and no significant wheeze or rhonchi. Cardiac exam reveals a regular rhythm without murmur or gallop. Abdomen soft nontender without palpable hepatosplenomegaly or mass. Extremities without significant edema or clubbing. Neurologically, grossly intact. Results - Labs CBC & BMP: 05/17/17 04:43 05/17/17 04:43 Lab Results: I have reviewed the past 24 hour labs Specialty Discharge - Follow Up or Referrals
[2017-05-18 04:18] LABS: Basophils % 0.1 % (0.0-0.8); Eosinophils % 0.5 % (0.00-10.9); Hematocrit 26.7 VOL% (42.0-52.0); Hemoglobin 8.6 GM/DL (14.0-18.0); Immature Granulocytes % 1.1 %; Immature Granulocytes Absolute 0.09 #; Lymphocytes % 11.8 % (21.2-54.2); Mean Corpuscular HGB Conc 32.2 GM/DL (32-36); Mean Corpuscular Hemoglobin 30 PG (27-34); Mean Corpuscular Volume 94.3 FL (87-102); Mean Platelet Volume 9.7 FL (9.6-12.0); Monocytes % 11.9 % (1.7-12.7); Neutrophils # 6.3 10*3/uL (1.4-7.4); Neutrophils % 74.6 % (38.7-73.9); Platelet Count 275 T/CUMM (130-400); Red Blood Count 2.83 MC/CUMM (3.8-5.5); Red Cell Distribution Width 14.3 % (9.3-17.3); White Blood Count 8.5 T/CUMM (4-12)
[2017-05-18 04:47] LABS: Giant Platelets Few; Hypochromasia 1+; Ovalocytes Slight; Platelet Estimate Adequate
[2017-05-18 04:48] LABS: Calcium 8.4 MG/DL (8.5-10.1)
[2017-05-18 04:49] LABS: Magnesium 2.5 MG/DL (1.8-2.4); Osmolality,Calculated 283.3 MOS/KG (273-304); Potassium 3.8 MMOL/L (3.5-5.1)
[2017-05-18] MEDS: INSULIN REGULAR 100 UNIT/ML SUBCUT SCH ×4 (08:32→20:59)
[2017-05-18] MEDS: ASPIRIN EC 325 MG TABLET PO SCH (09:45)
[2017-05-18] MEDS: DOCUSATE SODIUM 100 MG CAPSULE PO SCH (09:45)
[2017-05-18] MEDS: ROSUVASTATIN 20 MG TABLET PO SCH (09:45)
[2017-05-18] MEDS: LISINOPRIL 5 MG TABLET PO SCH (09:45)
[2017-05-18] MEDS: POTASSIUM CHLORIDE 20 MEQ TABLET PO PRN ×2 (09:45→10:30)
[2017-05-18] MEDS: FERROUS SULFATE 325 MG TABLET PO SCH (09:45)
[2017-05-18] MEDS: SERTRALINE 100 MG TABLET PO SCH (09:45)
[2017-05-18] MEDS: PANTOPRAZOLE 40 MG TABLET PO SCH (09:46)
[2017-05-18] MEDS: FUROSEMIDE 40 MG TABLET PO SCH ×2 (09:46→17:06)
[2017-05-18] MEDS: METOPROLOL TARTRATE 25 MG TABLET PO SCH ×2 (09:46→20:58)
[2017-05-18] MEDS: CYANOCOBALAMIN 500 MCG TABLET PO SCH (09:46)
[2017-05-18] MEDS: CHLORHEXIDINE 0.12% ORAL RINSE 60 ML BOTTLE SWISH/SPIT SCH ×2 (09:47→21:00)
--- NOTE | 2017-05-18 12:00 | Cardiology Progress Note ---
Assessment and Plan (1) 3-vessel CAD Status: Acute Assessment and plan: SEE PLAN OF CARE LISTED BELOW. Current Visit: Yes (2) Multiple myeloma Status: Acute Assessment and plan: SEE PLAN OF CARE LISTED BELOW. Current Visit: Yes (3) Dyslipidemia Status: Chronic Assessment and plan: SEE PLAN OF CARE LISTED BELOW. Current Visit: Yes (4) Hypertension Status: Chronic Assessment and plan: SEE PLAN OF CARE LISTED BELOW. Current Visit: Yes (5) Former smoker Status: Chronic Assessment and plan: SEE PLAN OF CARE LISTED BELOW. Current Visit: No (6) Hyperglycemia Status: Acute Assessment and plan: SEE PLAN OF CARE LISTED BELOW. Current Visit: Yes (7) S/P CABG x 2 Status: Acute Assessment and plan: SEE PLAN OF CARE LISTED BELOW. Current Visit: Yes (8) Shortness of breath Status: Acute Assessment and plan: SEE PLAN OF CARE LISTED BELOW. Current Visit: Yes Cardiology - PN: Subj Interval history: CRA OFFICER: Dr. Niru Glaser SUMMARY Patient was admitted to [facility] for elective heart catheterization May 08, 2017. Past medical history includes: Ischemic cardiomyopathy (most recent EF 39%), multiple myeloma (currently receiving chemotherapy, Dr. Calixto), GERD and former smoker. He had abnormal stress test in the cardiology clinic and was scheduled for heart catheterization. This was performed per Dr. Glaser 05/08/17 via right radial approach which revealed severe three-vessel coronary artery disease. Subsequently, Dr. Hernandez was consulted to evaluate for possible CABG. Please see full catheter report. Dr. Glaser discussed with Dr. Calixto, patient's primary it analyst regarding the status of his multiple myeloma. It is felt that the best approach is to place his chemotherapy on hold and proceed with CABG. Patient was seen in consultation per Dr. Hernandez and he underwent CABG May 10, 2017. MAY 18, 2017 Patient was seen and examined on the telemetry unit along with Dr. Pereira. He underwent CABG per Dr. Hernandez with RANDLE to LAD and SVG to PDA. Postop day #8 today. Patient continues to improve daily. He is sitting up in chair today feeling well in no acute distress. Not requiring oxygen. Surgical incisions are healing well without signs of infection, dehiscence or drainage. Lung exam without rales or rhonchi. We will continue Lasix. He is without complaints of chest pain, heaviness or tightness. Telemetry continues to be without overt arrhythmias. Anemia stable. No evidence of overt bleeding. Patient is hemodynamically stable. Tolerating aspirin, statin, beta blockade and KAMILA inhibitor well. Encouraged patient to continue incentive spirometry. Increase activity level as tolerated. I will further discuss with Dr. Pereira and await his additional recommendations. REVIEW OF SYSTEMS: Cardiac: He confirms chest soreness. Without chest pain, tightness or heaviness. GI: Denies nausea, vomiting, abdominal pain Respiratory: Denies shortness of breath or orthopnea. IMPRESSION AND PLAN 1. THREE-VESSEL CAD, STATUS POST CABG X2 - Now status post revascularization with RANDLE to LAD and SVG to PDA. Postop day #8. Tolerating aspirin, statin, beta-blockade and KAMILA inhibitor well. Encouraged to use incentive spirometry. Increase activity level as tolerated. I will further discuss with Dr. Pereira and await his additional recommendations. 2. HYPERTENSION - Under well control. Tolerating KAMILA inhibitor and beta blockade well. Will monitor blood pressure and adjust accordingly. 3. ISCHEMIC CARDIOMYOPATHY - EF calculated to be 39% per recent stress test. Now status post revascularization. Continue beta-blockade and KAMILA inhibitor. Patient will need repeat echocardiogram in approximately 3 months to reevaluate ejection fraction. 4. DYSLIPIDEMIA - LDL 159. Continue high intensity statin. Patient will need repeat lipid panel in 4-6 weeks in the cardiology clinic. 5. DIABETES, NEW DIAGNOSIS - Hemoglobin A1c 8.3. Hospital medicine following. Diabetic education completed. 6. MULTIPLE MYELOMA - Was on chemotherapy prior to undergoing CABG. Dr. Glaser discussed with Dr. Calixto regarding patient's status of his multiple myeloma. It was decided that the best approach was to hold chemotherapy for CABG. This will continue to be held until felt it is safe to reinitiate from a surgical standpoint. 7. SHORTNESS OF BREATH - Lung exam normal. Continue Lasix. Monitor electrolytes and renal function. Exam (Progress Note) - Constitutional Vitals: Period Temp Pulse Resp BP Sys/Weaver Pulse Ox Last 24 Hr 97.1 F-99.9 F 66-78 16-20 113-154/62-84 90-98 Exam: General: Appears comfortable. No acute distress. Cooperative and pleasant. HEENT: normocephalic, atraumatic. Mucous membranes moist. No jaundice noted. Conjunctiva moist and clear, sclerae anicteric Neck: No JVD/HJR, no thyromegaly or lymphadenopathy noted. Cardiac: Regular rate and rhythm. Midsternal chest incision healing well without signs of infection. No bleeding or dehiscence. Lungs: Clear to auscultation. No rales, wheezing or rhonchi. Not requiring oxygen. Abdomen: Soft. Active bowel sounds. Nontender and nondistended. No abdominal bruit or thrill noted. No masses noted. Extremities: No clubbing, cyanosis noted. No edema. Upper extremity pulses 2+ . Lower extremity pulses 2+. Capillary refill less than 3 seconds. Left lower extremity incision healing well without signs of infection. No bleeding or dehiscence. [place] intact. Skin: No unusual lesions or rashes. No skin breakdown appreciated. Neuro: Patient is awake and alert this morning. Able to move all extremities upon command. No essential tremor noted. Result/EKG - Labs CBC & BMP: 05/18/17 03:19 05/18/17 03:19 Lab Results: I have reviewed the past 24 hour labs Labs: Laboratory Results - last 24 hr 05/17/17 05/17/17 05/17/17 11:11 16:42 20:21 WBC RBC Hgb Hct MCV MCH MCHC RDW Plt Count MPV Neut % (Auto) Lymph % (Auto) [place] % (Auto) Eos % (Auto) Baso % (Auto) Neut # (Auto) Lymph # (Auto) [place] # (Auto) Eos # (Auto) Baso # (Auto) Immature Gran % Nucleated RBC % Immature Gran # Nucleated RBCs # Platelet Estimate Giant Platelets Immature Plt Fraction Hypochromasia Ovalocytes Sodium Potassium Chloride Carbon Dioxide Anion Gap BUN Creatinine GFR Calculation BUN/Creatinine Ratio Glucose POC Glucose 172 H 100 131 H Calculated Osmolality Calcium Magnesium 05/18/17 05/18/17 05/18/17 03:19 03:19 07:16 WBC 8.5 RBC 2.83 L Hgb 8.6 L Hct 26.7 L MCV 94.3 MCH 30 MCHC 32.2 RDW 14.3 Plt Count 275 MPV 9.7 Neut % (Auto) 74.6 H Lymph % (Auto) 11.8 L [place] % (Auto) 11.9 Eos % (Auto) 0.5 Baso % (Auto) 0.1 Neut # (Auto) 6.3 Lymph # (Auto) 1.0 L [place] # (Auto) 1.0 H Eos # (Auto) 0.0 Baso # (Auto) 0.0 Immature Gran % 1.1 Nucleated RBC % 0.0 Immature Gran # 0.09 Nucleated RBCs # 0.00 Platelet Estimate Adequate Giant Platelets Few Immature Plt Fraction 0.0 Hypochromasia 1+ Ovalocytes Slight Sodium 141 Potassium 3.8 Chloride 105 Carbon Dioxide 29 Anion Gap 10.8 BUN 22 H Creatinine 0.90 GFR Calculation 107 BUN/Creatinine Ratio 24.00 H Glucose 96 POC Glucose 103 Calculated Osmolality 283.3 Calcium 8.4 L Magnesium 2.5 H Quality Measures - VTE Contraindication to Pharmacological VTE Prophylaxis: Already on Theraputic Agent , No Prophylaxis Needed Specialty Discharge - Follow Up or Referrals
[2017-05-18] MEDS: ENOXAPARIN 40 MG/0.4 ML SYRINGE SUBCUT SCH (15:40)
[2017-05-18] MEDS: LEVOFLOXACIN 500 MG TABLET PO SCH (20:58)
[2017-05-19 05:05] LABS: Basophils % 0.2 % (0.0-0.8); Eosinophils % 0.3 % (0.00-10.9); Hematocrit 26.7 VOL% (42.0-52.0); Hemoglobin 8.7 GM/DL (14.0-18.0); Immature Granulocytes % 0.8 %; Immature Granulocytes Absolute 0.07 #; Lymphocytes # 1.1 10*3/uL (1.4-4.0); Lymphocytes % 12.6 % (21.2-54.2); Mean Corpuscular HGB Conc 32.6 GM/DL (32-36); Mean Corpuscular Hemoglobin 31 PG (27-34); Mean Corpuscular Volume 94.3 FL (87-102); Mean Platelet Volume 9.7 FL (9.6-12.0); Monocytes % 11.5 % (1.7-12.7); Neutrophils # 6.6 10*3/uL (1.4-7.4); Neutrophils % 74.6 % (38.7-73.9); Platelet Count 318 T/CUMM (130-400); Red Blood Count 2.83 MC/CUMM (3.8-5.5); Red Cell Distribution Width 13.8 % (9.3-17.3); White Blood Count 8.9 T/CUMM (4-12)
[2017-05-19 05:37] LABS: Calcium 8.5 MG/DL (8.5-10.1); Magnesium 2.2 MG/DL (1.8-2.4); Osmolality,Calculated 283.1 MOS/KG (273-304); Potassium 4.3 MMOL/L (3.5-5.1)
--- NOTE | 2017-05-19 06:33 | Cardiothoracic Progress Note ---
Cardiothoracic Subjective Interval history: Patient had a comfortable night. Vital signs are stable. Patient is breathing comfortably. Laboratory work is essentially within normal limits. Overall his progress is satisfactory and he may be ready for discharge in the morning. Exam (Progress Note) - Constitutional Vitals: Period Temp Pulse Resp BP Sys/Weaver Pulse Ox Last 24 Hr 97.1 F-99.8 F 69-80 18-20 133-156/62-87 91-97 Result/EKG - Labs CBC & BMP: 05/19/17 04:15 05/19/17 04:15 Labs: Laboratory Results - last 24 hr 05/18/17 05/18/17 05/18/17 07:16 11:44 16:19 WBC RBC Hgb Hct MCV MCH MCHC RDW Plt Count MPV Neut % (Auto) Lymph % (Auto) [place] % (Auto) Eos % (Auto) Baso % (Auto) Neut # (Auto) Lymph # (Auto) [place] # (Auto) Eos # (Auto) Baso # (Auto) Immature Gran % Nucleated RBC % Immature Gran # Nucleated RBCs # Immature Plt Fraction Sodium Potassium Chloride Carbon Dioxide Anion Gap BUN Creatinine GFR Calculation BUN/Creatinine Ratio Glucose POC Glucose 103 133 H 119 H Calculated Osmolality Calcium Magnesium 05/18/17 05/19/17 05/19/17 20:03 04:15 04:15 WBC 8.9 RBC 2.83 L Hgb 8.7 L Hct 26.7 L MCV 94.3 MCH 31 MCHC 32.6 RDW 13.8 Plt Count 318 MPV 9.7 Neut % (Auto) 74.6 H Lymph % (Auto) 12.6 L [place] % (Auto) 11.5 Eos % (Auto) 0.3 Baso % (Auto) 0.2 Neut # (Auto) 6.6 Lymph # (Auto) 1.1 L [place] # (Auto) 1.0 H Eos # (Auto) 0.0 Baso # (Auto) 0.0 Immature Gran % 0.8 Nucleated RBC % 0.0 Immature Gran # 0.07 Nucleated RBCs # 0.00 Immature Plt Fraction 0.0 Sodium 142 Potassium 4.3 Chloride 105 Carbon Dioxide 29 Anion Gap 12.3 BUN 19 H Creatinine 0.90 GFR Calculation 107 BUN/Creatinine Ratio 21.00 H Glucose 78 POC Glucose 115 H Calculated Osmolality 283.1 Calcium 8.5 Magnesium 2.2 Quality Measures - VTE Contraindication to Pharmacological VTE Prophylaxis: Already on Theraputic Agent , No Prophylaxis Needed Specialty Discharge - Follow Up or Referrals
[2017-05-19] MEDS: FUROSEMIDE 40 MG TABLET PO SCH ×2 (10:15→16:00)
[2017-05-19] MEDS: INSULIN REGULAR 100 UNIT/ML SUBCUT SCH ×4 (10:15→21:36)
[2017-05-19] MEDS: DOCUSATE SODIUM 100 MG CAPSULE PO SCH (10:16)
[2017-05-19] MEDS: ROSUVASTATIN 20 MG TABLET PO SCH (10:16)
[2017-05-19] MEDS: ASPIRIN EC 325 MG TABLET PO SCH (10:16)
[2017-05-19] MEDS: METOPROLOL TARTRATE 25 MG TABLET PO SCH ×2 (10:17→21:36)
[2017-05-19] MEDS: CHLORHEXIDINE 0.12% ORAL RINSE 60 ML BOTTLE SWISH/SPIT SCH ×2 (10:17→21:36)
[2017-05-19] MEDS: FERROUS SULFATE 325 MG TABLET PO SCH (10:17)
[2017-05-19] MEDS: CYANOCOBALAMIN 500 MCG TABLET PO SCH (10:18)
[2017-05-19] MEDS: PANTOPRAZOLE 40 MG TABLET PO SCH (10:18)
[2017-05-19] MEDS: LISINOPRIL 5 MG TABLET PO SCH (10:18)
[2017-05-19] MEDS: SERTRALINE 100 MG TABLET PO SCH (10:18)
[2017-05-19] MEDS ORDERED: LISINOPRIL 10 MG TABLET PO SCH (13:54)
--- NOTE | 2017-05-19 13:56 | Cardiology Progress Note ---
Assessment and Plan (1) 3-vessel CAD Status: Acute Assessment and plan: SEE PLAN OF CARE LISTED BELOW. Current Visit: Yes (2) Multiple myeloma Status: Acute Assessment and plan: SEE PLAN OF CARE LISTED BELOW. Current Visit: Yes (3) Dyslipidemia Status: Chronic Assessment and plan: SEE PLAN OF CARE LISTED BELOW. Current Visit: Yes (4) Hypertension Status: Chronic Assessment and plan: SEE PLAN OF CARE LISTED BELOW. Current Visit: Yes (5) Former smoker Status: Chronic Assessment and plan: SEE PLAN OF CARE LISTED BELOW. Current Visit: No (6) Hyperglycemia Status: Acute Assessment and plan: SEE PLAN OF CARE LISTED BELOW. Current Visit: Yes (7) S/P CABG x 2 Status: Acute Assessment and plan: SEE PLAN OF CARE LISTED BELOW. Current Visit: Yes (8) Shortness of breath Status: Acute Assessment and plan: SEE PLAN OF CARE LISTED BELOW. Current Visit: Yes Cardiology - PN: Subj Interval history: SYSTEMS SPECIALIST: Dr. Niru Glaser SUMMARY Patient was admitted to [facility] for elective heart catheterization May 08, 2017. Past medical history includes: Ischemic cardiomyopathy (most recent EF 39%), multiple myeloma (currently receiving chemotherapy, Dr. Calixto), GERD and former smoker. He had abnormal stress test in the cardiology clinic and was scheduled for heart catheterization. This was performed per Dr. Glaser 05/08/17 via right radial approach which revealed severe three-vessel coronary artery disease. Subsequently, Dr. Hernandez was consulted to evaluate for possible CABG. Please see full catheter report. Dr. Glaser discussed with Dr. Calixto, patient's primary telegraph operator regarding the status of his multiple myeloma. It is felt that the best approach is to place his chemotherapy on hold and proceed with CABG. Patient was seen in consultation per Dr. Hernandez and he underwent CABG May 10, 2017. MAY 19, 2017 Patient was seen and examined on the telemetry unit. He is unable to the bed eating lunch. Without acute distress. No longer requiring oxygen. He was that he has been without oxygen for 24 hours now. Surgical incisions continue to heal well without signs of infection, lesions or drainage. Denies chest pain , heaviness or tightness. Telemetry continues to be without overt arrhythmias. Anemia stable. No evidence of overt bleeding. Patient is hemodynamically stable. Tolerating aspirin, statin, beta blockade and KAMILA inhibitor well. According to Dr. Hernandez's note, patient will be discharged home tomorrow. He will need a follow-up appoint with Dr. Fang in 2 weeks with EKG, CBC and BMP. I will further discuss with Dr. Pereira and await his additional recommendations. REVIEW OF SYSTEMS: Cardiac: Denies chest pain, heaviness or tightness. GI: Denies nausea, vomiting, abdominal pain Respiratory: Denies shortness of breath or orthopnea. IMPRESSION AND PLAN 1. THREE-VESSEL CAD, STATUS POST CABG X2 - Now status post revascularization with RANDLE to LAD and SVG to PDA. Postop day #9. Tolerating aspirin, statin, beta-blockade and KAMILA inhibitor well. Continue to increase activity level as tolerated. I will further discuss with Dr. Pereira and await his additional recommendations. Plan for discharge home tomorrow per Dr. Hernandez. 2. HYPERTENSION -we will increase KAMILA inhibitor dosage today as patient's blood pressure suboptimally controlled. Continue to monitor blood pressure and adjust accordingly. 3. ISCHEMIC CARDIOMYOPATHY - EF calculated to be 39% per recent stress test. Now status post revascularization. Continue beta-blockade and KAMILA inhibitor. Patient will need repeat echocardiogram in approximately 3 months to reevaluate ejection fraction. 4. DYSLIPIDEMIA - LDL 159. Continue high intensity statin. Patient will need repeat lipid panel in 4-6 weeks in the cardiology clinic. 5. DIABETES, NEW DIAGNOSIS - Hemoglobin A1c 8.3. Hospital medicine following. Diabetic education completed. 6. MULTIPLE MYELOMA - Was on chemotherapy prior to undergoing CABG. Dr. Glaser discussed with Dr. Calixto regarding patient's status of his multiple myeloma. It was decided that the best approach was to hold chemotherapy for CABG. This will continue to be held until felt it is safe to reinitiate from a surgical standpoint. 7. SHORTNESS OF BREATH - Resolved. Without oxygen for 24 hours per lung exam normal. Continue Lasix. Monitor electrolytes and renal function. Exam (Progress Note) - Constitutional Vitals: Period Temp Pulse Resp BP Sys/Weaver Pulse Ox Last 24 Hr 99.1 F-99.8 F 69-80 18-20 133-156/62-87 90-97 Exam: General: Appears comfortable. No acute distress. Cooperative and pleasant. HEENT: normocephalic, atraumatic. Mucous membranes moist. No jaundice noted. Conjunctiva moist and clear, sclerae anicteric Neck: No JVD/HJR, no thyromegaly or lymphadenopathy noted. Cardiac: Regular rate and rhythm. Midsternal chest incision healing well without signs of infection. No bleeding or dehiscence. Lungs: Clear to auscultation. No rales, wheezing or rhonchi. Not requiring oxygen. Abdomen: Soft. Active bowel sounds. Nontender and nondistended. No abdominal bruit or thrill noted. No masses noted. Extremities: No clubbing, cyanosis noted. No edema. Upper extremity pulses 2+ . Lower extremity pulses 2+. Capillary refill less than 3 seconds. Left lower extremity incision healing well without signs of infection. No bleeding or dehiscence. Skin: No unusual lesions or rashes. No skin breakdown appreciated. Neuro: Patient is awake and alert this morning. Able to move all extremities upon command. No essential tremor noted. Result/EKG - Labs CBC & BMP: 05/19/17 04:15 05/19/17 04:15 Lab Results: I have reviewed the past 24 hour labs Labs: Laboratory Results - last 24 hr 05/18/17 05/18/17 05/19/17 16:19 20:03 04:15 WBC 8.9 RBC 2.83 L Hgb 8.7 L Hct 26.7 L MCV 94.3 MCH 31 MCHC 32.6 RDW 13.8 Plt Count 318 MPV 9.7 Neut % (Auto) 74.6 H Lymph % (Auto) 12.6 L [place] % (Auto) 11.5 Eos % (Auto) 0.3 Baso % (Auto) 0.2 Neut # (Auto) 6.6 Lymph # (Auto) 1.1 L [place] # (Auto) 1.0 H Eos # (Auto) 0.0 Baso # (Auto) 0.0 Immature Gran % 0.8 Nucleated RBC % 0.0 Immature Gran # 0.07 Nucleated RBCs # 0.00 Immature Plt Fraction 0.0 Sodium Potassium Chloride Carbon Dioxide Anion Gap BUN Creatinine GFR Calculation BUN/Creatinine Ratio Glucose POC Glucose 119 H 115 H Calculated Osmolality Calcium Magnesium 05/19/17 05/19/17 05/19/17 04:15 07:23 11:13 WBC RBC Hgb Hct MCV MCH MCHC RDW Plt Count MPV Neut % (Auto) Lymph % (Auto) [place] % (Auto) Eos % (Auto) Baso % (Auto) Neut # (Auto) Lymph # (Auto) [place] # (Auto) Eos # (Auto) Baso # (Auto) Immature Gran % Nucleated RBC % Immature Gran # Nucleated RBCs # Immature Plt Fraction Sodium 142 Potassium 4.3 Chloride 105 Carbon Dioxide 29 Anion Gap 12.3 BUN 19 H Creatinine 0.90 GFR Calculation 107 BUN/Creatinine Ratio 21.00 H Glucose 78 POC Glucose 95 135 H Calculated Osmolality 283.1 Calcium 8.5 Magnesium 2.2 Quality Measures - VTE Contraindication to Pharmacological VTE Prophylaxis: Already on Theraputic Agent , No Prophylaxis Needed Specialty Discharge - Follow Up or Referrals Follow up with: Niru Glaser DO [Physician] - 2 Weeks (EKG, CBC, BMP )
[2017-05-19] MEDS: ENOXAPARIN 40 MG/0.4 ML SYRINGE SUBCUT SCH (15:03)
[2017-05-19] MEDS: LEVOFLOXACIN 500 MG TABLET PO SCH (18:04)
[2017-05-19] MEDS: ZALEPLON 5 MG CAPSULE PO PRN (21:36)
[2017-05-20 04:41] LABS: Basophils % 0.1 % (0.0-0.8); Eosinophils % 0.2 % (0.00-10.9); Hematocrit 27.1 VOL% (42.0-52.0); Hemoglobin 8.9 GM/DL (14.0-18.0); Immature Granulocytes Absolute 0.08 #; Lymphocytes % 11.6 % (21.2-54.2); Mean Corpuscular HGB Conc 32.8 GM/DL (32-36); Mean Corpuscular Hemoglobin 31 PG (27-34); Mean Corpuscular Volume 93.8 FL (87-102); Mean Platelet Volume 9.3 FL (9.6-12.0); Monocytes # 0.8 10*3/uL (0.11-0.8); Monocytes % 10.3 % (1.7-12.7); Neutrophils # 6.3 10*3/uL (1.4-7.4); Neutrophils % 76.8 % (38.7-73.9); Platelet Count 356 T/CUMM (130-400); Red Blood Count 2.89 MC/CUMM (3.8-5.5); Red Cell Distribution Width 13.7 % (9.3-17.3); White Blood Count 8.2 T/CUMM (4-12)
[2017-05-20 05:18] LABS: Calcium 8.7 MG/DL (8.5-10.1); Magnesium 2.3 MG/DL (1.8-2.4); Osmolality,Calculated 279.4 MOS/KG (273-304); Potassium 4.2 MMOL/L (3.5-5.1)
[2017-05-20] MEDS: INSULIN REGULAR 100 UNIT/ML SUBCUT SCH (07:56)
[2017-05-20 08:02] VITALS: BP 158/80
--- NOTE | 2017-05-20 08:46 | Discharge Summary ---
Hospital Course - Hospital Course Hospital Course: History of present illness: Patient is a 76-year-old man who presented with symptoms of increasing chest discomfort. He is known to the medical service here as patient with multiple myeloma who is been undergoing weekly chemotherapy for some time. He is presently stable from the standpoint of his malignancy. He underwent cardiac catheterization demonstrating critical coronary disease and was advised to have bypass surgery. He was admitted for that purpose. Past medical history review of systems social history and family history are documented in his admission data. Hospital course: Patient was taken to surgery and two-vessel bypass grafting was carried out with a left internal mammary artery graft to the anterior descending coronary artery saphenous vein graft to the right posterior descending coronary vessel. Postoperative course was gratifyingly smooth and uncomplicated given his history of multiple myeloma and ongoing chemotherapy. He was discharged home on the eighth postoperative day with instructions to return for follow-up in 1 month. Discharge medications are listed below. Specialty Discharge - Follow Up or Referrals Follow up with: Niru Glaser DO [Physician] - 2 Weeks (EKG, CBC, BMP ) Discharge Plan - Discharge Medications No Action Calcium Carbonate 600 mg PO DAILY Cyanocobalamin (Vitamin B-12) [Vitamin B12] 1,000 mcg PO DAILY HYDROcodone/ACETAMIN 5-325 [[place] 5-325] 5 mg PO Q4HR PRN PRN Reason: Pain Sertraline [Zoloft] 100 mg PO BEDTIME Docusate Sodium Cap [Colace Cap] 100 mg PO BID PRN PRN Reason: Constipation Furosemide Tab [Lasix Tab] 20 mg PO DAILY Carvedilol [Coreg] 3.125 mg PO BID Nitroglycerin Sl Tab [Nitrostat] 0.4 mg SL Q5M PRN PRN Reason: Chest Pain Potassium Chloride 10 meq PO DAILY Aspirin [Ecotrin] 81 mg PO DAILY Prochlorperazine Tab [Compazine Tab] 10 mg PO BID PRN PRN Reason: Nausea - Follow Up or Referral Follow Up: Niru Glaser DO [Physician] - 2 Weeks (EKG, CBC, BMP ) - Forms/Instructions Instructions: Heart Healthy Diet (GEN), Coronary Artery Bypass Graft, Builder Beam (GEN), Sternal Precautions (GEN) Exam - Constitutional Vitals: Period Temp Pulse Resp BP Sys/Weaver Pulse Ox Last 24 Hr 98.7 F-100 F 67-77 18-20 138-158/62-80 83-93 Discharge Results Procedures and tests throughout hospitalization: Pending Orders 05/09/17 03:58 Fresh Frozen Plasma Routine Red Blood Cells Leuko Red Routine Single Donor Platelets Routine Type and Screen Routine 05/21/17 04:00 BMP w/ Mg [Basic Metabolic Panel w/Mg] IN AM CBC [Comp Blood Count Auto Diff] IN AM 05/22/17 04:00 BMP w/ Mg [Basic Metabolic Panel w/Mg] IN AM CBC [Comp Blood Count Auto Diff] IN AM Labs on day of discharge: Labs from last 24 hours 05/20/17 05/20/17 05/20/17 07:10 04:13 04:13 WBC 8.2 RBC 2.89 L Hgb 8.9 L Hct 27.1 L MCV 93.8 MCH 31 MCHC 32.8 RDW 13.7 Plt Count 356 MPV 9.3 L Neut % (Auto) 76.8 H Lymph % (Auto) 11.6 L [place] % (Auto) 10.3 Eos % (Auto) 0.2 Baso % (Auto) 0.1 Neut # (Auto) 6.3 Lymph # (Auto) 1.0 L [place] # (Auto) 0.8 Eos # (Auto) 0.0 Baso # (Auto) 0.0 Immature Gran % 1.0 Nucleated RBC % 0.0 Immature Gran # 0.08 Nucleated RBCs # 0.00 Immature Plt Fraction 0.0 Sodium 140 Potassium 4.2 Chloride 103 Carbon Dioxide 27 Anion Gap 14.2 BUN 16 Creatinine 0.90 GFR Calculation 107 BUN/Creatinine Ratio 17.00 Glucose 103 POC Glucose 113 H Calculated Osmolality 279.4 Calcium 8.7 Magnesium 2.3 05/19/17 05/19/17 05/19/17 20:42 16:41 11:13 WBC RBC Hgb Hct MCV MCH MCHC RDW Plt Count MPV Neut % (Auto) Lymph % (Auto) [place] % (Auto) Eos % (Auto) Baso % (Auto) Neut # (Auto) Lymph # (Auto) [place] # (Auto) Eos # (Auto) Baso # (Auto) Immature Gran % Nucleated RBC % Immature Gran # Nucleated RBCs # Immature Plt Fraction Sodium Potassium Chloride Carbon Dioxide Anion Gap BUN Creatinine GFR Calculation BUN/Creatinine Ratio Glucose POC Glucose 140 H 152 H 135 H Calculated Osmolality Calcium Magnesium DS: Provider Date of admission: 05/09/17 12:56 Primary care physician: George Calixto MD Attending physician on admission: Niru Glaser DO Consults: 05/09/17 08:55 Consult to Dietitian [CONS] Routine Reason for Dietitian: Other Consult Comment: low salt, low cholesterol, diet 05/11/17 10:29 Consult to [facility], Educator [CONS] Routine Reason for Net Developer Architect: Diabetes Education 05/11/17 10:46 Consult to Cardiac Rehabilitation [CONS] Routine Reason for Cardiac Rehabilitation: Other Consult Comment: Post CABG/heart surgery Consult to [facility], Educator [CONS] Routine Reason for Net Developer Architect: Diabetes Education Initial Insulin Education Consult Comment: insulin education Consult to Dietitian [CONS] Routine Reason for Dietitian: Dietary Consult Consult Comment: Cardiac, low salt, low cholesterol diet Consult to Physical Therapy [CONS] Routine Reason for Physical Therapy: Other Consult Comment: CV Rehab 05/17/17 11:48 Consult to Diabetes [place], Educator [CONS] Routine Reason for Net Developer Architect: Diabetes Education 05/19/17 11:37 Consult to Case Mgmt/Social Srvs [CONS] Routine Reason for Case Mgmt/Social Srvs: Home Health Discharging clinician: Cleveland Hernandez MD Expected date of discharge: 05/20/17
--- NOTE | 2017-05-20 08:51 | Discharge Summary ---
Hospital Course - Hospital Course Hospital Course: History of present illness: Patient is a 76-year-old man who presented with symptoms of increasing chest discomfort. He is known to the medical service here as patient with multiple myeloma who is been undergoing weekly chemotherapy for some time. He is presently stable from the standpoint of his malignancy. He underwent cardiac catheterization demonstrating critical coronary disease and was advised to have bypass surgery. He was admitted for that purpose. Past medical history review of systems social history and family history are documented in his admission data. Hospital course: Patient was taken to surgery and two-vessel bypass grafting was carried out with a left internal mammary artery graft to the anterior descending coronary artery saphenous vein graft to the right posterior descending coronary vessel. Postoperative course was gratifyingly smooth and uncomplicated given his history of multiple myeloma and ongoing chemotherapy. He was discharged home on the eighth postoperative day with instructions to return for follow-up in 1 month. Discharge medications are listed below. Specialty Discharge - Follow Up or Referrals Follow up with: Niru Glaser DO [Physician] - 2 Weeks (EKG, CBC, BMP ) Cleveland Hernandez MD [Physician] - 1 Month Discharge Plan - Discharge Data Disposition: Disch To Home/Self Care Condition at Discharge: Stable Discharge Diet: advance to your usual diet Activity: resume usual activities as tolerated Hygiene: no restrictions Weight Bearing at Discharge: full weight bearing Driving: not until seen by doctor - Discharge Medications New Levofloxacin Tab [Levaquin Tab] 500 mg PO Q24H #14 tablet Continue Calcium Carbonate 600 mg PO DAILY Cyanocobalamin (Vitamin B-12) [Vitamin B12] 1,000 mcg PO DAILY HYDROcodone/ACETAMIN 5-325 [[place] 5-325] 5 mg PO Q4HR PRN PRN Reason: Pain Sertraline [Zoloft] 100 mg PO BEDTIME Docusate Sodium Cap [Colace Cap] 100 mg PO BID PRN PRN Reason: Constipation Furosemide Tab [Lasix Tab] 20 mg PO DAILY Carvedilol [Coreg] 3.125 mg PO BID Nitroglycerin Sl Tab [Nitrostat] 0.4 mg SL Q5M PRN PRN Reason: Chest Pain Potassium Chloride 10 meq PO DAILY Aspirin [Ecotrin] 81 mg PO DAILY Prochlorperazine Tab [Compazine Tab] 10 mg PO BID PRN PRN Reason: Nausea - Follow Up or Referral Follow Up: Niru Glaser DO [Physician] - 2 Weeks (EKG, CBC, BMP ) - Forms/Instructions Instructions: Heart Healthy Diet (GEN), Coronary Artery Bypass Graft, Metrology Engineer (GEN), Sternal Precautions (GEN) Exam - Constitutional Vitals: Period Temp Pulse Resp BP Sys/Weaver Pulse Ox Last 24 Hr 98.7 F-100 F 67-77 18-20 138-158/62-80 83-93 Discharge Results Procedures and tests throughout hospitalization: Pending Orders 05/09/17 03:58 Fresh Frozen Plasma Routine Red Blood Cells Leuko Red Routine Single Donor Platelets Routine Type and Screen Routine 05/21/17 04:00 BMP w/ Mg [Basic Metabolic Panel w/Mg] IN AM CBC [Comp Blood Count Auto Diff] IN AM 05/22/17 04:00 BMP w/ Mg [Basic Metabolic Panel w/Mg] IN AM CBC [Comp Blood Count Auto Diff] IN AM Labs on day of discharge: Labs from last 24 hours 05/20/17 05/20/17 05/20/17 07:10 04:13 04:13 WBC 8.2 RBC 2.89 L Hgb 8.9 L Hct 27.1 L MCV 93.8 MCH 31 MCHC 32.8 RDW 13.7 Plt Count 356 MPV 9.3 L Neut % (Auto) 76.8 H Lymph % (Auto) 11.6 L [place] % (Auto) 10.3 Eos % (Auto) 0.2 Baso % (Auto) 0.1 Neut # (Auto) 6.3 Lymph # (Auto) 1.0 L [place] # (Auto) 0.8 Eos # (Auto) 0.0 Baso # (Auto) 0.0 Immature Gran % 1.0 Nucleated RBC % 0.0 Immature Gran # 0.08 Nucleated RBCs # 0.00 Immature Plt Fraction 0.0 Sodium 140 Potassium 4.2 Chloride 103 Carbon Dioxide 27 Anion Gap 14.2 BUN 16 Creatinine 0.90 GFR Calculation 107 BUN/Creatinine Ratio 17.00 Glucose 103 POC Glucose 113 H Calculated Osmolality 279.4 Calcium 8.7 Magnesium 2.3 05/19/17 05/19/17 05/19/17 20:42 16:41 11:13 WBC RBC Hgb Hct MCV MCH MCHC RDW Plt Count MPV Neut % (Auto) Lymph % (Auto) [place] % (Auto) Eos % (Auto) Baso % (Auto) Neut # (Auto) Lymph # (Auto) [place] # (Auto) Eos # (Auto) Baso # (Auto) Immature Gran % Nucleated RBC % Immature Gran # Nucleated RBCs # Immature Plt Fraction Sodium Potassium Chloride Carbon Dioxide Anion Gap BUN Creatinine GFR Calculation BUN/Creatinine Ratio Glucose POC Glucose 140 H 152 H 135 H Calculated Osmolality Calcium Magnesium DS: Provider Date of admission: 05/09/17 12:56 Primary care physician: George Calixto MD Attending physician on admission: Niru Glaser DO Consults: 05/09/17 08:55 Consult to Dietitian [CONS] Routine Reason for Dietitian: Other Consult Comment: low salt, low cholesterol, diet 05/11/17 10:29 Consult to Diabetes [place], Educator [CONS] Routine Reason for Regional Loss Prevention Manager: Diabetes Education 05/11/17 10:46 Consult to Cardiac Rehabilitation [CONS] Routine Reason for Cardiac Rehabilitation: Other Consult Comment: Post CABG/heart surgery Consult to [facility], Educator [CONS] Routine Reason for Regional Loss Prevention Manager: Diabetes Education Initial Insulin Education Consult Comment: insulin education Consult to Dietitian [CONS] Routine Reason for Dietitian: Dietary Consult Consult Comment: Cardiac, low salt, low cholesterol diet Consult to Physical Therapy [CONS] Routine Reason for Physical Therapy: Other Consult Comment: CV Rehab 05/17/17 11:48 Consult to [facility], Educator [CONS] Routine Reason for Regional Loss Prevention Manager: Diabetes Education 05/19/17 11:37 Consult to Case Mgmt/Social Srvs [CONS] Routine Reason for Case Mgmt/Social Srvs: Home Health Discharging clinician: Cleveland Hernandez MD
[2017-05-20] MEDS: ROSUVASTATIN 20 MG TABLET PO SCH (09:23)
[2017-05-20] MEDS: FERROUS SULFATE 325 MG TABLET PO SCH (09:24)
[2017-05-20] MEDS: ASPIRIN EC 325 MG TABLET PO SCH (09:24)
[2017-05-20] MEDS: CYANOCOBALAMIN 500 MCG TABLET PO SCH (09:24)
[2017-05-20] MEDS: METOPROLOL TARTRATE 25 MG TABLET PO SCH (09:24)
[2017-05-20] MEDS: PANTOPRAZOLE 40 MG TABLET PO SCH (09:24)
[2017-05-20] MEDS: FUROSEMIDE 40 MG TABLET PO SCH (09:24)
[2017-05-20] MEDS: DOCUSATE SODIUM 100 MG CAPSULE PO SCH (09:24)
[2017-05-20] MEDS: CHLORHEXIDINE 0.12% ORAL RINSE 60 ML BOTTLE SWISH/SPIT SCH (09:56)
[2017-05-20] MEDS: SERTRALINE 100 MG TABLET PO SCH (09:57)
--- NOTE | 2017-05-20 10:27 | Cardiology Progress Note ---
Assessment and Plan (1) S/P CABG x 2 Status: Acute Assessment and plan: 76-year-old male, followed by Dr. Fang. THREE-VESSEL CAD, STATUS POST CABG X2 - Now status post revascularization with RANDLE to LAD and SVG to PDA. Postop day #9. Tolerating aspirin, statin, beta-blockade and KAMILA inhibitor well. Continue to increase activity level as tolerated. I will further discuss with Dr. Pereira and await his additional recommendations. Plan for discharge home tomorrow per Dr. Hernandez. Hypertension. Blood pressure now better controlled. Ischemic cardiomyopathy. Continue aspirin, beta-etienne, KAMILA inhibitor, furosemide. Congestion improved Drainage from venous harvest site. This was addressed by bandage, he will follow-up with Dr. Hernandez. DYSLIPIDEMIA -continue high intensity statin DIABETES, NEW DIAGNOSIS - Hemoglobin A1c 8.3. Hospital medicine following. Diabetic education completed. MULTIPLE MYELOMA - Was on chemotherapy prior to undergoing CABG. Dr. Glaser discussed with Dr. Calixto regarding patient's status of his multiple myeloma. It was decided that the best approach was to hold chemotherapy for CABG. This will continue to be held until felt it is safe to reinitiate from a surgical standpoint. He will need to follow-up with Dr. Fang in 2 weeks (2) Multiple myeloma Status: Acute (3) 3-vessel CAD Status: Acute (4) Dyslipidemia Status: Chronic (5) Hypertension Status: Chronic Cardiology - PN: Subj Interval history: He is feeling better. Shortness of breath sounds resolved with diuresis. Small amount of drainage is noticed from his venous harvest site. No fever. Cell counts fairly stable. Exam (Progress Note) - Constitutional Vitals: Period Temp Pulse Resp BP Sys/Weaver Pulse Ox Last 24 Hr 98.7 F-100 F 67-77 18-20 138-158/62-80 83-93 General appearance: no acute distress, over weight - Head Head exam: Present: normal inspection. Absent: contusion - Eye Eye exam: Absent: periorbital swelling, scleral icterus Pupils: Absent: dilated - ENT ENT exam: Present: normal external ear exam - Neck Neck exam: Present: normal inspection - Respiratory Respiratory exam: Present: clear to auscultation bilaterally. Absent: chest wall tenderness, decreased breath sounds - Cardiovascular Cardiovascular exam: Present: regular rate and rhythm. Absent: JVD, systolic murmur - GI/Abdominal GI/Abdominal exam: Present: normal bowel sounds. Absent: distended - Extremities Exam Extremities exam: Present: normal inspection, normal capillary refill. Absent: edema - Back Exam Back exam: Present: normal inspection - Neurological Exam Neurological exam: Present: alert, oriented X3 - Psychiatric Psychiatric exam: Present: normal affect, normal mood - Skin Skin exam: Present: normal color, warm, other (Serous drainage noted from the venous harvest site). Absent: cyanosis Result/EKG - Labs CBC & BMP: 05/20/17 04:13 05/20/17 04:13 Lab Results: I have reviewed the past 24 hour labs Labs: Laboratory Results - last 24 hr 05/19/17 05/19/17 05/19/17 11:13 16:41 20:42 WBC RBC Hgb Hct MCV MCH MCHC RDW Plt Count MPV Neut % (Auto) Lymph % (Auto) [place] % (Auto) Eos % (Auto) Baso % (Auto) Neut # (Auto) Lymph # (Auto) [place] # (Auto) Eos # (Auto) Baso # (Auto) Immature Gran % Nucleated RBC % Immature Gran # Nucleated RBCs # Immature Plt Fraction Sodium Potassium Chloride Carbon Dioxide Anion Gap BUN Creatinine GFR Calculation BUN/Creatinine Ratio Glucose POC Glucose 135 H 152 H 140 H Calculated Osmolality Calcium Magnesium 05/20/17 05/20/17 05/20/17 04:13 04:13 07:10 WBC 8.2 RBC 2.89 L Hgb 8.9 L Hct 27.1 L MCV 93.8 MCH 31 MCHC 32.8 RDW 13.7 Plt Count 356 MPV 9.3 L Neut % (Auto) 76.8 H Lymph % (Auto) 11.6 L [place] % (Auto) 10.3 Eos % (Auto) 0.2 Baso % (Auto) 0.1 Neut # (Auto) 6.3 Lymph # (Auto) 1.0 L [place] # (Auto) 0.8 Eos # (Auto) 0.0 Baso # (Auto) 0.0 Immature Gran % 1.0 Nucleated RBC % 0.0 Immature Gran # 0.08 Nucleated RBCs # 0.00 Immature Plt Fraction 0.0 Sodium 140 Potassium 4.2 Chloride 103 Carbon Dioxide 27 Anion Gap 14.2 BUN 16 Creatinine 0.90 GFR Calculation 107 BUN/Creatinine Ratio 17.00 Glucose 103 POC Glucose 113 H Calculated Osmolality 279.4 Calcium 8.7 Magnesium 2.3 - EKG EKG results: interpreted by me Quality Measures - VTE Contraindication to Pharmacological VTE Prophylaxis: Already on Theraputic Agent , No Prophylaxis Needed Specialty Discharge - Follow Up or Referrals Follow up with: Cleveland Hernandez MD [Physician] - 1 Month Niru Glaser DO [Physician] - 2 Weeks (EKG, CBC, BMP )
== END 2017-05-20 10:05 | disposition home or self-care (01) | DRG 234 ==
LOC: N.CL 11:02 → N.TELEN 14:30 → N.CVR 05-10 08:50 → N.TELES 05-11 13:06
PROVIDERS: ADMIT Internal Medicine Cardiovascular Disease; ATTEND Internal Medicine Cardiovascular Disease
PROC: CLCCHCL (ICD-10-PCS; 2017-05-08 13:15)

== ENCOUNTER 2021-07-04 11:50 | Inpatient (IN) ==
[2021-07-04] MEDS ORDERED: SODIUM CHLORIDE 0.9% 1,000 ML IV STA (12:21)
[2021-07-04 12:27] LABS: Basophils % 0.1 % (0.0-0.8); Eosinophils # 0.1 10*3/uL (0.0-0.87); Eosinophils % 0.7 % (0.00-10.9); Hemoglobin 9.1 GM/DL (14.0-18.0); Immature Granulocytes % 0.9 %; Immature Granulocytes Absolute 0.06 #; Lymphocytes # 1.6 10*3/uL (1.4-4.0); Lymphocytes % 23.9 % (21.2-54.2); Mean Corpuscular HGB Conc 33.7 GM/DL (32-36); Mean Corpuscular Volume 94.7 FL (87-102); Mean Platelet Volume 8.6 FL (9.6-12.0); Neutrophils % 62.4 % (38.7-73.9); Platelet Count 241 T/CUMM (130-400); Red Blood Count 2.85 MC/CUMM (3.8-5.5); Red Cell Distribution Width 15.6 % (9.3-17.3); White Blood Count 6.7 T/CUMM (4-12)
[2021-07-04 12:44] LABS: Albumin 3.3 G/DL (3.4-5.0); Bilirubin,Total 0.5 MG/DL (0.20-1.00); Osmolality,Calculated 267.9 MOS/KG (273-304); Potassium 5.1 MMOL/L (3.5-5.1); Total Protein 8.9 G/DL (6.4-8.2)
[2021-07-04 12:45] LABS: Calcium 14.1 MG/DL (8.5-10.1)
[2021-07-04] MEDS ORDERED: FUROSEMIDE 40 MG/4 ML VIAL IV STA (13:25)
[2021-07-04 13:30] LABS: Amorphous Crystals,Urine Moderate /HPF (Few); Bilirubin,Urine Negative (Negative); Blood, Urine Negative (Negative); Glucose,Urine (UA) Negative (Negative); Ketones,Urine Negative (Negative); Mucus,Urine Occasional /LPF (Occasional); Nitrite,Urine Positive (Negative); Protein,Urine 30 MG/DL; Squamous Epithelial Cell,Urine Occasional /HPF (0-10); Urine Appearance CLOUDY (Clear); Urine Color Yellow (Yellow); Urine Specific Gravity 1.012 (1.001-1.035); Urine Urobilinogen < 2.0 EU/DL (0.2-1.0)
[2021-07-04] MEDS ORDERED: ONDANSETRON 4 MG/2 ML VIAL IV PRN (13:33)
[2021-07-04] MEDS ORDERED: GLUCAGON 1 MG VIAL IM PRN (13:33)
[2021-07-04] MEDS ORDERED: ACETAMINOPHEN 325 MG TABLET PO PRN (13:33)
[2021-07-04] MEDS ORDERED: DEXTROSE 50% 25 GM/50 ML SYRINGE IV PRN (13:38)
[2021-07-04 16:11] LABS: Albumin 3.2 G/DL (3.4-5.0); Bilirubin,Total 0.5 MG/DL (0.20-1.00); Osmolality,Calculated 271.7 MOS/KG (273-304); Potassium 4.9 MMOL/L (3.5-5.1); Total Protein 8.6 G/DL (6.4-8.2)
[2021-07-04 16:16] LABS: Osmolality,Calculated 276.2 MOS/KG (273-304)
[2021-07-04 16:19] LABS: Calcium 14.7 MG/DL (8.5-10.1)
[2021-07-04] MEDS ORDERED: ZOLEDRONIC ACID 4 MG/100 ML PREMIX IV ONE (17:48)
[2021-07-04] MEDS: SODIUM CHLORIDE 0.9% 1,000 ML IV SCH (19:15)
[2021-07-04] MEDS: ENOXAPARIN 30 MG/0.3 ML SYRINGE SUBCUT SCH (20:20)
[2021-07-04] MEDS: PANTOPRAZOLE 40 MG VIAL IV SCH (20:20)
[2021-07-05 04:54] LABS: Basophils % 0.3 % (0.0-0.8); Eosinophils # 0.1 10*3/uL (0.0-0.87); Eosinophils % 1.2 % (0.00-10.9); Hemoglobin 8.3 GM/DL (14.0-18.0); Immature Granulocytes % 0.7 %; Immature Granulocytes Absolute 0.04 #; Lymphocytes # 1.7 10*3/uL (1.4-4.0); Lymphocytes % 27.5 % (21.2-54.2); Mean Corpuscular HGB Conc 33.2 GM/DL (32-36); Mean Corpuscular Volume 99.6 FL (87-102); Monocytes % 15.5 % (1.7-12.7); Neutrophils % 54.8 % (38.7-73.9); Platelet Count 227 T/CUMM (130-400); Red Blood Count 2.51 MC/CUMM (3.8-5.5); Red Cell Distribution Width 15.7 % (9.3-17.3)
[2021-07-05 05:14] LABS: Albumin 2.9 G/DL (3.4-5.0); Bilirubin,Total 0.9 MG/DL (0.20-1.00); Calcium 13.4 MG/DL (8.5-10.1); Potassium 4.7 MMOL/L (3.5-5.1); Risk Ratio 2.53
[2021-07-05] MEDS: SODIUM CHLORIDE 0.9% 1,000 ML IV SCH ×2 (05:15→18:01)
[2021-07-05 05:16] LABS: Osmolality,Calculated 277.1 MOS/KG (273-304)
[2021-07-05] MEDS ORDERED: ZOLEDRONIC ACID 4 MG/100 ML PREMIX IV ONE (08:56)
[2021-07-05] MEDS: PANTOPRAZOLE 40 MG VIAL IV SCH (09:27)
[2021-07-05] MEDS ORDERED: cefTRIAXone 1,000 MG in SODIUM CHLORIDE 0.9% 100 ML IV SCH (13:30)
[2021-07-05] MEDS: ENOXAPARIN 30 MG/0.3 ML SYRINGE SUBCUT SCH (13:53)
[2021-07-05] MEDS: MORPHINE 2 MG/1 ML SYRINGE IV PRN (22:51)
[2021-07-06] MEDS: MORPHINE 2 MG/1 ML SYRINGE IV PRN ×2 (04:36→19:35)
[2021-07-06] MEDS: SODIUM CHLORIDE 0.9% 1,000 ML IV SCH ×4 (04:37→16:56)
[2021-07-06 05:47] LABS: Basophils % 0.2 % (0.0-0.8); Eosinophils # 0.1 10*3/uL (0.0-0.87); Eosinophils % 1.6 % (0.00-10.9); Hematocrit 23.1 VOL% (42.0-52.0); Hemoglobin 7.5 GM/DL (14.0-18.0); Immature Granulocytes % 0.8 %; Immature Granulocytes Absolute 0.04 #; Lymphocytes # 1.1 10*3/uL (1.4-4.0); Lymphocytes % 22.2 % (21.2-54.2); Mean Corpuscular HGB Conc 32.5 GM/DL (32-36); Mean Corpuscular Volume 98.7 FL (87-102); Monocytes % 15.8 % (1.7-12.7); Neutrophils % 59.4 % (38.7-73.9); Platelet Count 191 T/CUMM (130-400); Red Blood Count 2.34 MC/CUMM (3.8-5.5); Red Cell Distribution Width 15.9 % (9.3-17.3)
[2021-07-06 05:48] LABS: Osmolality,Calculated 279.8 MOS/KG (273-304); Potassium 4.4 MMOL/L (3.5-5.1)
[2021-07-06 06:35] LABS: Atypical Lymphocytes Few; Band Neutrophils 2 % (0-10); Eosinophils 1 % (0-10); Lymphocytes 26 % (20-55); Myelocytes 1 %; Segmented Neutrophils 62 % (50-85); Total Cells Counted 100
[2021-07-06 06:36] LABS: Hypochromasia Slight; Microcytosis 1+; Ovalocytes Slight; Platelet Estimate Adequate
[2021-07-06] MEDS ORDERED: SODIUM CHLORIDE 0.9% 1,000 ML IV PRN (09:05)
[2021-07-06] MEDS: PANTOPRAZOLE 40 MG VIAL IV SCH (09:23)
[2021-07-06] MEDS ORDERED: TUBERCULIN SKIN TEST 0.1 ML SYRINGE INTRADERM ONE (10:00)
[2021-07-06] MEDS ORDERED: LEVOFLOXACIN INJ 500 MG/100 ML PREMIX IV ONE (13:00)
[2021-07-06] MEDS: LEVOFLOXACIN INJ 250 MG/50 ML PREMIX IV SCH (14:49)
[2021-07-06] MEDS: ENOXAPARIN 30 MG/0.3 ML SYRINGE SUBCUT SCH (14:50)
[2021-07-06 16:11] LABS: Basophils % 0.2 % (0.0-0.8); Eosinophils # 0.1 10*3/uL (0.0-0.87); Eosinophils % 1.4 % (0.00-10.9); Hemoglobin 7.3 GM/DL (14.0-18.0); Immature Granulocytes % 1.1 %; Immature Granulocytes Absolute 0.06 #; Lymphocytes % 17.7 % (21.2-54.2); Mean Corpuscular HGB Conc 31.7 GM/DL (32-36); Mean Platelet Volume 8.7 FL (9.6-12.0); Monocytes % 13.7 % (1.7-12.7); Neutrophils % 65.9 % (38.7-73.9); Platelet Count 190 T/CUMM (130-400); Red Cell Distribution Width 15.9 % (9.3-17.3); White Blood Count 5.7 T/CUMM (4-12)
[2021-07-07] MEDS: SODIUM CHLORIDE 0.9% 1,000 ML IV SCH ×3 (01:27→22:34)
[2021-07-07] MEDS: MORPHINE 2 MG/1 ML SYRINGE IV PRN (03:12)
[2021-07-07 05:44] LABS: Calcium 9.8 MG/DL (8.5-10.1); Osmolality,Calculated 277.7 MOS/KG (273-304)
[2021-07-07] MEDS: PANTOPRAZOLE 40 MG TABLET PO SCH (06:28)
[2021-07-07 07:59] LABS: Basophils % 0.2 % (0.0-0.8); Eosinophils # 0.1 10*3/uL (0.0-0.87); Eosinophils % 1.6 % (0.00-10.9); Hematocrit 21.8 VOL% (42.0-52.0); Immature Granulocytes % 0.7 %; Immature Granulocytes Absolute 0.03 #; Lymphocytes # 0.9 10*3/uL (1.4-4.0); Lymphocytes % 21.3 % (21.2-54.2); Mean Corpuscular HGB Conc 32.1 GM/DL (32-36); Mean Corpuscular Volume 100.5 FL (87-102); Mean Platelet Volume 9.2 FL (9.6-12.0); Neutrophils % 60.2 % (38.7-73.9); Platelet Count 179 T/CUMM (130-400); Red Blood Count 2.17 MC/CUMM (3.8-5.5); Red Cell Distribution Width 16.1 % (9.3-17.3); White Blood Count 4.3 T/CUMM (4-12)
[2021-07-07 08:24] LABS: Band Neutrophils 10 % (0-10); Eosinophils 3 % (0-10); Lymphocytes 17 % (20-55); Platelet Estimate Normal; Segmented Neutrophils 57 % (50-85); Total Cells Counted 100
[2021-07-07 08:25] LABS: Anisocytosis 1+; Burr Cells Few; Macrocytosis Slight
[2021-07-07] MEDS: ENOXAPARIN 30 MG/0.3 ML SYRINGE SUBCUT SCH ×2 (15:14→21:13)
[2021-07-07] MEDS: LEVOFLOXACIN INJ 250 MG/50 ML PREMIX IV SCH ×2 (15:14→21:13)
[2021-07-08 05:58] LABS: Basophils % 0.2 % (0.0-0.8); Eosinophils # 0.1 10*3/uL (0.0-0.87); Eosinophils % 1.7 % (0.00-10.9); Hematocrit 22.2 VOL% (42.0-52.0); Hemoglobin 7.5 GM/DL (14.0-18.0); Immature Granulocytes % 1.2 %; Immature Granulocytes Absolute 0.07 #; Lymphocytes # 1.9 10*3/uL (1.4-4.0); Lymphocytes % 32.4 % (21.2-54.2); Mean Corpuscular HGB Conc 33.8 GM/DL (32-36); Mean Corpuscular Volume 98.2 FL (87-102); Mean Platelet Volume 9.1 FL (9.6-12.0); Monocytes % 14.2 % (1.7-12.7); Neutrophils % 50.3 % (38.7-73.9); Platelet Count 189 T/CUMM (130-400); Red Blood Count 2.26 MC/CUMM (3.8-5.5); White Blood Count 5.8 T/CUMM (4-12)
[2021-07-08] MEDS: PANTOPRAZOLE 40 MG TABLET PO SCH (06:15)
[2021-07-08] MEDS: SODIUM CHLORIDE 0.9% 1,000 ML IV SCH (06:16)
[2021-07-08 06:27] LABS: Alanine Aminotransferase < 6 U/L (16-61); Albumin 2.4 G/DL (3.4-5.0); Alkaline Phosphatase 57 U/L (45-117); Aspartate Amino Transferase 15 U/L (0-37); Bilirubin,Total < 0.39 MG/DL (0.20-1.00); Blood Urea Nitrogen 21 MG/DL (7-18); Calcium 9.9 MG/DL (8.5-10.1); Carbon Dioxide 22 MMOL/L (21-32); Estimated Glom Filtration Rate 33 ML/MIN; Glucose 74 MG/DL (74-106); Potassium 3.8 MMOL/L (3.5-5.1); Sodium 136 MMOL/L (136-145); Total Protein 7.3 G/DL (6.4-8.2)
[2021-07-08] MEDS ORDERED: SODIUM CHLORIDE 0.9% 1,000 ML IV PRN (10:45)
[2021-07-08] MEDS: SERTRALINE 100 MG TABLET PO SCH (21:45)
[2021-07-08] MEDS: ENOXAPARIN 30 MG/0.3 ML SYRINGE SUBCUT SCH (21:45)
[2021-07-08] MEDS: LEVOFLOXACIN INJ 250 MG/50 ML PREMIX IV SCH (21:46)
[2021-07-09] MEDS: PANTOPRAZOLE 40 MG TABLET PO SCH (06:04)
[2021-07-09 07:05] LABS: Basophils % 0.4 % (0.0-0.8); Eosinophils # 0.1 10*3/uL (0.0-0.87); Hematocrit 22.5 VOL% (42.0-52.0); Hemoglobin 7.7 GM/DL (14.0-18.0); Immature Granulocytes % 1.6 %; Immature Granulocytes Absolute 0.08 #; Lymphocytes # 1.3 10*3/uL (1.4-4.0); Lymphocytes % 26.3 % (21.2-54.2); Mean Corpuscular HGB Conc 34.2 GM/DL (32-36); Mean Corpuscular Volume 96.6 FL (87-102); Mean Platelet Volume 8.8 FL (9.6-12.0); Neutrophils % 53.7 % (38.7-73.9); Platelet Count 182 T/CUMM (130-400); Red Blood Count 2.33 MC/CUMM (3.8-5.5); Red Cell Distribution Width 16.1 % (9.3-17.3); White Blood Count 4.9 T/CUMM (4-12)
[2021-07-09 07:41] LABS: Alanine Aminotransferase < 9 U/L (16-61); Albumin 2.2 G/DL (3.4-5.0); Alkaline Phosphatase 55 U/L (45-117); Aspartate Amino Transferase 18 U/L (0-37); Blood Urea Nitrogen 17 MG/DL (7-18); Calcium 9.3 MG/DL (8.5-10.1); Carbon Dioxide 21 MMOL/L (21-32); Estimated Glom Filtration Rate 32 ML/MIN; Glucose 78 MG/DL (74-106); Osmolality,Calculated 281.3 MOS/KG (273-304); Potassium 3.9 MMOL/L (3.5-5.1); Sodium 141 MMOL/L (136-145); Total Protein 6.9 G/DL (6.4-8.2)
[2021-07-09 08:09] LABS: Anisocytosis 1+; Atypical Lymphocytes Few; Band Neutrophils 2 % (0-10); Eosinophils 2 % (0-10); Hypochromasia Slight; Lymphocytes 11 % (20-55); Segmented Neutrophils 67 % (50-85); Total Cells Counted 100
[2021-07-09 08:10] LABS: Burr Cells Few; Ovalocytes Few; Platelet Estimate Adequate; Polychromasia Slight; Tear Drop Cells Few
[2021-07-09] MEDS: SERTRALINE 100 MG TABLET PO SCH (21:35)
[2021-07-09] MEDS: ENOXAPARIN 30 MG/0.3 ML SYRINGE SUBCUT SCH (21:35)
[2021-07-09] MEDS: LEVOFLOXACIN INJ 250 MG/50 ML PREMIX IV SCH (21:35)
[2021-07-10 05:16] LABS: Basophils % 0.2 % (0.0-0.8); Eosinophils # 0.1 10*3/uL (0.0-0.87); Eosinophils % 1.6 % (0.00-10.9); Hematocrit 21.4 VOL% (42.0-52.0); Immature Granulocytes % 1.6 %; Immature Granulocytes Absolute 0.08 #; Lymphocytes # 1.2 10*3/uL (1.4-4.0); Lymphocytes % 23.5 % (21.2-54.2); Mean Corpuscular HGB Conc 32.7 GM/DL (32-36); Mean Corpuscular Volume 97.7 FL (87-102); Mean Platelet Volume 8.7 FL (9.6-12.0); Monocytes % 11.7 % (1.7-12.7); Neutrophils % 61.4 % (38.7-73.9); Platelet Count 185 T/CUMM (130-400); Red Blood Count 2.19 MC/CUMM (3.8-5.5); Red Cell Distribution Width 16.3 % (9.3-17.3); White Blood Count 5.1 T/CUMM (4-12)
[2021-07-10 05:34] LABS: Albumin 2.4 G/DL (3.4-5.0); Bilirubin,Total 0.4 MG/DL (0.20-1.00); Calcium 9.2 MG/DL (8.5-10.1); Osmolality,Calculated 278.4 MOS/KG (273-304); Potassium 3.6 MMOL/L (3.5-5.1); Total Protein 7.2 G/DL (6.4-8.2)
[2021-07-10] MEDS: PANTOPRAZOLE 40 MG TABLET PO SCH (09:28)
[2021-07-10] MEDS: SERTRALINE 100 MG TABLET PO SCH (21:03)
[2021-07-10] MEDS: LEVOFLOXACIN INJ 250 MG/50 ML PREMIX IV SCH (21:04)
[2021-07-10] MEDS: ENOXAPARIN 30 MG/0.3 ML SYRINGE SUBCUT SCH (21:04)
[2021-07-11 06:07] LABS: Eosinophils # 0.1 10*3/uL (0.0-0.87); Eosinophils % 2.1 % (0.00-10.9); Hematocrit 26.4 VOL% (42.0-52.0); Immature Granulocytes % 1.7 %; Immature Granulocytes Absolute 0.08 #; Lymphocytes # 1.1 10*3/uL (1.4-4.0); Lymphocytes % 23.9 % (21.2-54.2); Mean Corpuscular HGB Conc 33.3 GM/DL (32-36); Mean Corpuscular Volume 95.7 FL (87-102); Mean Platelet Volume 8.6 FL (9.6-12.0); Monocytes % 11.1 % (1.7-12.7); Neutrophils % 61.2 % (38.7-73.9); Platelet Count 175 T/CUMM (130-400); Red Cell Distribution Width 16.3 % (9.3-17.3); White Blood Count 4.8 T/CUMM (4-12)
[2021-07-11] MEDS: PANTOPRAZOLE 40 MG TABLET PO SCH (06:25)
[2021-07-11 06:29] LABS: Red Blood Count 2.76 MC/CUMM (3.8-5.5)
[2021-07-11 06:30] LABS: Hemoglobin 8.8 GM/DL (14.0-18.0)
[2021-07-11 07:46] LABS: Alanine Aminotransferase 10 U/L (16-61); Albumin 2.4 G/DL (3.4-5.0); Alkaline Phosphatase 59 U/L (45-117); Aspartate Amino Transferase 20 U/L (0-37); Bilirubin,Total < 0.39 MG/DL (0.20-1.00); Blood Urea Nitrogen 14 MG/DL (7-18); Carbon Dioxide 22 MMOL/L (21-32); Estimated Glom Filtration Rate 33 ML/MIN; Glucose 76 MG/DL (74-106); Osmolality,Calculated 280.3 MOS/KG (273-304); Potassium 3.5 MMOL/L (3.5-5.1); Sodium 141 MMOL/L (136-145); Total Protein 7.2 G/DL (6.4-8.2)
[2021-07-11] MEDS ORDERED: CARBOXYMETHYLCELLULOSE 1% OPH SOLN BOTH EYES PRN (11:02)
[2021-07-11] MEDS: CARBOXYMETHYLCELLULOSE 1% OPH SOLN BOTH EYES SCH ×3 (13:13→20:35)
[2021-07-11] MEDS: SERTRALINE 100 MG TABLET PO SCH (20:35)
[2021-07-11] MEDS: LEVOFLOXACIN INJ 250 MG/50 ML PREMIX IV SCH (20:35)
[2021-07-11] MEDS: ENOXAPARIN 30 MG/0.3 ML SYRINGE SUBCUT SCH (20:35)
[2021-07-12] MEDS: PANTOPRAZOLE 40 MG TABLET PO SCH (06:02)
[2021-07-12 06:06] LABS: Basophils % 0.2 % (0.0-0.8); Eosinophils # 0.1 10*3/uL (0.0-0.87); Eosinophils % 1.8 % (0.00-10.9); Hematocrit 27.4 VOL% (42.0-52.0); Hemoglobin 8.8 GM/DL (14.0-18.0); Immature Granulocytes % 3.1 %; Immature Granulocytes Absolute 0.17 #; Lymphocytes # 1.5 10*3/uL (1.4-4.0); Lymphocytes % 26.6 % (21.2-54.2); Mean Corpuscular HGB Conc 32.1 GM/DL (32-36); Mean Corpuscular Volume 97.5 FL (87-102); Mean Platelet Volume 8.4 FL (9.6-12.0); Monocytes % 11.7 % (1.7-12.7); Neutrophils % 56.6 % (38.7-73.9); Platelet Count 168 T/CUMM (130-400); Red Blood Count 2.81 MC/CUMM (3.8-5.5); Red Cell Distribution Width 16.6 % (9.3-17.3); White Blood Count 5.5 T/CUMM (4-12)
[2021-07-12 06:53] LABS: Albumin 2.5 G/DL (3.4-5.0); Bilirubin,Total 0.9 MG/DL (0.20-1.00); Calcium 8.8 MG/DL (8.5-10.1); Osmolality,Calculated 282.1 MOS/KG (273-304); Potassium 3.7 MMOL/L (3.5-5.1); Total Protein 7.5 G/DL (6.4-8.2)
[2021-07-12] MEDS: CARBOXYMETHYLCELLULOSE 1% OPH SOLN BOTH EYES SCH ×2 (09:29→14:40)
[2021-07-12] MEDS ORDERED: NITROGLYCERIN SL 0.4 MG TABLET SL PRN (11:46)
[2021-07-12 11:49] VITALS: BP 124/47
[2021-07-12] MEDS ORDERED: carvediloL 3.125 MG TABLET PO SCH (17:00)
[2021-07-12] MEDS ORDERED: ATORVASTATIN 40 MG TABLET PO SCH (21:00)
[2021-07-13] MEDS ORDERED: ASPIRIN EC 81 MG TABLET PO SCH (09:00)
== END 2021-07-12 16:45 | disposition home health service (06) | DRG 682 ==
LOC: EDBD → EDUNIT# → N.ED 11:50 → N.EDINP 13:33 → SUATTDRO 13:33 → N.EDINP 16:50 → N.2W 17:23 → N.4E 07-07 10:47 → N.2E 07-07 11:47
PROVIDERS: ADMIT Internal Medicine; ATTEND Internal Medicine

== ENCOUNTER 2021-08-17 13:00 | Observation (INO) ==
[2021-08-17 14:02] LABS: Immature Granulocytes % 1.2 %; Immature Granulocytes Absolute 0.06 #; Lymphocytes # 0.8 10*3/uL (1.4-4.0); Lymphocytes % 16.2 % (21.2-54.2); Mean Corpuscular HGB Conc 31.6 GM/DL (32-36); Mean Corpuscular Volume 99.5 FL (87-102); Mean Platelet Volume 9.5 FL (9.6-12.0); Monocytes % 9.1 % (1.7-12.7); NRBC # 0.28 10*3/uL; Neutrophils % 73.5 % (38.7-73.9); Platelet Count 113 T/CUMM (130-400); Red Blood Count 1.91 MC/CUMM (3.8-5.5); Red Cell Distribution Width 15.9 % (9.3-17.3); White Blood Count 4.9 T/CUMM (4-12)
[2021-08-17 14:17] LABS: Albumin 2.8 G/DL (3.4-5.0); Bilirubin,Total 0.4 MG/DL (0.20-1.00); Calcium 8.1 MG/DL (8.5-10.1); Osmolality,Calculated 288.8 MOS/KG (273-304); Potassium 4.1 MMOL/L (3.5-5.1); Total Protein 8.1 G/DL (6.4-8.2)
[2021-08-17] MEDS ORDERED: SODIUM CHLORIDE 0.9% 1,000 ML IV PRN ×2 (14:40→15:17)
[2021-08-17] MEDS ORDERED: ONDANSETRON 4 MG/2 ML VIAL IV PRN (15:02)
[2021-08-17] MEDS ORDERED: GLUCAGON 1 MG VIAL IM PRN (15:02)
[2021-08-17] MEDS ORDERED: ACETAMINOPHEN 325 MG TABLET PO PRN (15:02)
[2021-08-17] MEDS ORDERED: DEXTROSE 50% 25 GM/50 ML SYRINGE IV PRN (15:07)
[2021-08-18 05:18] LABS: Hemoglobin 6.5 GM/DL (14.0-18.0); Immature Granulocytes % 1.4 %; Immature Granulocytes Absolute 0.05 #; Lymphocytes # 0.6 10*3/uL (1.4-4.0); Mean Corpuscular HGB Conc 32.5 GM/DL (32-36); Mean Corpuscular Volume 98.5 FL (87-102); Mean Platelet Volume 9.7 FL (9.6-12.0); Monocytes % 10.4 % (1.7-12.7); NRBC # 0.07 10*3/uL; Neutrophils % 70.2 % (38.7-73.9); Platelet Count 100 T/CUMM (130-400); Red Blood Count 2.03 MC/CUMM (3.8-5.5); Red Cell Distribution Width 15.9 % (9.3-17.3); White Blood Count 3.6 T/CUMM (4-12)
[2021-08-18 05:23] LABS: Calcium 8.2 MG/DL (8.5-10.1); Osmolality,Calculated 281.8 MOS/KG (273-304); Potassium 3.9 MMOL/L (3.5-5.1)
[2021-08-19 09:14] LABS: Albumin 2.6 G/DL (3.4-5.0); Bilirubin,Total 0.6 MG/DL (0.20-1.00); Calcium 8.4 MG/DL (8.5-10.1); Osmolality,Calculated 289.1 MOS/KG (273-304); Potassium 4.2 MMOL/L (3.5-5.1); Total Protein 7.8 G/DL (6.4-8.2)
[2021-08-19] MEDS ORDERED: NITROGLYCERIN SL 0.4 MG TABLET SL PRN (13:05)
[2021-08-19] MEDS: carvediloL 3.125 MG TABLET PO SCH (20:26)
[2021-08-19] MEDS: SERTRALINE 100 MG TABLET PO SCH (20:26)
[2021-08-20 03:59] LABS: Hematocrit 21.2 VOL% (42.0-52.0); Hemoglobin 6.8 GM/DL (14.0-18.0); Immature Granulocytes % 0.7 %; Immature Granulocytes Absolute 0.03 #; Lymphocytes # 0.7 10*3/uL (1.4-4.0); Mean Corpuscular HGB Conc 32.1 GM/DL (32-36); Mean Corpuscular Volume 99.1 FL (87-102); Mean Platelet Volume 9.7 FL (9.6-12.0); Monocytes % 14.1 % (1.7-12.7); NRBC # 0.02 10*3/uL; Neutrophils % 67.2 % (38.7-73.9); Platelet Count 104 T/CUMM (130-400); Red Blood Count 2.14 MC/CUMM (3.8-5.5); Red Cell Distribution Width 15.5 % (9.3-17.3); White Blood Count 4.1 T/CUMM (4-12)
[2021-08-20 04:17] LABS: Albumin 2.5 G/DL (3.4-5.0); Bilirubin,Total 0.7 MG/DL (0.20-1.00); Calcium 8.5 MG/DL (8.5-10.1); Osmolality,Calculated 285.4 MOS/KG (273-304); Potassium 4.2 MMOL/L (3.5-5.1); Total Protein 7.7 G/DL (6.4-8.2)
[2021-08-20 04:34] LABS: Band Neutrophils 2 % (0-10); Hypochromia 1+; Lymphocytes 17 % (20-55); Metamyelocytes 2 %; Segmented Neutrophils 70 % (50-85); Total Cells Counted 100
[2021-08-20 04:35] LABS: Microcytosis Slight; Platelet Estimate Decreased
[2021-08-20] MEDS: ASPIRIN EC 81 MG TABLET PO SCH (08:40)
[2021-08-20] MEDS: carvediloL 3.125 MG TABLET PO SCH ×2 (08:40→20:59)
[2021-08-20] MEDS: CYANOCOBALAMIN 500 MCG TABLET PO SCH (08:40)
[2021-08-20] MEDS: SERTRALINE 100 MG TABLET PO SCH (20:59)
[2021-08-21 05:54] LABS: Eosinophils % 0.2 % (0.00-10.9); Hematocrit 27.1 VOL% (42.0-52.0); Hemoglobin 8.7 GM/DL (14.0-18.0); Immature Granulocytes % 0.2 %; Immature Granulocytes Absolute 0.01 #; Lymphocytes # 0.7 10*3/uL (1.4-4.0); Lymphocytes % 17.2 % (21.2-54.2); Mean Corpuscular HGB Conc 32.1 GM/DL (32-36); Mean Corpuscular Volume 93.4 FL (87-102); Mean Platelet Volume 9.6 FL (9.6-12.0); Neutrophils % 66.4 % (38.7-73.9); Platelet Count 107 T/CUMM (130-400); Red Cell Distribution Width 18.3 % (9.3-17.3)
[2021-08-21 06:17] LABS: Hypochromia 1+; Lymphocytes 18 % (20-55); Microcytosis 1+; Nucleated Red Blood Cells 1 (0-5); Platelet Estimate Decreased; Segmented Neutrophils 70 % (50-85); Total Cells Counted 100
[2021-08-21 06:18] LABS: Albumin 2.6 G/DL (3.4-5.0); Bilirubin,Total 0.9 MG/DL (0.20-1.00); Calcium 8.2 MG/DL (8.5-10.1); Osmolality,Calculated 285.3 MOS/KG (273-304); Potassium 4.2 MMOL/L (3.5-5.1); Total Protein 7.3 G/DL (6.4-8.2)
[2021-08-21] MEDS: ASPIRIN EC 81 MG TABLET PO SCH (08:26)
[2021-08-21] MEDS: CYANOCOBALAMIN 500 MCG TABLET PO SCH (08:26)
[2021-08-21] MEDS: carvediloL 3.125 MG TABLET PO SCH ×2 (08:26→21:08)
[2021-08-21] MEDS: SERTRALINE 100 MG TABLET PO SCH (21:08)
[2021-08-22 06:06] LABS: Hematocrit 29.7 VOL% (42.0-52.0); Hemoglobin 9.7 GM/DL (14.0-18.0); Immature Granulocytes % 0.7 %; Immature Granulocytes Absolute 0.03 #; Lymphocytes # 0.8 10*3/uL (1.4-4.0); Lymphocytes % 19.1 % (21.2-54.2); Mean Corpuscular HGB Conc 32.7 GM/DL (32-36); Mean Corpuscular Volume 92.5 FL (87-102); Mean Platelet Volume 9.3 FL (9.6-12.0); Monocytes % 16.5 % (1.7-12.7); Neutrophils % 63.7 % (38.7-73.9); Red Blood Count 3.21 MC/CUMM (3.8-5.5); Red Cell Distribution Width 18.4 % (9.3-17.3); White Blood Count 4.2 T/CUMM (4-12)
[2021-08-22 06:11] LABS: Albumin 2.6 G/DL (3.4-5.0); Bilirubin,Total 0.7 MG/DL (0.20-1.00); Calcium 8.6 MG/DL (8.5-10.1); Osmolality,Calculated 280.7 MOS/KG (273-304); Potassium 3.7 MMOL/L (3.5-5.1); Total Protein 7.7 G/DL (6.4-8.2)
[2021-08-22 06:24] LABS: Platelet Count 95 T/CUMM (130-400)
[2021-08-22 06:56] LABS: Band Neutrophils 1 % (0-10); Hypochromia 1+; Lymphocytes 11 % (20-55); Microcytosis 1+; Platelet Estimate Decreased; Segmented Neutrophils 66 % (50-85); Total Cells Counted 100
[2021-08-22] MEDS: carvediloL 3.125 MG TABLET PO SCH ×2 (09:30→21:13)
[2021-08-22] MEDS: CYANOCOBALAMIN 500 MCG TABLET PO SCH (09:30)
[2021-08-22] MEDS: ASPIRIN EC 81 MG TABLET PO SCH (09:30)
[2021-08-22] MEDS: SERTRALINE 100 MG TABLET PO SCH (21:13)
[2021-08-23 06:13] LABS: Hematocrit 27.7 VOL% (42.0-52.0); Hemoglobin 8.8 GM/DL (14.0-18.0); Immature Granulocytes % 0.6 %; Immature Granulocytes Absolute 0.05 #; Lymphocytes # 1.7 10*3/uL (1.4-4.0); Lymphocytes % 19.6 % (21.2-54.2); Mean Corpuscular HGB Conc 31.8 GM/DL (32-36); Mean Corpuscular Volume 94.2 FL (87-102); Mean Platelet Volume 9.3 FL (9.6-12.0); Monocytes % 13.2 % (1.7-12.7); Neutrophils % 66.6 % (38.7-73.9); Platelet Count 113 T/CUMM (130-400); Red Blood Count 2.94 MC/CUMM (3.8-5.5); White Blood Count 8.5 T/CUMM (4-12)
[2021-08-23 06:24] LABS: Albumin 2.8 G/DL (3.4-5.0); Bilirubin,Total 0.9 MG/DL (0.20-1.00); Calcium 8.7 MG/DL (8.5-10.1); Osmolality,Calculated 283.1 MOS/KG (273-304); Potassium 4.4 MMOL/L (3.5-5.1); Total Protein 8.2 G/DL (6.4-8.2)
[2021-08-23] MEDS: ASPIRIN EC 81 MG TABLET PO SCH (09:08)
[2021-08-23] MEDS: ATORVASTATIN 40 MG TABLET PO SCH (09:09)
[2021-08-23] MEDS: CYANOCOBALAMIN 500 MCG TABLET PO SCH (09:09)
[2021-08-23] MEDS: carvediloL 3.125 MG TABLET PO SCH ×2 (09:09→20:35)
[2021-08-23] MEDS ORDERED: ALUMINUM/MAGNES/SIMETH MAX STR 30 ML UDCUP PO PRN (11:15)
[2021-08-23] MEDS ORDERED: traMADol 50 MG TABLET PO PRN (11:15)
[2021-08-23] MEDS ORDERED: MAGNESIUM HYDROXIDE SUSP 30 ML UDCUP PO PRN (11:15)
[2021-08-23] MEDS ORDERED: MYLANTA/LIDO VISC 2:1 300 ML BOTTLE SWISH/SPIT PRN (11:15)
[2021-08-23] MEDS ORDERED: diphenhydrAMINE CAP 25 MG CAPSULE PO PRN (11:15)
[2021-08-23] MEDS ORDERED: LACTULOSE 20 GM/30 ML UDCUP PO PRN (11:15)
[2021-08-23] MEDS ORDERED: ONDANSETRON 4 MG/2 ML VIAL IV PRN (11:15)
[2021-08-23] MEDS ORDERED: LOPERAMIDE 2 MG CAPSULE PO PRN ×2 (11:15)
[2021-08-23] MEDS ORDERED: MYLANTA/LIDO VISC 2:1 300 ML BOTTLE SWISH/SWAL PRN (11:15)
[2021-08-23] MEDS ORDERED: guaiFENesin 200 MG/10 ML UDCUP PO PRN (11:15)
[2021-08-23] MEDS ORDERED: PROMETHAZINE INJ 25 MG in SODIUM CHLORIDE 0.9% 50 ML IV PRN (11:15)
[2021-08-23] MEDS ORDERED: TEMAZEPAM 7.5 MG CAPSULE PO PRN (11:15)
[2021-08-23] MEDS ORDERED: ALPRAZolam 0.25 MG TABLET PO PRN (11:15)
[2021-08-23] MEDS ORDERED: SERTRALINE 50 MG TABLET PO SCH (21:00)
[2021-08-24 07:04] LABS: Hematocrit 27.7 VOL% (42.0-52.0); Immature Granulocytes % 0.5 %; Immature Granulocytes Absolute 0.04 #; Lymphocytes # 1.1 10*3/uL (1.4-4.0); Lymphocytes % 13.3 % (21.2-54.2); Mean Corpuscular HGB Conc 32.5 GM/DL (32-36); Mean Corpuscular Volume 92.3 FL (87-102); Mean Platelet Volume 9.4 FL (9.6-12.0); Monocytes % 6.9 % (1.7-12.7); NRBC # 0.02 10*3/uL; Neutrophils % 79.3 % (38.7-73.9); Platelet Count 101 T/CUMM (130-400); Red Cell Distribution Width 17.9 % (9.3-17.3); White Blood Count 8.1 T/CUMM (4-12)
[2021-08-24 07:35] LABS: Calcium 8.6 MG/DL (8.5-10.1); Osmolality,Calculated 282.7 MOS/KG (273-304); Total Protein 9.1 G/DL (6.4-8.2)
[2021-08-24 08:09] VITALS: BP 145/99
[2021-08-24] MEDS: ASPIRIN EC 81 MG TABLET PO SCH (09:13)
[2021-08-24] MEDS: carvediloL 3.125 MG TABLET PO SCH (09:13)
[2021-08-24] MEDS: ATORVASTATIN 40 MG TABLET PO SCH (09:13)
[2021-08-24] MEDS: CYANOCOBALAMIN 500 MCG TABLET PO SCH (09:13)
[2021-08-24] MEDS ORDERED: HEPARIN LOCK FLUSH 500 UNIT/5 ML SYRINGE IV PRN (14:04)
== END 2021-08-24 16:18 | disposition home health service (06) ==
LOC: EDUNIT# → N.EDINP 13:00 → N.ED 13:00 → N.TELES 22:27
PROVIDERS: ADMIT Internal Medicine Geriatric Medicine; ATTEND Specialist

== ENCOUNTER 2021-08-27 15:01 | Inpatient (IN) ==
[2021-08-27] MEDS ORDERED: SODIUM CHLORIDE 0.9% 1,000 ML IV STA ×2 (15:16→17:01)
[2021-08-27 16:10] LABS: Basophils % 0.2 % (0.0-0.8); Hematocrit 26.9 VOL% (42.0-52.0); Hemoglobin 8.5 GM/DL (14.0-18.0); Immature Granulocytes % 1.5 %; Immature Granulocytes Absolute 0.09 #; Lymphocytes # 0.1 10*3/uL (1.4-4.0); Lymphocytes % 2.2 % (21.2-54.2); Mean Corpuscular HGB Conc 31.6 GM/DL (32-36); Mean Corpuscular Volume 93.4 FL (87-102); Mean Platelet Volume 9.6 FL (9.6-12.0); Monocytes % 1.8 % (1.7-12.7); NRBC # 0.12 10*3/uL; Neutrophils % 94.3 % (38.7-73.9); Platelet Count 53 T/CUMM (130-400); Red Blood Count 2.88 MC/CUMM (3.8-5.5); Red Cell Distribution Width 17.2 % (9.3-17.3)
[2021-08-27 16:25] LABS: ABG HCO3 17.8 MMOL/L (20-26); ABG Oxygen Saturation 94.4 % (95-100); ABG PCO2 48.2 MM HG (35-48); ABG PH 7.216 (7.35-7.45); ABG PO2 83.2 MM HG (80-95); ABG TCO2 18.6 MMOL/L (23-27)
[2021-08-27 16:31] LABS: Albumin 2.3 G/DL (3.4-5.0); Bilirubin,Total 0.5 MG/DL (0.20-1.00); Calcium 6.4 MG/DL (8.5-10.1); Osmolality,Calculated 300.7 MOS/KG (273-304); Potassium 3.8 MMOL/L (3.5-5.1); Total Protein 6.9 G/DL (6.4-8.2)
[2021-08-27 17:04] LABS: Bacteria,Urine Occasional /HPF (Few); Bilirubin,Urine Negative (Negative); Blood, Urine Small mg/dL (Negative); Glucose,Urine (UA) Negative (Negative); Hyaline Casts,Urine 8 /LPF (0-3); Ketones,Urine Negative (Negative); Mucus,Urine Occasional /LPF (Occasional); Nitrite,Urine Negative (Negative); Protein,Urine 100 MG/DL; Squamous Epithelial Cell,Urine Occasional /HPF (0-10); Urine Appearance CLOUDY (Clear); Urine Color Yellow (Yellow); Urine Specific Gravity 1.013 (1.001-1.035); Urine Urobilinogen < 2.0 EU/DL (<2.0)
[2021-08-27 17:54] LABS: Band Neutrophils 1 % (0-10); Lymphocytes 6 % (20-55); Metamyelocytes 1 %; Nucleated Red Blood Cells 1 (0-5); Platelet Estimate Decreased; Segmented Neutrophils 91 % (50-85); Total Cells Counted 100
[2021-08-27] MEDS ORDERED: GLUCAGON 1 MG VIAL IM PRN (18:11)
[2021-08-27] MEDS ORDERED: DEXTROSE 10% 250 ML BAG IV PRN (18:29)
[2021-08-27] MEDS ORDERED: HYDROCORTISONE 100 MG VIAL IV ONE (20:08)
[2021-08-27] MEDS: LACTATED RINGERS 1,000 ML IV SCH (20:35)
[2021-08-27] MEDS: MEROPENEM 500 MG in SODIUM CHLORIDE 0.9% 100 ML IV SCH (20:37)
[2021-08-27 20:44] LABS: INR 1.2; PT Patient Result 12.8 SECS (10.5-12.0); Partial Thromboplastin Time 29.4 SECS (23.8-32.1)
[2021-08-27 22:26] LABS: Barbiturates Screen,Urine Negative (Negative); Benzodiazepines Screen,Urine Positive (Negative); Cannabinoid Screen,Urine Negative (Negative); Opiate Screen,Urine Negative (Negative); Phencyclidine Screen,Urine Negative (Negative)
[2021-08-27 22:30] LABS: Hematocrit 27.2 VOL% (42.0-52.0); Hemoglobin 8.4 GM/DL (14.0-18.0)
[2021-08-27] MEDS: PANTOPRAZOLE 40 MG VIAL IV SCH (23:08)
[2021-08-28] MEDS: LACTATED RINGERS 1,000 ML IV SCH ×2 (03:47→11:24)
[2021-08-28] MEDS: MEROPENEM 500 MG in SODIUM CHLORIDE 0.9% 100 ML IV SCH ×3 (03:47→21:32)
[2021-08-28 05:44] LABS: Hematocrit 27.6 VOL% (42.0-52.0); Hemoglobin 8.5 GM/DL (14.0-18.0); Immature Granulocytes Absolute 0.14 #; Lymphocytes # 0.4 10*3/uL (1.4-4.0); Lymphocytes % 4.9 % (21.2-54.2); Mean Corpuscular HGB Conc 30.8 GM/DL (32-36); Mean Corpuscular Volume 95.8 FL (87-102); Mean Platelet Volume 10.4 FL (9.6-12.0); Monocytes % 4.6 % (1.7-12.7); NRBC # 0.06 10*3/uL; Neutrophils % 88.5 % (38.7-73.9); Platelet Count 48 T/CUMM (130-400); Red Blood Count 2.88 MC/CUMM (3.8-5.5); White Blood Count 7.1 T/CUMM (4-12)
[2021-08-28 06:48] LABS: Albumin 2.3 G/DL (3.4-5.0); Band Neutrophils 5 % (0-10); Bilirubin,Total 1.3 MG/DL (0.20-1.00); Calcium 6.8 MG/DL (8.5-10.1); Lymphocytes 8 % (20-55); Nucleated Red Blood Cells 1 (0-5); Osmolality,Calculated 301.7 MOS/KG (273-304); Potassium 4.6 MMOL/L (3.5-5.1); Segmented Neutrophils 85 % (50-85); Total Cells Counted 100; Total Protein 7.3 G/DL (6.4-8.2)
[2021-08-28 06:49] LABS: Platelet Estimate Decreased
[2021-08-28 06:50] LABS: Burr Cells Few; Elliptocytes 1+
[2021-08-28] MEDS: PANTOPRAZOLE 40 MG VIAL IV SCH ×2 (09:08→21:31)
[2021-08-28] MEDS: SODIUM BICARB INJ 50 MEQ in SODIUM CHLORIDE 0.45% 1,000 ML IV SCH ×2 (14:40→22:05)
[2021-08-29] MEDS: MEROPENEM 500 MG in SODIUM CHLORIDE 0.9% 100 ML IV SCH ×3 (03:57→21:50)
[2021-08-29] MEDS: SODIUM BICARB INJ 50 MEQ in SODIUM CHLORIDE 0.45% 1,000 ML IV SCH ×2 (07:01→19:52)
[2021-08-29] MEDS ORDERED: DEXTROSE 50% 25 GM/50 ML VIAL IV PRN (08:28)
[2021-08-29] MEDS: PANTOPRAZOLE 40 MG VIAL IV SCH ×2 (09:05→21:51)
[2021-08-29] MEDS: DEXTROSE 10% 250 ML BAG IV PRN (09:05)
[2021-08-29 09:44] LABS: Calcium 6.8 MG/DL (8.5-10.1); Osmolality,Calculated 304.3 MOS/KG (273-304); Potassium 4.2 MMOL/L (3.5-5.1)
[2021-08-30] MEDS: MORPHINE 2 MG/1 ML SYRINGE IV PRN ×2 (02:48→14:47)
[2021-08-30] MEDS: MEROPENEM 500 MG in SODIUM CHLORIDE 0.9% 100 ML IV SCH ×2 (04:01→12:07)
[2021-08-30] MEDS: SODIUM BICARB INJ 50 MEQ in SODIUM CHLORIDE 0.45% 1,000 ML IV SCH ×2 (06:34→19:25)
[2021-08-30 06:44] LABS: Basophils % 0.2 % (0.0-0.8); Hematocrit 26.6 VOL% (42.0-52.0); Hemoglobin 8.3 GM/DL (14.0-18.0); Immature Granulocytes % 1.5 %; Lymphocytes # 0.5 10*3/uL (1.4-4.0); Lymphocytes % 7.3 % (21.2-54.2); Mean Corpuscular HGB Conc 31.2 GM/DL (32-36); Mean Corpuscular Volume 94.3 FL (87-102); Mean Platelet Volume 10.9 FL (9.6-12.0); Monocytes % 8.5 % (1.7-12.7); NRBC # 0.04 10*3/uL; Neutrophils % 82.5 % (38.7-73.9); Platelet Count 47 T/CUMM (130-400); Red Blood Count 2.82 MC/CUMM (3.8-5.5); Red Cell Distribution Width 18.9 % (9.3-17.3); White Blood Count 6.6 T/CUMM (4-12)
[2021-08-30 07:12] LABS: Band Neutrophils 1 % (0-10); Hypochromia 1+; Lymphocytes 8 % (20-55); Microcytosis 1+; Nucleated Red Blood Cells 1 (0-5); Platelet Estimate Decreased; Segmented Neutrophils 88 % (50-85); Total Cells Counted 100
[2021-08-30 07:17] LABS: Calcium 7.5 MG/DL (8.5-10.1); Osmolality,Calculated 302.1 MOS/KG (273-304)
[2021-08-30 07:24] LABS: Albumin 2.2 G/DL (3.4-5.0); Bilirubin,Direct 0.27 MG/DL (0.0-0.20); Bilirubin,Indirect 0.4 MG/DL (0.0-1.0); Bilirubin,Total 0.7 MG/DL (0.20-1.00); Total Protein 6.4 G/DL (6.4-8.2)
[2021-08-30] MEDS: PANTOPRAZOLE 40 MG VIAL IV SCH ×2 (08:09→20:22)
[2021-08-30] MEDS ORDERED: VANCOMYCIN INJ 1,000 MG in SODIUM CHLORIDE 0.9% 250 ML IV ONE (08:30)
[2021-08-30] MEDS: DEXTROSE 10% 250 ML BAG IV PRN (11:16)
[2021-08-30] MEDS: AMPICILLIN INJ 1,000 MG in SODIUM CHLORIDE 0.9% 100 ML IV SCH (17:34)
[2021-08-31] MEDS: AMPICILLIN INJ 1,000 MG in SODIUM CHLORIDE 0.9% 100 ML IV SCH (04:20)
[2021-08-31] MEDS: SODIUM BICARB INJ 50 MEQ in SODIUM CHLORIDE 0.45% 1,000 ML IV SCH (06:06)
[2021-08-31 06:16] LABS: Basophils % 0.2 % (0.0-0.8); Eosinophils % 0.2 % (0.00-10.9); Hematocrit 28.2 VOL% (42.0-52.0); Hemoglobin 8.7 GM/DL (14.0-18.0); Immature Granulocytes % 4.2 %; Immature Granulocytes Absolute 0.26 #; Lymphocytes # 0.6 10*3/uL (1.4-4.0); Lymphocytes % 9.2 % (21.2-54.2); Mean Corpuscular HGB Conc 30.9 GM/DL (32-36); Mean Corpuscular Volume 96.6 FL (87-102); Mean Platelet Volume 10.4 FL (9.6-12.0); Monocytes % 8.6 % (1.7-12.7); NRBC # 0.05 10*3/uL; Neutrophils % 77.6 % (38.7-73.9); Red Blood Count 2.92 MC/CUMM (3.8-5.5); White Blood Count 6.2 T/CUMM (4-12)
[2021-08-31 06:24] LABS: Platelet Count 39 T/CUMM (130-400)
[2021-08-31 06:30] LABS: Hypochromia 1+; Lymphocytes 8 % (20-55); Microcytosis 1+; Nucleated Red Blood Cells 1 (0-5); Platelet Estimate Decreased; Segmented Neutrophils 79 % (50-85); Total Cells Counted 100
[2021-08-31 06:34] LABS: Albumin 2.1 G/DL (3.4-5.0); Bilirubin,Total 0.6 MG/DL (0.20-1.00); Calcium 7.7 MG/DL (8.5-10.1); Potassium 4.3 MMOL/L (3.5-5.1); Total Protein 7.1 G/DL (6.4-8.2)
[2021-08-31] MEDS ORDERED: VANCOMYCIN INJ 1,000 MG in SODIUM CHLORIDE 0.9% 250 ML IV ONE (08:02)
[2021-08-31] MEDS: PANTOPRAZOLE 40 MG VIAL IV SCH ×2 (08:52→21:30)
[2021-08-31] MEDS: SODIUM BICARB INJ 50 MEQ, POTASSIUM CHLORIDE INJ 20 MEQ in DEXTROSE 5% 1,000 ML IV SCH ×2 (10:24→22:26)
[2021-08-31] MEDS: MEROPENEM 1,000 MG in SODIUM CHLORIDE 0.9% 100 ML IV SCH (12:37)
[2021-08-31] MEDS: carvediloL 3.125 MG TABLET PO SCH (22:13)
[2021-09-01] MEDS: MORPHINE 2 MG/1 ML SYRINGE IV PRN (00:01)
[2021-09-01] MEDS: MEROPENEM 1,000 MG in SODIUM CHLORIDE 0.9% 100 ML IV SCH ×2 (00:53→12:09)
[2021-09-01 05:32] LABS: Basophils % 0.1 % (0.0-0.8); Hematocrit 29.4 VOL% (42.0-52.0); Hemoglobin 9.1 GM/DL (14.0-18.0); Immature Granulocytes % 2.1 %; Immature Granulocytes Absolute 0.17 #; Lymphocytes # 1.1 10*3/uL (1.4-4.0); Lymphocytes % 12.8 % (21.2-54.2); Mean Corpuscular Volume 97.4 FL (87-102); Mean Platelet Volume 10.5 FL (9.6-12.0); Monocytes % 9.8 % (1.7-12.7); NRBC # 0.07 10*3/uL; Neutrophils % 75.2 % (38.7-73.9); Platelet Count 43 T/CUMM (130-400); Red Blood Count 3.02 MC/CUMM (3.8-5.5); Red Cell Distribution Width 18.9 % (9.3-17.3); White Blood Count 8.2 T/CUMM (4-12)
[2021-09-01 05:46] LABS: Albumin 2.2 G/DL (3.4-5.0); Calcium 7.9 MG/DL (8.5-10.1); Osmolality,Calculated 310.8 MOS/KG (273-304); Potassium 4.9 MMOL/L (3.5-5.1); Total Protein 7.2 G/DL (6.4-8.2)
[2021-09-01 05:58] LABS: Hypochromia 1+; Lymphocytes 9 % (20-55); Microcytosis 1+; Nucleated Red Blood Cells 1 (0-5); Platelet Estimate Decreased; Segmented Neutrophils 83 % (50-85); Total Cells Counted 100
[2021-09-01] MEDS: SODIUM BICARB INJ 50 MEQ, POTASSIUM CHLORIDE INJ 20 MEQ in DEXTROSE 5% 1,000 ML IV SCH (06:46)
[2021-09-01] MEDS ORDERED: VANCOMYCIN INJ 1,000 MG in SODIUM CHLORIDE 0.9% 250 ML IV ONE (07:53)
[2021-09-01] MEDS ORDERED: HYDROmorphone 2 MG/1 ML VIAL IV PRN (08:16)
[2021-09-01] MEDS: PANTOPRAZOLE 40 MG VIAL IV SCH (09:02)
[2021-09-01] MEDS: carvediloL 3.125 MG TABLET PO SCH (09:03)
[2021-09-01 12:14] VITALS: BP 51/32
[2021-09-01] MEDS ORDERED: LORazepam 2 MG/1 ML VIAL IV PRN (13:44)
[2021-09-01] MEDS ORDERED: BISACODYL 10 MG SUPP RECTAL PRN (13:44)
== END 2021-09-01 14:25 | disposition expired | DRG 871 ==
LOC: N.ED 15:01 → N.3E 15:01 → SUATTDRO 08-29 13:52 → N.TELEN 08-30 12:58
PROVIDERS: ADMIT Internal Medicine; ATTEND Internal Medicine